=== PATIENT | female | born 1960 | race Caucasian/White ===

== ENCOUNTER 2024-01-03 10:26 | Outpatient (OUT) | payer BC, SELFPAY ==
[2024-01-03 10:54] LABS: Basophils Absolute Auto 0.1 10^3/uL (0.0-0.1); Basophils Percent Auto 0.8 % (0.2-2.0); Eosinophils Absolute Auto 0.2 10^3/uL (0.0-0.7); Eosinophils Percent Auto 2.2 % (0.9-7.0); Hematocrit 44.4 % (36.0-48.0); Hemoglobin 14.4 g/dL (12.0-16.0); Immature Granulocytes Abs Auto 0.01 10^3/uL (0.00-0.03); Immature Granulocytes Pct Auto 0.1 % (0.0-0.5); Lymphocytes Absolute Auto 2.2 10^3/uL (1.2-3.8); Lymphocytes Percent Auto 29.5 % (20.5-60.0); Mean Corpuscular HGB Conc 32.4 g/dL (29.9-35.2); Mean Corpuscular Hemoglobin 30.1 pg (26.7-34.0); Mean Corpuscular Volume 92.7 fL (81.0-99.0); Mean Platelet Volume 8.7 fL (9.5-13.5); Monocytes Absolute Auto 0.7 10^3/uL (0.3-0.8); Monocytes Percent Auto 8.6 % (1.7-12.0); Neutrophils Absolute Auto 4.5 10^3/uL (1.4-6.5); Neutrophils Percent Auto 58.8 % (43.0-75.0); Platelet Count 337 10^3/uL (150-450); Red Blood Count 4.79 10^6/uL (4.20-5.40); Red Cell Distribution Width 13.3 % (11.0-15.0); White Blood Count 7.6 10^3/uL (4.0-11.0)
[2024-01-03 12:24] LABS: Alanine Aminotransferase 22 U/L (14-59); Albumin Globulin Ratio 0.9; Albumin Level 3.8 g/dL (3.4-5.0); Alkaline Phosphatase 85 U/L (46-116); Anion Gap 13.1; Aspartate Amino Transferase 27 U/L (15-37); BUN Creatinine Ratio 10.1; Bilirubin Total 0.4 mg/dL (0.2-1.0); Calcium 9.9 mg/dL (8.5-10.1); Carbon Dioxide 30.8 mmol/L (21.0-32.0); Chloride 99 mmol/L (98-107); Estimated GFR (African America >60 (>=60 mL/min/1.73m^2); Estimated GFR (Non-African Ame 51 (>=60 mL/min/1.73m^2); Free T3 3.02 pg/mL (2.18-3.98); Globulin 4.4 g/dL; Glucose 99 mg/dL (74-106); Potassium 3.9 mmol/L (3.5-5.1); Sodium 139 mmol/L (136-145); Thyroid Stimulating Hormone 3.209 uIU/mL (0.358-3.740); Total Protein 8.2 g/dL (6.4-8.2)
[2024-01-03 12:26] LABS: Free T4 0.76 ng/dL (0.76-1.46)
[2024-01-04 04:08] LABS: Thyroid Peroxidase (TPO) Ab 372 IU/mL (0-34)
[2024-01-06 17:07] LABS: Thyroid Stim Immunoglobulin 0.13 IU/L (0.00-0.55)
== END 2024-01-03 10:27 | disposition home or self-care (01) ==
PROVIDERS: PCP Family Medicine; Visit Provider Physician Assistant Surgical
DX: E03.8 Other specified hypothyroidism (principal); E06.3 Autoimmune thyroiditis; R59.0 Localized enlarged lymph nodes
CPT/HCPCS: 36415; 80053; 84439; 84443; 84445; 84481; 85025; 86376

== ENCOUNTER 2025-01-23 06:43 | Outpatient (OUT) | payer BC, SELFPAY ==
--- NOTE | 2025-01-23 06:46 | MM_ITS ---
Patient Name: TRIPP CASTANO MR#: [id number] : 1960 Exam Date: 01/23/2025 Ordering Doctor: DR NIURKA VICENTE M.D. RADIOLOGY REPORT PROCEDURE: MM TOMOSYNTHESIS SCREENING BI COMPARISON: MG MAMM SCREEN AGUILAR W CAD, 01/29/2018. MG MAMM AGUILAR SCRN W CAD DIG, 08/21/2014. INDICATIONS: Screening Calculator Name NCI Breast Cancer Risk Assessment Tool 5 Year Breast Cancer Risk 3.00% Lifetime Breast Cancer Risk 11.60% Personal Breast Cancer No Personal Ovarian Cancer No Treatments None Family Cancers Father with melanoma cancer at age ~63; Grandmother-maternal with breast cancer at age 65; Grandfather-maternal with lung cancer at age 70. LOCATION: [facility] BREAST COMPOSITION: There are scattered areas of fibroglandular density. FINDINGS: DIAGNOSTIC CATEGORY 1--NEGATIVE. RIGHT BREAST: No significant suspicious finding. LEFT BREAST: No significant suspicious finding. RECOMMENDATIONS: ROUTINE MAMMOGRAM AND CLINICAL EVALUATION IN 12 MONTHS. Dictated by: Landon Saunders MD on 01/23/2025 at 10:19 Approved by: Landon Saunders MD on 01/23/2025 at 10:20
--- OUTSIDE RECORDS SUMMARY | 2025-01-23 06:46 | XMS_ITS | Clinical Summary ---
Author Organization [facility] Address [address] 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 Name Role Phone Jill Gan MD Primary Care Provider [phone] Allergies Active AllergyReactionsCriticalityNoted DateCommentsCeftriaxoneHivesHigh 01/10/20238229FqvpjklvaDtgnowbwuclhQtc95/25/2023LevothyroxineOther,DizzinessHigh 01/10/2023 Hypertension Sulfamethoxazole-TrimethoprimNausea Only01/10/2023Thyroid (Pork)Other,Dizziness High01/10/2023 Hypertension CkopmwnhpmaXoxisHhnc65/25/2023 Hypertension Medications MedicationSigDispense QuantityRefillsLast FilledStart DateEnd DateStatus aspirin 81 mg EC tablet Take 2 tablets (162 mg) by mouth once daily.Active albuterol sulfate (Proair Digihaler) 90 mcg/actuation aero powdr breath act w/sensor inhaler use as directdActive atorvastatin (Lipitor) 80 mg tablet Take 1 tablet (80 mg) by mouth once daily.Active carvedilol (Coreg) 12.5 mg tablet Take 1 tablet (12.5 mg) by mouth 2 times daily (morning and late afternoon). Active nitroglycerin (Nitrostat) 0.[address] 1 tablet (0.4 mg) under the tongue every 5 minutes if needed.Active oxyCODONE-acetaminophen (Percocet) 7.5-325 mg tablet Take 1 tablet by mouth every 6 hours if needed (BREAKTHROUGH PAIN.).Active omeprazole (PriLOSEC) [address] capsule Take 1 capsule (40 mg) by mouth once daily in the morning. Take before meals. 07/30/2023ctive chlorthalidone (Hygroton) 25 mg tablet Indications:Coronary artery disease involving ute mountain coronary artery of ute mountain heart without angina pectoris,Essential hypertension, benignTAKE 1 TABLET BY MOUTH EVERY DAY 90 tablet 5Active Active Problems ProblemNoted DateDiagnosed DateEncounter for pre-operative cardiovascular uzraecsjd30/19/2025Shortness of ixniuy6811/04/2024Hashimoto's rnoclnf1110/18/2023 Current djusmq0310/18/2023 Overview (10/18/2023): Added secondary to documentation in Social History. Qzweiggp96/01/2024MI less than 19,adult10/18/2023 Assessment & Plan (10/18/2023 3:23 PM EDT): Patient has lost approximately 23 pounds over the last 6 months. Reports has been seeing GI and endocrine Declines lung screening History of PTCA1AD (coronary artery disease)01/10/2023 Assessment & Plan (10/18/2023 3:22 PM EDT): 2011 RCA PCI/CHI Mid LAD 30% Circumflex luminal irregularities August 2022 MPI No ischemia, no infarct LVEF 61% Current daily activity greater than 4 METS without concerning symptoms Current every day lyxhnx9801/10/2023 Assessment & Plan (10/18/2023 3:15 PM EDT): Upwards to 1 pack daily Continued every day tobacco use. Have reviewed the negative cardiovascular impact of nicotine. Continues to decline pharmacological assistance. Essential hypertension, ypsjsp9301/10/2023 Assessment & Plan (10/18/2023 3:22 PM EDT): Optimal in office History of Mili ncowcsejwto90/25/2023History of myocardial infarction 01/10/20232755Jmiptfzaqgqbtv67/25/2023 Assessment & Plan (10/18/2023 3:23 PM EDT): High intensity statin Thyroid iasxvg2608/16/20182217Zpmirvglxkt11/31/2019Hypothyroidism due to Mili's mevcpwehwpc97/31/2019 Resolved Problems ProblemNoted DateDiagnosed DateResolved DateBody mass index (BMI) 24.0-24.9, adult/ Encounters DateTypeDepartmentCare VqciQxfzmsyquvm23/19/2025[place] [address] [place] [address] 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, 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[employer] Coronary artery disease involving ute mountain coronary artery of ute mountain heart without angina pectoris; Essential hypertension, nanwnn7012/04/2024Telephone [address] [address] Kalli Green RN Cardiac Lttyqarvi45/16/2025 7:41 AM EDT - 12/02/2024 11:59 PM EDTHospital Encounter [address] [address] Coronary artery disease involving ute mountain coronary artery of ute mountain heart without angina pectoris; History of PTCA; History of myocardial infarction; Essential hypertension, benign; Current smoker; Encounter for pre-operative cardiovascular clearance Discharge Disposition: Home12/02/20246383Whjzod64/10/2025Results Follow-Up [address] [phone] Shweta Vizcaino RN Nuclear Stress Test11/25/2024 7:48 AM EDT - 11/25/2024 11:59 PM EDTHospital Encounter [address] [address] Discharge Disposition: Home11/25/2024 7:48 AM EDT - 11/25/2024 11:59 PM EDT Hospital Encounter [facility] [address] [phone] Discharge Disposition: Home11/25/2024 7:48 AM EDT - 11/25/2024 11:59 PM EDT Hospital Encounter [facility] [address] [place] [address] Discharge Disposition: Home11/25/2024 7:48 AM EDT - 11/25/2024 11:59 PM EDT Hospital Encounter at [facility] [address] [phone] Discharge Disposition: Home11/25/2024 7:48 AM EDT - 11/25/2024 11:59 PM EDT Hospital Encounter [facility] [address] [phone] Coronary artery disease involving ute mountain coronary artery of ute mountain heart without angina pectoris; History of PTCA; History of myocardial infarction; Essential hypertension, benign; Current smoker; Encounter for pre-operative cardiovascular clearance Discharge Disposition: Home11/25/20242107Hitvjb01/19/2025 8:[address] [place] [phone] Nahum Cabrera MD Shortness of breath (Primary Dx); Coronary artery disease involving ute mountain coronary artery of ute mountain heart without angina pectoris; Mixed hyperlipidemia; History of PTCA; History of myocardial infarction; Essential hypertension, benign; BMI less than 19,adult; Current smoker; Encounter for pre-operative cardiovascular clearance Discharge Disposition: Home11/04/2024Travelfrom Last 3 Months Immunizations ImmunizationAdministration DatesNext DueNovel uwoeoutqz-N6S9-43, preservative-free01/09/2009 Family History Medical HistoryRelationNameCommentsAtrial fibrillationBrotherAcue myocardial infarctionFatherAlzheimer's diseaseFatherCardiac pacemakerFatherHyperlipidemia FatherHypertensionMotherBenignRelationNameStatusCommentsBrotherFatherMother Social History Tobacco UseTypesPacks/DayYears UsedDateSmoking Tobacco: Every OmiBstknlfwvd118 Smokeless Tobacco: Never Tobacco Cessation:Ready to Q uit: No; Counseling Given: Yes Alcohol UseStandard Drinks/WeekCommentsNever0 (1 standard drink = 0.6 oz pure alcohol)CommentsUnknownSex and Gender InformationValueDate RecordedSex Assigned at BirthNot on fileLegal OrlOjbtyy24/26/2022 6:01 PM ESTGender Identity Not on fileSexual OrientationNot on file Last Filed Vital Signs Vital SignReadingTime TakenCommentsBlood Cxpisygh856/8209 7:43 AM EDT Iqgfc8764 8:59 AM EDTTemperature--Respiratory Rate--Oxygen Saturation-- Inhaled Oxygen Concentration--Osycmd17.3 kg (113 lb)12/02/2024 7:43 AM EDTHeight 165.1 cm (5' 5 )12/02/2024 7:43 AM EDTBody Mass Index18.809 7:43 AM EDT Plan of Treatment DateTypeDepartmentCare Team (Latest Contact Info)Uywkerorhed17/27/2026 8:50 AM EDTOffice Visit [place] [address] [place] [address] Nahum Cabrera MD [address] [facility] [place] [address] Health MaintenanceDue DateLast DoneCommentsCT Klutnjkzrzxs06/30/1961Diabetes: Hemoglobin A1C1960FIT-DNA (Cologuard)1960FIT1960HIV Screening 1Lipid Panel1960 6575Cbfruaxstmgrw64/30/1961TSH Level1960Yearly Adult Wmazkhwb12/30/1961Hepatitis C Znhiexmlh41/30/1979Pneumococcal Vaccine (1 of 2 - PCV)1979Cervical Cancer Ikqwwsmml81/30/1982HPV/Vqomxo9804/17/1981Pap Smear1981DTaP/Tdap/Td Vaccines (1 - Tdap)04/17/19823144Yhyewbgpg12/30/2001MMR Vaccines (1 of 1 - Standard series)02/06/2009RSV High Risk: (Elderly (60+) or Population) (1 - Risk 50-74 years 1-dose series)2010Zoster Vaccines (1 of 2)2010Influenza Vaccine (#1)COVID-19 Vaccine (2 - season)503/9259Fsseahnujec28 Colorectal Cancer Kuottovas48/08/2034HIB VaccinesAged OutNo longer eligible based on patient's age to complete this topicHPV VaccinesAged OutNo longer eligible based on patient's age to complete this topicHepatitis A VaccinesAged OutNo longer eligible based on patient's age to complete this topicHepatitis B VaccinesAged OutNo longer eligible based on patient's age to complete this topic IPV VaccinesAged OutNo longer eligible based on patient's age to complete this topicMeningococcal VaccineAged OutNo longer eligible based on patient's age to complete this topicRotavirus VaccinesAged OutNo longer eligible based on patient's age to complete this topic Procedures Procedure NamePriorityDate/TimeAssociated DiagnosisCommentsTRANSTHORACIC ECHO (TTE) ISVBJQWFNcglawe26/16/2025 8:31 AM EDT Coronary artery disease involving ute mountain coronary artery of ute mountain heart without angina pectoris History of PTCA History of myocardial infarction Essential hypertension, benign Current smoker Encounter for pre-operative cardiovascular clearance STRESS TEST, REGADENOSON W MYOCARDIAL PERFUSION SPECT (MULTI STUDY)Routine 11/25/2024 10:22 AM EDT Coronary artery disease involving ute mountain coronary artery of ute mountain heart without angina pectoris History of PTCA History of myocardial infarction Essential hypertension, benign Current smoker Encounter for pre-operative cardiovascular clearance ECG 12-DJRQJonhopj41/19/2025 8:40 AM EDT Encounter for pre-operative cardiovascular clearance from Last 3 Months Results * TRANSTHORACIC ECHO (TTE) COMPLETE (12/02/2024 8:31 AM EDT)ComponentValueRef RangeTest MethodAnalysis TimePerformed AtPathologist SignatureAV mn ofra8jqSp SYNGOAV pk vel1.29m/sSYNGOLV Biplane EF64%SYNGOLVOT diam2.20cmSYNGOMV E/A ratio1.06SYNGOMV avg E/e' ratio14.00SYNGOLV EF70%NXWWHAGEM06noLjGNNVDLZOFn0.68 cmSYNGOAortic Valve Area by Continuity of Peak Velocity2.94eg4SGHAQIX pk grad7 mmHgSYNGOAortic Valve Area by Continuity of VTI2.99ah0ZGJVQXS A4C EF68.7SYNGO Specimen (Source)Anatomical Location / LateralityCollection Method / Volume Collection TimeReceived Time12/02/2024 7:45 AM EDT Impressions [facility] - 12/02/2024 12:57 PM EDT CONCLUSIONS: 1. The left ventricular systolic function is normal with a visually estimated ejection fraction of 70%. 2. Spectral Doppler shows a Grade I (impaired relaxation pattern) of left ventricular diastolic filling with normal left atrial filling pressure. 3. There is normal right ventricular global systolic function. 4. Mild mitral valve regurgitation. 5. Mild tricuspid regurgitation is visualized. 6. The Doppler estimated RVSP is moderately elevated at 51 mmHg. 7. When compared to previous study back in 2011 the only change is the development of moderate degree of pulmonary hypertension. Narrative [facility] - 12/02/2024 12:57 PM EDT ?[address], [place] [address] ? TRANSTHORACIC ECHOCARDIOGRAM REPORT Patient Name: ? MARY WEST ?Reading Physician: ?[id number] Nahum ?Rick COCHRAN Study Date: ? 12/02/2024 ? Ordering Provider: ?[id number] NAHUM ?RICK MRN/PID: ?[id number] ?Fellow: Accession#: ? [id number] ?Nurse: Date of /Age: ??1960 / 64 ?Sourcing Analyst: ?Rere Albrecht RDCS ?years Gender Assigned at ??F ? Additional Staff: : Height: ? 165.10 cm ? Admit Date: Weight: ? 51.26 kg ?Admission Status: ? Outpatient BSA / BMI: ?1.55 m2 / 18.80 ? Department Location: ??[facility] ?kg/m2 ? [place] Blood Pressure: 124 /82 mmHg Study Type: ?TRANSTHORACIC ECHO (TTE) COMPLETE Diagnosis/ICD: Atherosclerotic heart disease of ute mountain coronary artery without ? angina pectoris-I25.10; Coronary angioplasty status ? (PTCA)-Z98.61; Old myocardial infarction-I25.2; Essential ? (primary) hypertension-I10; Encounter for preprocedural ? cardiovascular examination-Z01.810 Indication: ?COPD, Smoker, HLD CPT Codes: ? Echo Complete w Full Doppler-[id number] Study Detail: The following Echo studies were performed: 2D, M-Mode, Doppler and ?color flow. PHYSICIAN INTERPRETATION: Left Ventricle: The left ventricular systolic function is normal with a visually estimated ejectionfraction of 70%. There are no regional wall motion abnormalities. The left ventricular cavity size is normal. There is left ventricular concentric remodeling. Spectral Doppler shows a Grade I (impaired relaxation pattern) of left ventricular diastolic filling with normal left atrial filling pressure. Left Atrium: The left atrial size is normal. Right Ventricle: The right ventricle is normal in size. There is normal right ventricular global systolic function. Right Atrium: The right atrial size is normal. Aortic Valve: The aortic valve is trileaflet. The aortic valve area by VTI is 2.83 cm? with a peak velocity of 1.29 m/s. The peak and mean gradients are 7 mmHg and 4 mmHg, respectively, with a dimensionless index of 0.75. There is no evidence of aortic valve regurgitation. Mitral Valve: The mitral valve is normal in structure. There is mild mitral valve regurgitation. The E Vmax is 1.00 m/s. Tricuspid Valve: The tricuspid valve is structurally normal. There is mild tricuspid regurgitation.The Doppler estimated right ventricular systolic pressure (RVSP) is moderately elevated at 51 mmHg. Pulmonic Valve: The pulmonic valve is structurally normal. There is no indication of pulmonic valveregurgitation. Pericardium: No pericardial effusion noted. Aorta: The aortic root is normal. CONCLUSIONS: 1. The left ventricular systolic function is normal with a visually estimated ejection fraction of 70%. 2. Spectral Doppler shows a Grade I (impaired relaxation pattern) of left ventricular diastolic filling with normal left atrial filling pressure. 3. There is normal right ventricular global systolic function. 4. Mild mitral valve regurgitation. 5. Mild tricuspid regurgitation is visualized. 6. The Doppler estimated RVSP is moderately elevated at 51 mmHg. 7. When compared to previous study back in 2011 the only change is the development of moderate degree of pulmonary hypertension. QUANTITATIVE DATA SUMMARY: 2D MEASUREMENTS: ? Normal Ranges: Ao Root d: ? 2.90 cm ? (2.0-3.7cm) LAs: ? 3.10 cm ? (2.7-4.0cm) RVIDd: ? 3.01 cm ? (0.9-3.6cm) IVSd: ?1.02 cm ? (0.6-1.1cm) LVPWd: ? 1.01 cm ? (0.6-1.1cm) LVIDd: ? 3.68 cm ? (3.9-5.9cm) LVIDs: ? 1.83 cm LV Mass Index: ?? 73.5 g/m2 LVEDV Index: ? 47.29 ml/m2 LV % FS ?50.3 % AORTA MEASUREMENTS: ? Normal Ranges: Asc Ao, d: ?2.60 cm (2.1-3.4cm) LV SYSTOLIC FUNCTION: ? Normal Ranges: EF-A4C View: 69 % (>=55%) EF-A2C View: ?57 % EF-Biplane: ? 64 % EF-Visual: ?70 % LV EF Reported: 70 % LV DIASTOLIC FUNCTION: ? Normal Ranges: MV Peak E: ? 1.00 m/s ??(0.7-1.2 m/s) MV Peak A: ? 0.94 m/s ??(0.42-0.7 m/s) E/A Ratio: ? 1.06 ?(1.0-2.2) MV e' 0.063 m/s (>8.0) MV lateral e' ?0.07 m/s MV medial e' ? 0.05 m/s E/e' Ratio: 15.91 (<8.0) AORTIC VALVE: ? Normal Ranges: AoV Vmax: 1.29 m/s (<=1.7m/s) AoV Peak P.7 mmHg (<20mmHg) AoV Mean PG: ? 4.0 mmHg (1.7-11.5mmHg) LVOT Max Pablo: 0.92 m/s (<=1.1m/s) AoV VTI: ? 29.50 cm (18-25cm) LVOT VTI: ?22.00 cm LVOT Diameter: ? 2.20 cm ??(1.8-2.4cm) AoV Area, VTI: ? 2.83 cm2 (2.5-5.5cm2) AoV Area,Vmax: ? 2.73 cm2 (2.5-4.5cm2) AoV Dimensionless Index: 0.75 TRICUSPID VALVE/RVSP: ?Normal Ranges: Peak TR Velocity: ? 3.47 m/s Est. RA Pressure: ? 3 mmHg RV Syst Pressure: 51 mmHg (< 30mmHg) IVC Diam: ? 2.00 cm PULMONIC VALVE: ?Normal Ranges: RVOT Vmax: ?0.75 m/s (0.6-0.9m/s) [id number] Nahum Cabrera MD Electronically signed on 12/02/2024 at 12:57:45 PM Final Procedure Note Nahum Cabrera MD - 12/02/2024 [facility] [address] [facility], [address], [place] [address] TRANSTHORACIC ECHOCARDIOGRAM REPORT Patient Name: MARY WEST Thalia Physician: [id number] Sibley Study Date: 12/02/2024 Ordering Provider: [id number] CABRERA MRN/PID: [id number] Fellow: Nurse: Date of /Age: 1 1960 Sourcing Analyst: Rere macdonald Gender Assigned at F Additional Staff: : Height: 165.10 cm Admit Date: Weight: 51.26 kg Admission Status: Outpatient BSA / BMI: 1.55 m2 / 18.80 Department Location: [facility] kg/m2 [place] Blood Pressure: 124 /82 mmHg Study Type: TRANSTHORACIC ECHO (TTE) COMPLETE Diagnosis/ICD: Atherosclerotic heart disease of ute mountain coronary arterywithout angina pectoris-I25.10; Coronary angioplasty status (PTCA)-Z98.61; Old myocardial infarction-I25.2; Essential (primary) hypertension-I10; Encounter for preprocedural cardiovascular examination-Z01.810 Indication: COPD, Smoker, HLD CPT Codes: Echo Complete w Full Doppler-[id number] Study Detail: The following Echo studies were performed: 2D, M-Mode,Doppler and color flow. PHYSICIAN INTERPRETATION: Left Ventricle: The left ventricular systolic function is normal with avisually estimated ejection fraction of 70%. There are no regional wallmotion abnormalities. The left ventricular cavity size is normal. There isleft ventricular concentric remodeling. Spectral Doppler shows a Grade I(impaired relaxation pattern) of left ventricular diastolic filling withnormal left atrial filling pressure. Left Atrium: The left atrial size is normal. Right Ventricle: The right ventricle is normal in size. There is normalright ventricular global systolic function. Right Atrium: The right atrial size is normal. Aortic Valve: The aortic valve is trileaflet. The aortic valve area by VTIis 2.83 cm? with a peak velocity of 1.29 m/s. The peak and mean gradientsare 7 mmHg and 4 mmHg, respectively, with a dimensionless index of 0.75.There is no evidence of aortic valve regurgitation. Mitral Valve: The mitral valve is normal in structure. There is mildmitral valve regurgitation. The E Vmax is 1.00 m/s. Tricuspid Valve: The tricuspid valve is structurally normal. There is mild tricuspid regurgitation. The Doppler estimated right ventricular systolic pressure (RVSP) is moderately elevated at 51 mmHg. Pulmonic Valve: The pulmonic valve is structurally normal. There is noindication of pulmonic valve regurgitation. Pericardium: No pericardial effusion noted. Aorta: The aortic root is normal. CONCLUSIONS: 1. The left ventricular systolic function is normal with a visuallyestimated ejection fraction of 70%. 2. Spectral Doppler shows a Grade I (impaired relaxation pattern) of left ventricular diastolic filling with normal left atrial filling pressure. 3. There is normal right ventricular global systolic function. 4. Mild mitral valve regurgitation. 5. Mild tricuspid regurgitation is visualized. 6. The Doppler estimated RVSP is moderately elevated at 51 mmHg. 7. When compared to previous study back in 2011 the only change is the development of moderate degree of pulmonary hypertension. QUANTITATIVE DATA SUMMARY: 2D MEASUREMENTS: Normal Ranges: Ao Root d: 2.90 cm (2.0-3.7cm) LAs: 3.10 cm (2.7-4.0cm) RVIDd: 3.01 cm (0.9-3.6cm) IVSd: 1.02 cm (0.6-1.1cm) LVPWd: 1.01 cm (0.6-1.1cm) LVIDd: 3.68 cm (3.9-5.9cm) LVIDs: 1.83 cm LV Mass Index: 73.5 g/m2 LVEDV Index: 47.29 ml/m2 LV % FS 50.3 % AORTA MEASUREMENTS: Normal Ranges: Asc Ao, d: 2.60 cm (2.1-3.4cm) LV SYSTOLIC FUNCTION: Normal Ranges: EF-A4C View: 69 % (>=55%) EF-A2C View: 57 % EF-Biplane: 64 % EF-Visual: 70 % LV EF Reported: 70 % LV DIASTOLIC FUNCTION: Normal Ranges: MV Peak E: 1.00 m/s (0.7-1.2 m/s) MV Peak A: 0.94 m/s (0.42-0.7 m/s) E/A Ratio: 1.06 (1.0-2.2) MV e' 0.063 m/s (>8.0) MV lateral e' 0.07 m/s MV medial e' 0.05 m/s E/e' Ratio: 15.91 (<8.0) AORTIC VALVE: Normal Ranges: AoV Vmax: 1.29 m/s (<=1.7m/s) AoV Peak P.7 mmHg (<20mmHg) AoV Mean P.0 mmHg (1.7-11.5mmHg) LVOT Max Pablo: 0.92 m/s (<=1.1m/s) AoV VTI: 29.50 cm (18-25cm) LVOT VTI: 22.00 cm LVOT Diameter: 2.20 cm (1.8-2.4cm) AoV Area, VTI: 2.83 cm2 (2.5-5.5cm2) AoV Area,Vmax: 2.73 cm2 (2.5-4.5cm2) AoV Dimensionless Index: 0.75 TRICUSPID VALVE/RVSP: Normal Ranges: Peak TR Velocity: 3.47 m/s Est. RA Pressure: 3 mmHg RV Syst Pressure: 51 mmHg (< 30mmHg) IVC Diam: 2.00 cm PULMONIC VALVE: Normal Ranges: RVOT Vmax: 0.75 m/s (0.6-0.9m/s) [id number] Nahum Cabrera MD Electronically signed on 12/02/2024 at 12:57:45 PM Final IMPRESSION: CONCLUSIONS: 1. The left ventricular systolic function is normal with a visuallyestimated ejection fraction of 70%. 2. Spectral Doppler shows a Grade I (impaired relaxation pattern) of left ventricular diastolic filling with normal left atrial filling pressure. 3. There is normal right ventricular global systolic function. 4. Mild mitral valve regurgitation. 5. Mild tricuspid regurgitation is visualized. 6. The Doppler estimated RVSP is moderately elevated at 51 mmHg. 7. When compared to previous study back in 2011 the only change is the development of moderate degree of pulmonary hypertension. Authorizing ProviderResult TypeResult StatusMostefany Cabrera [facility] [place] [place] ECHO PROCEDURESFinal ResultPerforming OrganizationAddressCity/State/ZIP CodePhone Number SYNGO * STRESS TEST, REGADENOSON W MYOCARDIAL PERFUSION SPECT (MULTI STUDY) (11/25/2024 10:22 AM EDT)Anatomical RegionLateralityModalityNuclear Medicine Specimen (Source)Anatomical Location / LateralityCollection Method / Volume Collection TimeReceived Time11/25/2024 6:15 PM EDT11/25/2024 6:15 PM EDT Impressions 11/25/2024 6:14 PM EDT Normal Lexiscan Myoview cardiac perfusion stress test. No evidence of ischemia or myocardial infarction by perfusion imaging. Normal left ventricular systolic function, ejection fraction 86%. When compared to a study from 2016, no significant interval changes were seen. ? Signed by: Ksenia Valdez 11/25/2024 6:14 PM Dictation workstation: ?? [id number] Narrative 11/25/2024 6:14 PM EDT Interpreted By: Ksenia Valdez and Giannuzzi Michael STUDY: MYOCARDIAL PERFUSION STRESS TEST WITH LEXISCAN ?? Performing facility: [facility], [address] [place] [address], [address], [place] [address] [facility] Provider: ??Nahum Cabrera MD PCP: ??Dr. Jamel Gan Supervising provider: ??Ksenia Valdez MD, FACC ?? INDICATION: Signs/Symptoms: ?? ,I25.10 Atherosclerotic heart disease of ute mountain coronary artery without angina pectoris,Z98.61 Coronary angioplasty status,I25.2 Old myocardial infarction,I10 Essential (primary) hypertension,F17.200 Nicotine dependence, unspecified, uncomplicated,Z01.810 Encounter for preprocedural cardiovascular examination ?? HISTORY: Gender: ??F; Age: ??64 y/o ; Height: ??HT 165.1 cm cm; Weight: ?? WT 51.347 kg kg. ?? CAD; ??High Cholesterol; ??Previous [place];2011 ??HTN; ??SOB; Currently smoking. ?? Cardiac catheterization on 2011. ??PTCA on 2011. ?? COMPARISON: Previous nuclear testing completed at [facility]. ? ACCESSION NUMBER(S): [id number] ?? ORDERING CLINICIAN: NAHUM CABRERA ?? TECHNIQUE: ONE DAY protocol. Stress injection: Date:11-25-24, 33.2 mCi of Myoview IV 20 seconds after rapid injection of Lexiscan. Rest injection: Date: 11-25-24, 11.1 mCi of Myoview IV at rest. The patient had a rapid injection of ??0.4 mg of Lexiscan IV over 10 seconds. Imaging was performed by ??gated tomographic technique. Reason for Lexiscan: Back pain ?? STRESS TEST DATA: Resting heart rate was 75 BPM. Resting blood pressure was 122/86 mmHg. Peak blood pressure was 116/82 mmHg. Peak heart rate was 102 BPM. Aminophylline given 50mg IV. TEST TERMINATED DUE TO: ??Protocol completed ?? FINDINGS: STRESS TEST RESULTS: ?? Resting electrocardiogram revealed normal sinus rhythm. There were no significant ischemic ECG changes or dysrhythmias. The patient did not have chest pains/symptoms during procedure. There was a normal recovery phase. ?? IMAGING RESULTS: ?? Image quality was good. Rest and stress tomographic images were reviewed and revealed normal perfusion without evidence of ischemia, myocardial infarction, or left ventricular dilatation with stress. Overall left ventricular systolic function appeared to be normal without regional wall motion abnormalities. Ejection fraction was 86%. TID is 1.08 and is normal. There was no evidence of ??attenuation artifact. ?? Procedure Note Ksenia Valdez MD - 11/25/2024 Interpreted By: Ksenia Valdez and Giannuzzi Michael STUDY: MYOCARDIAL PERFUSION STRESS TEST WITH LEXISCAN Performing facility: [facility], [address] [place] [address], [address], [place] [address] [facility] HOSPITAL Provider: Nahum Cabrera MD PCP: Dr. Jamel Gan Supervising provider: Ksenia Valdez MD, [facility] INDICATION: Signs/Symptoms: ,I25.10 Atherosclerotic heart disease of [place] coronary artery without angina pectoris,Z98.61 Coronary angioplasty status,I25.2 Old myocardial infarction,I10 Essential (primary) hypertension,F17.200 Nicotine dependence, unspecified, uncomplicated,Z01.810 Encounter for preprocedural cardiovascular examination HISTORY: Gender: F; Age: 64 y/o ; Height: HT 165.1 cm cm; Weight: WT 51.347 kg kg. CAD; High Cholesterol; Previous [place];2011 HTN; SOB; Currently smoking. Cardiac catheterization on 2011. PTCA on 2011. COMPARISON: Previous nuclear testing completed [id number] at [facility]. ACCESSION NUMBER(S): [id number] ORDERING CLINICIAN: NAHUM CABRERA TECHNIQUE: ONE DAY protocol. Stress injection: Date:11-25-24, 33.2 mCi of Myoview IV 20 seconds after rapid injection of Lexiscan. Rest injection: Date: 11-25-24, 11.1 mCi of Myoview IV at rest. The patient had a rapid injection of 0.4 mg of Lexiscan IV over 10 seconds. Imaging was performed by gated tomographic technique. Reason for Lexiscan: Back pain STRESS TEST DATA: Resting heart rate was 75 BPM. Resting blood pressure was 122/86 mmHg. Peak blood pressure was 116/82 mmHg. Peak heart rate was 102 BPM. Aminophylline given 50mg IV. TEST TERMINATED DUE TO: Protocol completed FINDINGS: STRESS TEST RESULTS: Resting electrocardiogram revealed normal sinus rhythm. There were no significant ischemic ECG changes or dysrhythmias. The patient did not have chest pains/symptoms during procedure. There was a normal recovery phase. IMAGING RESULTS: Image quality was good. Rest and stress tomographic images were reviewed and revealed normal perfusion without evidence of ischemia, myocardial infarction, or left ventricular dilatation with stress. Overall left ventricular systolic function appeared to be normal without regional wall motion abnormalities. Ejection fraction was 86%. TID is 1.08 and is normal. There was no evidence of attenuation artifact. IMPRESSION: Normal Lexiscan Myoview cardiac perfusion stress test. No evidence of ischemia or myocardial infarction by perfusion imaging. Normal left ventricular systolic function, ejection fraction 86%. When compared to a study from 2016, no significant interval changes were seen. Signed by: Ksenia Valdez 11/25/2024 6:14 PM Dictation workstation: [id number] Authorizing ProviderResult TypeResult StatusMostefany Cabrera [facility] [place] STRESS PROCEDURESFinal Result * ECG 12 Lead (11/04/2024 8:40 AM EDT)Specimen (Source)Anatomical Location / LateralityCollection Method / VolumeCollection TimeReceived Time Narrative [facility] - 11/04/2024 9:29 AM EDT Normal sinus rhythm with borderline right atrial enlargement Authorizing ProviderResult TypeResult StatusMourjuli Cabrera MDECManjeet ORDERABLES Final ResultPerforming OrganizationAddressCity/State/ZIP CodePhone Number CPACS from Last 3 Months Insurance Care Teams Team MemberRelationshipSpecialtyStart DateEnd Jill Gan MD [address] [place] [address] [address] [place] [address] PCP - Tyublhu25/28/19
--- OUTSIDE RECORDS SUMMARY | 2025-01-23 06:46 | XMS_ITS | Clinical Summary ---
Author Organization [facility] Address [address], [address] [place] [address] Care Team Providers Care Wafer Cleaner Name Role Phone Jill Gan MD Primary Care Provider [phone] Allergies Active AllergyReactionsCriticalityNoted DateCommentsCeftriaxoneHives,RashHigh 08/16/2018 Itching, swelling throughout CelecoxibOther (See Comments),CrrvlmmxxkbaJjw56/31/2019 Tachycardia CephalosporinsOther (See Comments)11/23/2023LevothyroxineDizziness or Vertigo, Other (See Comments)High08/16/2018 Hypertension High BP 200s Vhmfgvqihtmiusev08/01/2025 Nausea Sulfamethoxazole-TrimethoprimNausea Only,Nausea And LobkousjKku69/31/2019Thyroid Dizziness or Vertigo,Other (See Comments)High01/10/2023 Hypertension Fiejhgrvnege06/06/2024 Nausea VenlafaxineOther (See Comments)High01/10/2023 Hypertension Medications MedicationSigDispense QuantityRefillsLast FilledStart DateEnd DateStatus pregabalin (LYRICA) 50 MG capsule Take 1 capsule by mouth 2 times daily. Max Daily Amount: 100 mg07/06/2023ctive oxyCODONE-Acetaminophen (PERCOCET PO) Take by mouth07/16/2023ctive oxyCODONE-acetaminophen (PERCOCET) 7.5-325 MG per tablet TAKE 1 TABLET (7.5MG) ORALLY EVERY 6 HOURS NEEDED FOR PAIN FOR 30 DAYSActive omeprazole (PRILOSEC) 40 MG delayed release capsule Take 1 capsule by mouth07/30/2023ctive nitroGLYCERIN (NITROSTAT) 0.[address] 1 tablet under the tongue every 5 minutes as neededActive LEVSIN 0.125 MG tablet Take 2 tablets by mouth07/16/2023ctive furosemide (LASIX) 20 MG tablet Take 1 tablet by mouth daily as xazslw4201/10/2021ctive chlorthalidone (HYGROTON) 25 MG tablet Take 1 tablet by mouth dailyActive carvedilol (COREG) 12.5 MG tablet Take 1 tablet by mouth 2 times daily05/17/2018Active LIPITOR 80 MG tablet Take by mouth05/17/2018Active aspirin 81 MG EC tablet Take 2 tablets by mouth dailyActive Albuterol Sulfate, sensor, (PROAIR DIGIHALER) 108 (90 Base) MCG/ACT AEPB use as directdActive Active Problems ProblemNoted DateDiagnosed DateHypothyroidism due to Mili's thyroiditis 10/04/2023 Social History Tobacco UseTypesPacks/DayYears UsedDateSmoking Tobacco: Every AwhKvhoyfyiti984 Smokeless Tobacco: Never Tobacco Cessation:Ready to Q uit: Not Asked; Counseling Given: Not Answered CommentsUnknownSex and Gender InformationValueDate RecordedSex Assigned at BirthNot on fileLegal EprTxtdfe83/13/2013 1:23 AM ESTGender IdentityNot on fileSexual OrientationNot on file Last Filed Vital Signs Vital SignReadingTime TakenCommentsBlood Ykpwwwqa796/7005 9:05 AM EDT Hfowk393207/17/2024 9:05 AM EDTTemperature--Respiratory Rate--Oxygen Frubcgtoyz43% 01/16/2024 2:33 PM EDTInhaled Oxygen Concentration--Xkygze90.2 kg (115 lb) 07/17/2024 9:05 AM QFJCyxvfu112.1 cm (5' 5 )07/17/2024 9:05 AM EDTBody Mass Index19.14007/17/2024 9:05 AM EDT Plan of Treatment Health MaintenanceDue DateLast HhswKhhwnemaBfssiq43/30/1971Depression Screen 1972HIV urixel5404/17/1975Hepatitis C cbuwgk7804/17/1978DTaP/Tdap/Td vaccine (1 - Tdap)1979Pneumococcal 50+ years Vaccine (1 of 2 - PCV)1979Pap smear1981Cervical cancer bdmbwb6704/17/1990HPV (without or with Pap) 1990Breast cancer ldvuld1704/17/20006711Ugmdpajfvrd90/30/2006Colorectal Cancer Ojbkah1004/17/2005FIT/FOBT: Average risk2005Fecal-DNA (Cologuard): Average risk2005Sigmoidoscopy/CT ajvkwioynycy71/30/2006Lung Cancer Screening &/or Xwlycmfndk76/30/2011Shingles vaccine (1 of 2)2010Flu vaccine (#1) COVID-19 Vaccine (2 - season) Respiratory Syncytial Virus (RSV) or age 60 yrs+ (1 - 1-dose 75+ series)2035Hepatitis A vaccineAged OutNo longer eligible based on patient's age to complete this topicHepatitis B vaccineAged OutNo longer eligible based on patient's age to complete this topicHib vaccineAged OutNo longer eligible based on patient's age to complete this topicMeningococcal (ACWY) vaccineAged OutNo longer eligible based on patient's age to complete this topicMeningococcal B vaccineAged OutNo longer eligible based on patient's age to complete this topicPolio vaccineAged OutNo longer eligible based on patient's age to complete this topic Care Teams Team MemberRelationshipSpecialtyStart DateEnd Date Jill Gan MD [address] [place] [id number] PCP - GeneralFamily Medicine10/15/23
--- OUTSIDE RECORDS SUMMARY | 2025-01-23 06:46 | XMS_ITS | Clinical Summary ---
Author Organization [facility] Address [address] [place] [address] Care Team Providers Care Floor Care Specialist Name Role Phone Jill Gan MD Primary Care Provider [phone] Allergies Active AllergyReactionsCriticalityNoted DateCommentsCeftriaxoneHives,RashHigh 08/16/2018 Other Reaction(s): Swelling of Lip/Tongue/Throat Itching, swelling throughout YegnqlpalFoqpqkrmzvdsXdt39/31/2019 Tachycardia FvkazzbvjuqrjvWhwpzjc30/06/2024LevothyroxineOther,EncgmzyrnOgmt04/31/2019 - Dizziness or Vertigo - Uncontrolled hypertension (High BP 200s) Sulfamethoxazole Nausea Sulfamethoxazole-TrimethoprimNausea And RdedemumOay65/31/2019ThyroidDizziness High01/10/2023 - Dizziness or Vertigo - Hypertension Pltkvzunrfoi43/06/2024 Nausea NcxrpghflmnHxlcgvyNmlw85/25/2023 Hypertension Medications MedicationSigDispense QuantityRefillsLast FilledStart DateEnd DateStatus albuterol HFA 90 mcg/act inhaler Inhale 2 puffs every 4 (four) hours if needed Refills: 3; Qty: 18 Each; Provider: Elvia Melchor ( )09/17/2023ctive aspirin 81 MG EC tablet Take 81 mg by mouth 2 times dailyActive atorvastatin (Lipitor) 80 MG tablet Take 1 tablet by mouth Daily07/04/2023ctive carvedilol (Coreg) 6.25 MG tablet Take 1 tablet (6.25 mg) by mouth 2 times daily (morning and late afternoon). Active chlorthalidone (Hygroton) 25 MG tablet 1 tablet In the morning with food, orally once a day Provider: Elvia Melchor ( )05/10/2023ctive nitroglycerin (Nitrostat) 0.[address] 0.4 mg under the tongue if asbfrq3205/10/2023ctive levothyroxine (Synthroid, Levoxyl) 25 MCG tablet Take 12.5 mcg by mouth Daily10/04/2023ctive oxyCODONE-acetaminophen (Percocet) 7.5-325 MG tablet Take 1 tablet by mouth every 6 (six) hours if needed 30 days11/05/2023ctive pregabalin (Lyrica) 50 MG capsule Take 1 capsule (50 mg) by mouth 2 times a day.07/06/2023ctive Immunizations ImmunizationAdministration DatesNext DueJanssen FIIQ-YiC-937/08/2021Novel tuqxiotog-H8X5-37, preservative-free01/09/2009 Family History Medical HistoryRelationNameCommentsAlzheimer's diseaseFatherCancerFatherHeart diseaseFatherHypertensionFatherLung cancerMaternal GrandfatherAlzheimer's diseaseMaternal GrandmotherBreast cancerMaternal GrandmotherHypertensionMother Heart diseasePaternal GrandfatherDiabetesPaternal GrandmotherHypertension Paternal GrandmotherStrokePaternal GrandmotherHeart diseaseSiblingHypertension SiblingRelationNameStatusCommentsFatherDeceasedMaternal GrandfatherMaternal GrandmotherMotherPaternal GrandfatherPaternal GrandmotherSibling Social History Tobacco UseTypesPacks/DayYears UsedDateSmoking Tobacco: Never Assessed CommentsUnknownSex and Gender InformationValueDate RecordedSex Assigned at Not on fileLegal MecYokidu68/15/2023 6:40 PM EDTGender IdentityNot on fileSexual OrientationNot on file Last Filed Vital Signs Vital SignReadingTime TakenCommentsBlood Kcnikmgl226/8303/13/2018 12:00 PM EST Pulse--Temperature--Respiratory Rate--Oxygen Saturation--Inhaled Oxygen Concentration--Lgycpa96.2 kg (157 lb)03/13/2018 12:00 PM WTWGcvxzh990.6 cm (5' 6 )03/13/2018 12:00 PM ESTBody Mass Index25.34105/14/2017 12:00 PM EST Plan of Treatment Not on file Insurance Care Teams Team MemberRelationshipSpecialtyStart DateEnd Date Jill Gan MD PCP - GeneralFamily Medicine12/11/23
--- OUTSIDE RECORDS SUMMARY | 2025-01-23 06:46 | XMS_ITS | Clinical Summary ---
Author Organization [facility] Address [address] [place] [address] Care Team Providers Care Instant Printer Operator Name Role Phone Unavailable Primary Care Provider Unavailabl e Allergies Active AllergyReactionsCriticalityNoted DateComments Sulfamethoxazole-RxrgrlsnpifzHjwwonzm98/31/2019CelecoxibOther: See Comments 08/16/2018 Tachycardia LevothyroxineOther: See Myeqcjva30/31/2019 High BP 200s YajlpifcfndGsou49/31/2019 Itching, swelling throughout Medications MedicationSigDispense QuantityRefillsLast FilledStart DateEnd DateStatus lisinopril (ZESTRIL, PRINIVIL) 5 mg tablet Take 5 mg by mouth twice daily.Active carvedilol (COREG) 12.5 mg tablet Take 12.5 mg by mouth twice daily.Active atorvastatin (LIPITOR) 80 mg tablet Take 80 mg by mouth daily at bedtime.Active albuterol HFA (PROVENTIL HFA, VENTOLIN HFA) 90 mcg/actuation inhaler INHALE 2 PUFFS BY MOUTH EVERY 4 HOURS NEEDED FOR COUGH OR UOFGKCD022 Active oxyCODONE-acetaminophen (PERCOCET) 7.5-325 mg tablet TAKE 1 - 2 TABLETS BY MOUTH EVERY 6 HOURS NEEDED FOR 30 [id number] ciprofloxacin HCl (CIPRO) 500 mg tablet Take 500 mg by mouth twice daily.Active ARMOUR THYROID 30 mg tablet Take 1 tablet by mouth once daily. 100 tablet Active Active Problems ProblemNoted DateDiagnosed DateHypothyroidism due to Mili's thyroiditis 08/16/20183463Yxqvcfjbzfd56/31/2019Thyroid spbuqf0108/16/2018 Social History Tobacco UseTypesPacks/DayYears UsedDateSmoking Tobacco: Never AssessedArea Deprivation IndexAnswerDate RecordedNational Score (1-100), lower number is lower riskNot on file02/24/2020State Score (1-10), lower number is lower riskNot on file02/24/2020Data from: https://www.neighborhoodatlas.[facility].edu/. Last address used for calculationNot on file02/24/2020CommentsNoSex and Gender InformationValueDate RecordedSex Assigned at BirthNot on fileLegal Sex Gcdbzv9807/15/2018 2:27 PM EDTGender IdentityNot on fileSexual OrientationNot on file Last Filed Vital Signs Vital SignReadingTime TakenCommentsBlood Ccqxracp377/85008/16/2018 10:36 AM EDT Eyfwu94442/31/2019 10:36 AM EDTTemperature--Respiratory Rate--Oxygen Saturation- -Inhaled Oxygen Concentration--Rjbwbu62.9 kg (149 lb 9.6 oz)08/16/2018 10:36 AM MUSTqkqqc128.4 cm (5' 5.91 )08/16/2018 10:36 AM EDTBody Mass Index24.21 08/16/2018 10:36 AM EDT Plan of Treatment Health MaintenanceDue DateLast DoneCommentsAnxiety Ftmvdfmpv16/30/1979Depression Juarnvabx40/30/1979HIV Teebblpsg21/30/1979Hepatitis C Emxsnvigt46/30/1979 DTaP,Tdap,Td Vaccine (1 - Tdap)1979Cervical Cancer Pkhogojtt88/30/1982 Mammogram Rjdnzsgbq81/30/2001CT Atezhzpvzakp89/30/2006Cologuard (FIT-DNA) 04/17/20051735Lgiachvauuj38/30/2006Colorectal Cancer Rmztcwfxz26/30/2006Fecal Occult Blood2005Lipid Fvzehrmgz82/30/5989Gsndtoonkfgmz13/30/2006Pneumococcal Vaccine: 50+ (1 of 1 - PCV)2010Shingrix Vaccine (1 of 2)2010Diabetes Iqmzvsjlk50, 08/16/2018Covid-19 Vaccine (1 - 2024- season) 2024Influenza Vaccine (#1)RSV Vaccine (1 - 1-dose 75+ series)2035 Procedures Procedure NamePriorityDate/TimeAssociated DiagnosisCommentsBASIC METABOLIC PANEL Nsdzuxm6808/16/2018 12:39 PM EDT Prediabetes from Last 3 Months or Most Recently Relevant to Health Maintenance Results * (ABNORMAL) BASIC METABOLIC PNL (08/16/2018 12:39 PM EDT)ComponentValueRef RangeTest MethodAnalysis TimePerformed AtPathologist RoreaskltRgdhabx145(H)74 - 99 mg/dL08/16/2018 4:58 PM EDTCgalion hospitaland Clinic LaboratoriesComment: The [place] Diabetes Association (ADA) provides guidance for cutoff values for fasting glucose and random glucose. The ADA defines fasting as no caloric intake for at least 8 hours. Fasting plasma glucose results between 100 to 125 mg/dL indicate increased risk for diabetes (prediabetes). Fasting plasma glucose results greater than or equal to 126 mg/dL meet the criteria for diagnosis of diabetes. In the absence of unequivocal hyperglycemia, results should be confirmed by repeat testing. In a patient with classic symptoms of hyperglycemia or hyperglycemic crisis, random plasma glucose results greater than or equal to 200 mg/dL meet the criteria for diagnosis of diabetes. Reference: Standards of Medical Care in Diabetes 2016, [place] [employer] Association. Diabetes Care. 2016.39(Suppl 1). KEA507 - 21 mg/dL08/16/2018 4:58 PM EDTCleveland Clinic LaboratoriesCreatinine 0.880.58 - 0.96 mg/dL08/16/2018 4:58 PM EDTCleveland Clinic LaboratoriesSodium 161087 - 144 mmol/L08/16/2018 4:58 PM EDTCleveland Clinic LaboratoriesPotassium 5.13.7 - 5.1 mmol/L08/16/2018 4:58 PM EDTCgalion hospitaland Clinic CaowhjfludqjFppahkai27 97 - 105 mmol/L08/16/2018 4:58 PM EDTCleveland Clinic LbnbgaylaeenJX94304 - 30 mmol/L08/16/2018 4:58 PM EDTCgalion hospitaland Clinic LaboratoriesAnion Zmd499 - 18 mmol/L08/16/2018 4:58 PM [facility]TCAv[facility] LaboratoriesCalcium9.88.5 - 10.2 mg/dL08/16/2018 4:58 PM EDTCAvita Health System [facility] Hospital LaboratorieseGFR->60 08/16/2018 4:58 PM EDTCAvita Health System Ontario Hospital LaboratorieseGFR-All Other Races>60. 08/16/2018 4:58 PM EDTCAvita Health System Ontario Hospital LaboratoriesComment: eGFR (Estimated GFR) Units of measure: mL/min/1.73 meters squared eGFR is derived from the reexpressed MDRD Study equation using the following parameters: serum creatinine, age, gender and race. The creatinine assay has been calibrated to be traceable to IDMS. An eGFR <60 mL/min/1.73m2 for >3 months is consistent with chronic kidney disease. Refer to KDOQI guidelines for clinical interpretation. In patients with unstable renal function, e.g. those with acute kidney injury, the eGFR may not accurately reflect actual GFR. Specimen (Source)Anatomical Location / LateralityCollection Method / Volume Collection TimeReceived TimeBlood specimen (specimen)BLOOD SPECIMEN / Unknown 08/16/2018 12:39 PM EDT08/16/2018 12:41 PM EDT Narrative Authorizing ProviderResult TypeResult StatusBette Copeland MDLABORATORY Final ResultPerforming OrganizationAddressCity/State/ZIP CodePhone Number [facility] [address] [place] [address] [facility] [address] [place] [address] from Last 3 Months or Most Recently Relevant to Health Maintenance Insurance
--- OUTSIDE RECORDS SUMMARY | 2025-01-23 06:46 | XMS_ITS | CCD ---
Author Organization [facility] CliniSysd Care Team Providers Care Securities Supervisor Name Role Phone Niurka Vicente Unavailable Unavailable Unavailable Elton Vicente Unavailable Loretta Way Unavailable Niurka Vicente Unavailable DR EVAN DEMPSEY Attending Unavailable KE, DR RUIZ Consulting Unavailable KE, DR RUIZ Admitting Unavailable DR NIURKA VICENTE Primary Care Unavailable NIURKA VICENTE Primary Care Physician [phone] Dr. Niurka Vicente Primary Care Unav ailable Evan Dempsey Attending Unavailable Cinthia, Dr. Niurka Snell Primary Care Unav ailable Cinthia, Dr. Niurka Snell Primary Care Unav ailEvan Ponce Attending Unavailable Cinthia, Dr. Niurka Snell Primary Care Unav ailEvan Pocne Attending Unavailable Evan Dempsey Referring Unavailable Niurka Vicente MD Primary Care Provider Lyndsey Martinez Admitting Unavailable Lyndsey Martinez Attending Unavailable Lyndsey Martinez Referring Unavailable NIURKA VICENTE Admitting Unavailable NIURKA VICENTE Attending Unavailable Lyndsey aMrtinez Admitting Unavailable Lyndsey Martinez Attending Unavailable Maximiliann, Evan P Consulting Unavailable Mikael Cote Admitting Unavailable Mikael Cote Attending Unavailable McGuinn, Evan P Consulting Unavailable McGuinn, Evan P Consulting Unavailable McGuinn, Evan P Consulting Unavailable McGuinn, Evan P Consulting Unavailable McGuinn, Evan P Consulting Unavailable McGuinn, Evan P Consulting Unavailable McGuinn, Evan P Consulting Unavailable McGuinn, Evan P Consulting Unavailable Lyndsey Martinez Attending Unavailable MD Niurka Vicente Primary Care Provider [phone] Attending Provider MD Niurka Vicente Primary Care Provider MD Loretta Way Attending Provider CASSANDRA WILLARD Referring Unavailable NIURKA VICENTE Primary Care Unavailable MD Niurka Vicente Primary Care Provider MD Loretta Way Attending Provider ALIVIA SALDAÑA Attending Unavailable ALIVIA SALDAÑA Attending Unavailable MD Niurka Vicente Primary Care Provider MD Loretta Way Attending Provider Niurka Vicente MD Primary Care Provider Loretta Way MD Attending Provider Niurka Vicente MD Primary Care Provider Maxi Dos Santos DO Attending Provider Niurka Vicente MD Primary Care Provider Sunil Sifuentes Attending Unavailable Sunil Sifuentes Admitting Unavailable Sunil Sifuentes Attending Unavailable Niurka Vicente MD Primary Care Provider Niurka Vicente MD Attending Provider Raya SMITH Maxi N Attending Provider Niurka Vicente MD Primary Care Provider [phone] Niurka Vicente MD Attending Provider [phone] Admitting Unavailable Loretta Way Attending Unavailable Niurka Vicente Primary Care Unavailable Bialpola, Maxi N Admitting Unavailable Raya Maxi N Attending Unavailable Niurka Vicente Primary Care Unavailable Raya Maxi N Attending Unavailable Niurka Vicente Primary Care Unavailable Bialpola, Maxi N Admitting Unavailable Niurka Vicente MD Primary Care Provider [phone] NAHUM BAUMANN Attending Unavailable EMIL REYNA Referring Unavailable NIURKA VICENTE Primary Care Unavailable NAHUM BAUMANN Referring Unavailable NIURKA VICENTE Primary Care Unavailable NAHUM BAUMANN Referring Unavailable NIURKA VICENTE Primary Care Unavailable Niurka Vicente MD Primary Care Provider Maxi Dos Santos DO Attending Provider [phone] Niurka Vicente MD Attending Provider Allergies Allergy ClassificationReported Allergen(s)Allergy TypeDate of OnsetReaction(s) Facility (20 sources)cefTRIAXone; Translations: [Rocephin]Drug AllergyH[facility]ange [facility] Rep[facility] (20 sources)celecoxib; Translations: [CeleBREX CAPS]Drug Jgpatjy51-06-6833 [facility] ([facility] sources)levothyroxine; Translations: [Levothyroxine Sodium CAPS]Drug Allergy 78-61-9558Ossalklthopl disorder, systemic arterial (disorder), Other, Dizziness [facility] (20 sources)Sulfamethoxazole / Trimethoprim; Translations: [Bactrim]Drug Allergy 90-77-7154Rpawlcbz (disorder), Nausea Only, Nausea And VomitingK[facility] (11 sources)thyroid (HALFWAY); Translations: [[place] Thyroid]Drug Hboohgb32-40-9282 [facility] 250 DO Work Phone: (19 sources)venlafaxine; Translations: [Effexor]Drug Gvxzygv94-23-3516Vezsl, [facility] 250 DO Work Phone: (1 source)cefTRIAXoneDrug AllergyTrinity Health System Repository (3 sources)celecoxib; Translations: [CeleBREX]Drug [facility]ergyTr[facility] System Repository (3 sources)[place]; Translations: [Synthroid][facility]rug [facility]ergyTr[facility] Repository (1 source)Sulfamethoxazole / TrimethoprimDrug AllergyTrinity Health System Repository (1 source)thyroid (HALFWAY)Drug [facility]ergyTr[facility] Repository (20 sources)cefTRIAXone; Translations: [ceftriaxone]Drug Tytjcyk01-81-0930[facility] (4 sources)Rocephin *CEPHALOSPORINS*Propensity to adverse mxsmdauih87-94-6113 [facility] [employer] Other (10 sources)thyroid, porcine; Translations: [THYROID (PORK)]Drug Allergy 81-44-4333Nxpnp, [facility] Work Phone: (20 sources)celecoxib; Translations: [CELECOXIB]Drug Zvqnpwt98-08-[address] [facility] (20 sources)Cephalosporins (Antibiotic)Allergy to xyuydnxjd54-08-1291JkrrvotOhiohealth Berger HospitalComment on above:Onset Date: 08/03/2014 (20 sources)levothyroxine; Translations: [LEVOTHYROXINE]Drug Vuqdfvf81-77-[address] [facility] (5 sources)levothyroxineDrug Fwxuedd65-14-8929Ujjhxwt ReactionMount St. Mary Hospital (20 sources)SulfamethoxazoleDrug Aqehtuc92-90-3728OtzfmhNznrnrlqcSalem Regional Medical Center (20 sources)TrimethoprimDrug Qvcwmiw30-89-4952AmywcnFogzcdwtbDoctors Hospital (2 sources)No Known Medication Allergies; Translations: [No Known Medication Allergies]Propensity to adverse reactions (disorder)[facility] Repository (19 sources)thyroid medicationsAllergy to hqeddntmx15-16-0694IwxvqrdUniversity Hospitals [facility] (2 sources)Sulfamethoxazole / Trimethoprim; Translations: [SULFAMETHOXAZOLE-TRIMETHOPRIM]Drug Vmrznsl74-76-1800[facility] Repository (2 sources)venlafaxine; Translations: [VENLAFAXINE]Drug Yiyvnvc15-33-9295[facility] Rep[facility] Medications Current Medications MedicationDrug Class(es)DatesSig (Normalized)Sig (Original)acetaminophen 325 mg oral tablet (1 source)Start: 69-55-7968yoji 2 tablets by mouth every six hours as needed for painacetaminophen 325 mg Tab 650 mg = 2 tab(s), Oral, q6hr, PRN Pain, Refills(s) 0 Start Date: 09/11/22 Status: Orderedacetaminophen 325 mg / oxyCODONE hydrochloride 7.5 mg oral tablet (20 sources)Opioid AgonistStart: 12-23-2024 End: 11-85-5810ynqm 1 tablet by mouth every six hours as needed for pain Oxycodone-Acetaminophen (Percocet) 7.5-325 mg tablet Active 7.5 MG PO Every 6 hours as needed for pain 120 30 0 December 23, 2024 Lumbar radiculopathy Radiculopathy, lumbar region Complies with drug therapyStart: 11-23-2024 End: 89-53-0260eeiu 1 tablet by mouth every six hours as needed for pain Oxycodone-Acetaminophen (Percocet) 7.5-325 mg tablet Discontinued 7.5 MG PO Every 6 hours as neededfor pain 120 30 0 November 23, 2024 December 23, 2024 11:57am Lumbar radiculopathy Radiculopathy,lumbar regionStart: 06-28-2024 End: 64-82-3040qiwc 1 tablet by mouth every six hours as needed for pain Oxycodone-Acetaminophen (Percocet) 7.5-325 mg tablet Discontinued 7.5 MG PO Every 6 hours as neededfor pain 120 30 0 August 26, 2024 September 24, 2024 9:42am Lumbar radiculopathy Radiculopathy, lumbar regionStart: 12-72-0792hgxx 1 tablet by mouth every six hours as needed for painOxycodone-Acetaminophen (Percocet) 7.5-325 mg tablet Active 7.5 MG PO Every 6 hours as needed for pain 120 30 June 28, 2024Start: 05-28-2024 End: 51-30-5680kjgp 1 tablet by mouth every six hours as needed for pain Oxycodone-Acetaminophen (Percocet) 7.5-325 mg tablet Discontinued 7.5 MG PO Every 6 hours as neededfor pain 120 30 0 May 30, 2024 June 27, 2024 9:14am Lumbar radiculopathy Radiculopathy, lumbar regionStart: 04-30-2024 End: 19-43-0305ktnu 1 tablet by mouth every six hours as needed for pain Oxycodone-Acetaminophen (Percocet) 7.5-325 mg tablet Discontinued 7.5 MG PO Every 6 hours as neededfor pain 120 30 0 April 30, 2024 April 30, 2024 1:42pm Lumbar radiculopathy Radiculopathy, lumbar regionStart: 10-04-2023 End: 62-36-9123jyek 1 tablet by mouth every six hours as needed for pain Oxycodone-Acetaminophen (Percocet) 7.5-325 mg tablet Discontinued 7.5 MG PO Every 6 hours as neededfor pain 120 30 0 April 30, 2024 May 28, 2024 2:23pm Lumbar radiculopathy Radiculopathy, lumbar regionStart: 62-93-3934zxzd 1 tablet by mouth every six hoursOxycodone-Acetaminophen (Percocet) 7.5-325 mg tablet Active 7.5 MG PO Every 6 hours 120 30 October 04, 2023Start: 07-16-2023 Percocet 7.5/325 Oral, q6hr as needed for pain, Refill(s) 0, as needed Start Date: 07/16/23 Status: OrderedStart: 73-58-1296Ogvuvncr 7.5/325 Oral, q6hr, Refill(s) 0, as needed Start Date: 07/16/23 Status: OrderedStart: 07-12-2023 End: 41-99-3327jiwb 1 tablet by mouth every six hours as needed for pain Oxycodone-Acetaminophen (Percocet) 7.5-325 mg tablet Discontinued 7.5 MG PO Every 6 hours as neededfor pain 120 30 0 September 06, 2023 October 03, 2023 11:23am Lumbar radiculopathy Radiculopathy, lumbar regionStart: 05-10-2023 End: 39-63-0541cfeq 1 tablet by mouth every four hours as needed for pain Oxycodone-Acetaminophen (Percocet) 7.5-325 mg tablet Discontinued 7.5 MG PO Every 4 hours as neededfor pain 130 30 0 June 07, 2023 July 06, 2023 8:32am Neck pain CervicalgiaStart: 48-10-6600kcnq 1 tablet by mouth every five hours as neededPercocet 7.5-325 MG 1 tab Orally every 5 hrs prn for 30 days Mar, ActiveStart: 10-12-6062atgy 1 tablet by mouth every five hours as neededPercocet 7.5-325 MG 1 tab Orally every 5 hrs prn for 30 days Feb, ActiveStart: 19-34-4878cvdr 1 tablet by mouth every five hours as neededPercocet 7.5-325 MG 1 tab Orally every 5 hrs prn for 30 days Jan, ActiveStart: 91-56-0853abjl 1 tablet by mouth every five hours as neededPercocet 7.5-325 MG 1 tab Orally every 5 hrs prn for 30 days Dec, ActiveStart: 11-18-8074xkfn 1 tablet by mouth every five hours as neededPercocet 7.5-325 MG 1 tab Orally every 5 hrs prn for 30 days p/u 08/29/22, start 08/31/22 Sep, ActiveStart: 09-10-2022 End: 65-21-6565vydc 1 tablet by mouth every six hours as needed for pain Oxycodone-Acetaminophen (Percocet) 7.5-325 mg tablet Discontinued 7.5 MG PO Every 6 hours as neededfor pain 28 7 0 July 06, 2023 July 11, 2023 8:46am Neck pain CervicalgiaStart: 01-18-2018 End: 07-02-0957crbe 1 tablet by mouth four times dailyOxycodone-Acetaminophen (Percocet) 7.5-325 mg Tablet Discontinued 7.5 MG PO Four times daily January 18, 2018 12:00am May 10, 2023 10:53amtake 1 tablet by mouth every four hours as neededoxyCODONE-acetaminophen (Percocet) 7.5-325 mg tablet Take 1 tablet by mouth every 4 hours if needed(BREAKTHROUGH PAIN.). 0 Activealendronic acid 70 mg oral tablet (2 sources)BisphosphonateStart: 01-07-2025 End: 99-90-5204toyt 1 tablet by mouth every weekAlendronate (Fosamax) 70 mg tablet Active 70 MG PO every week 12 January 07, 2025 8:50am Complies with drug therapyaspirin 81 mg oral capsule (20 sources)Platelet Aggregation Inhibitor, Nonsteroidal Anti-inflammatory Drug Start: 29-40-3480evft 2 capsules by mouth every twenty-four hoursaspirin 81 mg oral capsule 162 mg = 2 cap(s), Oral, q24hr, Refills(s) 0 Start Date: 07/16/23 Status:OrderedStart: 86-96-8136zxmb 1 tablet by mouth once dailyaspirin 81 mg Oral EC Tab 81 mg = 1 tab(s), Oral, Daily, Refills(s) 0 Start Date: 09/10/22 Status: OrderedStart: 70-85-7640avka 1 tablet by mouth twice dailyAspirin (Aspir-81) 81 mg Tablet,Delayed Release (Dr/Ec) Active 81 MG PO Twice daily January 18, 2018 12:00am Complies with drug therapytake 2 tablets by mouth once dailyaspirin 81 mg EC tablet Take 2 tablets (162 mg) by mouth once daily. ActiveAspirin 81 81 MG 2 tablets once a day Activeatorvastatin 80 mg oral tablet (20 sources)HMG-CoA Reductase InhibitorStart: 07-04-2023 End: 52-44-0254wdup 1 tablet by mouth once dailyAtorvastatin 80 mg tablet Active 0 .ROUTE .COMPLEX 90 3 July 10, 2024 11:10am TAKE 1 TABLET BY MOUTH EVERY DAY Complies with drug therapyStart: 01-18-2018 End: 64-28-7143yofb 1 tablet by mouth once dailyAtorvastatin (Lipitor) 80 mg Tablet Discontinued 80 MG PO Daily January 18, 2018 12:00am July 04, 2023 9:42pmchlorthalidone 25 mg oral tablet (20 sources)Thiazide-like DiureticStart: 06-07-2022 End: 19-60-8125myob 1 tablet by mouth once daily at mealtimeChlorthalidone 25 mg tablet Active 1 TAB PO Daily May 10, 2023 1:00am FreeTextSi tablet i n the morning with food Orally Once a day; Note: Source Status: Taking; Provider: Cinthia Melchor ( ) Complies with drug therapy cyclobenzaprine hydrochloride 10 mg oral tablet (8 sources)Muscle RelaxantStart: 05-89-8079vgal 1 tablet by mouth every twelve hoursCyclobenzaprine HCl 10 MG 1 tablet as needed Orally twice a day for 15 day(s) Sep, Activefurosemide 20 mg oral tablet (20 sources)Loop DiureticStart: 01-10-2021 End: 47-92-7234jnrd 1 tablet by mouth every twenty-four hours as needed furosemide (Lasix) 20 mg tablet Take 1 tablet (20 mg) by mouth once daily as needed (for lower extremty edema). 01/10/2021 11/04/2024 Discontinued (Therapy completed)hyoscyamine sulfate 0.125 mg oral tablet (6 sources)Start: 87-06-3800eesl 2 tablets by mouth four times daily as needed for muscle spasmsLevsin 0.125 mg SL Tab 0.25 mg = 2 tab(s), Oral, QID, PRN for spasm, # 80 tab(s), Refills(s) 0, Pharmacy: [facility]/pharmacy #[id number], 165, cm, 07/16/23 12:47:00 EDT, Height/Length Dosing, 60.6, kg, 07/16/23 12:47:00 EDT, Weight Dosing Start Date: 07/16/23 Status: Orderedibuprofen 800 mg oral tablet (20 sources)Nonsteroidal Anti-inflammatory DrugStart: 78-87-7050vbdu 1 tablet by mouth every eight hours as needed for painIbuprofen 800 mg tablet Active 800 MG PO Every 8 hours as needed for pain 90 0 April 30, 2024 1:00am Complies with drug therapytake 1 tablet by mouth three times daily as neededIbuprofen 800 MG TAKE 1 TABLET BY MOUTH THREE TIMES A DAY NEEDED Oral for 30 Days Active naloxone hydrochloride 40 mg/ml nasal spray (1 source)Opioid AntagonistStart: 94-30-8683Yochqlbr (Narcan) 4 mg/actuation spray,non-aerosol Active 4 MG INTRANASAL every 2 to 3 minutes as needed for opioid overdose 2 0 December 23, 2024 12:00am spray 1 dose into ONE nostril; alternate nostrils w each dose until help arrives Complies with drug therapy Nitro Sublingual 0.4 (3 sources)Nitro Sublingual 0.4 Activenitroglycerin 0.4 mg sublingual powder (20 sources)Nitrate VasodilatorStart: 90-72-7755cvxfdohucuxst 0.4 mg, SubLingual, q5min, PRN Chest pain, Refills(s) 0 Start Date: 07/16/23 Status: Or deredStart: 71-79-3713lhakosixqxeog Refills(s) 0 Start Date: 07/16/23 Status: OrderedStart: 21-94-2945Wlgreebxmglnf 0.4 mg tablet, sublingual Active 0.4 MG SUBLINGUAL Q5M as needed for chest pain May 10, 2023 1:00am Medication Name: Nitro Sublingual 0.4; Note: Source Status: Taking; Provider: Cinthia Melchor ( ) Complies with drug therapyomeprazole 40 mg delayed release oral capsule (10 sources)Proton Pump InhibitorStart: 36-67-1699rexs 1 capsule by mouth once daily before mealtimeomeprazole (PriLOSEC) [address] capsule Take 1 capsule (40 mg) by mouth once daily in the morning. Take before meals. 07/30/2023 Active pantoprazole 40 mg delayed release oral tablet (10 sources)Proton Pump InhibitorStart: 18-52-1528nyny 1 tablet by mouth once dailyPantoprazole [address] Tab 40 mg = 1 tab(s), Oral, Daily, # 30 tab(s), Refills(s) 0, Pharmacy: [facility]/pharmacy #[id number], 167.6, cm, 09/10/22 12:09:00 EDT, Height/Length Dosing, 64.8, kg, 09/10/22 12:06:00 EDT, Weight Dosing Start Date: 09/11/22 Status: Ordered Completed/Discontinued Medications MedicationDrug Class(es)DatesSig (Normalized)Sig (Original)[id number] 200 actuat albuterol 0.09 mg/actuat metered dose inhaler (20 sources)beta2-Adrenergic AgonistStart: 76-67-9620povi 2 puff(s) by inhalation every four hoursalbuterol HFA 90 mcg/act inhaler Inhale 2 puffs every 4 (four) hours if needed Refills: 3; Qty: 18 Each; Provider: Cinthia Melchor ( ) 09/17/2023 ActiveStart: 67-72-0429gylvxhuia See Instructions, not to exceed 32 mg/day, Refills(s) 0, Shortness of breath or wheezing Start Date: 07/16/23 Status: OrderedStart: 32-88-7662sclbbdzhp See Instructions, Refills(s) 0 Start Date: 07/16/23 Status: OrderedStart: 05-10-2023 End: 83-33-2501hxdz 2 puff(s) by mouth every four hours as needed for wheezing Albuterol Sulfate 90 mcg/actuation HFA aerosol inhaler Discontinued 2 PUFF INHALATION Every 4 hoursas needed for shortness of breath or wheezing 8.5 2 March 17, 2024 4:10pm July 07, 2024 4:35pm FreeTextSig: INHALE 2 PUFFS BY MOUTH EVERY 4 HOURS NEEDED; Note: Source Status: Taking; Refills: 3; Qty: 18 Each; Provider: Cinthia Melchor ( )albuterol sulfate (Proair Digihaler) 90 mcg/actuation aero powdr breath act w/sensor inhaler use asdirectd Activetake 2 puff(s) by mouth every four hours as neededAlbuterol Sulfate HFA 108 (90 Base) MCG/ACT INHALE 2 PUFFS BY MOUTH EVERY 4 HOURS NEEDED for 17 A ctivetake 2 puff(s) by mouth every four hours as neededAlbuterol Sulfate HFA 108 (90 Base) MCG/ACT INHALE 2 PUFFS BY MOUTH EVERY 4 HOURS NEEDED for 17 Active albuterol sulfate (Proair Digihaler) 90 mcg/actuation aero powdr breath act w/sensor inhaler use asdirectd 0 Activetake 2 puff(s) by mouth every four hours as neededAlbuterol Sulfate HFA 108 (90 Base) MCG/ACT INHALE 2 PUFFS BY MOUTH EVERY 4 HOURS NEEDED for 17 ActiveProAir Digihaler 108 (90 Base) MCG/ACT Inhalation Aerosol Powder Breath Activated use as directd Quantity: 0 Refills: 0 Ordered: 10-Jan-2021 DO Jcphwh21 ml aminophylline 25 mg/ml injection (1 source)Start: 11-25-2024 End: 80-12-810073 mg, intravenous, Administer over 1 Minutes, Once, On Sun11/25/24 at 1000, For 1 doseStart: 11-25-2024 End: 16-69-830216 mg, intravenous, Administer over 1 Minutes, Once, On Sun11/25/24 at 1000, For 1 doseazithromycin 250 mg oral tablet (20 sources)Macrolide AntimicrobialStart: 05-23-2024 End: 92-00-4979Upsrttpmjkan 250 mg tablet Discontinued 0 PO .COMPLEX 6 0 May 23, 2024 11:28am June 27, 2024 8:41am For 250 mg dose pack: take 500 mg today (day 1), then 250 mg for 4 days (days 2-5) POStart: 03-17-2024 End: 74-93-5445Dxuteqezldin 250 mg tablet Discontinued 0 PO .COMPLEX 6 0 March 17, 2024 1:00am March 24, 2024 12:31pm For 250 mg dose pack: take 500 mg today (day 1), then 250 mg for 4 days (days 2-5) POStart: 03-28-2022 Azithromycin 250 MG as directed Orally 2 tabs po today, then 1 tab daily x 4 more days for 5 Mar, Activebenzonatate 200 mg oral capsule (10 sources)Non-narcotic AntitussiveStart: 03-17-2024 End: 63-46-8431Jmuertsurfu 200 mg capsule Discontinued 200 MG PO 2-3 TIMES PER DAY as needed for cough 20 0 March 17, 2024 1:00am March 31, 2024 1:39pmcarvedilol 12.5 mg oral tablet (20 sources)alpha-Adrenergic Teto, beta-Adrenergic BlockerStart: 03-17-2024 End: 98-05-8635qvxa 1 tablet by mouth twice dailyCarvedilol 12.5 mg tablet Discontinued 0 .ROUTE .COMPLEX 180 0 September 09, 2024 12:43pm December 05, 2024 11:03am TAKE 1 TABLET BY MOUTH TWICE A DAYStart: 63-56-3060bzzb 1 mg by mouth twice dailyCoreg 6.25 mg Tab mg tab(s), Oral, BID, Refills(s) 0, High blood pressure Start Date: 07/16/23 Status: OrderedStart: 01-18-2018 End: 58-76-4598bvyh 1 tablet by mouth twice dailyCarvedilol (Coreg) 12.5 mg tablet Discontinued 12.5 MG PO Twice daily 180 0 December 24, 2023 3:51pm March 17, 2024 10:23amlevothyroxine sodium 0.025 mg oral tablet (20 sources)l-ThyroxineStart: 10-10-2023 End: 52-22-1372djzt 12.5 ug by mouth once dailyLevothyroxine Discontinued 12.5 MCG PO Daily October 09, 2023 11:00pm December 05, 2023 7:53amStart: 10-04-2023 End: 68-95-4953Cqvdncmgnmvmc 25 mcg tablet Discontinued 12.5 MCG PO Daily October 10, 2023 12:00am December 05, 2023 8:53amStart: 10-04-2023 End: 06-56-8622pudm 0.5 tablet by mouth in the morninglevothyroxine (Synthroid, Levoxyl) 25 mcg tablet Take 0.5 tablets (12.5 mcg) by mouth early in the m orning.. 10/04/2023 11/04/2024 Discontinued (Therapy completed)lisinopril 5 mg oral tablet (20 sources)Angiotensin Converting Enzyme InhibitorStart: 01-18-2018 End: 13-24-7914pjdr 1 tablet by mouth once dailyLisinopril 5 mg Tablet Discontinued 5 MG PO Daily January 18, 2018 12:00am October 10, 2023 8:41am LORazepam 2 mg oral tablet (10 sources)BenzodiazepineStart: 02-26-2024 End: 06-98-1068eevh 2-4 mg by mouth once daily as needed for anxietyLorazepam (Ativan) 2 mg tablet Discontinued 2 - 4 MG PO Daily as needed for anxiety 2 1 February 26, 2024 1:00am March 31, 2024 1:38pm Anxiety Anxiety disorder, unspecifiedmethylPREDNISolone 4 mg oral tablet (20 sources)CorticosteroidStart: 06-27-2024 End: 07-97-1924wnlk 1 tablet by mouth onceMethylprednisolone (Medrol (Baljinder)) 4 mg tablets,dose pack Discontinued 0 PO per package directions June 27, 2024 12:00am August 26, 2024 10:15am PO PER PKG DIR for 6 daysStart: 07-18-2023 End: 15-97-0564ftie 1 tablet by mouth onceMethylprednisolone (Medrol (Baljinder)) 4 mg tablets,dose pack Discontinued 0 PO per package directions July 18, 2023 12:00am October 03, 2023 11:22am PO PER PKG DIR for 6 daysStart: 62-63-8901Mhzxjb 4 MG as directed Orally Sep, Activepregabalin 75 mg oral capsule (20 sources)Start: 02-06-2024 End: 39-35-4887uylv 1 capsule by mouth once daily at bedtimePregabalin (Lyrica) 75 mg capsule Discontinued 75 MG PO Daily at bedtime 30 30 2 February 06, 2024 1:00am August 26, 2024 10:08am Other spondylosis with radiculopathy, lumbar region Other spondylosis with radiculopathy, lumbar region painStart: 01-02-2024 End: 41-26-4985yrde 1 capsule by mouth once daily at bedtimePregabalin (Lyrica) 50 mg capsule Discontinued 50 MG PO Daily at bedtime 30 30 2 January 02, 2024 10:03am February 06, 2024 10:16am Lumbar radiculopathy Radiculopathy, lumbar regionStart: 07-06-2023 End: 50-98-3565vrpd 1 capsule by mouth twice dailyPregabalin (Lyrica) 50 mg capsule Discontinued 50 MG PO Twice daily 60 30 0 October 10, 2023 9:10am January 02, 2024 10:03am Lumbar radiculopathy Radiculopathy, lumbar regionProAir Digihaler 108 (90 Base) MCG/ACT Inhalation Aerosol Powder Breath Activated (1 source)ProAir Digihaler 108 (90 Base) MCG/ACT Inhalation Aerosol Powder Breath Activated use as directd Quantity: 0 Refills: 0 Ordered: 10-Jan-2021 DO Activeregadenoson (Lexiscan) injection 0.4 mg (1 source)Start: 11-25-2024 End: .4 mg, intravenous, Once, On Sun11/25/24 at 0830, For 1 doseTc- 99m tetrofosmin (Myoview) injection 10 millicurie (1 source)Start: 11-25-2024 End: millicurie, intravenous, Once in imaging, Starting on Sun11/25/24 at 0759, For 1 dose, Bbqyepgiem34 to 90 minutes prior to imaging unless otherwise indicated.Tc-99m tetrofosmin (Myoview) injection 30 millicurie (1 source)Start: 11-25-2024 End: millicurie, intravenous, Once in imaging, Starting on Sun11/25/24 at 0919, For 1 dose, Qcigimgdee82 to 90 minutes prior to imaging unless otherwise indicated. Problems Active Problems Problem ClassificationProblemDateDocumented DateEpisodic/ChronicAbdominal pain (13 sources)Pelvic and perineal pain; Translations: [Pelvic and perineal pain] Onset: [id number]de/social admission (2 sources)Other specified counseling; Translations: [Other specified counseling]48-30-3308ZqzrmzgjXyvlwya disorders (4 sources)Anxiety disorder; Translations: [Anxiety disorder, unspecified]Onset: 18-57-4386MezgbujQqqnxik obstructive pulmonary disease and bronchiectasis (20 sources)Chronic obstructive lung disease; Translations: [Chronic obstructive pulmonary disease, unspecified]Onset: 710848-47-1716SbndmdvYpxvqkm obstructive pulmonary disease and bronchiectasis (13 sources)Bronchitis, not specified as acute or chronic; Translations: [Bronchitis]EpisodicCoronary atherosclerosis and other heart disease (20 sources)History of myocardial infarction; Translations: [Old myocardial infarction]Onset: 38-36-7063HfghvpoSvugoquz atherosclerosis and other heart disease (4 sources)Coronary angioplasty status; Translations: [Coronary angioplasty status]Onset: 43-56-1026HtoqhnqsBmyxagisz of lipid metabolism (20 sources)Hyperlipidemia; Translations: [Other and unspecified hyperlipidemia] Onset: 11-11-3110WlxtnoiVubkqlmni hypertension (20 sources)Benign essential hypertension; Translations: [Benign essential hypertension]Onset: 00-82-5788IctxhqtPhvla and electrolyte disorders (1 source)Hypo-osmolality and or hyponatremia; Translations: [Hypo-osmolality and hyponatremia]Onset: 72-44-9058PejacakcMnwusctzwbjvq (5 sources)Localized enlarged lymph nodes; Translations: [Localized enlarged lymph nodes]Onset: 48-07-2566LsozhfjbZlagxlakid disorders (4 sources)Atrophic vaginitis; Translations: [Postmenopausal atrophic vaginitis] ChronicMood disorders (20 sources)Depression; Translations: [Chronic depression]Onset: 08-15-2013 14-19-5720WyxabadEhxtaqdyhmxso gastroenteritis (2 sources)Noninfectious enteritis; Translations: [Noninfective gastroenteritis and colitis, unspecified]Onset: 17-35-7679GrabwkjxOhklhnwkpov chest pain (1 source)Chest pain; Translations: [Chest pain, unspecified]Onset: 09-10-2022 EpisodicOsteoporosis (1 source)Age-related osteoporosis without current pathological fracture; Translations: [Age-related osteoporosis without current pathological fracture] Onset: 05-43-6649BzmuzgnAvrfe aftercare (1 source)Long-term current use of drug therapy; Translations: [Other ceo and president (current) drug therapy]Onset: 53-08-5849WkvpbfmkUsdau circulatory disease (7 sources)Patient post angioplasty; Translations: [Other postprocedural status] EpisodicOther circulatory disease (4 sources)Elevated blood-pressure reading without diagnosis of hypertension; Translations: [Elevated blood-pressure reading, without diagnosis of hypertension]EpisodicOther gastrointestinal disorders (20 sources)Irritable bowel syndrome; Translations: [Irritable bowel syndrome without diarrhea]41-24-4745XitxzyjDtvcg gastrointestinal disorders (2 sources)Irritable bowel syndrome without diarrhea; Translations: [Irritable bowel syndrome]48-82-6813SydzwsgThbki gastrointestinal disorders (1 source)Diarrhea; Translations: [Diarrhea, unspecified]Onset: 09-10-2022 EpisodicOther lower respiratory disease (8 sources)Dyspnea; Translations: [Shortness of breath]Onset: 11-04-2024 63-19-2288OcswpxqsLfkkp nervous system disorders (20 sources)Chronic pain; Translations: [Other chronic pain]Onset: 09-10-2022 ChronicOther nervous system disorders (20 sources)Other chronic pain; Translations: [Other chronic pain]Onset: 10-04-2021 Resolved: 57-59-0766XqsmqrbNnois nervous system disorders (20 sources)Chronic pain syndrome; Translations: [Chronic pain syndrome]Onset: 763873-33-1437IsphmfuWwcdd nervous system disorders (20 sources)Chronic pain syndrome; Translations: [Chronic pain syndrome]Onset: 166349-42-9293PbjjpmuAprzf nervous system disorders (1 source)Bilateral carpal tunnel syndrome; Translations: [Carpal tunnel syndrome, bilateral upper limbs]44-20-9484ZkomspvGfgin nervous system disorders (2 sources)Paresthesia; Translations: [Paresthesia of skin]97-21-9216Thqaqgin Other non-traumatic joint disorders (1 source)Ankle joint pain; Translations: [Pain in left ankle and joints of left foot]Onset: 22-69-2002OdjpnypuPkryz nutritional; endocrine; and metabolic disorders (4 sources)Body mass index 25-29 - overweight; Translations: [Body mass index (BMI) 25.0-25.9, adult]EpisodicOther nutritional; endocrine; and metabolic disorders (2 sources)Loss of appetite; Translations: [Anorexia]Onset: 15-26-7174Khwvyrmp Other nutritional; endocrine; and metabolic disorders (2 sources)Body mass index (BMI) 19.9 or less, adult; Translations: [Body mass index (BMI) 19.9 or less, adult]Onset: 40-49-9223JsjdjtygJjdur screening for suspected conditions (not mental disorders or infectious disease) (20 sources)Blood chemistry abnormal; Translations: [Other specified abnormal findings of blood chemistry]Onset: 76-05-4332ImqvblpjBovxnwdz codes; unclassified (6 sources)Edema of lower extremity; Translations: [Edema]EpisodicResidual codes; unclassified (4 sources)Normal body mass index; Translations: [Body mass index (BMI) 24.0- 24.9, adult]EpisodicResidual codes; unclassified (4 sources)Reduced libido; Translations: [Decreased libido]EpisodicResidual codes; unclassified (2 sources)Acquired absence of organ; Translations: [Acquired absence of other specified parts of digestive tract]Onset: 13-18-1466XyppatphZieuhwpe codes; unclassified (5 sources)Preoperative owpdm93-86-5700HzxosxvbOguwzbswpbm; intervertebral disc disorders; other back problems (20 sources)Degeneration of cervical intervertebral disc; Translations: [Other cervical disc degeneration, unspecified cervical region]Onset: 09-27-2021 Resolved: 56-75-9446NgbmvcjWsxfjrzluly; intervertebral disc disorders; other back problems (20 sources)Cervicalgia; Translations: [Radiculopathy, lumbar region]Onset: 09-27-2021 Resolved: 76-52-0100UokfmwueLqgepcehu-related disorders (20 sources)Smokes tobacco daily; Translations: [Tobacco use disorder]Onset: 28-93-3349BefxsvaCsxpdvb on above:1/3 PPD;1/2 PPD;Added secondary to documentation in Social History.Thyroid disorders (20 sources)Hyperthyroidism; Translations: [Thyrotoxicosis, unspecified without thyrotoxic crisis or storm]Onset: 48-69-4435KqngsyjOgklayjtzgcw (2 sources)K58.0 - Irritable bowel syndrome with diarrhea,R10.9 - Unspecified abdominal painViral infection (4 sources)Herpes zoster with complication; Translations: [Zoster with other complications]EpisodicViral infection (4 sources)Disease caused by 2019-nCoV; Translations: [COVID-19] Past or Other Problems Problem ClassificationProblemDateDocumented DateEpisodic/ChronicAcute bronchitis (4 sources)Acute bronchitis; Translations: [Acute bronchitis, unspecified]Onset: 18-90-3356AkqxoolmVfacvjbd mellitus without complication (7 sources)Prediabetes; Translations: [Prediabetes]Onset: EpisodicGenitourinary symptoms and ill-defined conditions (4 sources)Dysuria; Translations: [Dysuria]Onset: 51-51-7856QbwyprjhItfslffhf (4 sources)Upper respiratory tract infection due to Influenza; Translations: [Influenza due to unidentified influenza virus with other respiratory manifestations]Onset: 94-74-0621ChidcuaeXyknt connective tissue disease (1 source)Arthrodesis statusOnset: 09-27-2021 Resolved: 09-47-9741MxezbtnsCfaut gastrointestinal disorders (12 sources)Burping; Translations: [Eructation]Onset: 89-08-0182CegdqkesCxsmi nutritional; endocrine; and metabolic disorders (15 sources)H/O: thyroid disorder; Translations: [Personal history of other endocrine, metabolic, and immunity disorders]Onset: 503891-60-5247Fadorvvv Other nutritional; endocrine; and metabolic disorders (8 sources)Body mass index less than 20; Translations: [Body mass index (BMI) 19.9 or less, adult]Onset: 752690-78-7575NwehspclFplsa upper respiratory infections (4 sources)Acute maxillary sinusitis; Translations: [Acute recurrent maxillary sinusitis]Onset: 97-74-3221DwimyyfgNjhdifxk codes; unclassified (15 sources)Body mass index 20-24 - normal; Translations: [Body Mass Index between 19-24, adult]Onset: 01-10-2023 Resolved: 934840-92-8599ZqczjkziQaikedjfyyyh (8 sources)Onset: 01-11-2023 Resolved: Results Test NameValueInterpretationReference RangeFacilityTRANSTHORACIC ECHO (TTE) COMPLETEon 71-80-7133PHMXWPSRIEQMH ECHO (TTE) COMPLETE[address], [address], [place] [address] TRANSTHORACIC ECHOCARDIOGRAM REPORT Patient Name: MARYGEMMA SIMMSNAOMIE Vásquez Physician: [id number] Baumann MD Study Date: 12/02/2024 Ordering Provider: Bradley BAUMANN MRN/PID: [id number] Fellow: Nurse: Date of /Age: 1 1960 Accounts Payable Associate: Rere Albrecht RDCS years Gender Assigned at F Additional Staff: : Height: 165.10 cm Admit Date: Weight: 51.26 kg Admission Status: Outpatient BSA / BMI: 1.55 m2 / 18.80 Department Location: [facility] Heart kg/m2 [place] Blood Pressure: 124 /82 mmHg Study Type: TRANSTHORACIC ECHO (TTE) COMPLETE Diagnosis/ICD: Atherosclerotic heart disease of [place] coronary artery without angina pectoris-I25.10; Coronary angioplasty status (PTCA)-Z98.61; Old myocardial infarction-I25.2; Essential (primary) hypertension-I10; Encounter for preprocedural cardiovascular examination-Z01.810 Indication: COPD, Smoker, HLD CPT Codes: Echo Complete w Full Doppler-78878 Study Detail: The following Echo studies were performed: 2D, M-Mode, Doppler and color flow. PHYSICIAN INTERPRETATION: Left Ventricle: [...] aortic valve area by VTI is 2.83 cm?? with a peakvelocity of 1.29 m/s. The peak and mean [...] Normal Ranges: RVOT Vmax: 0.75 m/s (0.6-0.9m/s) [id number] Nahum Baumann MD Electronically signed on 12/02/2024 at 12:57:45 PM Final CONCLUSIONS: 1. The left ventricular systolic function is normal with a visually estimated ejection fraction of 70%. 2. Spectral Doppler shows a Grade I (impaired relaxation pattern) of left ventricular diastolic filling with normal (more content not included)...Normal [facility] Transthoracicon 12-02-2024 Aortic Valve Area by Continuity of Peak Velocity2.73 jk8XarahiqdfkMansfield Hospital Work Phone: Aortic Valve Area by Continuity of VTI2.[address] [facility] Work Phone: [phone] mn qgdd4ffWcXflzaneiqsKettering [facility] Work Phone: [phone] pk upxv2cdLoMdgbsohpwoKettering [facility] Work Phone: [phone] pk vel1.29 m/[facility] Work Phone: [phone] A4C EF68.7UnMansfield Hospital Work Phone: LV Biplane EF64 %[facility] Work Phone: [phone] EF70 %[facility] Work Phone: [phone] cmSt. Mary's Medical Center Work Phone: LVOT diam2.20 cmUnMansfield Hospital Work Phone: [phone] avg E/e' ratio14.00[facility] Work Phone: [phone] E/A ratio1.06[facility] Work Phone: [phone] Work Phone: CONCLUSIONS: 1. The left ventricular systolic function [...] the development of moderate degree of pulmonary hypertension.[employer], [address], [place] [address] TRANSTHORACIC ECHOCARDIOGRAM REPORT Patient Name: MARY WEST Reading Physician: [id number] Nahum Baumann MD Study Date: 12/02/2024 Ordering Provider: [id number] NAHUM BAUMANN MRN/PID: [id number] Fellow: Nurse: Date of /Age: 1 1960 Accounts Payable Associate: Rere Albrecht RDCS years Gender Assigned at F Additional Staff: : Height: 165.10 cm Admit Date: Weight: 51.26 kg Admission Status: Outpatient BSA / BMI: 1.55 m2 / 18.80 Department Location: [facility] Heart kg/m2 [place] Blood Pressure: 124 /82 mmHg Study Type: TRANSTHORACIC ECHO (TTE) COMPLETE Diagnosis/ICD: Atherosclerotic heart disease of [place] coronary artery without angina pectoris-I25.10; Coronary angioplasty status (PTCA)-Z98.61; Old myocardial infarction-I25.2; Essential (primary) hypertension-I10; Encounter for preprocedural cardiovascular examination-Z01.810 Indication: COPD, Smoker, HLD CPT Codes: Echo Complete w Full Doppler-50174 Study Detail: The following Echo studies were performed: 2D, M-Mode, Doppler and color flow. PHYSICIAN INTERPRETATION: Left Ventricle: [...] aortic valve area by VTI is 2.83 cm with a peak velocity of 1.29 m/s. [...] Peak P.7 mmHg (<20mmHg) AoV Mean PG: (more content not included)...Nahum Albert MD - 12/02/[address], [address], [place] [address] TRANSTHORACIC ECHOCARDIOGRAM REPORT Patient Name: MARY WEST [place] Physician: [id number] Baumann MD Study Date: 12/02/2024 Ordering Provider: [id number] NAHUM BAUMANN MRN/PID: [id number] Fellow: Nurse: Date of /Age: 1 1960 Accounts Payable Associate: Rere Albrecht RDCS years Gender Assigned at F Additional Staff: : Height: 165.10 cm Admit Date: Weight: 51.26 kg Admission Status: Outpatient BSA / BMI: 1.55 m2 / 18.80 Department Location: [facility] kg/m2 [place] Blood Pressure: 124 /82 mmHg Study Type: TRANSTHORACIC ECHO (TTE) COMPLETE Diagnosis/ICD: Atherosclerotic heart disease of [place] coronary artery without angina pectoris-I25.10; Coronary angioplasty status (PTCA)-Z98.61; Old myocardial infarction-I25.2; Essential (primary) hypertension-I10; Encounter for preprocedural cardiovascular examination-Z01.810 Indication: COPD, Smoker, HLD CPT Codes: Echo Complete w Full Doppler-19309 Study Detail: The following Echo studies were performed: 2D, M-Mode, Doppler and color flow. PHYSICIAN INTERPRETATION: Left Ventricle: [...] aortic valve area by VTI is 2.83 cm with a peak velocity of 1.29 m/s. [...] Normal Ranges: RVOT Vmax: 0.75 m/s (0.6-0.9m/s) 23999 Nahum Baumann MD Electronically signed on 12/02/2024 at 12:57:45 PM Final IMPRESSION: CONCLUSIONS: 1. The left ventricular systolic function is normal with a visually estimated ejectio (more contentnot included)...[facility] Work Phone: [facility] Work Phone: nm Heart Perfusion W stress and W radionuclide Yovana 42-50-5507Ivyvvb Lexiscan Myoview cardiac perfusion stress test. No evidence of ischemia or myocardial infarction by perfusion imaging. Normal left ventricular systolic function, ejection fraction 86%. When compared to a study from 2016, no significant interval changes were seen. Signed by: Ksenia Valdez 11/25/2024 6:14 PM Dictation workstation: [id number] MMODALInterpreted By: Ksenia Valdez, and Oren Gagnon STUDY: MYOCARDIAL PERFUSION STRESS TEST WITH LEXISCAN Performing facility: [facility], [address] [place] [address], [address], [place] [address] [facility] Provider: Nahum Baumann MD PCP: Dr. Jamel Vicente Supervising provider: Ksenia Valdez MD, [facility] INDICATION: Signs/Symptoms: ,I25.10 Atherosclerotic heart disease of [place] coronary artery without angina pectoris,Z98.61 Coronary angioplasty status,I25.2 Old myocardial infarction,I10 Essential (primary) hypertension,F17.200 Nicotine dependence, unspecified, uncomplicated,Z01.810 Encounter for preprocedural cardiovascular examination HISTORY: Gender: F; Age: 64 y/o ; Height: HT 165.1 cm cm; Weight: WT 51.347 kg kg. CAD; High Cholesterol; Previous NM;2011 HTN; SOB; Currently smoking. Cardiac catheterization on 2011. PTCA on 2011. COMPARISON: Previous nuclear testing completed [id number] at [facility]. ACCESSION NUMBER(S): [id number] ORDERING CLINICIAN: NAHUM BAUMANN TECHNIQUE: ONE DAY protocol. Stress injection: Date:11-25-24, [...] There was no evidence of attenuation artifact. MMODALKsenia Valdez MD - 11/25/2024 Interpreted By: Ksenia Valdez and Giannuzzi Michael STUDY: MYOCARDIAL PERFUSION STRESS TEST WITH LEXISCAN Performing facility: [facility], [address] [place] [address], [address], [address] Provider: Nahum Baumann MD PCP: Dr. Jamel Vicente Supervising provider: Ksenia Valdez MD, [facility] INDICATION: Signs/Symptoms: ,I25.10 Atherosclerotic heart disease of [place] coronary artery without angina pectoris,Z98.61 Coronary angioplasty status,I25.2 Old myocardial infarction,I10 Essential (primary) hypertension,F17.200 Nicotine dependence, unspecified, uncomplicated,Z01.810 Encounter for preprocedural cardiovascular examination HISTORY: Gender: F; Age: 64 y/o ; Height: HT 165.1 cm cm; Weight: WT 51.347 kg kg. CAD; High Cholesterol; Previous NM;2011 HTN; SOB; Currently smoking. Cardiac catheterization on 2011. PTCA on 2011. COMPARISON: Previous nuclear testing completed [id number] at [facility]. ACCESSION NUMBER(S): [id number] ORDERING CLINICIAN: NAHUM BAUMANN TECHNIQUE: ONE DAY protocol. Stress injection: Date:11-25-24, [...] Ksenia Valdez 11/25/2024 6:14 PM Dictation workstation: [id number] [facility] Work Phone: Radiology Study observation (narrative)[facility] Work Phone: nm Heart Perfusion W stress and W radionuclide IV Ordered By: Ksenia Valdez on 62-94-2367IljtahmmslMansfield Hospital Work Phone: NUCLEAR STRESS TESTon 33-49-3341JSJWHVG STRESS TEST Interpreted By: Ksenia Valdez and Oren Gagnon STUDY: MYOCARDIAL PERFUSION STRESS TEST WITH LEXISCAN Performing facility: [facility], [address] [place] [address], [address], [place] [address] [facility] Provider: Nahum Baumann MD PCP: Dr. Jamel Vicente Supervising provider: Ksenia Valdez MD, [facility] INDICATION: Signs/Symptoms: ,I25.10 Atherosclerotic heart disease of [place] coronary artery without angina pectoris,Z98.61 Coronary angioplasty status,I25.2 Old myocardial infarction,I10 Essential (primary) hypertension,F17.200 Nicotine dependence, unspecified, uncomplicated,Z01.810 Encounter for preprocedural cardiovascular examination HISTORY: Gender: F; Age: 64 y/o ; Height: HT 165.1 cm cm; Weight: WT 51.347 kg kg. CAD; High Cholesterol; Previous NM;2011 HTN; SOB; Currently smoking. Cardiac catheterization on 2011. PTCA on 2011. COMPARISON: Previous nuclear testing completed [id number] at [facility]. ACCESSION NUMBER(S): [id number] ORDERING CLINICIAN: NAHUM BAUMANN TECHNIQUE: ONE DAY protocol. Stress injection: Date:11-25-24, [...] Ksenia Valdez 11/25/2024 6:14 PM Dictation workstation: [id number]d Clinic ECG 12 [place] 25-96-1757Dyumbl sinus rhythm with borderline right atrial enlargementCPParkwood Hospital Work Phone: CT lumbar spine wo conon 87-89-5243UJ lumbar spine wo [facility] Main [place] [address] [place] [address] CT Scan Report Signed Patient: Mary West MR#: [id number] : 1960 Acct:[id number] Age/Sex: 64 / F ADM Date: 10/20/24 Loc: CT Room: Type: [facility] Attending Dr: Maxi Dos Santos DO Copies to: Maxi Dos Santos DO Ordering Provider: Maxi Dos Santos DO Date of Service: 10/20/24 CT/CT lumbar spine wo con: M47.26 - Other spondylosis with radiculopathy, lumbar region CT lumbar spine wo con 10/20/2024 8:50 AM History:Low back pain radiating down left leg with numbness and tingling TECHNIQUE: Multi detector CT axial slices of the lumbar spine were obtained without IV contrast. Volumetric acquisition sagittal, coronal, and 3-D reconstructions were performed and reviewed on a separate workstation. CT was performed with one or more of the following dose reduction techniques: Automated exposure control, adjustment of the mA and/or kV according to patient size, or use of iterative reconstruction technique. COMPARISON: 03/01/2024 FINDINGS: There is preservation of the vertebral body heights. There is mild disc height loss throughout the lumbar spine similar to the prior MRI. There is evidence of previous partial laminectomy at L4-5. No fractures or dislocations are seen. The alignment of the lumbar spine is normal. Degenerative changes are noted in the sacroiliac joints. The paraspinous soft tissues are within normal limits. The visualized lung parenchyma is unremarkable. Atherosclerotic changes are noted in the abdominal aorta. There is evidence of prior cholecystectomy in the right upper quadrant. CT/CT lumbar spine wo con IMPRESSION: No acute bony abnormality or malalignment. There is mild disc height loss throughout the lumbar spine similar to the prior MRI. There is evidence of previous partial laminectomy at L4-5. Degenerative changes are noted in the sacroiliac joints. Impression dictated by: Luca Gimenez M.D. 10/20/2024 12:20 PM Dictation Location: [place] [address] Transcribed By: [facility] 10/20/24 1220 Dictated By: Luca Gimenez II, MD 10/20/24 1217 Signed By: 10/20/24 1220[facility] Physician GroupX-ray reportOrdered By: Luca Gimenez on 78-46-8041Stgud reportDOCTORS HOSPITAL Main [place] [address] [place], [place] [id number] XRay Report Signed Patient: Mary West MR#: [id number] : 1960 Acct:[id number] Age/Sex: 64 / F ADM Date: 5 Loc: CT Room: Type: [facility] Attending Dr: Maxi Dos Santos DO Copies to: Maxi Dos Santos DO~ Ordering Provider: Maxi Dos Santos DO Date of Service: 10/20/24 XR/XR lumbar spine 6V w bending: M47.26 - Other spondylosis with radiculopathy, lumbar region XR lumbar spine 6V w bending 10/20/2024 8:55 AM SIGNS AND SYMPTOMS: Pain down left leg into left foot PROTOCOLS: Frontal, lateral, and flexion-extension views of the lumbar spine COMPARISON: 07/18/2023 FINDINGS: There is a mild levoconvex curvature of the lumbar spine. There is evidence of prior posterior decompression at L4-5.. There is no fracture or destructive lesion. No pathologic movement on flexion orextension. There is mild disc height loss at L4-5. Degenerative changes are noted in the sacroiliac joints and hips. Atherosclerotic changes are noted in the abdominal aorta. XR/XR lumbar spine 6V w bending IMPRESSION: No fracture, subluxation, or pathologic movement. There is mild disc height loss at L4-5 with evidence of prior posterior decompression. There is a similar mild levoconvex curvature. Impression dictated by: Luca Gimenez M.D. 10/20/2024 2:00 PM Dictation Location: [facility]- Transcribed By: [facility] 10/20/24 1400 Dictated By: Luca Gimenez II, MD 10/20/24 6362 Signed By: 10/20/[address] [facility] Work Phone: xr lumbar spine 6V w bendingon 32-65-2587FT lumbar spine 6V w bendingDOCTORS HOSPITAL [facility] [place] [address] [place] [address] XRay Report Signed Patient: Mary West MR#: [id number] : 1960 Acct:[id number] Age/Sex: 64 / F ADM Date: 10/20/24 Loc: CT Room: Type: [facility] Attending Dr: Maxi Dos Santos DO Copies to: Maxi Dos Santos DO Ordering Provider: Maxi Dos Santos DO Date of Service: 10/20/24 XR/XR lumbar spine 6V w bending: M47.26 - Other spondylosis with radiculopathy, lumbar region XR lumbar spine 6V w bending 10/20/2024 8:55 AM SIGNS AND SYMPTOMS: Pain down left leg into left foot PROTOCOLS: Frontal, lateral, and flexion-extension views of the lumbar spine COMPARISON: 07/18/2023 FINDINGS: There is a mild levoconvex curvature of the lumbar spine. There is evidence of prior posterior decompression at L4-5.. There is no fracture or destructive lesion. No pathologic movement on flexion or extension. There is mild disc height loss at L4-5. Degenerative changes are noted in the sacroiliac joints and hips. Atherosclerotic changes are noted in the abdominal aorta. XR/XR lumbar spine 6V w bending IMPRESSION: No fracture, subluxation, or pathologic movement. There is mild disc height loss at L4-5 with evidence of prior posterior decompression. There is a similar mild levoconvex curvature. Impression dictated by: Luca Gimenez M.D. 10/20/2024 2:00 PM Dictation Location: [place] [address] Transcribed By: [facility] 10/20/24 1400 Dictated By: Luca Gimenez II, MD 10/20/24 1359 Signed By: 10/20/24 1400[facility] Physician GroupAmbulatory Visit Summaryon 89-52-8146Yxqjyzazyd Visit SummaryAmbulatory Visit Summary MARY WEST :1960 Visit Date:07/30/2024 Ambulatory Visit Instructions Your Diagnosis Left ankle pain Your Care Team Attending Physician - Sunil Sifuentes PA-C Primary Care Physician - NIURKA VICENTE MD This Is Your Medications List predniSONE (predniSONE 20 mg Tab) Contact prescribing physician if questions or concerns acetaminophen-oxycodone (Percocet 7.5/325) albuterol aspirin (aspirin 81 mg oral capsule) atorvastatin (Lipitor 80 mg Tab) carvedilol (Coreg 6.25 mg Tab) chlorthalidone (chlorthalidone 25 mg Tab) hyoscyamine (Levsin 0.125 mg SL Tab) nitroglycerin omeprazole (omeprazole 40 mg Cap-DR) Procedures Performed Colonoscopy (07/25/2023), Esophagogastroduodenoscopy (07/25/2023), Appendix, Carpal tunnel, delivery, Gallbladder, Hysterectomy, Lower back. Discharge Vitals Temperature (Oral) 36.8 ???C Heart Rate (Peripheral) 62 Respiratory Rate 18 Blood Pressure 122/70 Height 168 cm Height 66 in Weight 50.2 kg Weight 110.672 lb BMI 17.79 What to do next You Need to Schedule the Following Appointments Follow Up with NIURKA VICENTE MD, NIMO When: Where: [address] [place] [address]- Medications What How Much When Why Instructions New predniSONE (predniSONE 20 mg Tab) 2 Tablets By Mouth 2 times a day Left ankle pain Duration: 5 Days with food or milk Pickup at [facility]/pharmacy #[id number] Unchanged acetaminophen-oxycodone (Percocet 7.5/ 325) By Mouth Every 6 hours as needed for as needed for pain as needed Contact prescribing physician if questions or concerns Unchanged albuterol See instructions not to exceed 32 mg/ day Contact prescribing physician if questions or concerns Unchanged aspirin (aspirin 81 mg oral capsule) 2 Capsules By Mouth Every 24 hours Contact prescribing physician if questions or concerns Unchanged atorvastatin (Lipitor 80 mg Tab) By Mouth Every day Contact prescribing physician if questions or concerns Unchanged carvedilol (Coreg 6.25 mg Tab) By Mouth 2 times a day Contact prescribing physician if questions or concerns Unchanged chlorthalidone (chlorthalidone 25 mg Tab) 1 Tablets By Mouth Every day Contact prescribing physician if questions or concerns Unchanged hyoscyamine (Levsin 0.125 mg SL Tab) 2 Tablets By Mouth 4 times a day as needed for for spasm Chronic diarrhea Belching Loss of appetite Contact prescribing physician if questions or concerns Unchanged nitroglycerin 0.4 Milligram Sublingual Every 5 minutes as needed for Chest pain Contact prescribing physician if questions or concerns Unchanged omeprazole (omeprazole 40 mg Cap-DR) 1 Capsules By Mouth Every day Contact prescribing physician if questions or concerns Pharmacy Information [facility]/pharmacy #[id number]: [address] [place], [place] [phone] Allergies Bactrim (Vomiting) CeleBREX (Tachycardia) Rocephin (Hives) Synthroid (Hypertension) Problems Ongoing - Any problem that you are currently receiving treatment for. Belching Margarita's disease Smoker Patient Survey You may receive a survey via text or e-mail asking about your office visit. Please share your experience with us by completing your survey. We appreciate your feedback and thank you for choosing us for your care. [facility] Medicine Office/Clinic Noteon [id number] Medicine Office/Clinic NoteFaleonard [facility] Office/Clinic Note Chief Complaint Left ankle swelling and redness HPI Staff 64 year old female presents with left ankle swelling and redness that started about a week ago. Pt states she does not recall any injuries. Pt reports soaking her foot in Epsom salt. Pt reports swelling is progressively worse. Pt denies hx of blood clots. Pt states she was dx with gout in at least 40 years ago and has not had a flare up since then. History of Present Illness I have reviewed and verified the staff HPI to be accurate for this encounter. Portions of this record have been created with voice recognition software. Occasional wrong-word or???leseg-s-nxcd??? substitutions may have occurred due to the inherent limitations of voice recognition software. 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 Patient denies any falls trauma or injuries to the left ankle. States that she noticed this approximately 1 week ago. States at that time it was more so just swelling at the left ankle and states it was more so at the lateral aspect. States she started to notice redness and yesterday the lateral aspect of the left ankle. Patient denies any falls trauma or injuries. 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 She states she noticed swellingabout a week ago states the redness she started noticing last night. States the swelling has now spread into the top of the left foot and into the toes of the left foot. States she wears compression stockings when she is at work because she sits for long periods of time. Is able to get up and move around. She is a current daily smoker denies any history of asthma or COPD. She states that she has had pain or discomfort at the lateral side of the left lateral malleolus region but again no noted injuries. No lacerations abrasions or lesions noticed redness at the lateral aspect of the left lateral malleolus kind of around that left ankle does not extend to the foot or the toes. She denies any other lower extremity edema no calf tenderness no history of DVT or PE. No chest pain shortness of breath or difficulty breathing. She has no other concerns at this time. Review of Systems PHQ Score Initial Depression Screen Score: 0 SCORE ROS negative unless otherwise stated in HPI. Physical Exam Vitals & Measurements T: 36.8 ???C(Oral) HR: 62(Peripheral) RR: 18 BP: 122/70 SpO2: 90% HT: 66 in HT: 168 cm WT: 110.672 lb WT: 50.2 kg BMI: 17.79 General: Very pleasant and elderly female present with her daughter today, sitting upright on the exam table, no acute distress Eyes:not assessed Ears:not assessed Nose:not addressed Mouth:not assessed Neck:not assessed Lungs: Lung sounds with faint expiratory wheeze without crackles or rhonchi. Symmetrical expansion.No signs of respiratory distress. Cardio:S1, S2, regular rhythm. No murmurs, gallops, or rubs. Abdomen:not assessed Extremity: Patient walked back and convening care on her own with slight limp. Patient has strong pedal and posterior tibialis pulses of bilateral lower extremities able to move all toes on bilateralfeet. Brisk capillary refill bilaterally. Patient has obvious noted swelling around the left ankle which extends into the dorsum of the left foot and into all 5 toes of the left foot. This is 1+ pitting edema. There is no other lower extremity edema or calf tenderness no calf swelling. No palpable cords or concerns for DVT at this time. Patient has swelling more so at the left lateral malleolus region in which there is slight discomfort with palpation and some overlying redness this is not hot t o the touch redness does not spread into the dorsum of the left foot. Concerning more so for an inflammatory reaction versus cellulitis. No obvious deformities or crepitus. No focal deficits. Patientis neurovascularly intact. Neurologic:not assessed Skin:No rashes, ulcerations, or suspicious lesions Mental Status:Alert and oriented x3. Normal mood and affect Assessment/Plan The patient is in agreement to x-ray left ankle. This will rule out any acute fractures or dislocations. Discussed otherwise with patient most likely a 5-day course of prednisone 40 mg daily x 5 days. Did offer Ozzie wrap but patient states she wears compression stockings every day when she goes to work can wear that throughout the day for the next several days in regards to left ankle and foot swelling. 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 Patient states she will be able to elevate and rest and ice the left ankle as needed for pain and swelling. There is some slight redness over the left portion left ankle at this point I do not believe this is acute cellulitis patient will continue to monitor ifredness spreads or worsen she will contact me tomorrow morning or even later this afternoon which Iwould send antib (more content not included)... [facility]itus Medical CenterComment on above:Result Comment: Electronically Signed By: Bear CISNEROS, Sunil Mccullough\.br\Date and Time Signed: 07/30/2510:12 EDTXR Ankle 3+ Views Lefton [id number] Ankle 3+ Views LeftExam Date/Time: 07/30/2024 09:57 EDT Reason for Exam: left ankle pain, and swelling x 1 week, pain at lateral aspect;Pain Report IMPRESSION: NO ACUTE OSSEOUS ABNORMALITY. EXAM: XR Ankle 3+ Views Left COMPARISON: None available HISTORY: Ankle pain FINDINGS: AP, lateral and oblique views of the ankle were obtained. FINDINGS: No acute fracture or dislocation. Ankle mortise is within normal limits. Talar dome is intact. Small posterior and plantar calcaneal enthesophytes. Soft tissues are within normal limits. Ordering Provider: Sunil Sifuentes FINAL REPORT Dictated: 07/30/2024 10:07 am Boyd Luciano DO Signed (Electronic Signature): 07/30/2024 10:07 am Signed by: Boyd Luciano DO Transcribed by: LORENA Technologist: Brock Kennedy Krieger InstituteThyroid Peroxidase(TPO) Abon [id number] Peroxidase(TPO) Ab932.0 IU/mLCritically high0.0-25.0[facility]glennComment on above:Result Comment: Reference Range: <25.0 Negative 25.0-35.0 Equivocal >35.0 Positive When results are Equivocal, it is recommended to retest after 8-12 weeks. Performed at [facility], [address] [place] [address] .Thyroid Stimulating Immunoglobulinson 75-71-5379Orikvpf Stim Immunoglob<0.10Normal<=0.54[facility] NorthglennComment on above:Result Comment: INTERPRETIVE INFORMATION: Thyroid Stimulating Immunoglobulin (TSI) 0.54 IU/L or less.........Consistent with healthy thyroid function or non-Graves thyroid or autoimmune disease. Those with healthy thyroid function typically have results less than 0.1 IU/L. 0.55 IU/L or greater......Consistent with Graves disease (autoimmune hyperthyroidism) This assay specifically detects thyroid stimulating autoantibodies. For diagnostic purposes, the results obtained from this assay should be used in combination with clinical examination, patient medical history, and other findings. Performed By: [facility] [address] [place] [address] Paint Roller Winder: Geoffrey Yip MD, PhD CLIA Number: [id number], Freeon [id number] T3 [Mass/Vol]4.51 pg/mL Critically high2.00-4.40[facility] NorthglennComment on above:Result Comment: Performed at [facility], [address] [place] [address] .CBC With Platelet No Differentialon [id number] distribution width (RBC) [Ratio]13.0 %Hofidf59.5-14.5[facility] NorthglennComment on above:Performed By: #### CBCND #### [facility] [address] [place] [address] Cesfcsqygx (Bld) [Volume fraction]40.1 %Fvgutr82.0-47.0[facility] NorthglennComment on above:Performed By: #### CBCND #### [facility] [address] [place] [address] Yjotyctszw (Bld) [Mass/Vol]12.9 g/nVYzhwxp91.0-16.0[facility]glennComment on above:Performed By: #### CBCND #### [facility] [address] [place] [address] YCZ (RBC) [Entitic mass]29.3 paCqdvbh09.0-31.3MEating Recovery Center Behavioral HealthComment on above:Performed By: #### CBCND #### [facility] [address] [place] [address] QDSW24.2 %Low33.0-37.0[facility] NorthglennComment on above: Performed By: #### CBCND #### [facility] [address] [place] [address] KJK (RBC) [Entitic vol]90.9 xVQbcqse97.4-94.8[facility] NorthglennComment on above:Performed By: #### CBCND #### [facility] [address] [place] [address] Ywyfxwfxq (Bld) [#/Vol]482 10*3/uLCritically qyqn049-200EvwrlScl Health Community Hospital - NorthglennComment on above:Performed By: #### CBCND #### [facility] [address] [place] [address] RLN (Bld) [#/Vol]4.41 10*6/uLNormal4.20-5.40[facility] NorthglennComment on above:Performed By: #### CBCND #### [facility] [address] [place] [address] IYZ (Bld) [#/Vol]9.2 10*3/uLNormal4.8-10.8[facility] NorthglennComment on above:Performed By: #### CBCND #### [facility] [address] [place] [address] Foztcidtzjbsi Metabolic Panelon 30-07-1629Ooaeatv [Mass/Vol]3.7 g/dL Normal3.5-4.6MEating Recovery Center Behavioral HealthComment on above:Performed By: #### CMP #### [facility] [address] [place] [address] PEV [Catalytic activity/Vol]93 U/XJzprfe58-031OlxhuScl Health Community Hospital - NorthglennComment on above:Performed By: #### CMP #### [facility] [address] [place] [address] EYX [Catalytic activity/Vol]12 U/LNormal0-33[facility] NorthglennComment on above:Performed By: #### CMP #### [facility] [address] [place] [address] Tatls gap [Moles/Vol]11 mmol/LNormal9-15[facility] NorthglennComment on above:Performed By: #### CMP #### [facility] [address] [place] [address] ESR [Catalytic activity/Vol]17 U/LNormal0-35[facility] NorthglennComment on above:Performed By: #### CMP #### [facility] [address] [place] [address] Hcgrndley [Mass/Vol]mg/dLNormal0.2-0.7[facility] Comment on above:Performed By: #### CMP #### [facility] [address] [place] [address] Alejxsy [Mass/Vol]9.4 mg/dLNormal8.5-9.9[facility] NorthglennComment on above:Performed By: #### CMP #### [facility] [address] [place] [address] Tnagkvfs [Moles/Vol]98 mmol/TXoedby96-224KsddrScl Health Community Hospital - NorthglennComment on above:Performed By: #### CMP #### [facility] [address] [place] [address] HD6 [Moles/Vol]29 mmol/HQkimeu61-43YjsqiScl Health Community Hospital - Northglenn Comment on above:Performed By: #### CMP #### [facility] [address] [place] [address] Fgvngxwexr [Mass/Vol]0.93 mg/dLCritically high0.50-0.90[facility] NorthglennComment on above:Performed By: #### CMP #### [facility] [address] [place] [address] EHW74.5Normal>60[facility] NorthglennComment on above:Result Comment: Pediatric calculator link https://www.kidney.org/professionals/kdoqi/gfr_calculatorped Effective Dec 19, 2021 These results are not intended for use in patients <18 years of age. eGFR results are calculated without a race factor using the 2020 CKD-EPI equation. Careful clinical correlation is recommended, particularly when comparing to results calculated using previous equations. The CKD-EPI equation is less accurate in patients with extremes of muscle mass, extra-renal metabolism of creatinine, excessive creatinine ingestion, or following therapy that affects renal tubular secretion.Performed By: #### CMP #### [facility] [address] [place] [address] Hsmodvpd (S) [Mass/Vol]3.8 g/dLCritically high2.3-3.5[facility]glennComment on above:Performed By: #### CMP #### [facility] [address] [place] [address] Yavecob [Mass/Vol]104 mg/dLCritically hneg36-17IguafEating Recovery Center Behavioral HealthComment on above:Performed By: #### CMP #### [facility] [address] [place] [address] Lslxxznto [Moles/Vol]4.0 mmol/LNormal3.4-4.9[facility] NorthglennComment on above:Performed By: #### CMP #### [facility] [address] [place] [address] Grrogou [Mass/Vol]7.5 g/dLNormal6.3-8.0[facility] Comment on above:Performed By: #### CMP #### [facility] [address] [place] [address] Dyywbt [Moles/Vol]138 mmol/WEgljxt999-038DcaopScl Health Community Hospital - NorthglennComment on above:Performed By: #### CMP #### [facility] [address] [place] [address] Oytc nitrogen [Mass/Vol]13 mg/dLNormal8-23[facility] NorthglennComment on above:Performed By: #### CMP #### [facility] [address] [place] [address] JNI w/Reflexon [id number] w/Reflex0.417 uIU/mLLow0.440-3.86[facility] NorthglennComment on above:Result Comment: Free T4 will automatically reflex with a TSH result of <0.270 or >4.200Performed By: #### TSHR #### [facility] [address] [place] [address] Kxruhltyg Freeon 89-55-8920Vteecfhpg Free0.84 ng/dLNormal0.84-1.68 [facility] NorthglennComment on above:Performed By: #### FRT4 #### [facility] [address] [place] [address] Nifvcaxjra (Bld) [Mass/Vol]Ordered By: Maxi Dos Santos on 03-01-2024 Creatinine [Mass/Vol]Whole blood creatinine measurement0.6-1.3FEast Liverpool City HospitalComment on above:ER/ESD physician is notified/shown all ISTAT results.Critical values may be confirmed by laboratorytesting ifdeemed necessary by ER attending doctor.ISTAT XRay CREon [id number] [Mass/Vol]1.0 mg/dLNormal0.6-1.3The [facility] Physician GroupComment on above:Result Comment: ER/ESD physician is notified/shown all ISTAT results. Critical values may be confirmed by laboratory testing if deemed necessary by ER attending doctor.Performed By: #### ISCRE #### [place] [address] USAISTAT GFR>60.0NormalThe [facility]oir Physician GroupComment on above:Result Comment: PERFORMED BY: [place] [address] PATHOLOGIST ENGINEERING LIBRARIAN ALEKS VELIZ M.D.Performed By: #### ISCRE #### [place] [address] USAMR lumbar spine wo/w conon [id number] lumbar spine wo/w [facility] [place] [address] [place] [address] MRI Report Signed Patient: Mary West MR#: [id number] : 1960 Acct:[id number] Age/Sex: 63 / F ADM Date: 03/01/24 Loc: Room: Type: [facility] Attending Dr: Maxi Dos Santos DO Copies to: Maxi Dos Santos DO Ordering Provider: Maxi Dos Santos DO Date of Service: 03/01/24 MR/MR lumbar spine wo/w con: New and worsening symptoms MRI Lumbar Spine with and withoutcontrast TECHNIQUE: Multiplanar T1 and T2-weighted imaging of lumbar spine obtained without contrast.10 cc of ProHance HISTORY: Chronic lumbar spine pain with radiation down the legs. Numbness which is greater on the left. Worsening symptomatology. COMPARISON: 09/22/2023 The last fully segmented vertebral pair is operationally defined as L5/S1. POST SURGERY CHANGES: None BONE MARROW INFILTRATION: None BONE MARROW EDEMA: None BONY ALIGNMENT: Similar scoliosis SPINAL CANAL: No significant central canal narrowing. LUMBAR FRACTURE: None BONY LESIONS: T12 hemangioma or Schmorl's node redemonstrated. KIDNEYS: No hydronephrosis is identified. AORTA: No aortic aneurysm is seen. CONUS MEDULLARIS : The distal spinal cord is in adequate position without abnormality. Additional findings CONJOINED NERVE ROOT: None Lower thoracic level: Unremarkable L1-2 : L2-3: Mild spondylosis and diffuse disc bulge greater and neural foraminal regions. Greater extension on the left. Posterior element hypertrophy. Mild central canal stenosis. Mild neural foraminal narrowing greater on the left. Similar findings. L3-4: Similar spondylosis with a disc bulge greater in the neural foraminal regions. Mild posterior element hypertrophy. Mild effacement of thecal sac. Patent central canal. Mild bilateral neural foraminal narrowing similar findings L4-5: Prior laminectomy redemonstrated. Mild spondylosis and annular disc bulging, redemonstrated. Nodular 5 mm focus of altered signal in the left neural foramen redemonstrated. This is not significantly changed. Minimal enhancement present. Bilateral facet hypertrophy redemonstrated. No significant thecal sac effacement. Mild right and moderate left foraminal impingement redemonstrated. L5-S1: Mild annular disc bulging. This extends into the right neural foramen. This is unchanged. There is mild facet hypertrophy. On the right, unchanged. No significant central canal narrowing. Mild right foraminal impingement redemonstrated. MR/MR lumbar spine wo/w con IMPRESSION: Stable prior L4-5 laminectomy. No central canal stenosis. Redemonstration of asymmetric structure in the left neural foraminal region. Significant enhancement not identified. This is stable. Likely represents postsurgical change. May be related to residual disc. Similar stable multilevel discovertebral degenerative changes. Pre-MRI plain film assessment: None Impression dictated by: Tc Ferrera M.D.03/01/2024 10:46 AM Dictation Location: [place] [address] Transcribed By: [facility] 03/01/24 1046 Dictated By: Tc Ferrera DO 03/01/24 1017 Signed By: 03/01/24 1046[facility] Physician GroupNo Panel InformationOrdered By: Maxi Dos Santos on [id number] Estimated GFR (eGFR)> 60.0[facility] HospitalBasophils Auto (Bld) [#/Vol]on [id number] (Bld) [#/Vol] 0.1 10 3/uL0.0-0.1FEast Liverpool City HospitalBasophils (Bld) [#/Vol] Automated basophil count0.0-0.1FEast Liverpool City HospitalBasophils/100 WBC Auto (Bld)on 99-30-2255Cspmbrqob/100 WBC (Bld)0.8 %0.2-2.0[facility] HospitalBasophils/100 WBC (Bld)Automated basophil %0.2-2.0[facility] HospitalEosinophils/100 WBC Auto (Bld)on 01-03-2024 Eosinophils/100 WBC (Bld)2.2 %0.9-7.0[facility] Eosinophils/100 WBC (Bld)Automated eosinophil %0.9-7.0[facility] HospitalErythrocyte distribution width Auto (RBC) [Ratio]on 92-29-1937Vbbhhrxorza distribution width (RBC) [Ratio]13.3 %11.0-15.0[facility] Mary HospitalErythrocyte distribution width (RBC) [Ratio]Erythrocyte distribution width [Ratio] by Automated count11.0-15.0[facility] Mary HospitalEstimated glomerular filtration rate (GFR) non- Americanon 14-97-6119AHO/1.73 sq M.predicted among non-blacks MDRD (S/P/Bld) [Vol rate/Area]51 mL/min/{1.73_m2} Low>=60 mL/min/1.73m 2FEast Liverpool City HospitalGFR/1.73 sq M.predicted among non-blacks MDRD (S/P/Bld) [Vol rate/Area]Estimated glomerular filtration rate (GFR) non- AmericanLow>=60 mL/min/1.73m [address] [place], [place] [address]Globulin Calc (S) [Mass/Vol]on 63-40-0763Twcwxdvs (S) [Mass/Vol]4.4 g/dL [facility] HospitalGlobulin (S) [Mass/Vol]Serum globulin measurement by calculation (mass/volume)[facility] Hematocrit Auto (Bld) [Volume fraction]on 79-54-7483Fclbzkobju (Bld) [Volume fraction]44.4 %36.0-48.0[facility] HospitalHematocrit (Bld) [Volume fraction]Hematocrit [Volume Fraction] of Blood by Automated count 36.0-48.0[facility] HospitalHemoglobin [Mass/volume] in Bloodon 89-05-3309Auyqzssnug (Bld) [Mass/Vol]14.4 g/dL12.0-16.0[facility] HospitalHemoglobin (Bld) [Mass/Vol]Hemoglobin [Mass/volume] in Blood 12.0-16.0[facility] HospitalLaboratory - Chemistry and Chemistry - challengeon 70-98-9188Rvktbas [Mass/Vol]3.8 g/dL3.4-5.0[facility] HospitalALP [Catalytic activity/Vol]85 U/U64-912RrxvvheqgMount St. Mary HospitalALT [Catalytic activity/Vol]22 U/Q82-65LuiiaehsbMount St. Mary Hospital AST [Catalytic activity/Vol]27 U/W21-85NiykrbtbhMount St. Mary Hospital Bilirubin [Mass/Vol]0.4 mg/dL0.2-1.0[facility] HospitalCalcium [Mass/Vol]9.9 mg/dL8.5-10.1FEast Liverpool City HospitalChloride [Moles/Vol] 99 mmol/Z62-960LghoylpovMount [address] Mary HospitalCO2 [Moles/Vol]30.8 mmol/L 21.0-32.0[facility] HospitalCreatinine [Mass/Vol]1.09 mg/dLHigh 0.55-1.02[facility]. Mary HospitalFree T4 [Mass/Vol]0.76 ng/dL0.76-1.[address] [facility] HospitalGFR/1.73 sq M.predicted MDRD (S/P/Bld) [Vol rate/Area]mL/min/{1.73_m2}>=60 mL/min/1.73m 2FEast [facility] Glucose [Mass/Vol]99 mg/pL37-895EumrcsqdsMount St. Mary HospitalPotassium [Moles/Vol]3.9 mmol/L3.5-5.1FEast Liverpool City HospitalProtein [Mass/Vol] 8.2 g/dL6.4-8.2FMetroHealth Parma Medical Centerodium [Moles/Vol]139 mmol/L 136-145Mount [facility]. Mary HospitalTSH Qn3.209 m[IU]/L0.358-3.740[facility]. Mary HospitalUrea nitrogen [Mass/Vol]11.0 mg/dL7.0-18.0[facility] Mary HospitalUrea nitrogen/Creatinine [Mass ratio]10.1 mg/mgMount St. Mary HospitalLaboratory - Hematology and Cell countson 01-03-2024 Immature granulocytes/100 WBC (Bld)0.1 %0.0-0.5FEast [facility] Hospital Leukocytes [#/volume] corrected for nucleated erythrocytes in Blood by Automated counon 43-07-3605NBI corrected for nucl RBC Auto (Bld) [#/Vol]7.6 10 3/uL 4.0-11.0[facility] Mary HospitalWBC corrected for nucl RBC Auto (Bld) [#/Vol]Leukocytes [#/volume] corrected for nucleated erythrocytes in Blood by Automated coun4.0-11.0[facility] HospitalLymphocytes Auto (Bld) [#/Vol]on 52-57-6962Fxkmvztfxla (Bld) [#/Vol]2.2 10 3/uL1.2-3.8[facility] HospitalLymphocytes (Bld) [#/Vol]Lymphocytes [#/volume] in Blood by Automated count1.2-3.8[facility] HospitalLymphocytes/100 WBC Auto (Bld)on 97-79-1271Vwruuhcodsg/100 WBC (Bld)29.5 %20.5-60.0[facility] HospitalLymphocytes/100 WBC (Bld)Lymphocytes/100 leukocytes in Blood by Automated count20.5-60.0[facility] HospitalH Auto (RBC) [Entitic mass]on 79-47-5777MAJ (RBC) [Entitic mass]30.1 pg26.7-34.0[facility] (RBC) [Entitic mass]MCH [Entitic mass] by Automated count26.7-34.0[facility] HospitalHC Auto (RBC) [Mass/Vol]on 16-33-9906CJGG (RBC) [Mass/Vol]32.4 g/dL29.9-35.2FMercy Health Urbana HospitalHC (RBC) [Mass/Vol]MCHC [Mass/volume] by Automated count29.9-35.2 [facility] HospitalV Auto (RBC) [Entitic vol]on 10-05-9998IMZ (RBC) [Entitic vol]92.7 fL81.0-99.0[facility] HospitalV (RBC) [Entitic vol]MCV [Entitic volume] by Automated count81.0-99.0[facility] HospitalMonocytes Auto (Bld) [#/Vol]on 92-41-7724Stcaswkma (Bld) [#/Vol] 0.7 10 3/uL0.3-0.8[facility] HospitalMonocytes (Bld) [#/Vol] Automated blood monocyte count0.3-0.8[facility] Monocytes/100 WBC Auto (Bld)on 34-91-5203Awvozszim/100 WBC (Bld)8.6 %1.7-12.[address] [facility] HospitalMonocytes/100 WBC (Bld)Automated monocyte % 1.7-12.0[facility] HospitalNeutrophils Auto (Bld) [#/Vol]on 44-99-0834Ydfgbuboprv (Bld) [#/Vol]4.5 10 3/uL1.4-6.5FEast Liverpool City HospitalNeutrophils (Bld) [#/Vol]Neutrophils [#/volume] in Blood by Automated count1.4-6.5FEast Liverpool City HospitalNeutrophils/100 WBC Auto (Bld)on 00-23-5675Tvsuidwzgmw/100 WBC (Bld)58.8 %43.0-75.0[facility] HospitalNeutrophils/100 WBC (Bld)Automated neutrophil %43.0-75.0[facility] HospitalNo Panel Informationon 93-48-7435Vmfuxmtvudl # (Auto)0.2 10 3/uL 0.0-0.7FEast Liverpool City HospitalFree Triiodothyronine3.02 pg/mL2.18-3.[address] [facility] HospitalImmature Granulocyte # (Auto)0.01 10 3/uL 0.00-0.03[facility] HospitalPlatelet mean volume Auto (Bld) [Entitic vol]on 20-64-3136Rxklnsbm mean volume (Bld) [Entitic vol]8.7 fLLow 9.5-13.5FEast Liverpool City HospitalPlatelet mean volume (Bld) [Entitic vol]Platelet mean volume [Entitic volume] in Blood by Automated countLow9.5-13.[address] [facility] HospitalPlatelets Auto (Bld) [#/Vol]on 01-03-2024 Platelets (Bld) [#/Vol]337 10 3/xR808-037OxdnoadonMount St. Mary Hospital Platelets (Bld) [#/Vol]Platelets [#/volume] in Blood by Automated -[address] [facility] HospitalRBC Auto (Bld) [#/Vol]on 76-26-4117BSN (Bld) [#/Vol]4.79 10 6/uL4.20-5.40[facility] HospitalRBC (Bld) [#/Vol] Erythrocytes [#/volume] in Blood by Automated count4.20-5.40[facility] Hospitalerum or plasma albumin/globulin mass ratioon 01-03-2024 Albumin/Globulin [Mass ratio]0.9 {ratio}[facility] Albumin/Globulin [Mass ratio]Serum or plasma albumin/globulin mass ratio [facility] Hospitalerum or plasma anion gap determinationon 24-75-4247Bdogc gap [Moles/Vol]13.1 mmol/LFEast Liverpool City HospitalAnion gap [Moles/Vol]Serum or plasma anion gap determinationElyria Memorial Hospitalerum or plasma thyroperoxidase antibody assay (units/volume)on 87-68-7260MRY Ab Qn372 [IU]/mLAbnormal0-34[facility] Comment on above:Performed at: [facility] [employer] [id number] Director: Adryan Maldonado PhD, Phone: [phone] Ab QnSerum or plasma thyroperoxidase antibody assay (units/volume)Abnormal0-34[facility] HospitalComment on above:Performed at: [facility] [employer] [id number] Director: Adryan Maldonado PhD, Phone: [phone] stimulating immunoglobulin (TSI) measurementon 01-03-2024 Thyroid stimulating immunoglobulins actual/normal (S) [Relative mass conc]0.13 IU/L0.00-0.55[facility] HospitalComment on above:Performed at: [facility] [employer] [id number] Director: Jaja Obregon MD, Phone: [phone] stimulating immunoglobulins actual/normal (S) [Relative mass conc]Thyroid stimulating immunoglobulin (TSI) measurement0.00-0.55[facility] HospitalComment on above:Performed at: [facility] [id number] Director: Jaja Obregon MD, Phone: [phone] 2 Extremitieson 38-48-1908P1 radiculopathy on the left, mild Carpal tunnel syndrome, minimal left and very minimal rightNOMS HealthcareNOMS HealthcareNVC 9-10 Nerveson 17-30-8464I4 radiculopathy on the left, mild Carpal tunnel syndrome, minimal left and very minimal rightNOMS HealthcareNOMS HealthcareNo Panel Informationon 20-09-1886JjrdnyLKRK HealthcareNOMS Healthcare NormalNOMS HealthcareNOMS HealthcareUS HEAD NECK SOFT TISSUE THYROIDon 38-63-0048VL HEAD NECK SOFT TISSUE THYROIDEXAMINATION: THYROID ULTRASOUND 10/15/2023 COMPARISON: None. 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, Cervical lymphadenopathy TECHNOLOGIST PROVIDED HISTORY: Reason for exam:->rule out thyroid nodules, evaluate cervical lymphadenopathy What reading provider will be dictating this exam?->CRC FINDINGS: Right thyroid lobe: 5.6 x 2.5 x 2.2 cm Left thyroid lobe: 5.9 x 2.4 x 2.1cm Isthmus: 0.7cm Echotexture: Heterogeneous Vascularity: Increased Thyroid Nodules: NonePRN insert TIRADS Nodule Macro, must include score recommendation; report up to 4 nodules max, most suspicious report score recommendation Soft tissues: Small right sided subcentimeter lymph node IMPRESSION: Mildly enlarged diffusely heterogeneous thyroid gland, compatible with thyroiditis Interpreted by: Dave Timmons MD Signed by: Dave Timmons MD 10/15/23 Final resultNormSt. Anthony HospitalCHEMISTRYOrdered By: SYSTEM SYSTEM on 60-55-5346iZEV28 mL/min/1.73 l3Mbmfme>=59mL/min/1.73 i0Jgmbadf Chem Consent for Treatmenton 04-32-1904Gejyljb for Treatment [id number]#1.00TIFProMedica Memorial HospitalCreatinineon 53-95-8491Orrqkdsdmx [Mass/Vol]1.0 mg/dLNormal0.5-1.3[facility]rieger InstituteComment on above:Performed By: #### [id number] #### [facility] [address], [place] [address]Sdvzbgqns glomerular filtration rate (GFR) non- on 48-64-5787MTA/1.73 sq M.predicted among non-blacks MDRD (S/P/Bld) [Vol rate/Area]63 mL/min/1.73 m2>=[address] [facility] HospitalLaboratory - Chemistry and Chemistry - challengeOrdered By: SYSTEM SYSTEM on 08-14-2023 Creatinine [Mass/Vol]1.0 mg/dL0.5-1.3Remisol ChemPhysician Orderon 08-14-2023 Physician [id number]#1.00TIFProMedica Memorial HospitalPhysician Order [id number]#1.00TIFProMedica Memorial HospitalInsurance Correspondenceon 88-61-2555Rsdiuiizm Correspondence [id number]#1.00TIFProMedica Memorial HospitalIntraOperative Documentson 07-50-9047TdckgNhyyshhcn Documents [id number]#1.00[facility] Medical Centerinderson 61-24-8475Wgqguqvnj From: Corrie Tenorio I To: [facility] - Reminders/Recalls; Sent: 07/30/2023 13:27:12 EDT Show up: 06/17/2028 13:27:00 EDT Subject: EGD recall Reminder/Recall 5 year EGD recall - short segment Azul's esophagus. No intestinal metaplasia or dysplasia. Dr. Martinez 07/24/2028 Addendum by Lyndsey Martinez MD on July 28, 2023 23:59:55 EDT From: Lyndsey Martinez MD To: Little Gomez MA; Cc: Trevor Mcnair; Sent: 07/28/2023 23:59:55 EDT Subject: RE: General Message Caller Name: EYADMARY; Caller Number: H if 3 or less- 5 years if more than 3 cm, 5 years Addendum by Little Gomez MA on July 27, 2023 12:29:15 EDT From: Little Gomez MA To: Lyndsey Martinez MD; Cc: Trevor Mcnair; Sent: 07/27/2023 12:29:15 EDT Subject: FW: General Message Caller Name: EYADMARY; Caller Number: H 3 years or 5 years? From: Lyndsey Martinez MD To: Little Gomez MA; Sent: 07/27/2023 09:37:17 EDT Subject: General Message Caller Name: MARY WEST; Caller Number: H BE guidelinesNormalMagruder Memorial HospitalCalprotectin, Fecalon 07-28-2023 Calprotectin (Stl) [Mass/Mass]34 mcg/gmInvalid Interpretation Code0-120Magruder Memorial HospitalComment on above:Result Comment: Concentration Interpretation Follow-Up < 5 - 50 ug/g Normal None >50 -120 ug/g Borderline Re-evaluate in 4-6 weeks >120 ug/g Abnormal Repeat as clinically indicated Performed at: [address] [id number] MD Sabas Mchughformed By: #### [id number], [id number] #### [facility] [address], [place] [address]V & P EXAM, ROUTINE, REFLEXon 24-39-0162Sqr and parasites identified Concentration Nom (Stl)CommentInvalid Interpretation [facility] HospitalComment on above:Result Comment: No ova, cysts, or parasites seen. One negative specimen does not rule out the possibility of a parasitic infection. Performed at: [address] [id number] PhD Joel Saavedraformed By: #### [id number], [id number] #### [facility] [address], [place] [address]C & P Exam, Routineon 46-97-0168Ezm and parasites identified LM Nom (Unsp spec)Final reportInvalid Interpretation [facility] HospitalComment on above:Result Comment: These results were obtained using wet preparation(s) and trichrome stained smear. This test does not include testing for Cryptosporidium parvum, Cyclospora, or Microsporidia. Performed at: [address] [id number] PhD Joel Saavedraformed By: #### [id number], [id number] #### [facility] [address], [place] [address]Nfayvaqgna Elastase, Fecalon 03-73-2200Pqmbphfq.pancreatic (Stl) [Mass/Mass]105Low>200Mag[facility] Memorial HospitalComment on above:Result Comment: Severe Pancreatic Insufficiency: <100 Moderate Pancreatic Insufficiency: 100 - 200 Normal: >200 Performed at: [facility] [address] [id number] MD Sabas CanoiPerformed By: #### [id number], [id number] #### [facility] [address] [place], [place] [address]Oyeelhwv Note-Physicianon 88-94-5603Okbxzcfy Note-Physician Patient: MARY WEST Age: 63 years Sex: Female : 1960 Associated Diagnoses: None Author: John Garza Jr, DO Preoperative Information Anesthesia Preop Info: Time patient last ate or drank 07/25/2023 00:00:00. Anesthesia history: Patient history: None. Family history+: None. Informed consent: Signed by patient. Re-evaluation prior to induction: Initial evaluation reviewed: No significant change. Review of Systems Eye: Negative except as documented in history of present illness. Ear/Nose/Mouth/Throat: Negative except as documented in history of present illness. Respiratory: Negative except as documented in history of present illness. Cardiovascular: Negative except as documented in history of present illness. Musculoskeletal: Negative except as documented in history of present illness. Neurologic: Negative except as documented in history of present illness. Health Status Allergies: Allergic Reactions (Selected) Severity Not Documented Bactrim- Vomiting. CeleBREX- Tachycardia. Rocephin- Hives. Synthroid- Hypertension. Problem list: All Problems Smoker / SNOMED CT 762749010 / Confirmed Added secondary to documentation in Social History. Histories Procedure history: Lower back ([id number]). Comments: 07/16/2023 12:39 Marisa Dill arthritis Carpal tunnel ([id number]). Gallbladder (36683876). Comments: 07/16/2023 12:40 Marisa Dill 2003 Appendix ([id number]). Comments: 07/16/2023 12:40 Marisa Dill 1989 Hysterectomy (393811155). delivery ([id number]). Social History Social & Psychosocial Habits Alcohol 07/16/2023 Risk Assessment: Denies Alcohol Use Substance Abuse 07/16/2023 Risk Assessment: Denies Substance Abuse Tobacco 07/16/2023 Tobacco Use: 5-9 cigarettes (between 1 07/16/2023 Risk Assessment: High Risk 07/16/2023 Tobacco Use: 10 or more cigarettes (/ . Physical Examination Airway: Mallampati classification: II (soft palate, fauces, uvula visible). Respiratory: adequate air exchange. Cardiovascular: Regular rhythm. Plan [place] [employer]hesi[employer] (ASA) physical status classification: Class II. Anesthetic Preoperative Plan: Anesthesia General.[facility] Medical CenterComment on above:Result Comment: Electronically Signed By: John Garza Jr, DO\.br\Date and Time Signed: 07/27/23 11:46 EDTProgress Note-Physician Patient: MARY WEST Age: 63 years Sex: Female : 1960 Associated Diagnoses: None Author: John Garza Jr, DO Postoperative Information Postoperative disposition: Postoperative disposition: To PACU. Optimetrix number: Optimetrix number [id number]. Anesthetic utilized: General. Health Status Allergies: Allergic Reactions (Selected) Severity Not Documented Bactrim- Vomiting. CeleBREX- Tachycardia. Rocephin- Hives. Synthroid- Hypertension. Physical Examination Vital Signs 07/25/2023 10:05 EDT Heart Rate Monitored 69 bpm Respiratory Rate Monitored 17 br/min Systolic Blood Pressure 127 mmHg Diastolic Blood Pressure 75 mmHg SpO2 97 % 07/25/2023 10:00 EDT Heart Rate Monitored 75 bpm Respiratory Rate Monitored 19 br/min Systolic Blood Pressure 113 mmHg Diastolic Blood Pressure 66 mmHg SpO2 97 % 07/25/2023 9:55 EDT Heart Rate Monitored 74 bpm Respiratory Rate Monitored 21 br/min Systolic Blood Pressure 115 mmHg Diastolic Blood Pressure 59 mmHg SpO2 96 % 07/25/2023 9:53 EDT Temperature Temporal Artery 36.3 DegC Heart Rate Monitored 75 bpm Respiratory Rate Monitored 18 br/min Systolic Blood Pressure 116 mmHg Diastolic Blood Pressure 51 mmHg LOW SpO2 97 % Pain Assessment: Controlled. General: Awake, Alert, Appropriate. Respiratory: Adequate air exchange. Cardiovascular: Stable, Normal peripheral perfusion. Neurological: Normal sensory function, Normal motor function. Assessment Anesthetic outcome No anesthetic complications noted. Adequate pain relief. able to void without difficulty, able to ambulate with assist, tolerating PO intake, no N/V. Review / Management Condition: Stable. Plan Transfer/Discharge: Transfer/Discharge Discharge when meets criteria ( To home ).[facility] CenterComment on above:Result Comment: Electronically Signed By: John Garza Jr, DO\Date and Time Signed: 07/27/23 11:46 EDTConsenton 78-36-8615Jaqmlwo [id number]#1.00TIFProMedica Memorial HospitalDischarge Instructionson 87-90-0393Fovcuqwvd Instructions [id number]#1.00[facility] HospitalPostoperative Documentson 85-72-3582Xirrtbesmkkov Documents [id number]#1.00[facility] HospitalColonoscopy Procedure Reporton 97-07-4722Iyyslyrmoxz Procedure Report Patient: MARY WEST Age: 63 years Sex: Female : 1960 Associated Diagnoses: None Author: Lyndsey Martinez MD Pre-Procedure Procedure Date 07/25/2023 09:55:00 . Procedure Type: Colonoscopy with biopsy. Procedure provider Performed by Lyndsey Martinez MD. Current history and physical Documented on chart. Lower back (23947653). Comments: 07/16/2023 12:39 Marisa iDll arthritis Carpal tunnel (508862356). Gallbladder (61838517). Comments: 07/16/2023 12:40 Marisa Dill 2003 Appendix ([id number]). Comments: 07/16/2023 12:40 Marisa Dill 1989 Hysterectomy (548896904). delivery ([id number]).. Past Medical History No active or resolved past medical history items have been selected or recorded.. Family History Primary malignant neoplasm of skin Father Primary malignant neoplasm of female breast Grandparent . Procedure History Lower back (80628179). Comments: 07/16/2023 12:39 Marisa Dill arthritis Carpal tunnel (983688046). Gallbladder (23483167). Comments: 07/16/2023 12:40 Marisa Dill 2002 Appendix ([id number]). Comments: 07/16/2023 12:40 Marisa Dill 1989 Hysterectomy (849837656). delivery ([id number]).. Colorectal neoplasm risk assessment Average risk. Informed Consent After discussing the rationale, risks and benefits, and alternatives to this procedure, the patient provided signed consent for the procedure. Pre-procedure diagnosis: Diarrhea, clinically significant. Medications (Selected) Inpatient Medications Ordered Lactated Ringers IV Jess 1000 mL 1,000 mL: 1,000 mL, IV, 100 mL/hr, Routine, Start date 07/25/23 6:46:00 EDT, 10 hour(s), Total volume (mL): 1,000, 60.6 kg, 1.67, m2 Sodium Chloride 0.9% IV Jess 1000 mL 1,000 mL: 1,000 mL, IV, 20 mL/hr, Routine, Start date 07/25/23 7:01:00 EDT, 50 hour(s), Total volume (mL): 1,000, 60.6 kg, 1.67, m2 Prescriptions Prescribed Levsin 0.125 mg SL Tab: 0.25 mg = 2 tab(s), Oral, QID, PRN for spasm, # 80 tab(s), Refills(s) 0, Pharmacy: [facility]/pharmacy #[id number], 165, cm, 07/16/23 12:47:00 EDT, Height/Length Dosing, 60.6, kg, 07/16/2411:47:00 EDT, Weight Dosing Documented Medications Documented Coreg 6.25 mg Tab: mg tab(s), Oral, BID, Refills(s) 0, High blood pressure Lipitor 80 mg Tab: mg tab(s), Oral, Daily, Refills(s) 0, High cholesterol Percocet 7.5/325: Oral, q6hr as needed for pain, Refill(s) 0, as needed albuterol: See Instructions, not to exceed 32 mg/day, Refills(s) 0, Shortness of breath or wheezing aspirin 81 mg oral capsule: 162 mg = 2 cap(s), Oral, q24hr, Refills(s) 0 chlorthalidone 25 mg Tab: 25 mg = 1 tab(s), Oral, Daily, Refills(s) 0, High blood pressure nitroglycerin: 0.4 mg, SubLingual, q5min, PRN Chest pain, Refills(s) 0 ASA Classification: Class II. . Monitoring: See anesthesia record. . Procedure The procedure was performed in the hospital. See anesthesia record for sedation given during procedure. The patient was positioned starting in the left lateral decubitus position. Endoscope type usedwas a pediatric-size. The endoscope was lubricated then introduced through the anus. The scope was advanced to the terminal ileum. No difficulties encountered during the procedure. The bowel preparation quality was good and was adequate (see polyps greater than or equal to 6 millimeters). The patient tolerated the procedure well. Last colonoscopy Time to cecum: min Time of withdrawal: min Findings 1. Small internal hemorrhoids seen on retroflexion 2. increased vasculature in the right colon but otherwise normal colonic, random biopsies were obtained to rule out microscopic colitis 3. Normal Terminal ileum Images Procedure images: Rec1_hd_video_2023__[id number]_[id number].jpg Rec_hd_video_T08_47_56_112.jpg Rec1_hd_video_T08_49_04_[id number].jpg Rec1_hd_video_T08_49_45_284.jpg Rec_hd_video_T08_53_59_237.jpg Rec1_hd_video__T08_57_[id number].jpg . Post-Procedure Complications: none. Estimated blood loss: Minimal. Specimens: sent to pathology. Devices/ implants: none left in place. Impression and Plan Internal hemorrhoids Diagnosis: Internal hemorrhoids. Course: Progressing as expected. Recommendations: Repeat colonoscopy:: In 10 years. Follow-up:: in clinic for 1-2 weeks when pathology is available. Diet:: Previous. Medication resumption:: Continue current medications, Avoid NSAIDs. Return to activities:: After 24 hours. Education and Follow-up: Counseled: Patient, Family.[facility] CenterComment on above:Other Comment: Missing Attachment - attachment storage system not supported [id number] Can be viewed in source systemMissing Attachment - attachment storage system not supported [id number] Can be viewed insourDays of Wonder systemMissing Attachment - attachment storage system not supported [id number] Can be viewed in source systemMissing Attachment - attachment storage system not supported [id number] Can be viewed in source systemMissing Attachment - attachment storage system not supported [id number] Can be viewed in source systemMissing Attachment - attachment storage system not supported [id number] Can be viewed in source systemConsent for Treatmenton 61-36-3226Xpqquqy for Treatment [id number]#1.00TIFFNoFulton County Health CenterDischarge Instructionson 02-41-9165Yonjqdlsu Instructions MARY WEST Fred :1960 Visit Date:07/25/2023 Inpatient Discharge Instructions Your Care Team Admitting Physician - Lyndsey Martinez MD Referring Physician - Lyndsey Martinez MD Reason for Your Visit CHRONIC DIARRHEA, BELCHING, LOSS OF APPETITE Your Diagnosis Chronic diarrhea Erosive gastropathy Hemorrhoids, internal Tests Performed Pathology Tissue Exam -- Results Pending -- Please visit your patient portal for your results or contact your primary care physician. This Is Your Medications List acetaminophen-oxycodone (Percocet 7.5/325) albuterol aspirin (aspirin 81 mg oral capsule) atorvastatin (Lipitor 80 mg Tab) carvedilol (Coreg 6.25 mg Tab) chlorthalidone (chlorthalidone 25 mg Tab) hyoscyamine (Levsin 0.125 mg SL Tab) nitroglycerin Procedure History Appendix, Carpal tunnel, delivery, Gallbladder, Hysterectomy, Lower back. Discharge Vitals Temperature (Temporal Artery) 36.3 ?C Heart Rate (Monitored) 69 Respiratory Rate 17 Blood Pressure 127/75 Height 165 cm Weight 60.6 kg BMI 22.26 What to do next Instructions From Your Doctor Event Name Event Result Discharge Restrictions No driving for 24 hrs, Do not operate machinery or tools, Do not make important decisions for 24 hours, Do not drink alcoholic beverages for 24 hours Discharge Diet(s) Regular Call Your Doctor For Redness, swelling, or pus at operative site, Severe pain at the operative site, Persistent vomiting Discharge Instructions Discharge Instructions New Follow Up Appointments after Discharge Follow Up with Lyndsey Martinez When: Comments: office will call for follow up Where: [address], [address] [place] [address] [phone] Business (1) Medications What How Much When Why Instructions Next Dose Unchanged acetaminophen-oxycodone (Percocet 7.5/ 325) By Mouth Every 6 hours as needed for as needed for pain as needed Unchanged albuterol See instructions not to exceed 32 mg/ day Unchanged aspirin (aspirin 81 mg oral capsule) 2 Capsules By Mouth Every 24 hours Unchanged atorvastatin (Lipitor 80 mg Tab) By Mouth Every day Unchanged carvedilol (Coreg 6.25 mg Tab) By Mouth 2 times a day Unchanged chlorthalidone (chlorthalidone 25 mg Tab) 1 Tablets By Mouth Every day Unchanged hyoscyamine (Levsin 0.125 mg SL Tab) 2 Tablets By Mouth 4 times a day as needed for for spasm Chronic diarrhea Belching Loss of appetite Unchanged nitroglycerin 0.4 Milligram Sublingual Every 5 minutes as needed for Chest pain Test Results No qualifying data available. Allergies Bactrim (Vomiting) CeleBREX (Tachycardia) Rocephin (Hives) Synthroid (Hypertension) Problems Ongoing - Any problem that you are currently receiving treatment for. Smoker Education Materials Colonoscopy Care After Surgery Please read the instructions outlined below and refer to this sheet in the next few weeks. These discharge instructions provide you with general information on caring for yourself after you [facility]. Your doctor may also give you specific instructions. While your treatment has been planned according to the most current medical practices available, unavoidable complications occasionally occur. If you have any problems or questions after discharge, please call your doctor. ACTIVITY You may resume your regular activity, but move at a slower pace for the next 24 hours. Take frequent rest periods for the next 24 hours. Walking will help get rid of the air and reduce the bloated feeling in your abdomen (belly). No driving for 24 hours (because of the anesthesia (medicine) used during the test). You may shower. Do not sign any important legal documents or operate any machinery for 24 hours (because of the anesthesia used during the test). NUTRITION Drink plenty of fluids. You may resume your normal diet as instructed by your doctor. Begin with a light meal and progress to your normal diet. Heavy or fried foods are harder to digestand may make you feel nauseated (sick to your stomach). Avoid alcoholic beverages for 24 hours or as instructed. MEDICATIONS You may resume your normal medications unless your doctor tells you otherwise. WHAT YOU CAN EXPECT TODAY Some feelings of bloating in the abdomen. Passage of more gas than usual. Spotting of blood in your stool or on the toilet paper. FOLLOW-UP Your doctor will discuss the results of your test with you. SEEK IMMEDIATE MEDICAL ATTENTION IF: There is more than a spotting of blood in your stool. There is abdominal distention (your abdomen is swollen). There is vomiting. You have a temperature over 101.5 F. There is abdominal pain or discomfort that is severe or gets worse throughout the day. Azul's Esophagus Azul's esophagus occurs when the tissue that lines the esophagus changes or becomes damaged. Theesoph (more content not included)...[facility]itus Medical CenterComment on above:Result Comment: Electronically Signed By: Joan Brady RN\.felice\Date and Time Signed: 07/25/23 10:14 EDTEGDon 07-25-2023 EsophagogastroduodenoscopyPatient: MARY WEST Age: 63 years Sex: Female : 1960 Associated Diagnoses: None Author: Lyndsey Martinez MD Pre-Procedure Procedure Date 07/25/2023 09:52:00 . Procedure Type: Esophagogastroduodenoscopy with biopsy. Procedure provider Performed by Lyndsey Martinez MD. Current history and physical Documented on chart. Informed Consent After discussing the rationale, risks and benefits, and alternatives to this procedure, the patient provided signed consent for the procedure. Pre-procedure diagnosis: diarrhea. Medications (Selected) Inpatient Medications Ordered Lactated Ringers IV Jess 1000 mL 1,000 mL: 1,000 mL, IV, 100 mL/hr, Routine, Start date 07/25/23 6:46:00 EDT, 10 hour(s), Total volume (mL): 1,000, 60.6 kg, 1.67, m2 Sodium Chloride 0.9% IV Jess 1000 mL 1,000 mL: 1,000 mL, IV, 20 mL/hr, Routine, Start date 07/25/23 7:01:00 EDT, 50 hour(s), Total volume (mL): 1,000, 60.6 kg, 1.67, m2 Prescriptions Prescribed Levsin 0.125 mg SL Tab: 0.25 mg = 2 tab(s), Oral, QID, PRN for spasm, # 80 tab(s), Refills(s) 0, Pharmacy: [facility]/pharmacy #[id number], 165, cm, 07/16/23 12:47:00 EDT, Height/Length Dosing, 60.6, kg, 07/16/2411:47:00 EDT, Weight Dosing Documented Medications Documented Coreg 6.25 mg Tab: mg tab(s), Oral, BID, Refills(s) 0, High blood pressure Lipitor 80 mg Tab: mg tab(s), Oral, Daily, Refills(s) 0, High cholesterol Percocet 7.5/325: Oral, q6hr as needed for pain, Refill(s) 0, as needed albuterol: See Instructions, not to exceed 32 mg/day, Refills(s) 0, Shortness of breath or wheezing aspirin 81 mg oral capsule: 162 mg = 2 cap(s), Oral, q24hr, Refills(s) 0 chlorthalidone 25 mg Tab: 25 mg = 1 tab(s), Oral, Daily, Refills(s) 0, High blood pressure nitroglycerin: 0.4 mg, SubLingual, q5min, PRN Chest pain, Refills(s) 0 Anticoagulant/antiplatelet None. ASA Classification: Class II. . Monitoring: See anesthesia record. . Procedure The procedure was performed in the hospital. See anesthesia record for sedation given during procedure. The patient was positioned starting in the left lateral decubitus position and with safety measures. Endoscope type used was an adult- size, introduced orally, advanced to the 2nd portion of the duodenum. No difficulty was encountered during the procedure. Views were excellent. The patient tolerated the procedure well. Findings Z-line was irregular at 39 cm Hiatal hernia measuring 3 cm Reflux esophagitis 2 small tongues of salmon-colored mucosa (C0 M1) status post biopsies Nonobstructing Schatzki's ring Erythema in the antrum, moderate patchy with erosions. Biopsies of the stomach were taken to rule out H. pylori. Normal examined duodenum status post biopsies Images Procedure images: [id number]_[id number].jpg [id number]_hd_video_[id number].jpg Rec1_hd_video_4_[id number]_36_[id number].jpg Rec1_hd_video_4_[id number]_[id number].jpg Rec1_hd_video_4_[id number]_37_[id number].jpg Rec1_hd_video_[id number].jpg Rec1_hd_video_[id number].jpg [id number]_hd_video_[id number].jpg . Post-Procedure Complications: none. Estimated blood loss: minimal. Specimens: sent to pathology. Devices/ implants: none left in place. Impression and Plan Schatzki's ring possible Azul's esophagus Hiatal hernia Esophagitis and erosive gastropathy Recommendations: -Resume previous diet -Resume home medications -Await pathology results, follow in GI clinic in 1-2 after dischargeNormalFisher Gentry Medical CenterComment on above:Other Comment: Missing Attachment - attachment storage system not supported [id number] Can be viewed in source systemMissing Attachment - attachment storage system not supported [id number] Can be viewed insource systemMissing Attachment - attachment storage system not supported [id number] Can be viewed in source systemMissing Attachment - attachment storage system not supported [id number] Can be viewed in source systemMissing Attachment - attachment storage system not supported [id number] Can be viewed in source systemMissing Attachment - attachment storage system not supported [id number] Can be viewed in source systemMissing Attachment - attachment storage system not supported [id number] Can be viewed in source systemMissing Attachment - attachment storage system not supported [id number] Can be viewed in source system Inpatient Patient Summaryon [id number] Patient Summary [address] [address] [facility] Clinical Discharge Instructions PERSON INFORMATION Name: MARY WEST PHYSICIANS Admitting Physician: Lyndsey Martinez MD Attending Physician: Lyndsey Martinez MD PCP: NIURKA VICENTE MD Discharge Diagnosis: Comment: PATIENT EDUCATION INFORMATION Instructions: Medication Leaflets: Follow up: With: Address: When: Lyndsey Martinez [address] [facility], [place] [id number] [phone] Business (1) Comments: office will call for follow up MEDICATION LIST Medications to Continue with No Changes Other Medications acetaminophen-oxycodone (Percocet 7.5/325) By Mouth every 6 hours as needed as needed for pain. as needed. albuterol not to exceed 32 mg/day. aspirin (aspirin 81 mg oral capsule) 2 Capsules By Mouth every 24 hours. atorvastatin (Lipitor 80 mg Tab) By Mouth every day. carvedilol (Coreg 6.25 mg Tab) By Mouth 2 times a day. chlorthalidone (chlorthalidone 25 mg Tab) 1 Tablets By Mouth every day. hyoscyamine (Levsin 0.125 mg SL Tab) 2 Tablets By Mouth 4 times a day as needed for spasm. Refills:0. nitroglycerin 0.4 Milligram Sublingual every 5 minutes as needed Chest pain. Comment:[facility] CenterMain OR Intraoperative Recordon [id number] OR Intraoperative RecordIntraOp Document Type FT Summary Primary Physician: Lyndsey Martinez MD Finalized Date/Time: 07/25/23 14:25:07 Pt. Name: MARY WEST Fred ChampionB./Sex: 1960 Female Med Rec #: [id number] Physician: Lyndsey Martinez MD Financial #: [id number] Pt. Type: O Room/Bed: / Admit/Disch: 07/25/23 07:51:55 - Institution: Case Times FT Entry 1 Patient Times In Room 07/25/23 09:21:00 Out Room 07/25/23 09:52:00 Procedure Times Start 07/25/23 09:27:00 Stop 07/25/23 09:49:00 Anesthesia Times Start 07/25/23 09:21:00 Stop 07/25/23 09:52:00 Time at [place] 07/25/23 09:38:00 Last Modified By: Bairon PASTOR, bS Mast 07/25/23 09:52:15 General Comments: 0932 EGD completed MSRN 0933 Colonoscopy started MSRN 07/25/2023 Chart opened for charge review perM. Matt PASTOR. [place] Case Attendance FT Entry 1 Entry 2 Entry 3 Case Attendee [facility], Kemar Richardson, Miky Martinez MD, Lyndsey Reece Role Performed Anesthesiologist Scrub - Primary Surgeon - Primary Magnet Placer Time In 07/25/23 09:21:00 07/25/23 09:21:00 07/25/23 09:21:00 Time Out 07/25/23 09:52:00 07/25/23 09:52:00 07/25/23 09:52:00 Procedure EGD AND COLONOSCOPY(.) EGD AND COLONOSCOPY(.) EGD AND COLONOSCOPY(.) Comments Dr. Garza supervising case Last Modified By: Bairon PASTOR, Sb Waddell RN, Sb Waddell RN, Sb Mast 07/25/23 09:52:16 07/25/23 09:52:16 07/25/23 09:52:16 Entry 4 Entry 5 Case Attendee Sb Waddell RN, RN, Sudha Mcgovern Role Performed Pin Ball Machine Mechanic - Primary Staff - Other Time In 07/25/23 09:21:00 07/25/23 09:21:00 Time Out 07/25/23 09:52:00 07/25/23 09:52:00 Procedure EGD AND COLONOSCOPY(.) EGD AND COLONOSCOPY(.) Comments Last Modified By: Sb Waddell RN, RN, Morgan E 07/25/23 09:52:16 07/25/23 09:52:16 Perioperative Protocols FT Pre-Care Text: Implements protective measures prior to operative or invasive procedure, confirms identity before the operative or invasive procedure, verifies operative procedure, surgical site, and laterality Entry 1 Procedure(s) EGD AND COLONOSCOPY(.) Patient Identity Birthday, ID Band Verified (select at Check, Patient least 2): Participation Consents / H and P Anesthesia Consent, Operative Site N/A Verified HandP, Surgery/Procedure Marking Verified Consent Surgical Site No Laterality Verified n/a Verified Procedure Verified Yes Correct Patient Yes Position Verified Availability Equipment, Medication Prep Dry n/a Verified (If Applicable) PreOp Antibiotic No Time Out Kemar Long, Given Participants Miky Richardson, Michelle COCHRAN, Lyndsey Reece, Sb Waddell RN Time Out Complete 07/25/23 09:25:00 Outcomes Met? Yes Last Modified By: Sb Waddell RN 07/25/23 09:25:37 Post-Care Text: The patient is free from signs and symptoms of injury caused by extraneous objects Allergy Information FT Pre-Care Text: Verifies allergies Entry 1 Allergies Reviewed? Yes Allergies Reviewed Self/Patient With Outcomes Met? Yes Last Modified By: Sb Waddell RN 07/25/23 09:25:42 Post-Care Text: The patient received appropriate medication(s) safely administered during the perioperative period Surgical Procedures FT Entry 1 Procedure Description Procedure EGD AND COLONOSCOPY Modifiers . Surgeon Description EGD with duodenal biopsy, gastric biopsy, and esophagus biopsy. Colonoscopy with right colon biopsy and left colon biopsy Primary Procedure Yes Primary Surgeon Lyndsey Martinez MD Start 07/25/23 09:27:00 Stop 07/25/23 09:49:00 Anesthesia Type General Surgical Service Gastroenterology Wound Class 2 - Clean-Contaminated Last Modified By: Sb Waddell RN 07/25/23 09:52:36 General Case Data FT Pre-Care Text: Classifies surgical wound, implements aseptic technique, initiates traffic control Entry 1 Case Information OR ENDO 1 FT Case Level Level 2 Wound Class 2 - Clean-Contaminated Specialty Gastroenterology ASA Class 2 Preop Diagnosis Belching, Loss of Postop Same As Preop No appetite, Chronic diarrhea Postop Diagnosis EGD- Hiatal hernia, Outcomes Met? Yes Esophagitis, Erosive gastropathy, Schatzki ring, Possible Barretts esophagus. Colonoscopy- Internal hemorrhoids Last Modified By: Sb Waddell RN 07/25/23 09:52:06 Post-Care Text: The patient is free from signs and symptoms of infection Skin Assessment (Pre Procedure) FT Pre-Care Text: Implements protective measures to prevent skin/ tissue injury due to thermal or mechanical sources Evaluates for signs and symptoms of physical injury to skin and tissue Entry 1 Skin Integrity Dry, Warm Skin Abnormality No Outcomes Met? Yes Last Modified By: Sb Waddell RN 07/25/23 09:27:05 Post-Care Text: The patient is free from signs and symptoms of injury caused by extraneous objects Patient Positioning FT Pre-Care Text: Identifies physical alterations that require additional precautions fo (more content not included)...[facility] OR PACU I Recordon [id number] OR PACU I RecordPACU Phase I Document Type FT Summary Primary Physician: Lyndsey Martinez MD Finalized Date/Time: 07/25/23 12:49:07 Pt. Name: MARY WEST/Sex: 1960 Female Med Rec #: [id number] Physician: Lyndsey Martinez MD Financial #: [id number] Pt. Type: O Room/Bed: / Admit/Disch: 07/25/23 07:51:55 - Institution: Case Times PACU I FT Pre-Care Text: Identifies barriers to communication and implements measures to provide psychological support Develops individualized plan of care, and ensures continuity of care Maintains patient's dignity and privacy, and maintains patient confidentiality Identifies and reports philosophical, cultural, and spiritual beliefs and values Identifies individual values and wishes concerning care Implements aseptic technique, and administers prescribed antibiotic therapy and immunizing agents as ordered Evaluates postoperative tissue perfusion Implements thermoregulation measures, and monitors body temperature Evaluates postoperative respiratory status Evaluates postoperative cardiac status Evaluates postoperative neurological status Assesses pain control, collaborated in initiating patient-controlled analgesia and implements alternative methods of pain control Verifies allergies, administers prescribed medications and solutions, evaluates response to medications Entry 1 In PACU I 07/25/23 09:53:00 Discharge from PACU 07/25/23 10:30:00 I Outcomes Met? Yes Last Modified By: Joan Brady RN 07/25/23 12:48:52 Post-Care Text: The patient demonstrates knowledge of the expected response to the operative or invasive procedure The patient's care is consistent with the individualized perioperative plan of care The patient's rightto privacy is maintained The patient's value system, lifestyle, ethnicity, and culture are considered, respected, and incorporated into the perioperative plan of care The patient participates in decisions affecting his or her perioperative plan of care The patient is free from signs and symptoms of infection The patient has wound/tissue perfusion consistent with or improved from baseline levels established preoperatively The patient is at or returning to normothermia at the conclusion of the immediate postoperative period The patient's respiratory function is consistent with or improved from baseline levels established preoperativelyThe patient's cardiovascular status is consistent with or improved from baseline levels established preoperatively The patient's cardiovascular status is consistent with or improved from baseline levels established preoperatively The patient demonstrates and/or reports adequate pain control throughout the perioperative period The patient received appropriate medication(s), safely administered during the perioperativeperiod Acuity Level PACU I FT Entry 1 Start Time 07/25/23 09:53:00 Stop Time 07/25/23 10:30:00 Acuity Level Acuity Level I Last Modified By: Joan Brady RN 07/25/23 12:49:04 Finalized By: Joan Brady RN Document Signatures Signed By: Joan Brady RN 07/25/23 12:49[facility] OR Preoperative Recordon [id number] OR Preoperative RecordHolding Area Document Type FT Summary Primary Physician: Lyndsey Martinez MD Finalized Date/Time: 07/25/23 08:10:59 Pt. Name: MARY WEST /Sex: 1960 Female Med Rec #: [id number] Physician: Lyndsey Martinez MD Financial #: [id number] Pt. Type: O Room/Bed: / Admit/Disch: 07/25/23 07:51:55 - Institution: Case Times Holding FT Pre-Care Text: Verifies consent for planned procedure, identifies individual values and wishes concerning care, includes family members in perioperative teaching Secures patient's records' belongings, and valuables, maintains patient's dignity and privacy, and maintains patient confidentiality Entry 1 In Holding 07/25/23 07:57:00 Outcomes Met? Yes Last Modified By: Sb Waddell RN 07/25/23 08:06:36 Post-Care Text: The patient participates in decisions affecting his or her perioperative plan of care The patient'sright to privacy is maintained Surgery Checklist FT Entry 1 Patient Birthday, ID Band Procedure History and Physical, Identification: Check, Patient Verification: Surgical Consent, With Participation Patient NPO after Midnight: No Date/Time: 07/25/23 03:00:00 Results Reviewed yellow liquid bowel Personal Items: Jewelry Comments: results Personal Items rings x2, clothing, Limitations: none Comment: shoes, heart stent x2 Complaints of Pain: No Pain Comment: denies at this time Operative Site n/a Marked By: n/a Marking: Location: n/a Availability Equipment Verified: Does Patient Smoke Yes If Yes to Smoking. 1 pack per day Cigars or Cigarettes. How much per day? Patient states Yes Comment - Adult - evan postop adult Supervision supervision available Case Cancelled in No Holding Area see comments below for reason Last Modified By: Sb Waddell RN 07/25/23 08:10:58 General Comments: pt finished bowel prep at 0300, per patient nothing to eat or drink since MSRN Finalized By: Sb Waddell RN Document Signatures Signed By: Sb Waddell RN 07/25/23 08:08 Sb Waddell RN 07/25/23 08:10[facility] CenterMonitor Recordon [id number] Record [id number] Kennedy Krieger InstituteMonitor [id number] Ballard Kennedy Krieger InstituteOutpatient Surgery Discharge Instructionon 07-25-2023 Outpatient Surgery Discharge Instruction [address] [address] Patient Discharge Instructions PERSON INFORMATION Name: MARY WEST Date of : 1960 Current Date: 07/25/2023 10:11:14 PHYSICIANS Admitting Physician: Lyndsey Martinez MD Discharge Diagnosis: MARY WEST Fred has been given the following list of follow-up instructions, prescriptions, and patient education materials: PATIENT FOLLOW-UP INFORMATION Diet: Regular Discharge Restrictions: No driving for 24 hrs, Do not operate machinery or tools, Do not make important decisions for 24 hours, Do not drink alcoholic beverages for 24 hours Call Your Doctor For: Redness, swelling, or pus at operative site, Severe pain at the operative site, Persistent vomiting IF UNABLE TO CONTACT YOUR PHYSICIAN AND YOU FEEL IT IS AN EMERGENCY, GO TO THE NEAREST EMERGENCY ROOM OR CALL 911 IEYAD PAMELA M, have received the attached patient education materials/instructions and have verbalized understanding: May we do a follow up call? Yes No I was present when discharge instructions were given Patient Signature Date Clinican/Nurse Signature Date Follow up: With: Address: When: Lyndsey Martinez [address] [place], [place] [address], [place] [address] [phone] Business (1) Comments: office will call for follow up Pharmacy Information: You may receive a survey from [facility] asking you to rate your care experience. Your feedback is important and will help us understand what we do well and how we can improve the quality of care we provide to you, your loved ones and our community. It?s an honor to serve you. Thank you for choosing [facility] HERE ARE THE MEDICATION CHANGES THAT OCCURRED DURING YOUR HOSPITAL STAY Medications to Continue with No Changes Other Medications acetaminophen-oxycodone (Percocet 7.5/325) By Mouth every 6 hours as needed as needed for pain. as needed. albuterol not to exceed 32 mg/day. aspirin (aspirin 81 mg oral capsule) 2 Capsules By Mouth every 24 hours. atorvastatin (Lipitor 80 mg Tab) By Mouth every day. carvedilol (Coreg 6.25 mg Tab) By Mouth 2 times a day. chlorthalidone (chlorthalidone 25 mg Tab) 1 Tablets By Mouth every day. hyoscyamine (Levsin 0.125 mg SL Tab) 2 Tablets By Mouth 4 times a day as needed for spasm. Refills:0. nitroglycerin 0.4 Milligram Sublingual every 5 minutes as needed Chest pain. PATIENT EDUCATION INFORMATION Instructions: Medication Leaflets:[facility] CenterPatient Education - Texton [id number] Education - TextColonoscopy Care After Surgery Please read the instructions outlined below and refer to this sheet in the next few weeks. These discharge instructions provide you with general information on caring for yourself after you leave thespital. Your doctor may also give you specific instructions. While your treatment has been planned according to the most current medical practices available, unavoidable complications occasionally occur. If you have any problems or questions after discharge, please call your doctor. ACTIVITY You may resume your regular activity, but move at a slower pace for the next 24 hours. Take frequent rest periods for the next 24 hours. Walking will help get rid of the air and reduce the bloated feeling in your abdomen (belly). No driving for 24 hours (because of the anesthesia (medicine) used during the test). You may shower. Do not sign any important legal documents or operate any machinery for 24 hours (because of the anesthesia used during the test). NUTRITION Drink plenty of fluids. You may resume your normal diet as instructed by your doctor. Begin with a light meal and progress to your normal diet. Heavy or fried foods are harder to digestand may make you feel nauseated (sick to your stomach). Avoid alcoholic beverages for 24 hours or as instructed. MEDICATIONS You may resume your normal medications unless your doctor tells you otherwise. WHAT YOU CAN EXPECT TODAY Some feelings of bloating in the abdomen. Passage of more gas than usual. Spotting of blood in your stool or on the toilet paper. FOLLOW-UP Your doctor will discuss the results of your test with you. SEEK IMMEDIATE MEDICAL ATTENTION IF: There is more than a spotting of blood in your stool. There is abdominal distention (your abdomen is swollen). There is vomiting. You have a temperature over 101.5 F. There is abdominal pain or discomfort that is severe or gets worse throughout the day. Gastroenterology Azul's Esophagus Azul's esophagus occurs when the tissue that lines the esophagus changes or becomes damaged. Theesophagus is the tube that carries food from the throat to the stomach. With Azul's esophagus, the cells that line the esophagus are replaced by cells that are similar to the lining of the intestines (intestinal metaplasia). Azul's esophagus itself may not cause any symptoms. However, many people who have Azul's esophagus also have gastroesophageal reflux disease (GERD), which may cause symptoms such as heartburn. Over time, a few people with this condition may develop cancer of the esophagus. Treatment may include medicines, procedures to destroy the abnormal cells, or surgery. What are the causes? The exact cause of this condition is not known. In some cases, the condition develops from damage to the lining of the esophagus caused by gastroesophageal reflux disease (GERD). GERD occurs when stomach acids flow up from the stomach into the esophagus. Frequent symptoms of GERD may cause intestinal metaplasia or cause cell changes (dysplasia). What increases the risk? You are more likely to develop this condition if you: ? Have GERD. ? Are male. ? Are of descent. ? Are obese. ? Are older than 50. ? Have a hiatal hernia. This is a condition in which part of your stomach bulges into your chest. ? Smoke. What are the signs or symptoms? People with Azul's esophagus often have no symptoms. However, many people with this condition also have GERD. Symptoms of GERD may include: ? Heartburn. ? Difficulty swallowing. ? Dry cough. How is this diagnosed? This condition may be diagnosed based on: ? Results of an upper gastrointestinal endoscopy. For this exam, a thin, flexible tube with a lightand a camera on the end (endoscope) is passed down your esophagus. Your health care provider can view the inside of your esophagus during this procedure. ? Results of a biopsy. For this procedure, several tissue samples are removed (biopsy) from your esophagus to look at under a microscope. They are then checked for intestinal metaplasia or dysplasia. How is this treated? Treatment for this condition may include: ? Medicines (proton pump inhibitors, or PPIs) to decrease or stop GERD. ? Periodic endoscopic exams to make sure that cancer is not developing. ? A procedure or surgery for dysplasia. This may include: ? Removal or destruction of abnormal cells. ? Removal of part of the esophagus. Follow these instructions at home: Eating and drinking ? Eat more fruits and vegetables. ? Avoid fatty foods. ? Eat small, frequent meals instead of large meals. ? Avoid foods that cause heartburn. These foods include: ? Coffee and alcoholic drinks. ? Tomatoes and foods made with tomatoes. ? [place] or spicy foods. ? Chocolate and peppermint. ? Do not drink alcohol. General instructions ? Take fvcw-spn-gnbywxl and prescription medicines only as caleb (more content not included)...NormalMagruder Memorial HospitalCeliac Disease Comprehensiveon [id number] IgA Ql (S)NegativeInvalid Interpretation CodeNegativeMagruder Memorial HospitalComment on above:Performed By: #### [id number], [id number], [id number] #### [facility] [address], [place] [address]Pfhurep peptide IgA Qn (S)3 unit(s)Invalid Interpretation Code 0-19[facility] HospitalComment on above:Result Comment: Negative 0 - 19 Weak Positive 20 - 30 Moderate to Strong Positive >30Performed By: #### [id number], [id number] #### [facility] [address], [place] [address]Ipxxwyn peptide IgG Qn (S)3 unit(s)Invalid Interpretation Code 0-19[facility] HospitalComment on above:Result Comment: Negative 0 - 19 Weak Positive 20 - 30 Moderate to Strong Positive >30Performed By: #### [id number], [id number], [id number] #### [facility] [address] [place] [address]LrU [Mass/Vol]256 mg/dLInvalid Interpretation [id number] Memorial HospitalComment on above:Result Comment: Performed at: [facility] [address] [id number] PhD Joel CorneliusPerformed By: #### [id number], [id number], [id number] #### [facility] [address] [place] [address]rZY IgA Qn (S)<2Invalid Interpretation Code0-3FMarietta Osteopathic ClinicComment on above:Result Comment: Negative 0 - 3 Weak Positive 4 - 10 Positive >10 Tissue Transglutaminase (tTG) has been identified as the endomysial antigen. Studies have demonstr- ated that endomysial IgA antibodies have over 99% specificity for gluten sensitive enteropathy.Performed By: #### [id number], [id number], [id number] #### [facility] [address], [place] [address]wZO IgG Qn (S)<2Invalid Interpretation Code0-5FMarietta Osteopathic ClinicComment on above:Result Comment: Negative 0 - 5 Weak Positive 6 - 9 Positive >9Performed By: #### [id number], [id number], [id number] #### [facility] [address], [place] [address]OGeus PCRon 07-19-2023. difficile toxin A+B Ql (Stl)YESNormal [facility] HospitalComment on above:Performed By: #### [id number], [id number] #### [facility] [address], [place] [address]ROqck PCRUnable to perform test due to consistency of stool. C. Difficile testing will only be performed on diarrheal (unformed) stool unless ileus due to C. difficile is expected. Reference: Clinical Practice Guidelines for Clostridium difficile Infection in Adults, Infection and Hospital Epidemiology July 2009, Vol 31, No 5.[facility] Medical CenterCHEMISTRY Ordered By: SYSTEM SYSTEM on 91-05-7876Gwwi T4 [Mass/Vol]0.54 ng/dLLow0.58 - 1.64 ng/dLRemisol ChemTSH Qn10.17 m[IU]/LHigh0.34 - 5.60 mcIU/mLRemisol Chem Consent for Procedure/Surgeryon 14-77-7793Qfgfsry for Procedure/Surgery [id number]#1.00TIFProMedica Memorial HospitalConsent for Treatmenton 15-79-1711Zxufubr for Treatment [id number]#1.00TIFProMedica Memorial HospitalEnteric Panel by PCRon 07-19-2023. coli+jejuni+upsaliensis DNA LAUREN+non- probe Ql (Stl)Not detectedNoFulton County Health CenterComment on above: Result Comment: Testing was performed utilizing reverse building maintenance technician (RT), polymerase chain reaction (PCR), and array hybridization to detect specific gastrointestinal microbial nucleic acid gene sequences associated with the following pathogenic bacteria and viruses:Campylobacter Group (composed of C. coli, C. jejuni, and C. cecille), Salmonella species, Shigella species (including S. dysenteriae,S. boydii, S. sonnei and S. flexneri), Vibrio Group (composed of V. cholera and V. parahaemolyticus), Yersinia enterocolitica, Norovirus GI/GII, and Rotavirus A. In addition, EPdetects Shiga toxin 1 gene and Shiga toxin 2 gene virulence markers. Shiga toxin producing E. coli (STEC) typically harborone or both genes that encode for Shiga toxins 1 and 2. Campylobacter group, Salmonella species, Shigella species, Vibrio group, Rotavirus A, Shiga Toxin 1, Shiga Toxin 2, Norovirus GI/GII, and Yersinia enterocolitica were tested by Verigene nulcleic acidtest.Performed By: #### [id number], [id number] #### [facility] [address], [place] [address]K. coli stx1+stx2 genes LAUREN+non-probe Ql (Stl)NegativeNormal [facility] HospitalComment on above:Performed By: #### [id number], [id number] #### [facility] [address], [place] [address]Ousmarh Panel by PCRNegativeNoFulton County Health Center Enteric Panel Intrl QCPassNoFulton County Health CenterComment on above: Result Comment: Testing was performed utilizing reverse building maintenance technician (RT), polymerase chain reaction (PCR), and array hybridization to detect specific gastrointestinal microbial nucleic acid gene sequences associated with the following pathogenic bacteria and viruses:Campylobacter Group (composed of C. coli, C. jejuni, and C. cecille), Salmonella species, Shigella species (including S. dysenteriae,S. boydii, S. sonnei and S. flexneri), Vibrio Group (composed of V. cholera and V. parahaemolyticus), Yersinia enterocolitica, Norovirus GI/GII, and Rotavirus A. In addition, EPdetects Shiga toxin 1 gene and Shiga toxin 2 gene virulence markers. Shiga toxin producing E. coli (STEC) typically harborone or both genes that encode for Shiga toxins 1 and 2.Performed By: #### [id number], [id number] #### [facility] [address], [place] [address]Dihprtnez genogroup I+II RNA LAUREN+non-probe Ql (Stl)Not detected NormalFisher Gentry Medical CenterComment on above:Performed By: #### [id number], [id number] #### [facility] [address] [place] [address]Phmxtblxw A RNA LAUREN+non-probe Ql (Stl)Not detectedNormAultman Orrville HospitalComment on above:Performed By: #### [id number], [id number] #### [facility] [address] [place], [place] [address]S. enterica+bongori DNA LAUREN+non-probe Ql (Stl)Not detected [facility] Medical CenterComment on above:Result Comment: This test result should be correlated with clinical presentations and medical history by a healthcare provider to determine its clinical significance.Performed By: #### [id number], [id number] #### [facility] [address] [place] [address]Rjndvbdo species+EIEC invasion plasmid antigen H ipaH gene LAUREN+non-probe Ql (Stl)Not detectedNoFulton County Health CenterComment on above:Performed By: #### [id number], [id number] #### [facility] [address] [place] [address]. cholerae+parahaemolyticus+vulnificus DNA LAUREN+non-probe Ql (Stl)Not detectedNoFulton County Health CenterComment on above:Performed By: #### [id number], [id number] #### [facility] [address] [place] [address]I. enterocolitica DNA LAUREN+non-probe Ql (Stl)Not detectedNormal [facility] HospitalComment on above:Performed By: #### [id number], [id number] #### [facility] [address] [place] [address]Ybvl T4on 12-48-6605Eplb T4 [Mass/Vol]0.54 ng/dLLow0.58-1.64 [facility] HospitalComment on above:Performed By: #### [id number], [id number], [id number] #### [facility] [address], [place] [address]HGPli 81-25-8277WTI Qn10.17 m[IU]/LHigh0.34-5.60Mag[facility] Memorial HospitalComment on above:Performed By: #### [id number], [id number], [id number] #### [facility] [address], [place] [address]Mzgrvmqht Correspondenceon 29-57-3637Apfvjfguc Correspondence [id number]#1.00TIFFNormalMagruder Memorial HospitalAmbulatory Visit Summaryon 53-93-7912Miuwbppygf Visit Summary MARY WEST :1960 Visit Date:07/16/2023 Ambulatory Visit Instructions Your Diagnosis Chronic diarrhea Belching Loss of appetite Margarita's disease History of cholecystectomy Your Care Team Attending Physician - Michelle COCHRAN, Lyndsey Reece Primary Care Physician - NIURKA VICENTE MD This Is Your Medications List hyoscyamine (Levsin 0.125 mg SL Tab) Contact prescribing physician if questions or concerns acetaminophen-oxycodone (Percocet 7.5/325) albuterol aspirin (aspirin 81 mg oral capsule) atorvastatin (Lipitor 80 mg Tab) carvedilol (Coreg 6.25 mg Tab) carvedilol (carvedilol 6.25 mg Tab) chlorthalidone (chlorthalidone 25 mg Tab) nitroglycerin Procedures Performed Appendix, Carpal tunnel, delivery, Gallbladder, Hysterectomy, Lower back. Discharge Vitals Heart Rate (Peripheral) 64 Respiratory Rate 16 Blood Pressure 135/79 Height 65 in Height 165 cm Weight 133.32 lb Weight 60.6 kg BMI 22.26 What to do next You Need to Complete the Following 5 HIAA 24 Hour Urine, Urine, Routine collect, 07/16/23, Order for future visit, Nurse collect, Chronic diarrheaInvalid Interpretation CodeLoss of appetite, Print Label By Order Location\.br\ Calprotectin, Fecal, Stool, Routine collect, 07/16/23, Order for future visit, Nurse collect, Chronic diarrheaFisher Kennedy Krieger InstituteGastroenterology Office/Clinic Noteon [id number] Office/Clinic NoteChief Complaint IBS diarrhea nausea HPI Staff Patient is a 63 year old female who was referred by Dr Niurka Vicente for IBS with diarrhea and nausea. episodes last 2-3 days, depending on what she eats. She stays away from things that trigger her. her bp michael rockets when she gets the diarrhea, dry heaving, no appetite. 4-6 lbs weight loss overtime she gets them, this last episode lasted 7-8 days. 2006 last [place] [facility] - will need to get records. History of Present Illness I have reviewed HPI staff note, most recent labs and imaging, more than 30 minutes spent reviewing the chart, during encounter, placing orders and counseling the patient. pt with spells of diarrhea blood pressure goes high and she gets exhausted it comes with diarrhea and loss or appetitive pt feels awful when the spells hit pt was hospitalized and there was concerns for heart attack stress could trigger it Slovak food triggers it too chicken samuel ranch pizza triggered it cut out on eating garlic little wheezy started in August the spells could last for 2-3 days lost 6 pounds and could miss work - it does not go away also with some pain in the right side belly grumble and belching jon in 2002 She has Margarita's and she cannot take thyroid medications Review of Systems PHQ Score Initial Depression Screen Score: 0 SCORE I have reviewed HPI staff note, most recent labs and imaging, more than 30 minutes spent reviewing the chart, during encounter, placing orders and counseling the patient. Physical Exam Vitals & Measurements HR: 64(Peripheral) RR: 16 BP: 135/79 HT: 65 in HT: 165 cm WT: 60.6 kg WT: 133.32 lb BMI: 22.26 General: alert, no acute distress HEENT: atraumatic normocephalic Cardiovascular: regular rate and rhythm, normal peripheral perfusion Respiratory: Lungs CTA, respirations non labored Extremities: no deformity, no trauma Abdomen: Benign, soft, nontender nondistended Assessment/Plan 1. Chronic diarrhea (K52.9: Noninfective gastroenteritis and colitis, unspecified) Ordered: hyoscyamine, 0.25 mg = 2 tab(s), Oral, QID, PRN for spasm, # 80 tab(s), Refills(s) 0, Pharmacy: [facility]/pharmacy #[id number], 165, cm, 07/16/23 12:47:00 EDT, Height/Length Dosing, 60.6, kg, 07/16/23 12:47:00 EDT, Weight Dosing 5 HIAA 24 Hour Urine Calprotectin, Fecal Celiac Disease Comprehensive Clostridium Difficile PCR Colonoscopy (Hospital Procedure) EGD Endoscopy (Hospital Procedure) Enteric Panel by PCR Free T4 O & P Exam, Routine Pancreatic Elastase, Fecal Thyroid Stimulating Hormone 2. Belching (R14.2: Eructation) Ordered: hyoscyamine, 0.25 mg = 2 tab(s), Oral, QID, PRN for spasm, # 80 tab(s), Refills(s) 0, [id number] 165, cm, 07/16/23 12:47:00 EDT, Height/Length Dosing, 60.6, kg, 07/16/23 12:47:00 EDT, Weight Dosing 5 HIAA 24 Hour Urine Calprotectin, Fecal Celiac Disease Comprehensive Clostridium Difficile PCR Colonoscopy (Hospital Procedure) EGD Endoscopy (Hospital Procedure) Enteric Panel by PCR Free T4 O & P Exam, Routine Pancreatic Elastase, Fecal Thyroid Stimulating Hormone 3. Loss of appetite (R63.0: Anorexia) Ordered: hyoscyamine, 0.25 mg = 2 tab(s), Oral, QID, PRN for spasm, # 80 tab(s), Refills(s) 0, Pharmacy: [facility]/pharmacy #[id number], 165, cm, 07/16/23 12:47:00 EDT, Height/Length Dosing, 60.6, kg, 07/16/23 12:47:00 EDT, Weight Dosing 5 HIAA 24 Hour Urine Calprotectin, Fecal Celiac Disease Comprehensive Clostridium Difficile PCR Colonoscopy (Hospital Procedure) EGD Endoscopy (Hospital Procedure) Enteric Panel by PCR Free T4 O & P Exam, Routine Pancreatic Elastase, Fecal Thyroid Stimulating Hormone 4. 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 History of cholecystectomy (Z90.49: Acquired absence of other specified parts of digestive tract) Start Levsin as needed Check TSH and T4 Obtain stool tests to check for pancreatic elastase, C. difficile, ova and parasites, stool culture, stool calprotectin, and 5 HIAA 24-hour urine EGD with small bowel biopsies Colonoscopy with random colon biopsies and TI evaluation Might benefit from CAT scan to assess the pancreas for possible carcinoid tumor Follow-up No qualifying data available Problem List/Past Medical History Ongoing Smoker Historical No qualifying data Procedure/Surgical History Appendix, Carpal tunnel, delivery, Gallbladder, Hysterectomy, Lower back. Medications albuterol, See Instructions aspirin 81 mg oral capsule, 162 mg= 2 cap(s), Oral, q24hr carvedilol 6.25 mg Tab, 6.25 mg= 1 tab(s), Oral, BID chlorthalidone 25 mg Tab, 25 mg= 1 tab(s), Oral, Daily Coreg 6.25 mg Tab, Oral, BID Levsin 0.125 mg SL Tab, 0.25 mg= 2 tab(s), Oral, QID, PRN Lipitor 80 mg Tab, Oral, Daily nitroglycerin Percocet 7.5/325, Oral, q6hr Allergies Bactrim (Vomiting) CeleBREX (Tachycardia) Rocephin (Hives) Synthroid (Hypertension) Social History Alcoho (more content not included)...[facility]itus Medical CenterComment on above:Result Comment: Electronically Signed By: Michelle COCHRAN, Lyndsey Reece\.br\Date and Time Signed: 07/15/2412:09 EDTPhysician Referralon 97-30-5127Iefrfspyl [id number]#1.00TIFFNoFulton County Health CenterNM Stress ECG Dictationon [id number] Stress ECG DictationExam Date/Time: 09/11/2022 15:30 EDT Reason for Exam: Chest pain/anginal equiv, high CAD risk, not treadmill candidate;Other (please specify) Report CLINICAL INFORMATION: Chest pain. The patient underwent routine Lexiscan myocardial perfusion scan with Lexiscan 0.4 mg infused followed by Cardiolite injection and subsequent imaging. The following observations are made: 1. Rhythm is sinus with nonspecific ST-T wave changes. 2. There were no anginal complaints with Lexiscan infusion. 3. There were ST segment changes noted in leads II, III, aVF, V4 and V5 with greater than [address] segment depression compared to baseline. 4. There were no arrhythmias noted. 5. The patient had a hemodynamically appropriate response to Lexiscan infusion with a resting heart rate of 72 beats per minute and a peak heart rate of 104 beats per minute which is 65% of predicted heart rate for age. 6. Technically the electrocardiographic component of this study is nondiagnostic because of failure to achieve 85% of predicted heart rate for age. The patient did, though, have greater than [address] segment depression noted in leads II, III, aVF, V4 and V5. There were no anginal complaints and there were no arrhythmias. Please correlate with perfusion study reported under separate cover. This is part of a two-part report comprised of: NM Myocardial Spect Multi Rest/Stress and NM ECG Dictation. Please read both reports for complete results. FINAL REPORT Signed (Electronic Signature): 10/29/2022 7:38 pm Signed by: Evan Dempsey MD Transcribed by: jonelle Technologist: [facility] Myocardial Spect Rest/Stress 1 Dayon 65-29-2438HP Myocardial Spect Rest/Stress 1 DayExam Date/Time: 09/11/2022 14:51 EDT Reason for Exam: Chest pain/anginal equiv, high CAD risk, not treadmill candidate Report INDICATION FOR STUDY: A 62-year-old patient with chest pain. Resting images were obtained after intravenous administration of 9.7 mCi of Cardiolite given on 09/11/22 and stress images were obtained after intravenous administration of 28.1 mCi of Cardiolite given after Lexiscan administration on 09/11/22. Subsequently gated SPECT MPI was obtained. TOMOGRAPHIC DATA: The study is normal and demonstrated no indication of ischemia or prior myocardial infarction. Multiple attenuation artifact is noted. The gated study is normal and demonstrated normal ejection fraction at 61% with normal TID at 1.12. CONCLUSION: 1. Normal Lexiscan Cardiolite SPECT MPI. 2. No tomographic evidence of ischemia or prior myocardial infarction. 3. Normal left ventricular volume and wall motion, ejection fraction 61% with normal TID at 1.12. No previous studies are available for comparison. This is part of a two-part report comprised of: NM Myocardial Spect Multi Rest/Stress and NM ECG Dictation. Please read both reports for complete results. FINAL REPORT Signed (Electronic Signature): 09/15/2022 9:35 am Signed by: Ksenia Valdez MD Transcribed by: jonelle Technologist: [employer]EL[employer] Technical Comments Rest Dose (mCi Tc99m Cardiolite): 9.7 Stress Dose (mCi Tc99M Cardiolite): 29.1NormalMercy Health St. Elizabeth Youngstown Hospitaltress EKG Tracingson 33-31-1591Nzefpb EKG Tracings [id number]#1.00CD:[address] [place], [place] [address]Discharge Instructionson 95-66-8945Ukweitcyr Instructions [id number]#1.00CD:[address] [place], [place] [address]BMPon 10-82-5318Ytsfi gap [Moles/Vol]13 mmol/LNormal6-16[facility] HospitalComment on above:Performed By: #### [id number], [id number], 7226938, 0451090, [id number] ####[address] [place], [place] [address]Aetxaee [Mass/Vol]8.8 mg/dLLow8.9-11.1[facility] Krieger InstituteComment on above:Performed By: #### [id number], 2973042, 6579223, 1621185, 83952523 ####[address] [place], [place] [address]Zurhmjmp [Moles/Vol]98 mmol/XSbo689-370KdowctMagruder Memorial HospitalComment on above:Performed By: #### [id number], 6985509, 7770944, 0374072, [id number] ####[address] [place], [place] [address]TA1 [Moles/Vol]25 mmol/DRunwcq76-31QfnxvwMagruder Memorial HospitalComment on above: Performed By: #### [id number], 7429441, 5834956, 5891584, 14170860 ####[facility] [address] [place], [place] [address]Qtcjmxqyhb [Mass/Vol]1.0 mg/dLNormal0.5-1.3FMarietta Osteopathic ClinicComment on above: Performed By: #### [id number], 7076177, 7946919, 3816748, 43469810 ####[facility] [address] [place], [place] [address]Gdtcgre [Mass/Vol]91 mg/zWFcoydq04-715JzbzotMagruder Memorial HospitalComment on above:Result Comment: If this glucose result represents a fasting glucose, interpretation should refer tothe following reference range: 55-99 mg/dLPerformed By: #### [id number], 2101749, 9961154, 9180026, 25314059 ####[facility] [address] [place], [place] [address]Erqerznsr [Moles/Vol]3.5 mmol/LNormal 3.5-5.3FMarietta Osteopathic ClinicComment on above:Performed By: #### [id number], 6803555, 2477547, 5048434, 78130453 ####[facility] [place], [place] [address]Uwfteo [Moles/Vol]132 mmol/KVok266-037 [facility] HospitalComment on above:Performed By: #### 92933379, 7588363, 4305619, 6750912, 70658388 ####[facility] [address] [place], [place] [address]Hnkh nitrogen [Mass/Vol]19 mg/dLNormal 5-21[facility] HospitalComment on above:Performed By: #### 84891785, 1372114, 7008729, 9180164, 68144871 ####[facility] [place], [place] [address]Idsk nitrogen/Creatinine [Mass ratio]19 No BlyyjKhoxxk75-67SiugiwMagruder Memorial HospitalComment on above:Performed By: #### [id number], 4225625, 5816694, 5190533, 08755066 ####[facility] [address] [place], [place] [address]HVGMSOSIHMbnxtrr By: SYSTEM SYSTEM on 97-53-6310Jnywp gap [Moles/Vol]13 mmol/LNormal6 - 16 mEq/LFTMC Remisol Calcium [Mass/Vol]8.8 mg/dLLow8.9 - 11.1 mg/dLFTMC RemisolChloride [Moles/Vol]98 mmol/UPsd727 - 111 mmol/LFTMC RemisolCholesterol [Mass/Vol]139 mg/iCSfgsxg803 - 200 mg/dLFTMC RemisolCholesterol in HDL [Mass/Vol]56 mg/dLInvalid Interpretation CodeFTMC RemisolCholesterol in LDL [Mass/Vol]58 mg/dLNormal <=129mg/dLFTMC RemisolCholesterol in VLDL [Mass/Vol]27 mg/dLNormal7 - 40 mg/dL [facility] RemisolCO2 [Moles/Vol]25 mmol/HRinpxl32 - 31 mmol/LFTMC RemisolCreatinine [Mass/Vol]1.0 mg/dLNormal0.5 - 1.3 mg/dLFTMC RemisolFree T4 [Mass/Vol]0.50 ng/dL Low0.58 - 1.64 ng/dLFTMC RemisolGFR/1.73 sq M.predicted among non-blacks MDRD (S/P/Bld) [Vol rate/Area]64 mL/min/1.73 w4Peftls>=59mL/min/1.73 m2[facility] Chem S Glucose [Mass/Vol]91 mg/tSDhgcnd27 - 199 mg/dLFTMC RemisolPotassium [Moles/Vol] 3.5 mmol/LNormal3.5 - 5.3 mmol/LFTMC RemisolSodium [Moles/Vol]132 mmol/WLxb912 - 145 mmol/LFTMC RemisolTriglyceride [Mass/Vol]134 mg/dLNormal<=149mg/dLFTMC RemisolTSH Qn20.02 m[IU]/LHigh0.34 - 5.60 mcIU/mLEASTERN [facility] RemisolUrea nitrogen [Mass/Vol]19 mg/dLNormal5 - 21 mg/dLEASTERN [facility]LA[facility] RemisolUrea nitrogen/Creatinine [Mass ratio]19 mg/xnBhycos34 - 20[facility] RemisolFree T4on 10-60-2956Kflj T4 [Mass/Vol] 0.50 ng/dLLow0.58-1.64[facility] HospitalComment on above:Order Comment: Free T4 added by Discern Rule due to a TSH result of <0.34 or >5.60.Performed By: #### [id number], [id number] #### [facility] [address] [place] [address]Uxnqybrkn Clinical Summaryon 07-44-1316Lmggndhai Clinical Summary [address] [address] Clinical Summary Person Information: Name: MARY WEST Age: 62 Years : 1960 Sex: Female PCP: NIURKA VICENTE MD Marital Status: Phone: [phone] Race: White Ethnicity: Non- or Language: Chadian Visit Id: Visit Reason: Diarrhea; Nausea; Chest pain; DIARRHEA, NAUSEA,CHEST PAIN Speciality: Acuity: Enc Type: Observation Med Service: Medical Arrival: 09/10/2022 11:51:10 Discharge: Dispo Type: Admitted as IP to this [facility] Address: [address] [place] [id number] Provider Notes: Diagnosis: 1:Chest pain; 2:Elevated TSH; 3:Diarrhea; 4:Hyponatremia; 5:Smoker; 6:CAD in [place] artery; 7:HTN (hypertension); 8:HLD (hyperlipidemia); 9:Chronic pain; 10:On deep vein thrombosis (DVT) prophylaxis Problems Active Smoker Smoking Status: Current Every Day Smoker Functional Status: Sensory Deficits: History of Falls: Mobility Assistance Prior to Admission: Independent ADLs: Independent Current Level of Assistance for Self-Care/Mobility: Cognitive Status: Oriented x 3 Allergies Rocephin (Hives) CeleBREX (Tachycardia) Bactrim (Vomiting) Synthroid (Hypertension) Measurements: Height: 167.64 cm Weight: 61.7 kg Blood Pressure: 120 mmHg / 84 mmHg BMI: 23.06 kg/m2 Procedures No Procedures Documented Immunizations No Immunizations Documented This Visit Final Med List: acetaminophen (acetaminophen 325 mg Tab) 2 Tablets By Mouth every 6 hours as needed Pain. acetaminophen-oxycodone (acetaminophen-oxycodone 325 mg-7.5 mg oral tablet) 1 Tablets By Mouth every 6 hours as needed Pain 1-3. aspirin (aspirin 81 mg Oral EC Tab) 1 Tablets By Mouth every day. atorvastatin (atorvastatin 80 mg Tab) 1 Tablets By Mouth at bedtime. carvedilol (carvedilol 6.25 mg Tab) 1 Tablets By Mouth 2 times a day. chlorthalidone (chlorthalidone 25 mg Tab) 1 Tablets By Mouth every day. pantoprazole (Pantoprazole [address] Tab) 1 Tablets By Mouth every day. Refills: 0. Care Team Members: Attending Physician: Mikael Cote DO Consulting Physician: Evan Dempsey MD Referring Physician: Follow up: With: Address: When: [facility] endocrinology clinic: [phone] With: Address: When: NIURKA VICENTE [address] [place] [address] [employer] ([employer]) Within 2 to 4 days Comments: Call for followup appointment post hospital follow With: Address: When: Evan Dempsey [address] [place] [address], [address], [place] [address] [employer] () Within 5 to 7 days Comments: Call for followup appointment to review your stress test results and discuss further plan of care Patient Education Information: Nonspecific Chest Pain, Adult, Tqfp-vu-Sstr pantoprazoleFisher-Titus Medical CenterInpatient Patient Summaryon [id number] Patient Summary MARY WEST :1960 Visit Date:09/10/2022 Inpatient Discharge Instructions Your Care Team Admitting Physician - Mikael Cote DO Consulting Physician - Evan Dempsey MD Reason for Your Visit chest pain Your Diagnosis Chest pain Elevated TSH Diarrhea Hyponatremia Smoker CAD in [place] artery HTN (hypertension) HLD (hyperlipidemia) Chronic pain On deep vein thrombosis (DVT) prophylaxis Chest pain Diarrhea Nausea Tests Performed Automated Diff BMP BNP CBC w/ Auto Diff Clostridium Difficile PCR -- Results Pending -- eGFR Enteric Panel by PCR -- Results Pending -- Free T4 Lipase Level Lipid Panel Magnesium Level PT & PTT Troponin 0 Hr. Troponin 3 Hr. Troponin 6 Hr. Troponin 9 Hr. TSH With T4fr Reflex Lexiscan Stress Test 1 Day -- Results Pending -- NM Stress ECG Dictation -- Results Pending -- XR Chest Single View Please visit your patient portal for your results or contact your primary care physician. This Is Your Medications List acetaminophen (acetaminophen 325 mg Tab) acetaminophen-oxycodone (acetaminophen-oxycodone 325 mg-7.5 mg oral tablet) aspirin (aspirin 81 mg Oral EC Tab) atorvastatin (atorvastatin 80 mg Tab) carvedilol (carvedilol 6.25 mg Tab) chlorthalidone (chlorthalidone 25 mg Tab) pantoprazole (Pantoprazole [address] Tab) Discharge Vitals Temperature (Oral) 36.8 ?C Heart Rate (Monitored) 63 Respiratory Rate 16 Blood Pressure 120/84 Weight 61.7 kg What to do next Instructions From Your Doctor Event Name Event Result Discharge Activity Ambulate as tolerated, Activity as tolerated Discharge Diet(s) Regular, Fat Modified- 50 gram, Low Sodium- 2000 mg Pending Diagnostic Test Results None Discharge Instructions Follow up appts as written New Follow Up Appointments after Discharge Follow Up with [facility] endocrinology clinic: [phone] When: Follow Up with NIURKA VICENTE When: Within 2 to 4 days Comments: Call for followup appointment post hospital follow Where: [address] [place] [address]- Business (1) Follow Up with Evan Dempsey When: Within 5 to 7 days Comments: Call for followup appointment to review your stress test results and discuss further plan of care Where: [address] [address] [place] [address]- Business (1) Medications What How Much When Instructions Next Dose New acetaminophen (acetaminophen 325 mg Tab) 2 Tablets By Mouth Every 6 hours as needed for Pain every 6 hours as needed New pantoprazole (Pantoprazole [address] Tab) 1 Tablets By Mouth Every day Pickup at [facility]/pharmacy #[id number] 09/12 09am Changed acetaminophen-oxycodone (acetaminophen-oxycodone 325 mg-7.5 mg oral tablet) 1 Tablets By Mouth Every 6 hours as needed for Pain 1-3 every 6 hours as needed for pain 1-3 after 0910pm Changed atorvastatin (atorvastatin 80 mg Tab) 1 Tablets By Mouth At bedtime 09/11 0900pm Changed carvedilol (carvedilol 6.25 mg Tab) 1 Tablets By Mouth 2 times a day 09/11 0900pm Changed chlorthalidone (chlorthalidone 25 mg Tab) 1 Tablets By Mouth Every day 09/12 09am Unchanged aspirin (aspirin 81 mg Oral EC Tab) 1 Tablets By Mouth Every day 09/12 09am [id number] [address] [place], [place] [id number] [phone] Test Results CBC BMP WBC: 7.8 E9/L (09/10/22 12:37:00) Glucose Lvl: 91 mg/dL (09/11/22 06:02:00) RBC: 4.6 E12/L (09/10/22 12:37:00) BUN: 19 mg/dL (09/11/22 06:02:00) HGB: 14 gm/dL (09/10/22 12:37:00) Creatinine: 1 mg/dL (09/11/22 06:02:00) Hct: 42 % (09/10/22 12:37:00) BUN/Creat Ratio: 19 (09/11/22 06:02:00) MCV: 90.3 fL (09/10/22 12:37:00) Sodium Lvl: 132 mmol/L Low (09/11/22 06:02:00) MCH: 30.2 pg (09/10/22 12:37:00) Potassium Lvl: 3.5 mmol/L (09/11/22 06:02:00) MCHC: 33.4 gm/dL (09/10/22 12:37:00) Chloride: 98 mmol/L Low (09/11/22 06:02:00) RDW: 13.6 % (09/10/22 12:37:00) CO2: 25 mmol/L (09/11/22 06:02:00) Platelet: 287 E9/L (09/10/22 12:37:00) AGAP: 13 mEq/L (09/11/22 06:02:00) MPV: 6.8 fL (09/10/22 12:37:00) Calcium Lvl: 8.8 mg/dL Low (09/11/22 06:02:00) Allergies Bactrim (Vomiting) CeleBREX (Tachycardia) Rocephin (Hives) Synthroid (Hypertension) Problems Ongoing - Any problem that you are currently receiving treatment for. Smoker Education Materials Nonspecific Chest Pain Chest pain can be caused by many different conditions. Some causes of chest pain can be life-threatening. These will require treatment right away. Serious causes of chest pain include: ? Heart attack. ? A tear in the body's main blood vessel. ? Redness and swelling (inflammation) around your heart. ? Blood clot in your lungs. Other causes of chest pain may not be so serious. These include: ? Heartburn. ? Anxiety or stress. ? Damage to bones or muscles in yo (more content not included)...[facility] CenterInpatient Patient Summary [address] [address] Patient Discharge Instructions PERSON INFORMATION Name: MARY WEST Date of : 1960 Current Date: 09/11/2022 16:51:47 PHYSICIANS Admitting Physician: Mikael Cote DO Primary Care Physician: NIURKA VICENTE MD PCP Comment: Discharge Diagnosis: 1:Chest pain; 2:Elevated TSH; 3:Diarrhea; 4:Hyponatremia; 5:Smoker; 6:CAD in [place] artery; 7:HTN (hypertension); 8:HLD (hyperlipidemia); 9:Chronic pain; 10:On deep vein thrombosis (DVT) prophylaxis Condition at Discharge: Stable MARY WEST has been given the following list of follow-up instructions, prescriptions, and patient education materials: PATIENT FOLLOW-UP INFORMATION Diet: Regular, Fat Modified- 50 gram, Low Sodium- 2000 mg Discharge Activity: Ambulate as tolerated, Activity as tolerated Discharge Restrictions: Wound Care Instructions: Remove Your Dressing In Days Call Your Doctor For: IF UNABLE TO CONTACT YOUR PHYSICIAN AND YOU FEEL IT IS AN EMERGENCY, GO TO THE NEAREST EMERGENCY ROOM OR CALL 911 Home Treatment: Devices/Equipment: None Special Services: Additional Instructions: Follow up appts as written Primary Care Physician to provide the following pending test results: None Follow up: With: Address: When: [facility] endocrinology clinic: [phone] With: Address: When: NIURKA CINTHIA [facility] [place] [address] Ariisto (1) Within 2 to 4 days Comments: Call for followup appointment post hospital follow With: Address: When: Evan Dempsey [address] [place] [address], [address], [place] [address] Ariisto (1) Within 5 to 7 days Comments: Call for followup appointment to review your stress test results and discuss further plan of care In the event that this physician does not participate in your insurance network, please consult with your insurance company to find a nearby participating provider. Comment: EYAD Remy PAMELA M, have received the attached patient education materials/instructions and have verbalized understanding: Patient Signature Date Clinican/Nurse Signature Date HERE ARE THE MEDICATION CHANGES THAT OCCURRED DURING YOUR HOSPITAL STAY New Medications [facility]/pharmacy #[id number], [address] [place], [place] [id number], [phone] pantoprazole (Pantoprazole [address] Tab) 1 Tablets By Mouth every day. Refills: 0. Last Dose: Next Dose: Other Medications acetaminophen (acetaminophen 325 mg Tab) 2 Tablets By Mouth every 6 hours as needed Pain. Last Dose: Next Dose: Medications to Continue Taking That Have Changed Other Medications START: acetaminophen-oxycodone (acetaminophen-oxycodone 325 mg-7.5 mg oral tablet) 1 Tablets By Mouth every 6 hours as needed Pain 1-3. Last Dose: Next Dose: STOP: acetaminophen-oxycodone (acetaminophen-oxycodone 325 mg-7.5 mg oral tablet) START: atorvastatin (atorvastatin 80 mg Tab) 1 Tablets By Mouth at bedtime. Last Dose: Next Dose: STOP: atorvastatin (atorvastatin 80 mg Tab) START: carvedilol (carvedilol 6.25 mg Tab) 1 Tablets By Mouth 2 times a day. Last Dose: Next Dose: STOP: carvedilol (carvedilol 6.25 mg Tab) START: chlorthalidone (chlorthalidone 25 mg Tab) 1 Tablets By Mouth every day. Last Dose: Next Dose: STOP: chlorthalidone (chlorthalidone 25 mg Tab) Medications to Continue with No Changes Other Medications aspirin (aspirin 81 mg Oral EC Tab) 1 Tablets By Mouth every day. Last Dose: Next Dose: Comment: MEDICATION LIST PROVIDED FOR YOU IS A LIST OF YOUR CURRENT MEDICATIONS. PLEASE CARRY THIS WITH YOU AT ALL TIMES. acetaminophen (acetaminophen 325 mg Tab) 2 Tablets By Mouth every 6 hours as needed Pain. acetaminophen-oxycodone (acetaminophen-oxycodone 325 mg-7.5 mg oral tablet) 1 Tablets By Mouth every 6 hours as needed Pain 1-3. aspirin (aspirin 81 mg Oral EC Tab) 1 Tablets By Mouth every day. atorvastatin (atorvastatin 80 mg Tab) 1 Tablets By Mouth at bedtime. carvedilol (carvedilol 6.25 mg Tab) 1 Tablets By Mouth 2 times a day. chlorthalidone (chlorthalidone 25 mg Tab) 1 Tablets By Mouth every day. pantoprazole (Pantoprazole [address] Tab) 1 Tablets By Mouth every day. Refills: 0. Pharmacy Information: Comment: PATIENT EDUCATION INFORMATION Instructions: Nonspecific Chest Pain Chest pain can be caused by many different conditions. Some causes of chest pain can be life-threatening. These will require treatment right aw (more content not included)...[facility] Medical CenterInterdisciplinary Note - Case Manageron 57-30-4173Swctdvugqqrkpijqv Note - Case ManagerCRM to room to discuss DC planning. Patient is awake, alert and oriented. Patient is from home withher spouse. Sp[place] able to transport at [place]. Patient is here with Diarrhea, Nausea and CP.Patient was rounded with Rain LUEVANO, see notes. Patient will be seen by Cardiology. Patient today has lexiscan. DC depends on results. Patient denied any need for HH, DME or PM at [place]. Patient was provided CRM contact, white board updated. Anticipated DC later today or 09/12. CRM followingNoFulton County Health CenterComment on above:Result Comment: Electronically Signed By: Torri Cai\.felice\Date and Time Signed: 09/11/22 10:20 EDTLipid Panelon 97-24-8146Qflmrdyqeao [Mass/Vol]139 mg/sTBkraxx961-351NpcaukMagruder Memorial HospitalComment on above:Performed By: #### [id number], [id number] #### [facility] [address] [place] [address]Ntkndlbqebd in HDL [Mass/Vol]56 mg/dLInvalid Interpretation [facility] HospitalComment on above:Result Comment: HDL > or equal to 60 mg/dL: Low cardiovascular risk HDL < 40 mg/dL : High cardiovascular riskPerformed By: #### [id number], [id number] #### [facility] [address], [place] [address]Thcolzhygap in LDL [Mass/Vol]58 mg/dLNormal<=129[facility] Memorial HospitalComment on above:Performed By: #### [id number], [id number] #### [facility] [address], [place] [address]Rkihqvzgqcx in VLDL [Mass/Vol]27 mg/dLNormal7-40[facility] HospitalComment on above:Performed By: #### [id number], [id number] #### [facility] [address], [place] [address]Aebfhfabxioa [Mass/Vol]134 mg/dLNormal<=149Mag[facility] Memorial HospitalComment on above:Performed By: #### [id number], [id number] #### [facility] [address], [place] [address]Rrpsaax Recordon 53-78-2926Bpjzvqj Record [id number]#1.00CD:[address] [place], [place] [address]Monitor [id number]#1.00CD:[address] [place], [place] [address]No Panel Informationon 11-64-4591CuitaeEZ[facility] [address] DO Work Phone: [phone]-Vqkifepylhnvq Formon 61-66-1015Bub-Certification [id number]#1.00CD:[address] [place], [place] [address]Progress Note-Physicianon 08-05-9753Xrrmrnjo Note-Physician Patient: MARY WEST Age: 62 years Sex: Female : 1960 Associated Diagnoses: None Author: Ke COCHRAN, Evan Rojo Subjective SEEN BEFORE STRESS TEST CHEST PAIN RESOLVED ALL TROPONINS NORMAL, HENCE THIS IS NOT ACS Objective VSS NSR LUNGS WHEEZING ABD OK EXTR OK Results Review TROPONINS NORMAL EKG UNIMPRESSIVE Impression and Plan NO SIGN OF ACS IF THIS IS ANGINA, WHICH I DOUBT, IT IS STABLE OK TO DISCHARGE TODAY AFTER STRESS TEST AQUISITION WILL FOLLOW UP WITH HER OUTPATIENTNormalMagruder Memorial HospitalComment on above:Result Comment: Electronically Signed By: Ke COCHRAN, Evan Urrutia\Date and Time Signed: 09/11/22 13:30 EDTTSH With T4fr Reflexon 08-21-5312XXS Qn20.02 m[IU]/LHigh0.34-5.60[facility] HospitalComment on above:Performed By: #### [id number], [id number] #### [facility] [address] [place], [place] [address]iHXUcu 63-31-5808VUT/1.73 sq M.predicted among non-blacks MDRD (S/P/Bld) [Vol rate/Area]64 mL/min/1.73 g0Jqtait>=59[facility] Comment on above:Order Comment: Order added by Discern Expert.Result Comment: Chronic kidney disease could be indicated at eGFR's of less than 60 mL/min/1.73m2. Kidney failure is indicated at less than 15 mL/min/1.73m2. Performed By: #### [id number], 7065514, 9678735, 2003767, 60401574 ####[facility] [address] [place], [place] [address]Sjip Diffon 51-82-1815Hbiazeijl/100 WBC (Bld)0.6 %Normal0.0-2.0[facility] Comment on above:Order Comment: Order Added by Discern Expert.Performed By: #### 2178904, 7231655, 51015602, 15535417, 64749353, 5531703, 97104232, 1807595, 9950073 ####[facility] [address] [place], [place] [address]Mqjcgwjaf/Leukocytes Auto (Bld) [Pure # fraction]0.0 E9/LNormal0.0-0.2 [facility] HospitalComment on above:Order Comment: Order Added by Discern Expert.Performed By: #### 0223524, 2981325, 02816160, 64388586, 35363568, 4554767, 94982989, 1086412, 3531412 ####[address] [place], [place] [address]Gxgtafkovjg/100 WBC (Bld)0.4 %Normal 0.0-8.0[facility] HospitalComment on above:Order Comment: Order Added by Discern Expert.Performed By: #### 1443303, 8897020, 20179775, 21950858, 50724673, 4539824, 29540803, 5692028, 3638855 ####[address] [address]Wgwuazxadje/Leukocytes Auto (Bld) [Pure # fraction]0.0 E9/LNormal0.0-0.5FMarietta Osteopathic ClinicComment on above:Order Comment: Order Added by Discern Expert.Performed By: #### 2290492, 8523978, 20704828, 93669612, 83080556, 2531928, 51819333, 8877485, 8295521 ####[address] [address] Lymphocytes/100 WBC (Bld)18.5 %Lnkipy72.0-50.0[facility] HospitalComment on above:Order Comment: Order Added by Discern Expert.Performed By: #### 4686054, 5173412, 33326280, 17068900, 59197035, 0392964, 80441331, 5109951, 5938322 ####[address] [address]Zyeseroqtrl/Leukocytes Auto (Bld) [Pure # fraction]1.4 E9/LNormal1.0-4.0 [facility] HospitalComment on above:Order Comment: Order Added by Discern Expert.Performed By: #### 6497062, 4643834, 89766418, 87247795, 28034329, 4958122, 58569102, 6558982, 8307064 ####[address] [place], [place] [address]Quaymdfus/100 WBC (Bld)6.7 %Normal 4.0-14.0[facility] HospitalComment on above:Order Comment: Order Added by Discern Expert.Performed By: #### 9626072, 0427100, 19818194, 43354697, 22127620, 9192467, 28501489, 3135202, 1118525 ####[address] [place], [place] [address]Fdqzkgfrb/Leukocytes Auto (Bld) [Pure # fraction]0.5 E9/LNormal0.2-1.0[facility] HospitalComment on above: Order Comment: Order Added by Discern Expert.Performed By: #### 0080570, 1482217, 62223343, 11556949, 40609951, 2713119, 03739420, 8880034, 5737740 ####[address] [address] Neutrophils/100 WBC (Bld)73.8 %Aeuodz82.0-75.0[facility] HospitalComment on above:Order Comment: Order Added by Discern Expert.Performed By: #### 6678149, 6825635, 17723790, 93404729, 45566055, 0633433, 68934603, 7519473, 0786409 ####[address] [place], [place] [address]Zfuxwrdgiia/Leukocytes Auto (Bld) [Pure # fraction]5.8 E9/LNormal2.0-7.5 [facility] HospitalComment on above:Order Comment: Order Added by Discern Expert.Performed By: #### 3431695, 2437819, 14895200, 07366165, 21926916, 0590825, 50807093, 4031841, 5785338 ####[address] [address]HZWuv 17-60-6473Lvmpsjmbup [Mass/Vol] 1.0 mg/dLNormal0.5-1.3FMarietta Osteopathic ClinicComment on above:Performed By: #### 9251675, 7845149, 84164540, 33597553, 54292242, 4570696, 48600235, 9223096, 8222181 ####[facility] [address] [place], [place] [address]Faho nitrogen [Mass/Vol]21 mg/dLNormal5-21[facility] Comment on above:Performed By: #### 5172912, 5922766, 25863803, 19067282, 89423921, 2507554, 98486799, 0290592, 7649097 ####[facility] [address] [place], [place] [address]Anxq nitrogen/Creatinine [Mass ratio] 21 No NtxeyXkki10-81AuqrmjMagruder Memorial HospitalComment on above:Performed By: #### 3251947, 8255798, 53027719, 89410848, 60357162, 1608940, 76806726, 9656825, 3549010 ####[facility] [address] [place], [place] [address]Ljwym gap [Moles/Vol]17 mmol/LHigh6-16[facility] Memorial HospitalComment on above:Performed By: #### 2407508, 9528992, 65787999, 68168738, 65549502, 8486083, 74761275, 7563203, 0124500 ####[facility] [address] [place], [place] [address]Niorcpr [Mass/Vol]9.5 mg/dLNormal 8.9-11.1FMarietta Osteopathic ClinicComment on above:Performed By: #### 6865743, 2601251, 55522770, 78660759, 26237997, 1405182, 47647205, 9298426, 0142504 ####[facility] [address] [place] [address] Chloride [Moles/Vol]96 mmol/SFui639-454KnkathMagruder Memorial HospitalComment on above:Performed By: #### 3362029, 8123734, 72844482, 25054629, 14986304, 4612248, 61788413, 4794392, 4217991 ####[facility] [address] [place], [place] [address]JD7 [Moles/Vol]24 mmol/JLxsfil85-31 [facility] HospitalComment on above:Performed By: #### 7872845, 4916261, 28463555, 32909941, 86403552, 6999591, 26076455, 9690841, 5260355 ####[facility] [address] [place], [place] [address]Qnffgfv [Mass/Vol]103 mg/nUUqtike72-481MetzrbMagruder Memorial HospitalComment on above: Result Comment: If this glucose result represents a fasting glucose, interpretation should refer tothe following reference range: 55-99 mg/dL Performed By: #### 3826628, 4495091, 80613972, 67973953, 37996250, 5589659, 42734205, 4987683, 5910563 ####[facility] [address] [place], [place] [address]Gfeuhxaet [Moles/Vol]3.7 mmol/LNormal3.5-5.3FMarietta Osteopathic ClinicComment on above:Performed By: #### 4605941, 8634347, 39295817, 67925160, 84968636, 3579873, 54963838, 4613096, 6723523 ####[facility] [address] [place], [place] [address]Bkktgf [Moles/Vol]133 mmol/MGnl629-637VajycgMagruder Memorial HospitalComment on above: Performed By: #### 4597869, 4251044, 66759878, 31422481, 97272134, 0165253, 64321399, 2937547, 1685010 ####[facility] [address] [place], [place] [address]WRBjg 03-73-24[address]Rhyjqysxfrl peptide B (Bld) [Mass/Vol]41 pg/mLNormal5-80[facility] HospitalComment on above: Performed By: #### 7252236, 2222425, 58274549, 45060300, 29171329, 7499828, 57601567, 4308479, 2269714 ####[facility] [address] [place], [place] [address]WEA w/ Auto Diffon 95-06-5118Xthlxbfmrhm distribution width (RBC) [Ratio]13.6 %Gyovfs38.9-14.2FMarietta Osteopathic Clinic Comment on above:Performed By: #### 7562703, 6971014, 81170889, 60226743, 00922402, 8207966, 90219541, 6992509, 6131421 #### [facility] [address], [place] [address]Muprpabwbe (Bld) [Volume fraction]42.0 %Qiqtrt68.0-46.0[facility] HospitalComment on above:Performed By: #### 3513117, 2230168, 16061694, 33137896, 31995637, 1056357, 69173634, 9299344, 1776318 #### [facility] [address], [place] [address]Ssimfrpurs (Bld) [Mass/Vol]14.0 g/bATruzaa47.0-16.0[facility] HospitalComment on above:Performed By: #### 1515093, 0379161, 19924351, 74992603, 55691198, 5699148, 74217525, 4370193, 5229837 #### [facility] [address], [place] [address]XVG (RBC) [Entitic mass]30.2 pyMgkvnq12.0-34.0[facility] Memorial HospitalComment on above:Performed By: #### 2667206, 0403588, 43453100, 12466435, 03366032, 3876124, 46729678, 9635895, 5129522 #### [facility] [address], [place] [address]EUCB (RBC) [Mass/Vol]33.4 g/hGHkwuod57.4-36.0[facility] HospitalComment on above:Performed By: #### 8934014, 9364565, 92518017, 46710022, 16126185, 3208557, 50711408, 8412040, 1665743 #### [facility] [address], [place] [address]AHM (RBC) [Entitic vol]90.3 iMObzwiz99.0-100.0[facility] HospitalComment on above:Performed By: #### 8520995, 5102976, 97672340, 22206436, 50768415, 1616371, 79756303, 9330249, 1827910 #### [facility] [address] [place] [address]Ptjnxcxy mean volume (Bld) [Entitic vol]6.8 fLNormal6.4-10.8 [facility] HospitalComment on above:Performed By: #### 3303406, 0380154, 31994021, 27579791, 76801633, 1466952, 02944661, 2878684, 1921614 #### [facility] [address] [place] [address]Bbrjogash (Bld) [#/Vol]287.0 E9/VMpqntt790.0-500.0[facility] HospitalComment on above:Performed By: #### 9673024, 6102741, 68753834, 39198482, 93651633, 2874422, 61995416, 5192038, 6125424 #### [facility] [address] [place] [address]ZSR (Bld) [#/Vol]4.6 E12/LNormal4.3-5.9[facility] HospitalComment on above:Performed By: #### 9357814, 8481429, 31342580, 34558187, 81640323, 5757769, 43051787, 5367794, 1350538 #### [facility] [address], [place] [address]QTI corrected for nucl RBC Auto (Bld) [#/Vol]7.8 E9/LNormal 4.0-11.0[facility] HospitalComment on above:Performed By: #### 8440357, 4946446, 84984661, 74020009, 13759211, 7232947, 04112086, 0080418, 6360725 #### [facility] [address], [place] [address]PXDGOMKVYDwzfzux By: SYSTEM SYSTEM on 84-93-5602Xhndgwqx I.cardiac [Mass/Vol]14.10 pg/yLOweesx87.10 - 27.10 pg/mLFTMC RemisolTroponin I.cardiac [Mass/Vol]11.10 pg/iOVetsjj74.10 - 27.10 pg/mLFTMC RemisolTroponin I.cardiac [Mass/Vol]9.70 pg/mLLow10.10 - 27.10 pg/mLFTMC RemisolAnion gap [Moles/Vol]17 mmol/LHigh6 - 16 mEq/LFTMC RemisolCalcium [Mass/Vol]9.5 mg/dL Normal8.9 - 11.1 mg/dLFTMC RemisolChloride [Moles/Vol]96 mmol/XDhy948 - 111 mmol/LFTMC RemisolCO2 [Moles/Vol]24 mmol/TWzbrrt92 - 31 mmol/LFTMC Remisol Creatinine [Mass/Vol]1.0 mg/dLNormal0.5 - 1.3 mg/dLFTMC RemisolGFR/1.73 sq M.predicted among non-blacks MDRD (S/P/Bld) [Vol rate/Area]64 mL/min/1.73 m2 Normal>=59mL/min/1.73 m2FTMC Chem SGlucose [Mass/Vol]103 mg/mRUnjxrz61 - 199 mg/dLFTMC RemisolLipase [Catalytic activity/Vol]30 U/LPcglcs04 - 58 unit/LFTMC RemisolMagnesium [Mass/Vol]2.0 mg/dLNormal1.3 - 2.4 mg/dLE[facility] RemisolPotassium [Moles/Vol]3.7 mmol/LNormal3.5 - 5.3 mmol/LFTMC RemisolSodium [Moles/Vol]133 mmol/BQls843 - 145 mmol/LFTMC RemisolUrea nitrogen [Mass/Vol]21 mg/dLNormal5 - 21 mg/dLEASTERN [facility] RemisolUrea nitrogen/Creatinine [Mass ratio]21 mg/ukQpjr62 - 20[facility] RemisolCHEMISTRYOrdered By: Belkis Petersen on 20-95-1557Bovlbqrzfpi peptide B (Bld) [Mass/Vol]41 pg/mLNormal5 - 80 pg/mLEASTERN [facility] HemeManSSCOAGULATIONOrdered By: Alis Howard on 47-73-8569iDPA Coag (PPP) [Time]34.4 oJmmkre91.1 - 36.5 second(s)[facility] Auto CoagINR Coag (PPP) [Relative time]1.0 {INR}Invalid Interpretation CodeEASTERN [facility]LA[facility] Auto CoagPT Coag (PPP) [Time]10.9 sNormal9.4 - 12.5 second(s)[facility] Auto CoagConsent for Treatmenton 83-81-0032Gyylfgn for Treatment [id number]#[id number]:127[facility] Medical CenterConsultation Noteon 39-32-2650Hbdchngqucug NotePatient: MARY WEST Age: 62 years Sex: Female : 1960 Associated Diagnoses: None Author: Evan Dempsey MD Impression and Plan CONSULT DICTATED NON CARDIAC CHEST PAIN HISTORY OF PCI 2012 SUGGEST GI RX ORDERED LEXISCAN [facility]OLYTE IN [facility] CenterComment on above: Result Comment: Electronically Signed By: Evan Dempsey MD\.br\Date and Time Signed: 09/10/22 18:12 EDTED Clinical Summaryon 10-18-0951MQ Clinical Summary [address] [id number] ED Clinical Summary Person Information Name: MARY WEST/Beatriz Age: 62 Years : 1960 Sex: Female Language: Chadian PCP: NIURKA VICENTE MD Marital Status: Phone: [phone] Visit Id: Visit Reason: Diarrhea; Nausea; Chest pain; CHEST PAIN Speciality: Acuity: 2 Enc Type: Observation Med Service: Emergency Arrival: 09/10/2022 11:51:10 Discharge: LOS: 000 02:48 Checkin: 09/10/2022 11:51:10 Checkout: 09/10/2022 14:39:06 Dispo Type: Admitted as IP to this [facility] EVENTS: Event Name Event Status Request Date/Time Start Date/Time Complete Date/Time Arrive Complete 09/10/2022 11:51:10 09/10/2022 11:51:10 09/10/2022 11:51:10 Document Home Meds Request 09/10/2022 11:51:10 Triage Complete 09/10/2022 11:51:10 09/10/2022 12:06:28 09/10/2022 12:06:28 EKG Complete 09/10/2022 11:53:03 09/10/2022 11:58:43 Bed Assign Complete 09/10/2022 11:53:37 09/10/2022 11:53:37 09/10/2022 11:53:37 Dr Exam Complete 09/10/2022 11:53:37 09/10/2022 11:54:23 09/10/2022 11:54:23 RN Exam Complete 09/10/2022 11:53:37 09/10/2022 12:08:10 09/10/2022 12:08:10 Registration Complete 09/10/2022 11:54:23 09/10/2022 12:35:58 09/10/2022 12:35:58 Pending Labs Request 09/10/2022 12:14:00 Lab Complete 09/10/2022 12:14:00 09/10/2022 13:04:23 Patient Care Request 09/10/2022 12:14:00 RT Request 09/10/2022 12:14:00 X-Ray Complete 09/10/2022 12:14:00 09/10/2022 12:20:14 09/10/2022 12:50:04 Pending Labs Request 09/10/2022 12:14:54 Patient Care Complete 09/10/2022 12:16:13 09/10/2022 12:18:05 Reg Complete Request 09/10/2022 12:35:58 Reg Bed Request Complete 09/10/2022 12:35:58 09/10/2022 12:35:58 09/10/2022 12:35:58 Pending Labs Complete 09/10/2022 12:41:24 09/10/2022 12:41:24 09/10/2022 12:57:52 Lab Complete 09/10/2022 12:41:24 09/10/2022 12:41:24 09/10/2022 12:57:52 Pending Labs Complete 09/10/2022 12:44:49 09/10/2022 12:44:49 09/10/2022 12:44:55 Lab Complete 09/10/2022 12:44:49 09/10/2022 12:44:49 09/10/2022 12:44:55 Wet Read Request 09/10/2022 12:50:04 Consult Request 09/10/2022 14:11:32 Hospitalist Consult Request 09/10/2022 14:11:32 Patient Care Request 09/10/2022 14:18:54 Patient Care Request 09/10/2022 14:18:54 Patient Care Request 09/10/2022 14:18:54 Patient Care Request 09/10/2022 14:18:55 Inpatient Bed Ready Complete 09/10/2022 14:39:06 09/10/2022 14:39:06 09/10/2022 14:39:06 ADDR[place]: [id number] [place] [id number] PHYS DOC NOTES: MEDICAL INFORMATION: Prescriptions Given: PATIENT EDUCATION INFORMATION: Instructions: Follow up: DIAGNOSIS: 1:Chest pain; 2:DiarrheaNormalFisher Churchill Medical CenterED Note-Physicianon [id number] Note-PhysicianBasic Information Time Seen: Bassem BrownJesus 09/10/2022 11:54 Chief Complaint patient c/o chest pain, lightheadedness, diaphoresis, nausea and diarrhea x3 days. hx 2 stent placed 2011 by [facility]. EMS gave 2 ASA and 1 nitro- took 2 ASA at home History of Present Illness The patient is a 62-year-old female past medical history of coronary artery disease status postcardiac stent x2 in 2011 who presented to the emergency room with chest pain. The patient points to the lower end of the sternum. She describes the pain as gassy pain. The patient stated has been going since yesterday on and off. She states she went to bed and waking up every couple hours lastnight. She had the chest pain couple times today. She denies any alleviating or aggravating actors for the pain. She denies any chest pain currently. The patient states that EMS gave her 2 baby aspirin as well as 1 nitro because her blood pressure was elevated. The patient states she had no chest pain at the time when they gave her nitroglycerin. The patient states since Sunday she has been having dizziness/lightheadedness and sweating. The patient reports nausea but no vomiting. She reports diarrhea 3 times today. Diarrhea is watery. Denies any black or bloody stool. The patient denies any sh ortness of breath. The patient denies any other associated symptoms. Review of Systems Additional ROS info: Except as noted in the above Review of Systems and in the History of Present Illness all other systems have been reviewed and are negative or noncontributory. Physical Exam Vitals & Measurements T: 36.9 ?C(Oral) HR: 75(Monitored) RR: 16 BP: 124/74 SpO2: 94% HT: 167.64 cm WT: 64.8 kg BMI: 23.06 General: alert, no acute distress Skin: warm, dry Head: no trauma, normocephalic Neck: Trachea midline Eye: normal conjunctiva, sclera clear Cardiovascular: regular rate and rhythm Respiratory: Lungs CTA, respirations non labored, breath sounds equal Gastrointestinal: soft, non distended, no tenderness, no guarding Extremities: no deformity, no trauma Neurological: Alert and oriented, speech normal, no focal neuro deficits Psychiatric: cooperative, affect appropriate for age, Procedure Heart Score for Major Cardiac Event History: Example factors for history - pattern of chest pain, onset, duration, relation with exercise, stress or cold, localization, concominant symptoms. reaction to sublingual nitrates, [] Highly suspicious +2 [x] Moderately suspicious +1 [] Slightly suspicious 0 EKG: [] Significant ST-Depression +2 [] Non specific repolarization disturbance +1 [x] Normal 0 Age: [] >= 65 +2 [x] 45-65 + 1 [] <45 0 Risk Factors: (HLD, HTN, DM, Cigarette Smoking, Pos Family Hx, Obesity) [x] >3 risk factors or hx of atheroslerotic disease + 2 [] 1-2 risk factors + 1 [] No risk factors known 0 Troponin: [] >= 3X normal + 2 [] 1-3X normal + 1 [x] <= Normal 0 [] 0-3 Points 0.9 - 1.7% risk of major adverse cardiac event in 6 weeks [x] 4-6 Points 12-16.6% risk of major adverse cardiac event in 6 weeks [] 7-10 Points 50-65% risk of major adverse cardiac event in 6 weeks [] 0-3 Points with 2 sets of negative cardiac markers <1% risk of major adverse cardiac event in30 days. Medical Decision Making MEDICAL DECISION MAKING Number and Complexity of Problems Differential Diagnosis: [] MDM Data External documents reviewed: [] My EKG interpretation: [] My CT interpretation: [] My X-ray interpretation: [] My Ultrasound interpretation: [] Decision rules/scores evaluated: [] Discussed with: Hospitalist Treatment and Disposition ED Course: The patient presented with chest pain. She does have history of coronary artery disease status post cardiac stents in 2011. The EKG shows no acute ischemic changes. No ST segment elevation. Her heart score is 4. Blood work reviewed. The first troponin is negative. The chest x-ray shows no acute cardiopulmonary disease. She is currently pain-free in the emergency room. EMS had given heraspirin and 1 nitro. The case is discussed with the hospitalist and the patient will be admitted tothe hospitalist services out ACS Shared decision making: [] Code status: [] Assessment/Plan 1. Chest pain (R07.9: Chest pain, unspecified) 2. Diarrhea (R19.7: Diarrhea, unspecified) Orders: Automated Diff B-Type Natriuretic Peptide Basic Metabolic Panel CBC w/ Auto Diff Clostridium Difficile PCR Crutches ECG 12 Lead Adult ED Cardiac Monitoring ED Physician consult Hospitalist for continued care eGFR Lipase Level Magnesium Level Oxygen Saturation Oxygen Therapy PT & PTT Saline Lock Insert Troponin 0 Hr. Troponin 3 Hr. Troponin 6 Hr. Troponin 9 Hr. XR Chest Single Vi (more content not included)...[facility]itus Medical CenterComment on above:Result Comment: Electronically Signed By: Jesus Luevano M.D.\.br\Date and Time Signed: 09/10/2313:30 EDTED Patient Education Noteon [id number] Patient Education NoteNormGuernsey Memorial Hospital CenterED Patient Summaryon [id number] Patient Summary [place] [id number] Patient Discharge Instructions Person Information Name: MARY WEST Age: 62 Years Arrival Date: 09/10/2022 11:51:10 Discharge Diagnosis: 1:Chest pain; 2:Diarrhea Primary Care Physician: NIURKA VICENTE MD Provider Information Primary Provider: Jeuss Luevano M.D. Advanced Corporate Development Analyst:None The exam and treatment you received in the Emergency Department were for an urgent problem and are not intended as complete care. It is important that you follow up with a doctor, nurse practitioner,or physician?s community relations assistant for ongoing care. If your symptoms become worse or you do not improve as expected and you are unable to reach your usual health care provider, you should return to the Emergency Department. We are available 24 hours a day. MARY WEST has been given the following list of patient education materials, prescriptions and follow-up instructions: Follow-up Instructions: In the event that this physician does not participate in your insurance network, please consult with your insurance company to find a nearby participating provider. Patient Education Materials: A MESSAGE TO ALL PATIENTS REGARDING OPIOIDS PRESCRIPTION OPIOIDS: WHAT YOU NEED TO KNOW Prescription opioids can be used to help relieve snfwddfc-xu-bgyzzh pain and are often prescribed following a surgery or injury, or for certain health conditions. These medications can be an important part of the treatment but also come with serious risks. It is important to work with your healthcare provider to make sure you are getting the safest, most effective care. WHAT ARE THE RISKS AND SIDE EFFECTS OF OPIOID USE? Prescription opioids carry serious risks of addiction and overdose, especially with prolonged use. An opioid overdose, often marked by slowed breathing, can cause sudden . The use of prescription opioids can have a number of side effects as well, even when taken as directed: ? Tolerance?meaning you might need to take more of the medication for the same pain relief ? Physical dependence?meaning you have symptoms of withdrawal when a medication is stopped ? Increased sensitivity to pain ? Constipation ? Nausea, vomiting, and dry mouth ? Sleepiness and dizziness ? Confusion ? Depression ? Low levels of testosterone that can result in lower sex drive, energy, and strength ? Itching and sweating RISKS ARE GREATER WITH: ? History of drug misuse, substance use disorder, or overdose ? Mental health conditions (such as depression or anxiety) ? Sleep apnea ? Older age (65 years and older) ? Avoid alcohol while taking prescription opioids. Also, unless specifically advised by your health care provider, medications to avoid include: ? Benzodiazepines (such as Xanax or Valium) ? Muscle relaxants (such as Soma or Flexeril) ? Hypnotics (such as Ambien or Lunesta) ? Other prescription opioids KNOW YOUR OPTIONS Talk to your health care provider about ways to manage your pain that don?t involve prescription opioids. Some of these options may actually work better and have fewer risks and side effects. Optionsmay include: ? Pain relievers such as acetaminophen, ibuprofen, and naproxen ? Some medication that are also used for depression or seizures ? Physical therapy and exercise ? Cognitive behavioral therapy, a psychological, goal-directed approach, in which patients learn how to modify physical, behavioral, and emotional triggers of pain and stress. IF YOU ARE PRESCRIBED OPIOIDS FOR PAIN: ? Never take opioids in greater amounts or more often than prescribed. ? Follow up with your primary health care provider. o Work together to create a plan on how to manage your pain. o Talk about ways to help manage your pain that don?t involve prescription opioids. o Talk about any and all concerns and side effects. ? Help prevent misuse and abuse o Never sell or share prescription opioids. o Never use another person?s prescription opioids. ? Store prescription opioids in a secure place and out of reach of others (this may include visitors, children, friends, and family). ? Safely dispose of unused prescription opioids: Find your community drug take- back program or [employer] mail-back program, or flush them down the toilet, following guidance from the Food and Drug Administration (www.fda.gov/Drugs/ResourcesForYou). ? Visit www.cdc.gov/drugoverdose to learn about the risks of opioids abuse and overdose. ? If you believe you may be struggling with addiction, tell your health multi care technician and ask for guidance or call [facility]S National Helpline at 0-548-157-CDWY. c Source: US Department of Health and Human Services/Center for Disease Control & Prevention [facility] Medications Given: Medication Dose Route No m (more content not included)...[facility] CenterHEMATOLOGY Ordered By: SYSTEM SYSTEM on 77-77-9137Yclxjxhzp/100 WBC (Bld)0.6 %Normal0.0 - 2.0 %[facility] HemeAutoSSBasophils/Leukocytes Auto (Bld) [Pure # fraction]0.0 E9/L Normal0.0 - 0.2 E9/LFTMC HemeAutoSSEosinophils/100 WBC (Bld)0.4 %Normal0.0 - 8.0 %[facility] HemeAutoSSEosinophils/Leukocytes Auto (Bld) [Pure # fraction]0.0 E9/L Normal0.0 - 0.5 E9/LFTMC HemeAutoSSLymphocytes/100 WBC (Bld)18.5 %Buwnki60.0 - 50.0 %[facility] HemeAutoSSLymphocytes/Leukocytes Auto (Bld) [Pure # fraction]1.4 E9/L Normal1.0 - 4.0 E9/LFTMC HemeAutoSSMonocytes/100 WBC (Bld)6.7 %Normal4.0 - 14.0 %[facility] HemeAutoSSMonocytes/Leukocytes Auto (Bld) [Pure # fraction]0.5 E9/LNormal 0.2 - 1.0 E9/LFTMC HemeAutoSSNeutrophils/100 WBC (Bld)73.8 %Ykzujf24.0 - 75.0 % [facility] HemeAutoSSNeutrophils/Leukocytes Auto (Bld) [Pure # fraction]5.8 E9/LNormal 2.0 - 7.5 E9/LFTMC HemeAutoSSHEMATOLOGYOrdered By: Belkis Petersen on 09-10-2022 Erythrocyte distribution width (RBC) [Ratio]13.6 %Ykgroi09.9 - 14.2 %[facility] HemeAutoSSHematocrit (Bld) [Volume fraction]42.0 %Fpibpl52.0 - 46.0 %[facility] HemeAutoSSHemoglobin (Bld) [Mass/Vol]14.0 g/fOZvqnpp11.0 - 16.0 gm/dLFTMC HemeAutoSSMCH (RBC) [Entitic mass]30.2 kcCoicex03.0 - 34.0 pgFTMC HemeAutoSSMCHC (RBC) [Mass/Vol]33.4 g/jBWqhwxn13.4 - 36.0 gm/dLFTMC HemeAutoSSMCV (RBC) [Entitic vol]90.3 mQSzculn11.0 - 100.0 fLFTMC HemeAutoSSPlatelet mean volume (Bld) [Entitic vol]6.8 fLNormal6.4 - 10.8 fLFTMC HemeAutoSSPlatelets (Bld) [#/Vol]287.0 E9/EExffol731.0 - 500.0 E9/LFTMC HemeAutoSSRBC (Bld) [#/Vol]4.6 E12/LNormal4.3 - 5.9 E12/[facility] HemeAutoSSWBC corrected for nucl RBC Auto (Bld) [#/Vol]7.8 E9/LNormal4.0 - 11.0 E9/LFTMC HemeAutoSSLipase Levelon 09-10-2022 Lipase [Catalytic activity/Vol]30 U/IHjtevq03-73UzjecyMagruder Memorial Hospital Comment on above:Performed By: #### [id number], [id number], 59394164, 61101366, 10827376, 1142413, 76242372, 0769357, 9446721 ####[facility] [address] [place], [place] [address]Lhfamppogxm 37-90-3210Tdxegegzr [Mass/Vol]2.0 mg/dLNormal1.3-2.4FMarietta Osteopathic ClinicComment on above: Performed By: #### [id number], 0858662, 51841390, 99113673, 51400191, 3907878, 02791359, 1545300, 0891634 ####[facility] [address] [place], [place] [address]Dfyelpt Recordon [id number] Record [id number]#1.00CD:127NormalMagruder Memorial HospitalMonitor [id number]#1.00CD:127Normal [facility] HospitalPT & PTTon 23-42-9788bSSN Coag (PPP) [Time]34.4 second(s)Sfszhq75.1-36.5FMarietta Osteopathic ClinicComment on above:Result Comment: Parameter 15 days - 4 weeks 1 - 5 months 6 - 11 months 1 - 5 years 6 - 10 years 11 - 17 years PTT Mean: 35.4 (27.6-45.6) Mean: 33.5 (24.8-40.7) Mean: 32.4 (25.1-40.7) Mean: 31.6 (24.0-39.2) Mean: 31.6 (26.9-38.7) Mean: 31.0 (24.6-38.4) Pediatric Reference ranges were obtained from a study by aysha Holguin prepared from 1437 samples obtained at 7 different centers using the same coagulation reagent and instrumentation as [facility]. Currently there are no coagulation studies available worldwide for children to 14 days, andno normal ranges. Heparin therapeutic range (represented by Anti-Factor Xa activity of 0.2 - 0.4 U/mL) corresponds to PTT of 56.6 - 109.0 sec.Performed By: #### [id number], 5271184, 62325756, 02086930, 03976633, 2516246, 99419842, 3152380, 1720813 ####[facility] [address] [place], [place] [address]ZHN Coag (PPP) [Relative time]1.0 {INR}Invalid Interpretation CodeFishHoly Cross HospitalComment on above:Result Comment: INR results are specifically intended to assess patients stabilized on long-term Anticoagulation therapy suggested INR?s ?Less Intensive Anticoagulation? 2.0 ? 3.0 Conventional Range 3.0 ? 4.5Performed By: #### [id number], 9009954, 36872693, 50785265, 63740945, 1275512, 56346227, 3730372, 3492322 ####[facility] [address] [place], [place] [address]SG Coag (PPP) [Time]10.9 second(s)Normal9.4-12.5FMarietta Osteopathic ClinicComment on above:Result Comment: 15 days - 4 weeks 1 - 5 months 6 -11 months 1 ? 5 years 6 ? 10 years 11 -17 years Mean: 11.2 (9.5 ? 12.6) Mean: 11.0 (9.7 ? 12.8) Mean: 11.0 (9.8 ? 13.0) Mean: 11.3 (9.9 ? 13.4) Mean: 11.7 (10.0 ? 14.6) Mean: 11.8 (10.0 - 14.1) Pediatric Reference ranges were obtained from a study by aysha Holguin prepared from 1437 samples obtained at 7 different centers using the same coagulation reagent and instrumentation as [facility]. Currently there are no coagulation studies available worldwide for children to 14 days, andno normal ranges.Performed By: #### 0003988, 1929556, 12590729, 03517016, 52044916, 8260901, 45626616, 0215719, 5360922 ####[facility] [address] [place] [address]Irb-Ugffyzv Noteon 36-33-5298Rab- Arrival NotePre-Arrival Summary Name: , keshav Current Date: 09/10/2022 11:54:38 EDT Gender: Female Date of : Age: 62 Pre-Arrival Type: EMS ETA: 09/10/2022 12:07:00 EDT Primary Care Physician: Presenting Problem: chest pain Pre-Arrival User: Sudha Murillo RN Referring Source: Location: [place] Completion Date/Time: 09/10/2022 11:37:00 [facility] Emergency Department Pre-Hospital Report Form Vital Signs: Pre-Hospital Report: 128/76, 93, 21, 96%, 20 left AC, 2 asa and 1 nitro, pt takes 2 asa daily Treatment in Route: Response to Treatment: Misc. Issues:NormalMagruder Memorial HospitalTroponin 0 Hr.on 09-10-2022 Troponin I.cardiac [Mass/Vol]7.70 pg/mLLow10.10-27.10[facility] Comment on above:Result Comment: The 95% CI (Confidence Interval) PPV (Positive Predictive Value) for myocardial infarction in females is 38 pg/mL, in males 51 pg/mL. The results should be used in conjunction with clinical conditions of myocardial infarction. (Access High Sensitivity Troponin I Instructions For Use, Rosalinda Julio C, October 2017)Performed By: #### [id number], 0308213, 15643985, 41136222, 43576159, 9602761, 03164413, 6953646, 4910134 ####[facility] [address] [place], [place] [address]Wqxcmvaf 3 Hr.on 09-19-0003Mlitjlxp I.cardiac [Mass/Vol]9.70 pg/mLLow10.10-27.10[facility] HospitalComment on above:Result Comment: The 95% CI (Confidence Interval) PPV (Positive Predictive Value) for myocardial infarction in females is 38 pg/mL, in males 51 pg/mL. The results should be used in conjunction with clinical conditions of myocardial infarction. (Access High Sensitivity Troponin I Instructions For Use, CamGSM, October 2017)Performed By: #### [id number] #### [facility] [address], [place] [address]Lvqeitak 6 Hr.on 47-70-1835Eceehrcm I.cardiac [Mass/Vol]11.10 pg/aIAzgihc31.10-27.10[facility] Memorial HospitalComment on above:Result Comment: The 95% CI (Confidence Interval) PPV (Positive Predictive Value) for myocardial infarction in females is 38 pg/mL, in males 51 pg/mL. The results should be used in conjunction with clinical conditions of myocardial infarction. (Access High Sensitivity Troponin I Instructions For Use, CamGSM, October 2017)Performed By: #### [id number], [id number] #### [facility] [address], [place] [address]Rnbjrdmm 9 Hr.on 30-45-8259Wfjpgdfz I.cardiac [Mass/Vol]14.10 pg/uJIhczgx85.10-27.10[facility] HospitalComment on above:Result Comment: The 95% CI (Confidence Interval) PPV (Positive Predictive Value) for myocardial infarction in females is 38 pg/mL, in males 51 pg/mL. The results should be used in conjunction with clinical conditions of myocardial infarction. (Access High Sensitivity Troponin I Instructions For Use, CamGSM, October 2017)Performed By: #### [id number] #### [facility] [address], [place] [address]ZH Chest Single Viewon [id number] Chest Single ViewExam Date/Time: 09/10/2022 12:50 EDT Reason for Exam: Chest pain Report IMPRESSION: NO ACUTE CARDIOPULMONARY DISEASE. CLINICAL HISTORY: Chest pain COMPARISON: NONE. FINDINGS: Remote internal fixation, lower cervical spine.. Cardiopericardial silhouette normal. Pulmonary vasculature normal. Lungs clear. Ordering Provider: Jesus Luevano FINAL REPORT Dictated: 09/10/2022 2:54 pm Lucien Burton MD Signed (Electronic Signature): 09/10/2022 2:54 pm Signed by: Lucien Burton MD Transcribed by: LORENA Technologist: PHI Technical Comments Radiation Dose: Ka,r in mGy = . DAP = .NormalMagruder Memorial HospitaleGFRon 28-20-8172RAL/1.73 sq M.predicted among non-blacks MDRD (S/P/Bld) [Vol rate/Area]64 mL/min/1.73 e0Utlbjl>=59 [facility] HospitalComment on above:Order Comment: Order added by Discern Expert.Result Comment: Chronic kidney disease could be indicated at eGFR's of less than 60 mL/min/1.73m2. Kidney failure is indicated at less than 15 mL/min/1.73m2.Performed By: #### [id number], 3492564, 24589212, 32510661, 90910321, 6351758, 97353425, 4406130, 3675178 ####[facility] [address] [place], [place] [address]OYFMT PROFILEon 35-42-7794RTMN-HDL RATIO NORMSKettering Memorial HospitalComment on above:Result Comment: 3.3 - 4.4 LOW RISK 4.4 - 7.1 AVERAGE RISK 7.1 - 11.0 MODERATE RISK >11.0 HIGH RISKPerformed By: #### LIPID, BMP #### [facility] [address] [place] [address] [address] Jose WilsonCholesterol [Mass/Vol]145 mg/dLNormal<=200[facility] Comment on above:Performed By: #### LIPID, BMP #### [facility] [address] [place] [address] [address] Jose Pascalesterol in HDL [Mass/Vol]76 mg/dLCritically majq82-08SqqTrinity Health SystemComment on above:Performed By: #### LIPID, BMP #### [facility] [address] [place] [address] [address] Jose WilsonCholesterol in LDL [Mass/Vol]40.8 mg/dLNoHolzer Medical Center – JacksonComment on above:Performed By: #### LIPID, BMP #### [facility] [address] [place] [address] Dr. Jose Pascalestertiny.total/Cholesterol in HDL [Mass ratio]1.9 {ratio} NormalThe [facility] East CampusComment on above:Performed By: #### LIPID, BMP #### [facility] [address] [place] [address] Dr. Jose Woody NORMAL> or = 60 mg/dl - LOW CARDIOVASCULAR RISK <40 mg/dl - HIGH CARDIOVASCULAR RISKNoHolzer Medical Center – JacksonComment on above:Performed By: #### LIPID, BMP #### [facility] [address] [place] [address] Dr. Jose WilsonLDL CALC NORMALSEE BELOWAultman Orrville HospitalComment on above:Result Comment: <100 mg/dl OPTIMAL 100 - 129 mg/dl NEAR OR ABOVE OPTIMAL 130 - 159 mg/dl BORDERLINE HIGH 160 - 189 mg/dl HIGH >190 mg/dl VERY HIGH Performed By: #### LIPID, BMP #### [facility] [address] [place] [address] Dr. Jose WilsonTriglyceride [Mass/Vol]141 mg/dLNormal<=150[facility] Comment on above:Performed By: #### LIPID, BMP #### [facility] [address] [place] [address] Dr. Jose WilsonVLDL CALC28.2 mg/dLNoHolzer Medical Center – JacksonComment on above: Performed By: #### LIPID, BMP #### [facility] [address] [place] [address] Dr. Jose WilsonPROF CHEM 8 (BAS METB)on 01-62-3893Migvq gap [Moles/Vol]12.9 mmol/LNormalThe [facility] CampusComment on above:Performed By: #### LIPID, BMP #### [facility] [address] [address] [address] Jose WilsonCalcium [Mass/Vol]9.4 mg/dLNormal8.5-10.1The [facility] Comment on above:Performed By: #### LIPID, BMP #### [facility] [address] [place] [address] [address] Jose WilsonChloride [Moles/Vol]96 mmol/LCritically orb23-648Knu [facility] [facility] CampusComment on above:Performed By: #### LIPID, BMP #### [facility] [address] [place] [address] Dr. Jose WilsonCO2 [Moles/Vol]30.9 mmol/BQupvwx28.0-32.0[facility] Comment on above:Performed By: #### LIPID, BMP #### [facility] [address] [place] [address] Dr. Jose WilsonCreatinine [Mass/Vol]1.19 mg/dLCritically high0.55-1.02The [facility] CampusComment on above:Performed By: #### LIPID, BMP #### [facility] [address] [place] [address] Dr. Jose WeirGFR-AF IDOPDTJO19 mL/min/1.26b1Okztywbmmk low>=60The [facility] CampusComment on above:Performed By: #### LIPID, BMP #### [facility] [address] [place] [address] Dr. Jose WeirGFR-NON AF UJVDGGOQ89 mL/min/1.31j6Qvlotggugn low>=60The [facility] CampusComment on above:Performed By: #### LIPID, BMP #### [facility] [address] [place] [address] Dr. Jose WilsonGlucose [Mass/Vol]138 mg/dLCritically ipij57-399Jrm [facility] CampusComment on above:Performed By: #### LIPID, BMP #### [facility] [address] [address] [address] Jose WilsonPotassium [Moles/Vol]3.8 mmol/LNormal3.5-5.1The [facility] Comment on above:Performed By: #### LIPID, BMP #### [facility] [address] [place], [place] [address] Dr. Jose WilsonSodium [Moles/Vol]136 mmol/WNudvrp517-470Eaw [facility] Comment on above:Performed By: #### LIPID, BMP #### [facility] [address] [address] [address] Jose WilsonUrea nitrogen [Mass/Vol]18.0 mg/dLNormal7.0-18.0[facility] System[facility] on above:Performed By: #### LIPID, BMP #### [facility] [address] [address] [address] Jose Holt nitrogen/Creatinine [Mass ratio]15.1 mg/mgNormalThe [facility] CampusComment on above:Performed By: #### LIPID, BMP #### [facility] [address] [address] [address] Jose Camacho Visit (Cardiology)on 62-08-5575Eobtej-up visit Diagnoses/Problems Assessed CAD (coronary artery disease) (414.00) (I25.10) Essential hypertension, benign (401.1) (I10) Hyperlipidemia (272.4) (E78.5) Status post angioplasty (V45.89) (Z98.62) Current every day smoker (305.1) (F17.200) 1/2 PPD Body mass index (BMI) of 24.0 to 24.9 in adult (V85.1) (Z68.24) History of myocardial infarction (412) (I25.2) Orders CAD (coronary artery disease), Essential hypertension, benign, History of myocardial infarction Basic Metabolic Panel; Status:Active - Retrospective Authorization; Requested for:[id number]; Essential hypertension, benign Start: Chlorthalidone 25 MG Oral Tablet; TAKE 1 TABLET Daily Hyperlipidemia Lipid Panel; Status:Active - Retrospective Authorization; Requested for:[id number]; SocHx: Current every day smoker Tobacco Use Screening; Status:Complete; Done: 07Jun2022 You need to quit smoking.; Status:Complete - Retrospective Authorization; Done: 07Jun2022 Tobacco Use Screening; Status:Complete; Done: 07Jun2022 You need to stop smoking. Though it is not easy, more than half of all adult smokers have quit. We encourage you to write down all the reasons you should quit smoking and set a quit date for yourself. Ask us how we can help. You may also call 6-184-WPVC-NOW for free resources and assistance.; Status:Complete - Retrospective Authorization; Done: 07Jun2022 Patient Instructions Please bring all medicines, vitamins, and herbal supplements with you when you come to the office. Prescriptions will not be filled unless you are compliant with your follow up appointments or have a follow up appointment scheduled as per instruction of your physician. Refills should be requested at the time of your visit. Follow up in 6 months- October 2022 Chief Complaint MARY WEST is being seen for an annual follow-up of. History of Present Illness Patient is seen after long absence in follow-up of problems as noted. She has had none of the symptoms of coronary disease that preceded her original diagnosis and subsequent angioplasty. Lipids are treated but have not been checked for a while. Blood pressure control could be improved upon. We discussed diet exercise weight loss and most importantly smoking cessation is means and/or mechanisms to improve blood pressure control. We will, though, add a thiazide diuretic perform a lipid profile and basic metabolic profile in about a month and provide guidance in regards to the use of the new medicine as well as statin therapy. Otherwise we will follow-up in the distant future unless symptoms arise or more frequent visits are necessitated because of the lack of therapeutic effect. Surgical History Problems History of Appendectomy History of Back surgery History of section History of Cholecystectomy History of Complete colonoscopy DR DAVIS History of Hysterectomy History of Throat surgery History of Wrist surgery Current Meds Medication NameInstruction Aspirin EC 81 MG Oral Tablet Delayed ReleaseTAKE 2 TABLET Daily Atorvastatin Calcium 80 MG Oral TabletTAKE 1 TABLET DAILY. Carvedilol 6.25 MG Oral TabletTAKE 1 TABLET TWICE DAILY WITH MEALS. Furosemide 20 MG Oral TabletTake one tablet daily as needed for lower extremty edema Nitroglycerin 0.4 MG [address] Tablet SublingualPL[address] 1 TABLET UNDER THE TONGUE EVERY 5 MINUTES FOR UP TO 3 DOSES NEEDED FOR CHEST PAIN.CALL 911 IF PAIN PERSISTS. Percocet 7.5-325 MG Oral TabletTAKE 1 TABLET EVERY 4 HOURS NEEDED FOR BREAKTHROUGH PAIN. ProAir Digihaler 108 (90 Base) MCG/ACT Inhalation Aerosol Powder Breath Activateduse as directd Allergies Medication [place] Thyroid Allergy; Hypertension; Dizziness; Recorded By: Ofe Quintana; 12/01/2020 11:37:06 AM Effexor Adverse Reaction; Hypertension;; Recorded By: Carla Heller; 01/10/2021 9:42:46 AM Levothyroxine Sodium CAPS Allergy; Hypertension; Dizziness; Recorded By: Ofe Quintana; 12/01/2020 11:37:06 AM Rocephin Allergy; Hives;; Recorded By: Ofe Quintana; 12/01/2020 11:37:06 AM Bactrim Adverse Reaction; Nausea; Recorded By: Ofe Quintana; 12/01/2020 11:37:06 AM CeleBREX CAPS Adverse Reaction; Tachycardia; Recorded By: Ofe Quintana; 12/01/2020 11:37:06 AM Social History Problems Consumes 2 to 3 servings of caffeine per day (V49.89) (Z78.9) Current every day smoker (305.1) (F17.200) 1/2 PPD No alcohol use No illicit drug use Review of Systems Constitutional: not feeling tired. Eyes: no eyesight problems. ENT: no hearing loss and no nosebleeds. Cardiovascular: no intermittent leg claudication and as noted in HPI. Respiratory: no chronic cough and no shortness of breath. Gastrointestinal: no change in bowel habits and no blood in stools. Genitourinary: no urinary frequency. Skin: no skin rashes. Neurological: no seizures and no frequent falls. Psychiatric: no depression and not suicidal. All other systems have been reviewed and are negative for co (more content not included)...NormalUH TouchworksTobacco Screening.on [id number] depression screening assessmentProvidence [facility] Medical Center [employer] 250 DO Work Phone: Tobacco use status CPHSa) YesSwed[facility]mond[facility] Shopn[employer] 250 DO Work Phone: Tobacco Screening.Yes-[facility] 250 DO Work Phone: Tobacco Screening.on 70-92-0980Mwxuieg use status CPHS a) Yes-[facility] 250 DO Work Phone: Tobacco Screening.YesSwed[facility] 250 DO Work Phone: Vital Signs Date TimeVital SignValuePerforming QppgrextkZujxfxne30-95-6829 08:26-0400Body jptpyr083.64 cmNiurka Vicente MD Work Phone: 1(669)[address]10-22-2025 08:26-0400 Body mass index (BMI) [Ratio]18.2 kg/r7YzdqhsNiurka Vicente MD Work Phone: 1(759)[address]10-22-2025 08:26-0400 Body eufbys66.25 kgNiurka Vicente MD Work Phone: 1(948)[address]10-22-2025 08:26-0400 Diastolic blood jvtaakww90 mm[Hg]Niurka Vicente MD Work Phone: 1(979)[address]10-22-2025 08:26-0400 Heart rate71 /minNiurka Vicente MD Work Phone: 1(560)[address]10-22-2025 08:26-0400 Systolic blood hrxmapls873 mm[Hg]Niurka Vicente MD Work Phone: 1(982)63029 [address]10-06-2025 09:12-0400 Body yxqlhl345.64 cmNiurka Vicente MD Work Phone: 1(037)[address]09-16-2025 07:43-0400 Body faicmn388.[address] [place], [place] 7246209-16-2025 07:43-0400 Body mass index (BMI) [Ratio]18.8 kg/m2Ely [address] [place] [address] 12-02-2024 07:43-0400Body ukjcbq10.[address] [place] [address] 12-02-2024 07:43-0400Diastolic blood omdpbylb38 mm[Hg][place] 3[facility]09-16-2025 07:43-0400Systolic blood idqizetb103 mm[Hg]Nereida 3 [facility]09-09-2025 08:59-0400Diastolic blood lgqiadqc11 mm[Hg]Nereida 1[facility]09-09-2025 08:59-0400Heart rate75 /minEly 1[facility]09-09-2025 08:59-0400Systolic blood xygknhqj291 mm[Hg]Nereida [address] [place], [place] 3765909-04-2025 10:46-0400 Body uuzkxq259.64 cmNiurka Vicente MD Work Phone: [facility]09-04-2025 10:46-0400 Body mass index (BMI) [Ratio]17.9 kg/x1XadcgfNiurka Vicente MD Work Phone: [facility]09-04-2025 10:46-0400 Body rgehws35.34 kgNiurka Vicente MD Work Phone: [facility]09-04-2025 10:46-0400 Diastolic blood uuumegco90 mm[Hg]Niurka Vicente MD Work Phone: [facility]09-04-2025 10:46-0400 Heart rate71 /minNiurka Vicente MD Work Phone: [facility]09-04-2025 10:46-0400 Systolic blood vxftdcse472 mm[Hg]Niurka Vicente MD Work Phone: [facility]08-19-2025 08:42-0400 Body rgcuif167.1 cmNahum Baumann MD Work Phone: [facility]08-19-2025 08:42-0400 Body mass index (BMI) [Ratio]18.84 kg/p9WsfqdhwNahum Baumann MD Work Phone: [facility]08-19-2025 08:42-0400 Body pnjspe49.35 kgNahum Baumann MD Work Phone: [facility]08-19-2025 08:42-0400 Diastolic blood fcotheol19 mm[Hg]Nahum Baumann MD Work Phone: [facility]08-19-2025 08:42-0400 Heart rate68 /Jose Baumann MD Work Phone: [facility]08-19-2025 08:42-0400 Systolic blood xzqtuyvh829 mm[Hg]Nahum Baumann MD Work Phone: [facility]07-07-2025 08:57-0400 Body raysuk548.64 cmNiurka Vicente MD Work Phone: [facility]07-07-2025 08:57-0400 Body mass index (BMI) [Ratio]18 kg/y5AlngopNiurka Vicente MD Work Phone: [facility]07-07-2025 08:57-0400 Body azthih09.6 kgNiurka Vicente MD Work Phone: [facility]06-10-2025 09:47-04[address]ab958[address] [facility]06-10-2025 09:47-0400Body mass index (BMI) [Ratio]18.1 kg/b9DwknruneuMount St. [facility] Hospital06-10-2025 09:47-0400Body .[address] [facility]06-10-2025 09:47-0400Diastolic blood royensap14 mm[Hg][facility] 08-26-2024 09:47-0400Heart rate67 /[facility] 08-26-2024 09:47-0400Systolic blood jcjewgdq121 mm[Hg][facility]05-14-2025 09:27-0400Blood Pressure Jacektnpro MabryBear [phone]-JujmeAshtabula County Medical Center05-14-2025 09:27-0400Body tdapzlsqcap37.24 [degF]Sunil Sifuentes [phone]-BfsaySub[facility] Olyv99-78-8589 09:27-0400Diastolic blood ydvavkvm65 mm[Hg]Sunil Sifuentes [phone]-LrbngSuburban [facility] Eaci01-67-7020 09:27-0400Heart rate62 /minJamie Bear [phone]-QherdSuburban [facility] Ylfl36-91-9324 09:27-0400Respiratory rate18 /[facility] hospitalJamie Bear [phone]-RzfyvSuburban [facility] Xidk90-10-2381 09:27-5391AfO4% (BldA) [Mass fraction]90 %Sunil Sifuentes [phone]-KieqkSuburban Community [facility] Mylg63-63-0603 09:27-0400Systolic blood mm[Hg]Sunil Sifuentes [phone]-GtjduAshtabula County Medical Center04-11-2025 08:40-0400Body quwnby958.[address] [facility]04-11-2025 08:40-0400Body mass index (BMI) [Ratio]17.6 kg/p2VyyxsogljMount St. [facility]04-11-2025 08:40-0400Body .[address] [facility] 06-27-2024 08:40-0400Diastolic blood durocihy21 mm[Hg][facility]04-11-2025 08:40-0400Heart rate65 /[facility] 06-27-2024 08:40-0400Respiratory rate12 /[facility] 06-27-2024 08:40-3633GlG8% (BldA) [Mass fraction]95 %[facility]04-11-2025 08:40-0400Systolic blood fmopjcbn848 mm[Hg][facility]04-07-2025 09:06-0400Body cmafsp237.[address] [facility]04-07-2025 09:06-0400Body mass index (BMI) [Ratio]17.7 kg/m2 [facility]04-07-2025 09:06-0400Body yqsgco69.[address] [facility]02-12-2025 09:39-0500Body nkcibx981.64 cmNiurka Vicente MD Work Phone: 1(663)[address] [place], [place] 2408702-12-2025 09:39-0500 Body mass index (BMI) [Ratio]18.1 kg/u7ZunzbkNiurka Vicente MD Work Phone: 1(481)[address] [place], [place] 2408702-12-2025 09:39-0500 Body .8 kgNiurka Vicente MD Work Phone: 1(268)[address] [place], [place] 2408702-12-2025 09:39-0500 Diastolic blood osxrenya06 mm[Hg]Niurka Vicente MD Work Phone: 1(977)[address] [place], [place] 2408702-12-2025 09:39-0500 Heart rate62 /Nasim Vicente MD Work Phone: 1(647)[address] [place], [place] 2408702-12-2025 09:39-0500 Systolic blood ubstpisg779 mm[Hg]Niurka Vicente MD Work Phone: 1(363)[address] [place], [place] 2408701-06-2025 11:27-0500 Body opiljm978.64 cmNiurka Vicente MD Work Phone: 1(611)[address] [place], [place] 2408701-06-2025 11:27-0500 Body mass index (BMI) [Ratio]18.6 kg/a1PibookNiurka Vicente MD Work Phone: 1(979)[address] [place], [place] 2408701-06-2025 11:27-0500 Body .27 Matthias Vicente MD Work Phone: 1(672)[address] [place], [place] 2408711-20-2024 08:52-0500 Body meppdg82.02 Matthias Vicente MD Work Phone: 1(369)[address] [place], [place] 2408711-18-2024 08:43-0500 Body lrnahy981.64 cmNiurka Vicente MD Work Phone: 1(221)956[address]11-18-2024 08:43-0500 Body mass index (BMI) [Ratio]18.4 kg/d8IwfbwbNiurka Vicente MD Work Phone: 1(044)[address]11-18-2024 08:43-0500 Body frfqob28.93 kgNiurka Vicente MD Work Phone: 1(912)[address]11-15-2024 10:04-0500 Body tljjol516.64 cmNiurka Vicente MD Work Phone: 1(104)[address] [place], [place] 2408711-15-2024 10:04-0500 Body mass index (BMI) [Ratio]18.6 kg/o4ZdvmuoNiurka Vicente MD Work Phone: 1(583)[address]29 [address]11-15-2024 10:04-0500 Body .16 kgNiurka Vicente MD Work Phone: 1(321)[address]11-15-2024 10:04-0500 Diastolic blood hsxeegbn26 mm[Hg]Niurka Vicente MD Work Phone: 1(316)[address]11-15-2024 10:04-0500 Heart rate61 /minNiurka Vicente MD Work Phone: 1(343)[address]11-15-2024 10:04-0500 Systolic blood cpmygmhu184 mm[Hg]Niurka Vicente MD Work Phone: 1(548)[address]11-05-2024 08:50-0500 Diastolic blood asibmecf58 mm[Hg]MD Niurka Vicente Work Phone: 1(628)[address]11-05-2024 08:50-0500 Heart rate68 /minMD Niurka Vicente Work Phone: 1(083)[address]11-05-2024 08:50-0500 Respiratory rate16 /minMD Niurka Vicente Work Phone: 1(411)[address]11-05-2024 08:50-0500 SaO2% (BldA) [Mass fraction]96 %MD Niurka Vicente Work Phone: [facility]11-05-2024 08:50-0500 Systolic blood bsaxxsoy810 mm[Hg]MD Niurka Vicente Work Phone: [facility]11-05-2024 08:13-0500 Inhaled oxygen flow rate3 L/minMD Niurka Vicente Work Phone: [facility]11-05-2024 07:17-0500 Body .64 cmMD Niurka Vicente Work Phone: [facility]11-05-2024 07:17-0500 Body nfevmr10.16 kgMD Niurka Vicente Work Phone: [facility]10-17-2024 10:55-0400 Body .1 [facility]10-17-2024 10:55-0400Body mass index (BMI) [Ratio]19.3 kg/i6EioanrdzeMount St. [facility] Hospital10-17-2024 10:55-0400Body prtvyl93.61 [facility]10-17-2024 10:55-0400Diastolic blood jvpdgufu45 mm[Hg][facility] 01-03-2024 10:55-0400Heart rate65 /[facility] 01-03-2024 10:55-0400Systolic blood kpohbmgo709 mm[Hg][facility]10-07-2024 10:15-0400Body kgkfyx161.1 [facility] 12-24-2023 10:15-0400Body mass index (BMI) [Ratio]19.4 kg/q9LedrqqmadMount St. [facility]10-07-2024 10:15-0400Body fkdket34 [facility]09-18-2024 08:34-0400Body kfyppi096.1 cmMD Niurka Vicente Work Phone: [facility]09-18-2024 08:34-0400 Body mass index (BMI) [Ratio]19.4 kg/m2MD Niurka Vicente Work Phone: 1(419)[address] [place], [place] 2408709-18-2024 08:34-0400 Body .07 kgMD Niurka Vicente Work Phone: 1(464)[address] [place], [place] 2408709-18-2024 08:34-0400 Diastolic blood efanxxoc24 mm[Hg]MD Niurka Vicente Work Phone: 1(416)[address] [place], [place] 2408709-18-2024 08:34-0400 Heart rate61 /minMD Niurka Vicente Work Phone: 1(146)[address] [place], [place] 2408709-18-2024 08:34-0400 Systolic blood dzvepqiq564 mm[Hg]MD Niurka Vicente Work Phone: 1(804)[address] [place], [place] 2408709-06-2024 09:50-0400 Body itqdhv667.1 cmMD Niurka Vicente Work Phone: 1(891)[address] [place], [place] 2408709-06-2024 09:50-0400 Body mass index (BMI) [Ratio]19.5 kg/m2MD iNurka Vicente Work Phone: 1(872)[address] [place], [place] 2408709-06-2024 09:50-0400 Body .18 kgMD Niurka Vicente Work Phone: 1(248)[address] [place], [place] 2408707-24-2024 08:27-0400 Body knrhfi018.1 cmMD Niurka Vicente Work Phone: 1(372)[address] [place], [place] 2408707-24-2024 08:27-0400 Body mass index (BMI) [Ratio]20.1 kg/m2MD Niurka Vicente Work Phone: 1(141)[address] [place], [place] 2408707-24-2024 08:27-0400 Body ukwkzd10 kgMD Niurka Vicente Work Phone: 1(530)[address] [place], [place] 2408707-17-2024 10:57-0400 Body pwtosm740.1 cmMD Niurka Vicente Work Phone: 1(597)[address] [place], [place] 2408707-17-2024 10:57-0400 Body mass index (BMI) [Ratio]20.3 kg/m2MD Niurka Vicente Work Phone: 1(419)[address] [place] [address] Ksgqop61-62-4547 10:57-0400 Body kypfdv59.56 kgMD Niurka Vicente Work Phone: [facility]07-17-2024 10:57-0400 Diastolic blood jojujqpn29 mm[Hg]MD Niurka Vicente Work Phone: [facility]07-17-2024 10:57-0400 Heart rate80 /minMD Niurka Vicente Work Phone: 1([phone]07-17-2024 10:57-0400 Systolic blood jdyqewea290 mm[Hg]MD Niurka Vicente Work Phone: 1(600)[phone]07-06-2024 06:59-0400 Body .1 cmMD Niurka Vicente Work Phone: 1(296)[phone]07-06-2024 06:59-0400 Body syaqxt07.69 kgMD Niurka Vicente Work Phone: 1([phone]06-12-2024 14:21-0400 Blood Pressure LocationMohammekhi Martinez [phone]-QdehoMer[facility]06-12-2024 14:21-0400Diastolic blood ycdisggp13 mm[Hg]Lyndsey Martinez [phone]-EtidsMercy Health [facility]06-12-2024 14:21-0400Heart rate83 /minMohamad Mouchli [phone]-UyembMercy Health [facility]06-12-2024 14:21-0400Respiratory rate16 /minMohamad Mouchli [phone]-CdoojMer[facility] Health [facility]06-12-2024 14:21-0400Systolic blood unuytyfg802 mm[Hg]Lyndsey Martinez [phone]-XvsteMercy Health [facility]05-08-2024 10:30-0400Diastolic blood nuupzfco46 mm[Hg]Caroled Mouchli [facility]05-08-2024 10:30-0400Heart rate68 /minMohamad Mouchli [facility]05-08-2024 10:30-0400 Respiratory rate22 /minMohamad Mouchli [facility]05-08-2024 10:30-9230AmT8% (BldA) [Mass fraction]98 %Mohamad Mouchli [facility]05-08-2024 10:30-0400 Systolic blood lawfexke281 mm[Hg]Mohamad Mouchli [address] [place], [place] 2422105-08-2024 10:20-0400 Diastolic blood huqwovpx83 mm[Hg]Mohamad Mouchli [facility]05-08-2024 10:20-0400Heart rate68 /minMohamad Mouchli [facility]05-08-2024 10:20-0400 Respiratory rate17 /minMohamad Mouchli [facility]05-08-2024 10:20-2873QsV9% (BldA) [Mass fraction]96 %Mohamad Mouchli [facility]05-08-2024 10:20-0400 Systolic blood pjutdcdo857 mm[Hg]Mohamad Mouchli [facility]05-08-2024 10:05-0400 Diastolic blood fmiuykzi24 mm[Hg]Mohamad Mouchli [address] [place], [place] 2422105-08-2024 10:05-0400Heart rate69 /minMohamad Mouchli [address] [place], [place] 2422105-08-2024 10:05-0400 Respiratory rate17 /minMohamad Mouchli [address] [place], [place] 2422105-08-2024 10:05-2297UfD0% (BldA) [Mass fraction]97 %Mohamad Mouchli [address] [place], [place] 7627105-08-2024 10:05-0400 Systolic blood jxxahwvt979 mm[Hg]Lyndsey Mouchli [address] [place], [place] 7627105-08-2024 09:53-0400Body lvtgcouyinr85.34 [degF]Caroled Mauriciouchli [address] [place], [place] 7627105-08-2024 09:45-0400 Respiratory rate14 /minMohamad Mouchli [address] [place], [place] 7627105-08-2024 09:40-0400 Respiratory rate14 /minMohamad Mouchli [address] [place], [place] 7627105-08-2024 09:35-0400 Respiratory rate14 /minMohamad Mouchli [address] [place], [place] 7627105-08-2024 08:11-0400Blood Pressure LocationMohamad Mouchli [address] [place], [place] 7627105-08-2024 08:11-0400Body vzzpwfsoqke85.06 [degF]Lyndsey Obandoli [address]04-29-2024 12:47-0400 Diastolic blood jwdhaitd17 mm[Hg]Caroled Mouchli [address] [place], [place] 3936004-29-2024 12:47-0400Mean blood qcctwhul81 mm[Hg]Rodyamad Mouchli [address] [place], [place] 3936004-29-2024 12:47-0400Systolic blood husyihvk100 mm[Hg]Lyndsey Martinez [phone]-SrmdjMer[facility] Health [facility]04-29-2024 12:39-0400Blood Pressure LocationMohamad Topherli [phone]-BybroMercy Health [facility] Hospital04-29-2024 12:39-0400Diastolic blood ikpmmzhy38 mm[Hg]Lyndsey Obandoli [phone]-LlimuMercy Health [facility]04-29-2024 12:39-0400Heart rate64 /minMohamad Mouchli [phone]-EwtdmMercy Health [facility]04-29-2024 12:39-0400Respiratory rate16 /minMohamad Mouchli [phone]-BcahpMercy Health [facility]04-29-2024 12:39-0400Systolic blood nakluwld480 mm[Hg]Lyndsey Martinez [phone]-XmwwzMercy Health [facility]04-19-2024 11:50-0400Body brsiln687.[address] [facility]04-19-2024 11:50-0400Body mass index (BMI) [Ratio]21.2 kg/r7DifzrdipzMount St. [facility]04-19-2024 11:50-0400Body llfmae55.[address] [facility] 07-06-2023 11:50-0400Diastolic blood oqnotsrg87 mm[Hg][facility]04-19-2024 11:50-0400Heart rate92 /[facility] 07-06-2023 11:50-0400Systolic blood mm[Hg][facility]02-22-2024 09:22-0500Body xiwoqf838.[address] [facility] 05-10-2023 09:22-0500Body mass index (BMI) [Ratio]22.3 kg/d1MdiiowqpwMount St. [facility]02-22-2024 09:22-0500Body vbzjxa57.[address] [facility]02-22-2024 09:22-0500Diastolic blood onngbdgv90 mm[Hg][facility]02-22-2024 09:-0500Heart rate67 /minMount [facility]02-22-2024 09:0500Systolic blood nruqcqom358 mm[Hg][facility]10-26-2023 10:00-0400Body .6 cmEvan Dempsey MD Work Phone: 1(250)204-[address] [place], [place] 2901410-26-2023 10:00-0400 Body mass index (BMI) [Ratio]23.08 kg/y8TwskbqvEvan Dempsey MD Work Phone: 1(361)[address]10-26-2023 10:00-0400 Body tajxmc72.86 kgEvan Dempsey MD Work Phone: 1(988)627-[address] [place], [place] 2901410-26-2023 10:00-0400 Diastolic blood jcbbtser58 mm[Hg]Evan Dempsey MD Work Phone: [phone] [place], [place] 2901410-26-2023 10:00-0400 Heart rate66 /Milly Dempsey MD Work Phone: [phone] [place], [place] 2901410-26-2023 10:00-0400 Systolic blood wmjymtzw740 mm[Hg]Evan Dempsey MD Work Phone: [phone] [place], [place] 2901406-30-2023 14:15-0400 Body .1 cmNiurka Vicente Other [facility] Other 06-30-2023 14:15-0400Body mass index (BMI) [Ratio] 24.13 kg/v3PrutdiNiurka Vicente Other [facility] Other 06-30-2023 14:15-0400Body clkcip06.77 kgNiurka Vicente Other [employer] Other 06-30-2023 14:15-0400Diastolic blood mm[Hg] Niurka Vicente Other [facility] [employer] Other 06-30-2023 14:15-0400Systolic blood faszhvrj696 mm[Hg] Niurka Vicente Other [facility] [employer] Other 06-26-2023 18:23-0400Hourly RoundingAlexander Rocael [address] [place], [place] 7076706-26-2023 18:23-0400 Promise to ReturnAlexander Rocael [address] [place], [place] 6830106-26-2023 17:36-2467HvM0% (BldA) [Mass fraction]96 %Mikael Canoer [address] [place], [place] 6830106-26-2023 17:34-0400 Hourly RoundingAlexander Rocael [address] [place], [place] 7076706-26-2023 17:34-0400 Promise to ReturnAlexander Rocael [address] [place], [place] 7076706-26-2023 16:37-0400 Hourly RoundingAlexander Rocael [address]06-26-2023 16:37-0400 Promise to ReturnAlexander Rocael [address] [place], [place] 7076706-26-2023 15:02-0400Blood Pressure LocationAlexander Rocael [address] [place], [place] 7076706-26-2023 15:02-0400 Diastolic blood rxgxhatb40 mm[Hg]Mikael Canoer [address] [place], [place] 7076706-26-2023 15:02-0400Heart rate63 /minAlexander Rocael [address] [place], [place] 7076706-26-2023 15:02-0400 Systolic blood ucwxvwvk880 mm[Hg]Mikael Cote [address] [place], [place] 6830106-26-2023 11:19-0400Blood Pressure LocationAlexamak Cote [address] [place], [place] 6830106-26-2023 11:19-0400Body .24 [degF]Mikael Cote [address] [place], [place] 6830106-26-2023 11:19-0400 Diastolic blood cejjansm74 mm[Hg]Mikael Cote [address] [place], [place] 6830106-26-2023 11:19-0400Heart rate68 /minMikael Cote [address] [place], [place] 6830106-26-2023 11:19-0400Mean blood ottckwzw18 mm[Hg]Mikael Cote [address] [place], [place] 6830106-26-2023 11:19-0400 Respiratory rate16 /minAlematilda Cote [address] [place], [place] 6830106-26-2023 11:19-8876CzG9% (BldA) [Mass fraction]94 %Mikael Cote [address] [place], [place] 6830106-26-2023 11:19-0400 Systolic blood yzsztfeo192 mm[Hg]Mikael Cote [address] [place], [place] 6830106-26-2023 08:48-9116XfN4% (BldA) [Mass fraction]94 %Mikael Cote [address] [place], [place] 6830106-26-2023 07:50-0400Blood Pressure LocationAlematilda Cote [address] [place], [place] 6830106-26-2023 07:50-0400Body bvwqhvkipia96.88 [degF]Mikael Cote [address] [place], [place] 6830106-26-2023 07:50-0400 Diastolic blood oveaejxy24 mm[Hg]Mikael Cote [address] [place], [place] 6830106-26-2023 07:50-0400Heart rate67 /minAlexander Rocael [address] [place], [place] 6830106-26-2023 07:50-0400Mean blood zeyndnzk76 mm[Hg]Mikael Cote [address] [place], [place] 6830106-26-2023 07:50-0400 Respiratory rate17 /minAlexander Rocael [address] [place], [place] 6830106-26-2023 07:50-0400 Systolic blood jglqwxad16 mm[Hg]Mikael Cote [address] [place], [place] 6830106-26-2023 05:00-0400Body hujmbkxjbty31.52 [degF]Mikael Cote [address] [place], [place] 6830106-26-2023 05:00-0400Mean blood ulqvvouy50 mm[Hg]Mikael Cote [address] [place], [place] 6830106-25-2023 18:59-0400Mean blood mm[Hg]Mikael Cote [address] [place], [place] 6830106-25-2023 15:30-0400Heart rate70 /minAlexander Rocael [address] [place], [place] 7076706-25-2023 15:30-0400 Respiratory rate16 /minAlexander Rocael [address] [place], [place] 6830106-25-2023 14:36-0400 Respiratory rate18 /minAlexander Rocael [address] [place], [place] 6830106-25-2023 13:58-0400 Respiratory rate16 /minAlexander Rocael [facility]-25-2023 12:01-0400Heart rate71 /minAlexander Rocael [facility]05-16-2023 11:00-0400Body ujneeh830.1 cmNiurka Vicente Other [facility] [employer] Other 05-16-2023 11:00-0400Body mass index (BMI) [Ratio] 27.45 kg/m2IztyjtNiurka Vicente Other [employer] Other 05-16-2023 11:00-0400Body yxagit95.84 kgNiurka Vicente Other [facility] [employer] Other 05-16-2023 11:00-0400Diastolic blood dyfhsrco24 mm[Hg] Niurka Vicente Other [employer] Other 05-16-2023 11:00-0400Systolic blood bytcxkqa014 mm[Hg] Niurka Vicente Other [employer] Other 03-22-2023 12:18-0400Body sxbsoj774.64 cmNiurka Vicente Work Phone: mp710-8730YW-Fhjdt [place] [facility] [address] DO Work Phone: 1(758) [phone] 12:18-0400Body mass index (BMI) [Ratio] 24.21 kg/q9PowekhNiurka Vicente Work Phone: mp063-7445RQ-Fbans [place] [facility] [address] DO Work Phone: 1(871) 148-261203-22-2023 12:18-0400Body surface area Derived from formula1.77 i6LrfcpsNiurka Vicente Work Phone: mp111-0052YX-Oanew [place] [facility] [address] DO Work Phone: 1(160) 359-939203-22-2023 12:18-0400Body .04 kgNiurka Vicente Work Phone: mp079-6498EH-Hmmpx [place] [facility] DO Work Phone: 1(864) [phone] 12:18-0400Diastolic blood dwjdkihm95 mm[Hg] Niurka Vicente Work Phone: mp393-0284QR-Ulasc [place] [facility] [address] DO Work Phone: 1(800) 242-143503-22-2023 12:18-0400Heart rate72 /minNiurka Vicente Work Phone: mp864-5524OA-Gqvlt [place] [facility] DO Work Phone: 1(708) [phone] 12:18-0400Systolic blood dutmluxx782 mm[Hg] Niurka Vicente Work Phone: 1(859) [phone]-Foybf [place] [facility] DO Work Phone: 1(431)[phone] 10:28-0400Body qsfiyi784.64 cmNiurka Vicente Work Phone: 1(500) [phone]-Lrsmd [place] [facility] [address] DO Work Phone: 1(631) [phone] 10:28-0400Body mass index (BMI) [Ratio] 24.21 kg/i5ZjfxjzNiurka Vicente Work Phone: 1(909) [phone]-Eafys [place] [facility] [address] DO Work Phone: 1([phone])[phone] 10:28-0400Body surface area Derived from formula1.77 q9DngdjqNiurka Vicente Work Phone: 1(986) [phone]-Uaczf [place] [facility] [address] DO Work Phone: 1(375) 295-618903-22-2023 10:28-0400Body .04 kgNiurka Vicente Work Phone: mp242-5472FQ-Cqurh [facility] DO Work Phone: 1(355) 710-332603-22-2023 10:28-0400Diastolic blood cehsgpbs56 mm[Hg] Niurka Vicente Work Phone: mp887-0685JZ-Tqdnd [place] [employer] [address] DO Work Phone: 1(440) 466-948103-22-2023 10:28-0400Heart rate72 /minNiurka Vicente Work Phone: mp985-7208OD-Disuq [place] [employer] [address] DO Work Phone: 1(143) 479-559103-22-2023 10:28-0400Systolic blood zoiuuxvi958 mm[Hg] Niurka Vicente Work Phone: mp105-6767AZ-Kbysp [place] [facility] [address] DO Work Phone: 1(466) 356-711007-19-2022 16:30-0400Body .24 cmThomas Felter Other [employer] Other 07-19-2022 16:30-0400Body mass index (BMI) [Ratio] 34.75 kg/b5Roqqcj Felter Other [employer] Other 07-19-2022 16:30-0400Body hpibbo43.31 kgThomas Felter Other [employer] Other 07-12-2022 09:20-0400Body myimsz647.24 cmDale Vicente Other [employer] Other 07-12-2022 09:20-0400Body mass index (BMI) [Ratio] 34.75 kg/m2Dale Vicente Other [employer] Other 07-12-2022 09:20-0400Body jrnuej69.31 kgDale Vicente Other [employer] Other 10-25-2021 10:01-0400Diastolic blood vlbgqhuo68 mm[Hg] Niurka Vicente Work Phone: mp621-9966ZY-Spruk [place] [facility] [address] DO Work Phone: 1(814) [phone] 10:01-0400Systolic blood nwljsgyc366 mm[Hg] Niurka Vicente Work Phone: mp620-9260YZ-Ktcvk [place] [facility] DO Work Phone: 1(743) 707-812810-25-2021 09:43-0400Body bpsdpu035.64 cmNiurka Vicente Work Phone: mp680-7929HP-Jrlif [place] [facility] DO Work Phone: 1(523) 497-993410-25-2021 09:43-0400Body mass index (BMI) [Ratio] 25.34 kg/s7LyaropNiurka Vicente Work Phone: mp317-0269NO-Ptfkw [place] [facility] DO Work Phone: 1(966) [phone] 09:43-0400Body surface area Derived from formula1.8 q8PzqohxNiurka Vicente Work Phone: mp465-8607BZ-Xlwxn [place] [facility] DO Work Phone: 1(430)[phone]-7477 09:43-0400Body uuwbbb23.22 kgNiurka Vicente Work Phone: mp888-3586IV-Hjcyc [place] [facility] DO Work Phone: 1(154) 106-938410-25-2021 09:43-0400Diastolic blood uwfxtogw39 mm[Hg] Niurka Vicente Work Phone: mp908-8610OR-Tnvdv [place] [facility] DO Work Phone: [phone])[phone] 09:43-0400Heart rate72 /minNiurka Vicente Work Phone: mp602-0057FX-Npgcm [facility] DO Work Phone: 1(503) [phone] 09:43-0400Systolic blood mm[Hg] Niurka Vicente Work Phone: mp261-1620JX-Gieck [place] [facility] DO Work Phone: Encounters Encounter DateEncounter TypeCare ProviderFacilityStart: 01-07-2025 End: 40-43-9217asqopesgdnHljfdv E Braun MD Work Phone: [facility]2025 End: 85-70-3669Pzfyhap encounter procedureNiurka Vicente MD-[facility] [place] Work Phone: Start: 12-22-2024 End: 84-02-9501crkkndlubrJtqjar E Braun MD Work Phone: 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; History of PTCA; History of myocardial infarction; Essential hypertension, benign; Current smoker; Encounter for pre-operative cardiovascular clearanceStart: 12-02-2024 End: 73-09-1631bsmtkaierfMPNAFMCChillicothe Hospitaltart: 12-02-2024 End: 75-42-9114Lcxdijzxt for preprocedural cardiovascular examinationChildren's Hospital of Columbustart: 11-25-2024 End: 72-38-4098Dnmdclrblboc [address] Work Phone: Start: 11-25-2024 End: 02-56-7741Xbblmkmhfr hospital visit by [place] [address] on above:Coronary artery disease involving takotna coronary artery of takotna heart without angina pectoris; History of PTCA; History of myocardial infarction; Essential hypertension, benign; Current smoker; Encounter for pre-operative cardiovascular clearanceStart: 11-25-2024 End: 95-14-2856jhcguhvivlHIRFFHDChillicothe Hospitaltart: 11-20-2024 End: 73-13-0724qpreivvumsCrxpsh E Braun MD Work Phone: [facility] Work Phone: Start: 11-20-2024 End: 90-23-0844Ilemqwr encounter procedureNiurka Vicente MD-[facility] [place] Work Phone: Start: 11-04-2024 End: 47-21-1978Caxlat outpatient visit 25 minutesMostefany Baumann MD Work Phone: [facility] CenterComment on above:Shortness of breath (Primary Dx); Coronary artery disease involving takotna coronary artery of takotna heart without angina pectoris; Mixed hyperlipidemia; History of PTCA; History of myocardial infarction; Essential hypertension, benign; BMI less than 19,adult; Current smoker; Encounter for pre-operative cardiovascular clearanceStart: 11-04-2024 End: 89-32-4462Ahoveweywocd stateMostefany Baumann MD Work Phone: [facility] CenterStart: 11-04-2024 End: 41-31-4076mzkzxuygnhAQDTURYTanner Medical Center [facility] AmbulatoryStart: 11-04-2024 End: 83-42-9422Pnkoypukm for preprocedural cardiovascular examinationTanner Medical Center [facility] AmbulatoryStart: 10-20-2024 End: 86-45-0841Poatboo encounter procedureEric N Bialaski DO-CT Scan [place] Work Phone: Start: 10-20-2024 End: 95-91-7049trtosivkmePqqwfn E Braun MD Work Phone: [facility] Work Phone: Start: 09-22-2024 End: 72-00-6265jxjekktkqlZxtobi E Braun MD Work Phone: [facility] Work Phone: Start: 09-22-2024 End: 83-41-5073Svfclmh encounter procedureMaxi Dos Santos [facility] Work Phone: start: 08-26-2024 End: 22-45-4413jylvzwuicyWmwgrbbitWadsworth-Rittman Hospital Work Phone: Start: 08-26-2024 End: 00-90-0235Tgytrui encounter procedureFirlewisgale hospital alleghany Physician GroupTriHealth Work Phone: Start: 07-30-2024 End: 79-42-8733huhengmhywLvmbz M. DempseyFacility:FTMCStart: 07-30-2024 End: 20-52-7190Eihmoyw encounter Radha Sifuentes [phone]-GwzdeChildren'S Hospital [facility] Start: 06-27-2024 End: 73-82-7869gqqprqfkfbDkpchcmtwWadsworth-Rittman Hospital Work Phone: Start: 06-27-2024 End: 81-47-2315Tezsxbo encounter procedureAdrilewisgale hospital alleghany Physician [facility] Work Phone: Start: 06-23-2024 End: 68-01-1917uynpxcobkbVyyjmvsnnWadsworth-Rittman Hospital Work Phone: Start: 06-23-2024 End: 53-37-9294Uujzeib encounter [facility] Work Phone: start: 04-30-2024 End: 97-14-5921cfsyevedhvXhxhll E Braun MD Work Phone: [facility] Work Phone: Start: 04-30-2024 End: 68-04-1751Ubbmfie encounter Meg Vicente MD Work Phone: [facility] GroupTriHealth Work Phone: Start: 03-24-2024 End: 28-58-1629qlgbbpqguoNyjcjj E Braun MD Work Phone: [facility] Work Phone: Start: 03-24-2024 End: 44-71-9887Jvgfvkk encounter procedureNiurka Vicente MD Work Phone: [facility] Work Phone: start: 03-17-2024 End: 94-18-7812Zhfnymb encounter procedureNiurka Vicente MD Work Phone: [facility] [place] Work Phone: Start: 03-01-2024 End: 78-22-6793Augemph encounter procedureNiurka Vicente MD Work Phone: [facility] [place] Work Phone: Start: 03-01-2024 End: 30-17-3439mullqgiwleDksn N BialaskiFacility:[facility] Hospitaltart: 02-06-2024 End: 53-52-9276swjocigsbiEvanho E Braun MD Work Phone: [facility] Work Phone: Start: 02-06-2024 End: 64-32-6098Basneiu encounter procedureNiurka Vicente MD Work Phone: [facility] Work Phone: Start: 02-04-2024 End: 71-26-9022xkxeaxiktzYklhkw E Braun MD Work Phone: [facility] Work Phone: Start: 02-04-2024 End: 69-90-4961Ethousb encounter procedureNiurka Vicente MD Work Phone: [facility] Neurosurgery Work Phone: start: 02-01-2024 End: 38-60-5487msjziqxtjmHeeohb E Braun MD Work Phone: [place] [address] Work Phone: Start: 02-01-2024 End: 01-13-9279Cxnanlh encounter procedureNiurka Vicente MD Work Phone: [facility] Work Phone: Start: 39-63-7055Wde-patient / Non-visitMD Niurka Vicente Work Phone: [facility] Work Phone: Start: 01-22-2024 End: 49-51-2035Ethpugddp to same day surgery centerMD Niurka Vicente Work Phone: [facility] Work Phone: Start: 01-22-2024 End: 43-86-1228bnsfrjmbujQS Niurka Vicente Work Phone: [facility] Work Phone: Start: 01-03-2024 End: 29-10-1600ziismqpufyYglrdmpxeCoshocton Regional Medical Center Work Phone: Start: 01-03-2024 End: 24-39-0841Woeisha encounter procedureUnc Health [facility] Work Phone: Start: 01-02-2024 End: 09-62-1098iiejgovpjnHnwnytaziCoshocton Regional Medical Center Work Phone: Start: 01-02-2024 End: 14-79-0498Oufaacg encounter procedureFirlewisgale hospital alleghany [facility] Work Phone: Start: 12-24-2023 End: 46-55-4227ldhqogzfteUxadelfebCoshocton Regional Medical Center Work Phone: Start: 12-24-2023 End: 32-00-3937Bwvdwck encounter procedureFiredgecombs Physician Group-[facility] Neurosurgery Work Phone: start: 12-13-2023 End: 82-42-8525Pxgrtn flowsheetChristopher Jeri DO Work Phone: [facility] NEUROStart: 12-13-2023 End: 67-29-2726Icxilg flowsheetChristopher Jeri DO Work Phone: [facility] NEUROStart: 12-13-2023 End: 63-07-2138Zzybyqe encounter procedureChristopher Jeri DO Work Phone: [facility] NEUROComment on above:Cervical radiculopathy (Primary Dx); Carpal tunnel syndrome on both sidesStart: 12-13-2023 End: 03-54-2823kpsolppfsmRMNWMVKIPWD HASSETTNot AvailableStart: 12-11-2023 End: 93-52-6654Onrsyol encounter procedureChristopher Jeri DO Work Phone: [facility] [place] NEUROComment on above:Paresthesia (Primary Dx) Start: 12-11-2023 End: 95-85-7851quhjacyxwqHMMZKVDTVPY HASSETTNot AvailableStart: 12-05-2023 End: 65-97-5833irbygbkpinWP Marcia E Braun Work Phone: [facility] Work Phone: Start: 12-05-2023 End: 24-24-7698Beigjwc encounter procedureMD Niurka Vicente Work Phone: [facility] [place] Work Phone: Start: 11-23-2023 End: 54-45-7696vurucccaklLH Marcia E Braun Work Phone: [facility] Work Phone: Start: 11-23-2023 End: 60-75-2815Qpfhfwu encounter procedureMD Niurka Vicente Work Phone: [facility] Neurosurgery Work Phone: start: 10-15-2023 End: 89-28-3506lbqrgmigojGIANUYampa Valley Medical Centertart: 10-10-2023 End: 67-85-4854niinrcfvofQH Marcia E Braun Work Phone: [facility] Work Phone: Start: 10-10-2023 End: 38-71-6826Agwykpo encounter procedureMD Niurka Vicente Work Phone: [facility] Work Phone: Start: 10-03-2023 End: 67-96-0153zjpsrmiweaQW Marcia E Braun Work Phone: [facility] Work Phone: Start: 10-03-2023 End: 67-44-3883Yazdynf encounter procedureMD Niurka Vicente Work Phone: [facility] Work Phone: Start: 09-22-2023 End: 18-96-4612xzfcepfpmrTD Marcia E Braun Work Phone: [facility] Work Phone: Start: 09-22-2023 End: 50-88-7674Tmqzfvy encounter procedureMD Niurka Vicente Work Phone: [facility]-MRI [facility] [place] Work Phone: Start: 08-29-2023 End: 90-80-6082Afkkjmd encounter procedureLyndsey Martinez [phone]-KbhmgSub[facility] Start: 08-29-2023 End: 39-99-0536iwkvjfpvgvSY Marcia E Braun Work Phone: [facility] Work Phone: Start: 08-29-2023 End: 21-44-5126Rvwqpts encounter procedureMD Niurka Vicente Work Phone: [facility] Work Phone: Start: 08-28-2023 End: 43-23-5733frqaxrtsdfYF Marcia E Braun Work Phone: [facility] Work Phone: Start: 08-28-2023 End: 31-11-3041Glwgkkoufb RecurringMD Niurka Vicente Work Phone: [facility]-Physical Therapy [place]Start: 75-69-9478Yiccdrwijw RecurringMD Niurka Vicente Work Phone: [facility]-Physical Therapy [place] CreekStart: 08-17-2023 End: 07-03-9064Veqdcbk encounter procedureMofiona Martinez [facility] Start: 89-66-9641mcekajpoweSBYKAG BRAUNFacility:FT Start: 95-47-2242Nav-patient / Non-visitMD Niurka Vicente Work Phone: [facility] GroupMult[facility] Work Phone: Start: 08-14-2023 End: 31-58-3585Kmlydtw encounter procedureNIURKA VICENTE [facility] Start: 07-25-2023 End: 10-99-3216smnmxxsdlfDnlrozc A. MouchliFacility:FTMCStart: 07-25-2023 End: 62-90-1421Bfrzekk encounter procedureMohamad A. Mouchli [facility] Start: 07-19-2023 End: 87-77-8164zwpfqtjxnvYaegnjl AMartha MouchliFacility:FTMCStart: 07-19-2023 End: 21-80-9715Ghmusiw encounter procedureMohamad A. Mouchli [facility] Start: 07-18-2023 End: 02-64-5201Izafhfa encounter procedureMD Guzmánia Cinthia Work Phone: [facility] Work Phone: Start: 07-16-2023 End: 14-81-5282tlgkgzkpgmTgjlbow A. MouchliFacility:Luz DHStart: 07-16-2023 End: 79-13-0520Gpwhtok encounter Agustín Martinez [phone]-HberiSuburban [facility] Start: 07-06-2023 End: 28-53-1975klpagbptlfLwyfygkgaWadsworth-Rittman Hospital Work Phone: Start: 07-06-2023 End: 72-69-4850Vzoittr encounter procedureMeir [facility]ician [facility] [place] Work Phone: Start: 58-68-5683dgyuksrkvyUacaoxx Mouchli Facility:Luz DHStart: 05-10-2023 End: 45-48-7921yknupkmbreFdmnwsvasWadsworth-Rittman Hospital Work Phone: Start: 05-10-2023 End: 41-38-2343Gnggbqs encounter procedureAdrilewisgale hospital alleghany [facility] [place] Work Phone: Start: 04-10-2023 End: 95-66-5003juheniiblxDytyas Braun Other noAmerican [employer] Other Start: 67-01-3032Mevrmkbqb encounterMarcia Tari [facility] Centertart: 03-13-2023 End: 73-74-7184ozpmfyqixiYybhqt Braun Other noAmerican [employer] Other Start: 30-64-1043Paxdiiwdv encounterMarcia Tari [facility] SpineStart: 02-13-2023 End: 02-82-3984xbybtwpkkmYxnevk Braun Other noAmerican TonerServ CorpHID Global Other Start: 28-23-5745Geugakcdm encounterMarcigracie [facility]que Medical ClinicStart: 01-11-2023 End: 42-60-7485Sgbbbn outpatient visit 25 minutesEvan Dempsey MD Work Phone: [facility] CenterComment on above:Coronary artery disease involving takotna coronary artery of takotna heart without angina pectoris (Primary Dx); Essential hypertension, benign; Mixed hyperlipidemia; History of PTCAStart: 12-20-2022 End: 55-06-4751wxyauoxgxyPsuahw Braun Other [employer] Other Start: 65-70-3126Hgcxtyuju encounterMarcigracie Duque Medical ClinicStart: 10-05-2022 End: 82-29-3636kylqjyspsgZaiibn Cinthia Other [employer] Other Start: 89-10-3607Qbmerntsq encounterMarcigracie Duque Medical ClinicStart: 09-27-2022 End: 19-84-4328phjrobjyocYgoceq Cinthia Other [employer] Other Start: 98-76-3785Vuflxntxr encounterMarcigracie Duque Medical ClinicStart: 73-04-7735Jqihq UpdateNiurka Vicente Work Phone: [phone]-QegqcEssentia HealthLiberty 250 DO Work Phone: Start: 09-15-2022 End: 74-53-1340tawddvfjznFbrymw Braun Other [employer] Other Start: 04-37-1450Fesqql outpatient visit 25 minutes Niurka MaravillaManjeet Duque Medical ClinicStart: 31-48-7809wxbywkayqmAsMartha VicenteFacility:[id number]: 29-99-5148cdazhcsbraIeMartha VicenteFacility:[id number]: 09-10-2022 End: 16-83-6120ukhkxivhouPtqllle P MerrickuinnFacility:FTMCStart: 09-10-2022 End: 00-72-7557SlucbkxjiquGpfprcjev Jamel CoelhoRocael [facility] Start: 96-54-9589tnledszzzoNm. Niurka Vicente Facility:[id number]: 08-11-2022 End: 20-32-5831wgcucrxighNU EVAN VILLATOROUINNFacility:M4Wdrjk: 08-01-2022 End: 07-41-0862pugdwngkdtQrlqza Braun Other noMYTRND Other Start: 49-90-6747Fweytg outpatient visit 15 minutes Niurka Duque [facility] ClinicStart: 06-29-2022 End: 34-59-0412weziebtiftAdqrju Braun Other [employer] Other Start: 53-20-0490Jndgiwwlt encounterMargilbert Marc [facility] ClinicStart: 29-05-8742Timkrq outpatient visit 25 minutesNiurka Vicente Work Phone: [phone]-Cioei [place] [facility] DO Work Phone: Start: 48-13-5014ucqysqvbmrTv. Niurka Vicente Facility:[id number]: 06-01-2022 End: 54-74-7920itclsfpqzcOpubvc Braun Other [employer] Other Start: 61-44-4762Wggwpzghb encounterMargilbert [facility] Medical ClinicStart: 05-03-2022 End: 89-71-6294ljfavcrpyyErkpis Braun Other [employer] Other Start: 00-70-2932Demdzrvxc encounterMarcia BraunBethesda North Hospitaltart: 04-05-2022 End: 60-21-3641lljbuqdhxkSfddwc Vicente Other [employer] Other Start: 61-58-9438Hxhesozfi encounterNiurka MaravillaAtrium Health Wake [facility]kes Medical Centertart: 03-28-2022 End: 63-75-5275etvrlzdfbwVydbyk Cinthia Other [employer] Other Start: 58-77-5700Sjjpzn outpatient visit 15 minutes Niurka VicenteBethesda North Hospitaltart: 95-56-5982Uu RenewalNiurka Mast Vicente Work Phone: [phone]-Nwbwn [facility] [address] DO Work Phone: Start: 06-91-7610Ppndr health examinationNiurka Vicente Other [employer] Other Start: 52-76-8603Cs RenewalNiurka Vicente Work Phone: [phone]-Linzs [facility] [address] DO Work Phone: Start: 10-17-2021 End: 34-05-0691ljqxetxcmrVbtufz Felter Other [employer] Other Start: 12-46-4152Bopbqi outpatient visit 25 minutes Loretta FelterFP[facility] CreekStart: 10-05-2021 End: 61-12-0990lxacjohzboIwlrxx Felter Other [employer] Other Start: 08-80-9647Qttynlbhy encounterThomas FelterFPG Referral CoordinatorStart: 10-04-2021 End: 94-16-2086gpefaebbjsEufewk Felter Other [employer] Other Start: 39-20-9084Cpiygm outpatient new 45 minutes Loretta FelterFP[facility] CreekStart: 09-27-2021 End: 42-06-0230jcolqqewdxLzxc Cinthia Other [facility] [employer] [facility] Other start: 37-22-9857Sparxw outpatient new 30 minutesDale [facility] NeurosurgeryStart: 83-77-5735Ywyhqk outpatient visit 15 minutesNiurka Vicente Work Phone: [phone]-JthgwSt. Luke'S Hospital 250 DO Work Phone: Echocardiogram normalMarcigracie E Cinthia Work Phone: [phone]-SeyzlSt. Luke'S Hospital 250 DO Work Phone: Procedures DateProcedureProcedure DetailPerforming ClinicianStart: 05-36-3752Vspj tthrc r-t 2d w/wom-mode compl spec&colr dMdominique Baumann MD Work Phone: Start: 04-90-1295Ei strs tst xers&/or rx cont ecg trcg onlyMostefany Baumann MD Work Phone: Start: 14-17-7454Fow routine ecg w/least 12 lds w/i&r Nahum Baumann MD Work Phone: Start: 30-99-4383Vkwq energy X-ray absorptiometry Niurka Vicente MD Work Phone: Start: 84-68-6086JH of lumbar spine without contrast Niurka Vicente MD Work Phone: Start: 78-35-5065D-ray of lumbar spine, six views including bending viewsNiurka Vicente MD Work Phone: Start: 19-44-0523EON of lumbar spine with contrast Niurka Vicente MD Work Phone: Start: 80-29-8895Mmalxdfbi of spinal epidural spaceMD Niurka Vicente Work Phone: Start: 12-13-2023 End: 11-80-7116Aiijas emg ea extremty w/paraspinl area completeChristopher Jeri DO Work Phone: Start: 12-11-2023 End: 08-23-4960Oisauu emg ea extremty w/paraspinl area completeChristopher Jeri DO Work Phone: Start: 59-87-0058DL lumbar spine wo conMD Niurka Cinthia Work Phone: Start: 86-33-4866ZwannzswapuAgzczmrjiov Jeri DO Work Phone: Start: 14-94-6557MeqihkyqjzmNohssgo Mouchli Start: 75-34-6771VbojyhzoahiqhrykrkvxaamgreNkbbamd Mouchli Start: 67-13-4418V-ray of lumbar spine, four viewsMD Niurka Cinthia Work Phone: Start: 59-12-7050Xiehypm of percutaneous transluminal coronary angioplastyHistory of PTCRaza Dempsey MD Work Phone: Start: 51-23-3433Piveq colonoscopyMarcia E Vicente Work Phone: Comment on above:DR DAVIS;AppendectomyMarcia E Vicente Work Phone: Appendix structure (body structure)Lyndsey Martinez Comment on above:1990Carpal tunnel syndrome (disorder) Mohwendy Martinez Cesarean sectionMarcia E Vicente Work Phone: Cesarean sectionMohamad Mojennyfre CholecystectomyMarcia E Vicente Work Phone: Gallbladder structure (body structure)Lyndsey Martinez Comment on above:2002History of percutaneous transluminal coronary angioplastyHistory of PTCPauline Baumann MD Work Phone: History of percutaneous transluminal coronary angioplastyHistory of PTCAEly 1History of percutaneous transluminal coronary angioplastyHistory of PTCAEly 3HysterectomyNiurka Vicente Work Phone: HysterectomyMohamad Michelle Lower back structure (body structure)Lyndsey Martínezvalerychitra Comment on above:arthritisOperative procedure on wrist Niurka Vicente Work Phone: Procedure on backNiurka Vicente Work Phone: Screening for malignant neoplasm of breastLeylacia Cinthia Other Surgical procedureNiurka Vicente Work Phone: Plan of Treatment DateCare ActivityDetailAuthorStart: 10-55-4374Qvdfvnenv for malignant neoplasm of colonNOMS HealthcareStart: 08-12-2025 End: 27-28-8104Cqpnkcm encounter amekalxdo03/27/2026 8:50 AM EDT Office Visit [address] [place] [address] Nahum Baumann MD [address] [facility] [address] [place] [address] [facility]: 12-02-2024 End: 35-26-0627Mfudsnr encounter dnfjxwnyl60/16/2025 7:45 AM EDT Appointment [place] [id number] [facility] [address] [place] [id number] [facility]: 11-25-2024 End: 38-06-8855Xcfjefe encounter procedureOrlando [facility] Medical [facility]: 11-24-[address] [facility] Work Phone: Start: 58-28-0472JCYRI-19 Vaccine ( season) COVID-19 Vaccine ( season)[facility] CenterStart: 91-10-6075Jcrdepdrj vaccinationInfluenza Vaccine (#1)[facility] CenterStburbank: 11-04-2024 End: 48-38-3149Xgtda 1996 panel - Serum or PlasmaLipid Panel Lab Routine Mixed hyperlipidemia Expected: 11/04/2024 (Approximate), Expires: 11/04/2025UnMansfield Hospital Work Phone: Comment on above:Expected: 11/04/2024 (Approximate), Expires: 11/04/2025Start: 11-04-2024 End: 78-19-0998JZ Heart Perfusion W stress and W radionuclide IVNuclear Stress Test Cardiac Nuclear Medicine Routine Coronary artery disease involving takotna coronary artery of takotna heart without angina pectoris History of PTCA History of myocardial infarction Essential hypertension, benign Current smoker Encounter for pre-operative cardiovascular clearance Expected: 11/04/2024 (Approximate), Expires: 11/04/2026[facility] Service Area Work Phone: Comment on above:Expected: 11/04/2024 (Approximate), Expires: 11/04/2026Start: 11-04-2024 End: 72-48-9215JG Heart TransthoracicTransthoracic Echo Complete Echocardiography Routine Coronary artery disease involving takotna coronary artery of takotna heart without angina pectoris History of PTCA History of myocardial infarction Essential hypertension, benign Current smoker Encounter for pre-operative cardiovascular clearance Expected: 11/04/2024 (Approximate), Expires: 11/04/2026UnMansfield Hospital Work Phone: Comment on above:Expected: 11/04/2024 (Approximate), Expires: 11/04/2026Start: 47-91-2009WzbnhnfqtElyria Memorial Hospitaltart: 12-13-2023 End: 35-42-4340Itwxecy encounter procedureNOMS NE NEUROComment on above:Arrived Start: 77-82-4913Raogjyo referralMercy Health St. [facility] Work Phone: Start: 53-37-2998WMUME-19 Vaccine ( season) COVID-19 Vaccine ( season)[facility] CenterStart: 54-52-0043Soallolhc vaccinationInfluenza Vaccine (#1)[facility] HealthcareStart: 10-18-2023 End: 30-16-0825Ydpxurp encounter blzjdivaq10/01/2024 9:10 AM EDT Office Visit [address] [place] [address] Evan Dempsey MD [address] [facility] [address] [place] [address] [facility]: 87-06-7477Wteyrpt referralMercy Health St. [facility] Work Phone: Start: 30-44-7291UV lumbar spine wo conMR lumbar spine wo [facility] Hospitaltart: 72-21-4244RQ Lumbar spine WO [facility] Cinc[facility]atitart: 51-26-0196Rbyfwgk [facility] Work Phone: Start: 20-08-8239Vqbzpso [facility] Work Phone: Start: 08-86-7695Kflwfecnl vaccinationInfluenza Vaccine (#1)[facility]: 45-09-2930OXJ, Provider: Evan Dempsey, Status: Pen, Time: 11:10 AMFUV, Provider: Evan Dempsey, Status: Pen, Time: 11:10 AMTerri [place] [address] DO Work Phone: Start: 24-06-7358EHW, Provider: Evan Dempsey, Status: Pen, Time: 3:10 PMFUV, Provider: Evan Dempsey, Status: Pen, Time: 3:10 PM[facility] 250 [facility] Work Phone: Start: 94-30-1110MJZ, Provider: Evan Dempsey, Status: Pen, Time: 8:40 AMFUV, Provider: Evan Dempsey, Status: Pen, Time: 8:40 AMNew [facility] 250 DO Work Phone: Start: 58-31-2021DNCQX-19 Vaccine (2 - Booster for Melanie series)COVID-19 Vaccine (2 - Booster for Melanie series)[facility]: 60-89-6884OKJ High Risk: (Elderly (60+) or Population) (1 - Risk 60-74 years 1-dose series)RSV High Risk: (Elderly (60+) or Population) (1 - Risk 60-74 years 1-dose series)[facility]: 48-12-2993Xgovnt Vaccines (1 of 2)Zoster Vaccines (1 of 2) [facility]: 79-65-7891YCG Vaccines (1 of 1 - Standard series)MMR Vaccines (1 of 1 - Standard series)[facility]: 17-80-1305Qbokbsqhc for malignant neoplasm of breastMammogram [facility]: 81-04-2831Ibhjtnxax for malignant neoplasm of cervixNOMS [facility] HospitalStart: 26-53-1094RUdK/Tdap/Td Vaccines (1 - Tdap)DTaP/Tdap/Td Vaccines (1 - Tdap)[facility]: 65-08-5214Ggdzdovnk for malignant neoplasm of cervixUnMercy Health [facility] Hospital: 46-62-9186Plbaasanowla vaccinationPneumococcal Vaccine (1 of 2 - PCV)[facility]: 73-89-4389Ninmtjuwn C screening Hepatitis C ScreeningKettering Health Main Campus: 1966 Pneumococcal Vaccine: Pediatrics (0 to 5 Years) and At-Risk Patients (6 to 64 Years) (1 - PCV)Pneumococcal Vaccine: Pediatrics (0 to 5 Years) and At-Risk Patients (6 to 64 Years) (1 - PCV)[facility]: 45-50-7154Qcrykbyiht A1c measurementDiabetes: Hemoglobin P0SYwmmqfhwjnKettering Health [facility] Campus: 75-01-5554NVV screeningHIV ScreeningKettering Health [facility]: 36-70-8810Ztfja panelLipid PanelUnMercy Health West Hospital: 48-41-5332Nawphtulk for malignant neoplasm of colonUnMercy Health West Hospital: 73-73-5048Fmaetun stimulating hormone measurement TSH LevelSt. Mary's Medical CenterStart: 58-02-3305Cinvqp Adult Physical Yearly Adult PhysicalUnMansfield HospitalCT Lumbar spine WO contrastMount St. Mary HospitalDXA Skeletal system.axial Views for bone densityMount St. Mary HospitalMR Lumbar spine WO and W contrast [facility] HospitalMR Lumbar spine WO and W contrast [facility] HospitalPatient EducationBarberton Citizens Hospital Work Phone: Patient referralMercy Health St. [facility] Work Phone: XR Lumbar spine ViewsMount St. Mary Hospital Immunizations Immunization DateImmunizationNotesCare JoxicftrGmlgmgxh58-50-2029Efaehnv COVID- 19 Vaccine 0.5 ML Intramuscular SuspensionLeylacia Pro Vicente Work Phone: [phone]-DyoeySt. Luke'S Hospital 758 DO Work Phone: [phone]) [phone] tuzejsmpr-F5L0-32, preservative-free, injectableMarcia E Vicente Work Phone: mp-[facility] 250 DO Work Phone: 1(677) [phone]ineibvwfa virus vaccine, unspecified formulationEvan Dempsey MD Work Phone: [facility] Work Phone: Payers DatePayer CategoryPayerPolicy [id number] Cross Blue Shield Managed CareFORMERLY [facility], [facility]P Member Subscriber Plan / Payer (Effective 2024-Present) Name: Mary West Relation to Subscriber: Self Name: Mary West Payer ID: [id number] (NAIC) Type: Not on file Address: [facility] [address] [place] [id number] [id number] 2.16.840.1.343154.3.57[id number] 2.16.840.1.369721.3.57[id number] 2.16.840.1.556685.3.57[id number] 2.16.840.1.794556.3.57[id number] 2.16.840.1.890939.3.57[id number] 2.16.840.1.665931.3.57[id number] 2.16.840.1.590142.3.57[id number] 2.16.840.1.863883.3.57[id number] 2.16.840.1.204706.3.57[id number] 2.16.840.1.481795.3.57[id number] 2.16.840.1.206944.3.57[id number] 2.16.840.1.369619.3.57[id number] 2.16.840.1.492625.3.57[id number] 2.16.840.1.767474.3.57[id number] 2.16.840.1.028291.3.57[id number] 2.16.840.1.258579.3.57[id number] 2.16.840.1.662413.3.57[id number] 2.16.840.1.867421.3.57[id number] 2.16.840.1.513423.3.57[id number] 2.16.840.1.744008.3.579.[id number] 2.16.840.1.961641.3.57[id number] 2.16.840.1.549977.3.579.2.054748-22-3186Tesu Cross Blue [id number] 2.[id number] 2.16840.[id number] 5wbqg2k6-3lt2-98d4-26g5-094l0ly459j6 Social History DateTypeDetailFacilityStart: 01-11-2023 End: 45-65-0884Wp illicit drug useNo illicit drug use-[facility] 250 DO Work Phone: Comment on above:1/3 PPD;1/2 PPD;Start: 01-11-2023 End: 14-04-3804Xdm Assigned At [facility] Northtart: 19-01-7849Ucbyveb smoking statusLight tobacco smoker (finding)[facility] Hospitaltart: 01-11-2023 End: 78-90-2891Bxsqxzh smoking status NHISSmokes tobacco dailySt. Mary's Medical CenterHistory of tobacco useCigarette SmokerUnMansfield Hospital Work Phone: Start: 01-11-2023 End: 95-99-4189Ogjgict use and exposureSmokeless tobacco non-userUnMansfield Hospital Work Phone: Start: 01-11-2023 End: 54-42-1377Nlgtymm intakeLifetime non-drinker (finding)[facility] Work Phone: Start: 08-77-1982Qek Assigned At BirthNot on file [facility] Work Phone: Start: 01-01-2023 End: 84-37-0700Jwmyuvem to SARS-CoV-2 (event)Not sureUnMansfield HospitalStart: 01-18-2018 End: 01-61-3230Xyvhudg smoking status NHISSmoker (finding)[facility] Hospitaltart: 12-13-0607Yst Assigned At Critical Access HospitalFeSelect Medical Specialty Hospital - Cantontart: 07-16-2023 End: 47-56-4787Oxbrkcm smoking statusHeavy tobacco smoker (finding)[facility] Digestive HealthStart: 02-01-2024 End: 47-60-7295UrhHhvqkc (finding)[facility] Mary HospitalTobacco smoking status NHISTobacco smoking consumption unknownNOMS HealthcareStart: 59-76-3403Cwwvczd smoking statusNeverSuburban [facility] Sexual OrientationSuburban Community Hospital [facility] Goals DatePatient GoalDesired Activity/State Functional Status EgzmHjaqhizscdIhahqmQcwaibnx87-43-2189Aocfkhqwhq StatusN/AFisherSelect Medical [facility] Convenient Jiwq35-29-7536Rarpnhihgh StatusN/[facility] Digestive Wcsfbp92-28-9733Supqrmesld StatusN/[facility] 58-92-0304Mwxdfbgyfy StatusN/[facility] 93-02-4174Lwydadchsp StatusN/[facility] Clinical Notes 08-15-2013 to 11-20-2024 Note Date & VsmaWbtzEwrkmxqg48-72-6903 Evaluation note* Diagnosis Onset Date Resolution Status Admit Date Abdominal pain acuteSept2024 10:34amChronic pain syndromeMay cute November 20, 2024 10:34amIBS (irritable bowel syndrome)acuteSeptember 2024 10:34amRadiculopathy, lumbar regionacuteSept2024 10:34am Screening mammogram for breast canceracuteSept2024 10:34am Radiculopathy, lumbar regionacuteOctober 2024 8:52am [facility] Work Phone: 1(765) 609-435208-19-2025 History of Present illness Narrative* Nahum Baumann MD - 11/04/2024 8:40 AM EDT Chief Complaint Patient presents with Annual Exam Previous Dr. Dempsey patient here today for annual visit for coronary artery disease, denies cardiac c/o at this time. Subjective Mary West is a 64 y.o. female HPI Patient here for follow-up continue management for history of coronary artery disease, hypertensionand hyperlipidemia. In addition she request preoperative risk assessment for back surgery. The patient is 64-year-old with known history of coronary artery disease prior PCI to the right coronary artery back in 2011. History of hypertension and hyperlipidemia that appears to be adequately treated. Over the last few years the patient had significant weight loss. She underwent extensive evaluation by PCP and GI with finding of IBS. The patient did have a chest x-ray and screening for lung cancer also. Cardiac franco the patient describe limited exercise tolerance and worsening shortness of breath. She admit to very sedentary lifestyle due to back problem. She has not had any recent ischemic evaluation. Assessment 1. Coronary artery disease with prior PCI to the right coronary artery back in 2011. Difficult to determine functional status due to back pain. In addition the patient describe worsening shortness ofbreath 2. Worsening shortness of breath unclear whether it is related simply to her COPD and tobacco use versus progression of coronary artery disease 3. Essential hypertension appears to be controlled on carvedilol 4. Hyperlipidemia she is on maximum dose statin but no recent lab work 5. Active tobacco use and COPD 6. Unexplained weight loss she underwent workup by GI and PCP and attributed to IBS 7. Patient request preoperative risk assessment for back surgery Plan 1. In view of the patient's symptoms of shortness of breath, difficult to determine functional status and known history of coronary artery disease and review of upcoming surgery I suggested to proceed with Lexiscan myocardial perfusion study and echocardiogram 2. We discussed risk factor modification 3. Patient on appropriate medical therapy 4. I advised the patient to have a fasting lipid profile concerning this has not been done recently 5. I reviewed her recent lab including CBC comprehensive metabolic panel and TSH 6. We discussed adding low-dose lisinopril patient preferred to wait until testing is done 7. Follow-up in 9 months 8. Will address her preoperative risk assessment after testing is done 9. I counseled the patient regarding smoking cessation at great length Review of Systems All other systems reviewed and are negative. EKG done in office today Vitals: 11/04/24 0842 BP: 124/70 BP Location: Left arm Patient Position: Sitting Pulse: 68 Weight: 51.3 kg (113 lb 3.2 oz) Height: 1.651 m (5' 5 ) Objective Physical Exam Constitutional: Appearance: Normal appearance. HENT: Nose: Nose normal. Neck: Vascular: No carotid bruit. Cardiovascular: Rate and Rhythm: Normal rate. Pulses: Normal pulses. Heart sounds: Normal heart sounds. Pulmonary: Effort: Pulmonary effort is normal. Abdominal: General: Bowel sounds are normal. Palpations: Abdomen is soft. Musculoskeletal: General: Normal range of motion. Cervical back: Normal range of motion. Right lower leg: No edema. Left lower leg: No edema. Skin: General: Skin is warm and dry. Neurological: General: No focal deficit present. Mental Status: She is alert. Psychiatric: Mood and Affect: Mood normal. Behavior: Behavior normal. Thought Content: Thought content normal. Judgment: Judgment normal. Allergies Ceftriaxone, Levothyroxine, Thyroid (pork), Venlafaxine, Sulfamethoxazole- trimethoprim, and Celecoxib Current Medications Current Outpatient Medications Medication Instructions albuterol sulfate (Proair Digihaler) 90 mcg/actuation aero powdr breath act w/sensor inhaler use asdirectd aspirin 81 mg EC tablet 2 tablets, Daily atorvastatin (Lipitor) 80 mg tablet 1 tablet, Daily carvedilol (Coreg) 12.5 mg tablet 1 tablet, 2 times daily (morning and late afternoon) chlorthalidone (HYGROTON) 25 mg, oral, Daily nitroglycerin (NITROSTAT) 0.4 mg, Every 5 min PRN omeprazole (PRILOSEC) 40 mg, Daily before breakfast oxyCODONE-acetaminophen (Percocet) 7.5-325 mg tablet 1 tablet, Every 6 hours PRN Assessment/Plan 1. Shortness of breath 2. Coronary artery disease involving takotna coronary artery of takotna heart without angina pectorisFollow Up In Cardiology Follow Up In Cardiology Nuclear Stress Test Transthoracic Echo Complete 3. Mixed hyperlipidemia Lipid Panel Lipid Panel 4. History of PTCA Nuclear Stress Test Transthoracic Echo Complete 5. History of myocardial infarction Nuclear Stress Test Transthoracic Echo Complete 6. Essential hypertension, benign Nuclear Stress Test Transthoracic Echo Complete 7. BMI less than 19,adult 8. Current smoker Nuclear Stress Test Transthoracic Echo Complete 9. Encounter for pre-operative cardiovascular clearance ECG 12 Lead Nuclear Stress Test Transthoracic Echo Complete Scribe Attestation By signing my name below, I, Marcelle Real LPN attest that this documentation has been prepared under the direction and in the presence of MD Whitley. Provider Attestation - Scribe documentation All medical record entries made by the Scribe were at my direction and personally dictated by me. Ihave reviewed the chart and agree that the record accurately reflects my personal performance of the history, physical exam, discussion and plan. documented in this encounterSt. Mary's Medical Center Work Phone: 1(924) 395-167308-19-2025 Instructions* Patient Instructions* Lauryn Connor LPN - 11/04/2024 8:40 AM EDT Please bring all medicines, vitamins, and herbal supplements with you when you come to the office. Prescriptions will not be filled unless you are compliant with your follow up appointments or have a follow up appointment scheduled as per instruction of your physician. Refills should be requested at the time of your visit. BMI noramal documented in this [facility] Work Phone: 1(410) 106-993208-04-2025 Radiology Diagnostic study noteDOCTORS [facility] Main [place] [address] [place] [address] CT Scan Report Signed Patient: Mary West MR#: [id number] : 1960 Acct:[id number] Age/Sex: 64 / F ADM Date: 5 Loc: CT Room: Type: [facility] Attending Dr: Maxi Dos Santos DO Copies to: Maxi Dos Santos DO~ Ordering Provider: Maxi Dos Santos DO Date of Service: 10/20/24 CT/CT lumbar spine wo con: M47.26 - Other spondylosiswith radiculopathy,lumbar region CT lumbar spine wo con 10/20/2024 8:50 AM History:Low back pain radiating down left leg with numbness and tingling TECHNIQUE: Multi detector CT axial slices of the lumbar spine were obtained without IV contrast. Volumetric acquisition sagittal, coronal, and 3-D reconstructions were performed and reviewed on a separate workstation. CT was performed with one or more of the following dose reduction techniques: Auto matedexposure control, adjustment of the mA and/or kV according to patient size, or use of iterative reconstruction technique. COMPARISON: 03/01/2024 FINDINGS: There is preservation of the vertebral body heights. There is mild disc height loss throughout the lumbar spine similar to the prior MRI. There is evidence ofprevious partial laminectomy at L4-5. No fractures or dislocations are seen. The alignment of the lumbar spine is normal. Degenerative changes are noted in the sacroiliac joints. The paraspinous soft tissues are within normal limits. The visualized lung parenchyma is unremarkable. Atherosclerotic changes are noted in the abdominal aorta. There is evidence of prior cholecystectomy in theright upper quadrant. CT/CT lumbar spine wo con IMPRESSION: No acute bony abnormality or malalignment. There is mild disc height loss throughout the lumbar spine similar to the prior MRI. There is evidence of previous partial laminectomy at L4-5. Degenerative changes are noted in the sacroiliac joints. Impression dictated by: Luca Gimenez M.D. 10/20/2024 12:20 PM Dictation Location: RADIO-PC-24 Transcribed By: KATLYN 10/20/24 1220 Dictated By: Luca Gimenez II, MD 10/20/24 1217 Signed By: 10/20/[address] [facility] Work Phone: 1(395) 717-666705-14-2025 Hospital Discharge instructions Patient Education 07/30/2024 11:11:11 Ankle Pain Ankle Pain The ankle joint helps you stand on your leg and allows you to move around. Ankle pain can happen oneither side or the back of the ankle. You may have pain in one ankle or both ankles. Ankle pain maybe sharp and burning or dull and aching. There may be tenderness, stiffness, redness, or warmth around the ankle. Many things can cause ankle pain. These include an injury to the area and overuse of your ankle. Follow these instructions at home: Activity Rest your ankle as told by your health care provider. Avoid doing things that cause ankle pain. Do not use the injured limb to support your body weight until your provider says that you can. Use crutches as told by your provider. Ask your provider when it is safe to drive if you have a brace on your ankle. Do exercises as told by your provider. If you have a removable brace: Wear the brace as told by your provider. Remove it only as told by your provider. Check the skin around the brace every day. Tell your provider about any concerns. Loosen the brace if your toes tingle, become numb, or turn cold and blue. Keep the brace clean. If the brace is not waterproof: ?Do not let it get wet. ?Cover it with a watertight covering when you take a bath or shower. If you have an elastic bandage: Remove it when you take a bath or a shower. Try not to move your ankle much. Wiggle your toes from time to time. This helps to prevent swelling. Adjust the bandage if it feels too tight. Loosen the bandage if your foot tingles, becomes numb, or turns cold and blue. Managing pain, stiffness, and swelling If told, put ice on the painful area. ?If you have a removable brace or elastic bandage, remove it as told by your provider. ?Put ice in a plastic bag. ?Place a towel between your skin and the bag. ?Leave the ice on for 20 minutes, 2 3 times a day. If your skin turns bright red, remove the ice right away to prevent skin damage. The risk of damageis higher if you cannot feel pain, heat, or cold. Move your toes often to reduce stiffness and swelling. Raise (elevate) your ankle above the level of your heart while you are sitting or lying down. General instructions Take xwtl-zuy-lvkxjmj and prescription medicines only as told by your provider. To help you and your provider, write down: ?How often you have ankle pain. ?Where the pain is. ?What the pain feels like. If you are told to wear a certain shoe or insole, make sure you wear it the right way and for as long as you are told. Contact a health care provider if: Your pain gets worse. Your pain does not get better with medicine. You have a fever or chills. You have more trouble walking. You have new symptoms. Your foot, leg, toes, or ankle tingles, becomes numb or swollen, or turns cold and blue. This information is not intended to replace advice given to you by your health care provider. Make sure you discuss any questions you have with your health care provider. Document Revised: 12/27/2022 Document Reviewed: 12/27/2022 [employer] Patient Education 2023 [employer]. Follow Up Care 07/30/2024 08:59:07 With:NIURKA VICENTE MD, FAM Address: [address] [place] [address]- When: Unknown [facility] 05-14-2025 NotePatient Education Orthopedics Ankle Pain The ankle joint helps you stand on your leg and allows you to move around. Ankle pain can happen oneither side or the back of the ankle. You may have pain in one ankle or both ankles. Ankle pain maybe sharp and burning or dull and aching. There may be tenderness, stiffness, redness, or warmth around the ankle. Many things can cause ankle pain. These include an injury to the area and overuse of your ankle. Follow these instructions at home: Activity ??? Rest your ankle as told by your health care provider. Avoid doing things that cause ankle pain. ??? Do not use the injured limb to support your body weight until your provider says that you can. Use crutches as told by your provider. ??? Ask your provider when it is safe to drive if you have a brace on your ankle. ??? Do exercises as told by your provider. If you have a removable brace: ??? Wear the brace as told by your provider. Remove it only as told by your provider. ??? Check the skin around the brace every day. Tell your provider about any concerns. ??? Loosen the brace if your toes tingle, become numb, or turn cold and blue. ??? Keep the brace clean. ??? If the brace is not waterproof: ? Do not let it get wet. ? Cover it with a watertight covering when you take a bath or shower. If you have an elastic bandage: ??? Remove it when you take a bath or a shower. ??? Try not to move your ankle much. Wiggle your toes from time to time. This helps to prevent swelling. ??? Adjust the bandage if it feels too tight. ??? Loosen the bandage if your foot tingles, becomes numb, or turns cold and blue. Managing pain, stiffness, and swelling ??? If told, put ice on the painful area. ? If you have a removable brace or elastic bandage, remove it as told by your provider. ? Put ice in a plastic bag. ? Place a towel between your skin and the bag. ? Leave the ice on for 20 minutes, 2?3 times a day. ??? If your skin turns bright red, remove the ice right away to prevent skin damage. The risk of damage is higher if you cannot feel pain, heat, or cold. ??? Move your toes often to reduce stiffness and swelling. ??? Raise (elevate) your ankle above the level of your heart while you are sitting or lying down. General instructions ??? Take pdnf-ezq-ftxuulu and prescription medicines only as told by your provider. ??? To help you and your provider, write down: ? How often you have ankle pain. ? Where the pain is. ? What the pain feels like. ??? If you are told to wear a certain shoe or insole, make sure you wear it the right way and for as long as you are told. Contact a health care provider if: ??? Your pain gets worse. ??? Your pain does not get better with medicine. ??? You have a fever or chills. ??? You have more trouble walking. ??? You have new symptoms. ??? Your foot, leg, toes, or ankle tingles, becomes numb or swollen, or turns cold and blue. This information is not intended to replace advice given to you by your health care provider. Make sure you discuss any questions you have with your health care provider. Document Revised: 12/27/2022 Document Reviewed: 12/27/2022 [employer] Patient Education ? 2023 [employer] 06-23-2024 Evaluation note* Diagnosis Onset Date Resolution Status Admit Date Radiculopathy, lumbar region acuteApril 2024 9:02amChronic pain syndromeMay , 2014acuteApril 2024 8:37amRadiculopathy, lumbar regionacuteApril 2024 8:37am [facility] Work Phone: 1(914) 887-253102-12-2025 Evaluation note* Diagnosis Onset Date Resolution Status Admit Date Cervicalgia acuteFebruary 2024 9:14amChronic pain syndromeMay 30, 2014acuteFebruary 2024 9:14amRadiculopathy, lumbar regionacuteFebruary 2024 9:14am [facility] Work Phone: 1(606) 341-380802-12-2025 Evaluation note* Diagnosis Onset Date Resolution Status Admit Date Cervicalgia acuteFebruary 2024 9:14amChronic pain syndromeMay , 2014acuteFebruary 2024 9:14amRadiculopathy, lumbar regionacuteFebruary 2024 9:14am Radiculopathy, lumbar regionacuteApril 2024 9:02am [facility] Work Phone: 1(816) 885-304811-15-2024 Evaluation note* Diagnosis Onset Date Resolution Status Admit Date Cervicalgia acuteNovember 2023 9:59amChronic pain syndromeMay , 2014acuteNovember 2023 9:59amRadiculopathy, lumbar regionacuteNovember 2023 9:59am ThyroiditisacuteNovember 2023 9:59amMedication care plan discussed with patientnoneactiveNovember 2023 9:59amOther spondylosis with radiculopathy, lumbar regionacuteNovember 2023 8:42amCervicalgiaacuteNovember 2023 8:38amChronic painacuteNovember 2023 8:38amOther spondylosis with radiculopathy, lumbar regionacuteNovember 2023 8:38amRadiculopathy, lumbar regionacuteNovember 2023 8:38amBronchitisacuteDecember 2023 2:48pm Other spondylosis with radiculopathy, lumbar regionacuteJanuary 2024 11:07am [facility] Work Phone: 1(383) 911-601711-05-[address] [facility]* Diagnosis Onset Date Resolution Status Admit Date Cervicalgia acuteOctober 2023 9:35amChronic painacuteOctober 2023 9:35amOther spondylosis with radiculopathy, lumbar regionacuteOctober 2023 9:35am Radiculopathy, lumbar regionacuteOctober 2023 9:35amCervicalgiaacute January 03, 2024 10:45amChronic pain syndromeMay , 2014acuteOctober 2023 10:45amRadiculopathy, lumbar regionacuteOctober 2023 10:45am ThyroiditisacuteOctober 2023 10:45amCervicalgiaacuteNovember 2023 9:59amChronic pain syndromeMay , 2014acuteNovember 2023 9:59am Radiculopathy, lumbar regionacuteNovember 2023 9:59amThyroiditisacute February 01, 2024 9:59amMedication care plan discussed with patientnoneactive February 01, 2024 9:59amOther spondylosis with radiculopathy, lumbar region acuteNovember 2023 8:42amCervicalgiaacuteNovember 2023 8:38amChronic painacuteNovember 2023 8:38amOther spondylosis with radiculopathy, lumbar regionacuteNovember 2023 8:38amRadiculopathy, lumbar regionacuteNovember 2023 8:38amBronchitisacuteDecember 2023 2:48pmOther spondylosis with radiculopathy, lumbar regionacuteJanuary 2024 11:07am [facility] Work Phone: 1(644) 321-132209-26-2024 History of Present illness Narrative* LIVE [place] - 12/13/2023 9:30 AM EDT Images from the original note were not included. Reason for Appointment: EMG Patient: Mary West : 1960 EMG Computer: [employer] Referring Physician: Dr. Maxi Dos Santos EMG: KIN clinical data assistant: Jim Booker RT(R) Office Location: [place] Reason for EMG: c/o neck pain into left shoulder, weakness in left arm. Hx of bilateral CTR & surgery to neck. No hx of DM. Taking ASA. Comments: Procedure was explained to the patient who expressed understanding. Patient appeared to have tolerated the test well despite some discomfort due to the nature of the test. documented in this [id number] History of Present illness Narrative* LIVE [place] - 12/11/2023 10:00 AM EDT Images from the original note were not included. Reason for Appointment: EMG Patient: Mary West : 1960 EMG Computer: [employer] Referring Physician: Dr. Maxi Dos Santos EMG: BLE clinical data assistant: Jim Booker RT(R) Office Location: [place] Reason for EMG: c/o numbness/tingling in bilateral lower legs/feet L>R, low back pain, cramping in left lower leg. Hx of surgery to low back. No hx of DM. Taking ASA. Comments: Procedure was explained to the patient who expressed understanding. Patient appeared to have tolerated the test well despite some discomfort due to the nature of the test. documented in this [id number] Evaluation note* Diagnosis Onset Date Resolution Status Admit Date Other spondylosis with radiculopathy, ruthann mbar region acuteSeptember 2023 9:43amCervicalgiaacuteSeptember 2023 8:22am Chronic pain syndromeMay , 2014acuteSeptember 2023 8:22am Radiculopathy, lumbar regionacuteSeptember 2023 8:22amThyroiditisacute Yue 2023 8:22amRadiculopathy, lumbar regionacuteOctober 2023 10:10amCervicalgiaacuteOctober 2023 9:35amChronic painacuteOctober 2023 9:35amOther spondylosis with radiculopathy, lumbar regionacuteOctober 2023 9:35amRadiculopathy, lumbar regionacuteOctober 2023 9:35am CervicalgiaacuteOctober 2023 10:45amChronic pain syndromeMay 2013 acuteOctober 2023 10:45amRadiculopathy, lumbar regionacuteOctober 2023 10:45amThyroiditisacuteOctober 2023 10:45am [facility] Work Phone: 1([phone]) 811-982909-06-2024 Evaluation note* Diagnosis Onset Date Resolution Status Admit Date Other spondylosis with radiculopathy, ruthann mbar region acuteSeptember 2023 9:43amCervicalgiaacuteSeptember 2023 8:22am Chronic pain syndromeMay , 2014acuteSeptember 2023 8:22am Radiculopathy, lumbar regionacuteSeptember 2023 8:22amThyroiditisacute December 05, 2023 8:22amRadiculopathy, lumbar regionacuteOctober 2023 10:10amCervicalgiaacuteOctober 2023 9:35amChronic painacuteOctober 2023 9:35amOther spondylosis with radiculopathy, lumbar regionacuteOctober 2023 9:35amRadiculopathy, lumbar regionacuteOctober 2023 9:35am CervicalgiaacuteOctober 2023 10:45amChronic pain syndromeMay 2013 acuteOctober 2023 10:45amRadiculopathy, lumbar regionacuteOctober 2023 10:45amThyroiditisacuteOctober 2023 10:45amOther spondylosis with radiculopathy, lumbar regionacuteNovember 2023 8:42amCervicalgiaacute February 06, 2024 8:38amChronic painacuteNov2023 8:38amOther spondylosis with radiculopathy, lumbar regionacuteNovember 2023 8:38am Radiculopathy, lumbar regionacuteNovember 2023 8:38am [facility] Work Phone: 1(647) 199-119505-09-2024 Note [id number] [facility] Hospital Discharge instructions Patient Education 07/25/2023 10:14:16 Colonoscopy, Care After Surgery Salam(CUSTOM) Colonoscopy Care After Surgery Please read the instructions outlined below and refer to this sheet in the next few weeks. These discharge instructions provide you with general information on caring for yourself [facility] Your doctor may also give you specific instructions. While your treatment has been planned according to the most current medical practices available, unavoidable complications occasionally occur. If you have any problems or questions after discharge, please call your doctor. ACTIVITY You may resume your regular activity, but move at a slower pace for the next 24 hours. Take frequent rest periods for the next 24 hours. Walking will help get rid of the air and reduce the bloated feeling in your abdomen (belly). No driving for 24 hours (because of the anesthesia (medicine) used during the test). You may shower. Do not sign any important legal documents or operate any machinery for 24 hours (because of the anesthesia used during the test). NUTRITION Drink plenty of fluids. You may resume your normal diet as instructed by your doctor. Begin with a light meal and progress to your normal diet. Heavy or fried foods are harder to digestand may make you feel nauseated (sick to your stomach). Avoid alcoholic beverages for 24 hours or as instructed. MEDICATIONS You may resume your normal medications unless your doctor tells you otherwise. WHAT YOU CAN EXPECT TODAY Some feelings of bloating in the abdomen. Passage of more gas than usual. Spotting of blood in your stool or on the toilet paper. FOLLOW-UP Your doctor will discuss the results of your test with you. SEEK IMMEDIATE MEDICAL ATTENTION IF: There is more than a spotting of blood in your stool. There is abdominal distention (your abdomen is swollen). There is vomiting. You have a temperature over 101.5 F. There is abdominal pain or discomfort that is severe or gets worse throughout the day. 07/25/2023 10:14:06 Azul's Esophagus Azul's Esophagus Azul's esophagus occurs when the tissue that lines the esophagus changes or becomes damaged. Theesophagus is the tube that carries food from the throat to the stomach. With Azul's esophagus, the cells that line the esophagus are replaced by cells that are similar to the lining of the intestines (intestinal metaplasia). Azul's esophagus itself may not cause any symptoms. However, many people who have Azul's esophagus also have gastroesophageal reflux disease (GERD), which may cause symptoms such as heartburn. Over time, a few people with this condition may develop cancer of the esophagus. Treatment may include medicines, procedures to destroy the abnormal cells, or surgery. What are the causes? The exact cause of this condition is not known. In some cases, the condition develops from damage to the lining of the esophagus caused by gastroesophageal reflux disease (GERD). GERD occurs when stomach acids flow up from the stomach into the esophagus. Frequent symptoms of GERD may cause intestinal metaplasia or cause cell changes (dysplasia). What increases the risk? You are more likely to develop this condition if you: Have GERD. Are male. Are of descent. Are obese. Are older than 50. Have a hiatal hernia. This is a condition in which part of your stomach bulges into your chest. Smoke. What are the signs or symptoms? People with Azul's esophagus often have no symptoms. However, many people with this condition also have GERD. Symptoms of GERD may include: Heartburn. Difficulty swallowing. Dry cough. How is this diagnosed? This condition may be diagnosed based on: Results of an upper gastrointestinal endoscopy. For this exam, a thin, flexible tube with a light and a camera on the end (endoscope) is passed down your esophagus. Your health care provider can viewthe inside of your esophagus during this procedure. Results of a biopsy. For this procedure, several tissue samples are removed (biopsy) from your esophagus to look at under a microscope. They are then checked for intestinal metaplasia or dysplasia. How is this treated? Treatment for this condition may include: Medicines (proton pump inhibitors, or PPIs) to decrease or stop GERD. Periodic endoscopic exams to make sure that cancer is not developing. A procedure or surgery for dysplasia. This may include: ?Removal or destruction of abnormal cells. ?Removal of part of the esophagus. Follow these instructions at home: Eating and drinking Eat more fruits and vegetables. Avoid fatty foods. Eat small, frequent meals instead of large meals. Avoid foods that cause heartburn. These foods include: ?Coffee and alcoholic drinks. ?Tomatoes and foods made with tomatoes. ?[place] or spicy foods. ?Chocolate and peppermint. Do not drink alcohol. General instructions Take jzhu-osz-baazdbz and prescription medicines only as told by your health care provider. Do not use any products that contain nicotine or tobacco, such as cigarettes, e- cigarettes, and chewing tobacco. If you need help quitting, ask your health care provider. If you are being treated for GERD, make sure you take medicines and follow all instructions as toldby your health care provider. Keep all follow-up visits as told by your health care provider. This is important. Contact a health care provider if: You have heartburn or GERD symptoms. You have difficulty swallowing. Get help right away if: You have chest pain. You are unable to swallow. You vomit blood or material that looks like coffee grounds. Your stool (feces) is bright red or dark. These symptoms may represent a serious problem that is an emergency. Do not wait to see if the symptoms will go away. Get medical help right away. Call your local emergency services (911 in the [place] Do not drive yourself to the hospital. Summary Azul's esophagus occurs when the tissue that lines the esophagus changes or becomes damaged. Azul's esophagus may be diagnosed with an upper gastrointestinal endoscopy and a biopsy. Treatment may include medicines, procedures to remove abnormal cells, or surgery. Follow your health care provider's instructions about what to eat and drink, what medicines to take, and when to call for help. This information is not intended to replace advice given to you by your health care provider. Make sure you discuss any questions you have with your health care provider. Document Revised: 05/22/2020 Document Reviewed: 05/22/2020 [employer] Patient Education 2022 [employer]. 07/25/2023 10:13:07 Upper Endoscopy, Adult, Care After Upper Endoscopy, Adult, Care After After the procedure, it is common to have a sore throat. It is also common to have: Mild stomach pain or discomfort. Bloating. Nausea. Follow these instructions at home: The instructions below may help you care for yourself at home. Your health care provider may give you more instructions. If you have questions, ask your health care provider. If you were given a sedative during the procedure, it can affect you for several hours. Do not drive or operate machinery until your health care provider says that it is safe. If you will be going home right after the procedure, plan to have a responsible adult: ?Take you home from the hospital or clinic. You will not be allowed to drive. ?Care for you for the time you are told. Follow instructions from your health care provider about what you may eat and drink. Return to your normal activities as told by your health care provider. Ask your health care provider what activities are safe for you. Take eans-vqz-uzadvxk and prescription medicines only as told by your health care provider. Contact a health care provider if you: Have a sore throat that lasts longer than one day. Have trouble swallowing. Have a fever. Get help right away if you: Vomit blood or your vomit looks like coffee grounds. Have bloody, black, or tarry stools. Have a very bad sore throat or you cannot swallow. Have difficulty breathing or very bad pain in your chest or abdomen. These symptoms may be an emergency. Get help right away. Call 911. Do not wait to see if the symptoms will go away. Do not drive yourself to the hospital. Summary After the procedure, it is common to have a sore throat, mild stomach discomfort, bloating, and nausea. If you were given a sedative during the procedure, it can affect you for several hours. Do not drive until your health care provider says that it is safe. Follow instructions from your health care provider about what you may eat and drink. Return to your normal activities as told by your health care provider. This information is not intended to replace advice given to you by your health care provider. Make sure you discuss any questions you have with your health care provider. Document Revised: 06/14/2022 Document Reviewed: 06/14/2022 [employer] Patient Education 2022 [employer]. 07/25/2023 10:12:56 Gastritis, Adult Gastritis, Adult Gastritis is inflammation of the stomach. There are two kinds of gastritis: Acute gastritis. This kind develops suddenly. Chronic gastritis. This kind is much more common. It develops slowly and lasts for a long time. Gastritis happens when the lining of the stomach becomes weak or gets damaged. Without treatment, gastritis can lead to stomach bleeding and ulcers. What are the causes? This condition may be caused by: An infection. Drinking too much alcohol. Certain medicines. These include steroids, antibiotics, and some xgww-yas-kuvtoda medicines, such as aspirin or ibuprofen. Having too much acid in the stomach. Having a disease of the stomach. Other causes may include: An allergic reaction. Some cancer treatments (radiation). Smoking cigarettes or the use of products that contain nicotine or tobacco. In some cases, the cause of this condition is not known. What increases the risk? Having a disease of the intestines. Having a disease in which the body's immune system attacks the body (autoimmune disease), such as Crohn's disease. Using aspirin or ibuprofen and other NSAIDs to treat other conditions, such as heart disease or chronic pain. Stress. What are the signs or symptoms? Symptoms of this condition include: Pain or a burning sensation in the upper abdomen. Nausea. Vomiting. An uncomfortable feeling of fullness after eating. Weight loss. Bad breath. Blood in your vomit or stool (feces). In some cases, there are no symptoms. How is this diagnosed? This condition may be diagnosed based on your medical history, a physical exam, and tests. Tests may include: Your medical history and a description of your symptoms. A physical exam. Tests. These can include: ?Blood tests. ?Stool tests. ?A test in which a thin, flexible instrument with a light and a camera is passed down the esophagusand into the stomach (upper endoscopy). ?A test in which a tissue sample is removed to look at it under a microscope (biopsy). How is this treated? This condition may be treated with medicines. The medicines that are used vary depending on the cause of the gastritis. If the condition is caused by a bacterial infection, you may be given antibiotic medicines. If the condition is caused by too much acid in the stomach, you may be given medicines called H2 blockers, proton pump inhibitors, or antacids. Treatment may also involve stopping the use of certain medicines such as aspirin or ibuprofen and other NSAIDs. Follow these instructions at home: Medicines Take zgze-cem-fmnhjvd and prescription medicines only as told by your health care provider. If you were prescribed an antibiotic medicine, take it as told by your health care provider. Do notstop taking the antibiotic even if you start to feel better. Alcohol use Do not drink alcohol if: ?Your health care provider tells you not to drink. ?You are , may be , or are planning to become . If you drink alcohol: ?Limit your use to: ?0 1 drink a day for women. ?0 2 drinks a day for men. ?Know how much alcohol is in your drink. In the [place] one drink equals one 12 oz bottle of beer (355 mL), one 5 oz glass of wine (148 mL), or one 1 oz glass of hard liquor (44 mL). General instructions Eat small, frequent meals instead of large meals. Avoid foods and drinks that make your symptoms worse. Talk with your health care provider about ways to manage stress, such as getting regular exercise or practicing deep breathing, meditation, or yoga. Do not use any products that contain nicotine or tobacco. These products include cigarettes, chewing tobacco, and vaping devices, such as e-cigarettes. If you need help quitting, ask your health careprovider. Drink enough fluid to keep your urine pale yellow. Keep all follow-up visits. This is important. Contact a health care provider if: Your symptoms get worse. Your abdominal pain gets worse. Your symptoms return after treatment. You have a fever. Get help right away if: You vomit blood or a substance that looks like coffee grounds. You have black or dark red stools. You are unable to keep fluids down. These symptoms may represent a serious problem that is an emergency. Do not wait to see if the symptoms will go away. Get medical help right away. Call your local emergency services (911 in the [place] Do not drive yourself to the hospital. Summary Gastritis is inflammation of the lining of the stomach that can occur suddenly (acute) or develop slowly over time (chronic). This condition is diagnosed with a medical history, a physical exam, or tests. This condition may be treated with medicines to treat infection or medicines to reduce the amount of acid in your stomach. Follow your health care provider's instructions about taking medicines, making changes to your diet, and knowing when to call for help. This information is not intended to replace advice given to you by your health care provider. Make sure you discuss any questions you have with your health care provider. Document Revised: 07/09/2021 Document Reviewed: 07/09/2021 [employer] Patient Education 2022 [employer]EX. 07/25/2023 10:12:52 Esophagitis Esophagitis Esophagitis is inflammation of the esophagus. The esophagus is the tube that carries food from the mouth to the stomach. Esophagitis can cause soreness or pain in the esophagus. This condition can make it difficult and painful to swallow. What are the causes? Most causes of esophagitis are not serious. Common causes of this condition include: Gastroesophageal reflux disease (GERD). This is when stomach contents move back up into the esophagus (reflux). Repeated vomiting. An allergic reaction, especially caused by food allergies (eosinophilic esophagitis). Injury to the esophagus by swallowing large pills with or without water, or swallowing certain types of medicines. Swallowing harmful chemicals, such as household cleaning products. Drinking a lot of alcohol. An infection of the esophagus. This most often occurs in people who have a weakened immune system. Radiation or chemotherapy treatment for cancer. Certain diseases such as sarcoidosis, Crohn's disease, and scleroderma. What are the signs or symptoms? Symptoms of this condition include: Difficult or painful swallowing. Pain with swallowing acidic liquids, such as citrus juices. You may also have pain when you burp. Chest pain and difficulty breathing. Nausea and vomiting. Pain in the abdomen. Weight loss. Ulcers in the mouth and white patches in the mouth (candidiasis). Fever. Coughing up blood or vomiting blood. Stool that is black, tarry, or bright red. How is this diagnosed? This condition may be diagnosed based on your medical history and a physical exam. You may also have other tests, including: A test to examine your esophagus and stomach with a small flexible tube with a camera (endoscopy). A test that measures the acidity level in your esophagus. A test that measures how much pressure is on your esophagus. A barium swallow or modified barium swallow to show the shape, size, and functioning of your esophagus. Allergy tests. How is this treated? Treatment for this condition depends on the cause of your esophagitis. In some cases, steroids or other medicines may be given to help relieve your symptoms or to treat the underlying cause of your condition. You may have to make some lifestyle changes, such as: Avoiding alcohol. Quitting any products that contain nicotine or tobacco. These products include cigarettes, chewing tobacco, and vaping devices, such as e-cigarettes. If you need help quitting, ask your health care provider. Changing your diet. Exercising. Changing your sleep habits and your sleep environment. Follow these instructions at home: Medicines Take imal-jjt-ubbjxpi and prescription medicines only as told by your health care provider. Do not take aspirin, ibuprofen, or other NSAIDs unless your health care provider told you to do so. If you have trouble taking pills: ?Use a pill splitter to decrease the size of the pill. This will decrease the chance of the pill getting stuck or injuring your esophagus. ?Drink water after you take a pill. Eating and drinking Avoid foods and drinks that seem to make your symptoms worse. Follow a diet as recommended by your health care provider. This may involve avoiding foods and drinks such as: ?Coffee and tea, with or without caffeine. ?Drinks that contain alcohol. ?Energy drinks and sports drinks. ?Carbonated drinks or sodas. ?Chocolate and cocoa. ?Peppermint and mint flavorings. ?Garlic and onions. ?Horseradish. ?Spicy and acidic foods, including peppers, chili powder, louis powder, vinegar, hot sauces, and barbecue sauce. ?[place] fruit juices and citrus fruits, such as oranges, vic, and limes. ?Tomato-based foods, such as red sauce, chili, salsa, and pizza with red sauce. ?Fried and fatty foods, such as donuts, tamazight fries, potato chips, and high-fat dressings. ?High-fat meats, such as hot dogs and fatty cuts of red and white meats, such as rib eye steak, sausage, ham, and samuel. ?High-fat dairy items, such as whole milk, butter, and cream cheese. Lifestyle Eat small, frequent meals instead of large meals. Avoid drinking large amounts of liquid with your meals. Avoid eating meals during the 2 3 hours before bedtime. Avoid lying down right after you eat. Do not exercise right after you eat. Do not use any products that contain nicotine or tobacco. These products include cigarettes, chewing tobacco, and vaping devices, such as e-cigarettes. If you need help quitting, ask your health careprovider. General instructions Pay attention to any changes in your symptoms. Let your health care provider know about them. Wear loose-fitting clothing. Do not wear anything tight around your waist that causes pressure on your abdomen. Raise (elevate) the head of your bed about 6 inches (15 cm). You may need to use a wedge to do this. Try relaxation strategies such as yoga, deep breathing, or meditation to manage stress. If you needhelp reducing stress, ask your health care provider. If you are overweight, reduce your weight to an amount that is healthy for you. Ask your health care provider for guidance about a safe weight loss goal. Keep all follow-up visits. This is important. Contact a health care provider if: You have new symptoms. You have unexplained weight loss. You have difficulty swallowing, or it hurts to swallow. You have wheezing or a cough that does not go away. Your symptoms do not improve with treatment. You have frequent heartburn for more than two weeks. Get help right away if: You have sudden severe pain in your arms, neck, jaw, teeth, or back. You suddenly feel sweaty, dizzy, or light-headed. You have chest pain or shortness of breath. You vomit and the vomit is green, yellow, or black, or it looks like blood or coffee grounds. Your stool is red, bloody, or black. You have a fever. You cannot swallow, drink, or eat. These symptoms may represent a serious problem that is an emergency. Do not wait to see if the symptoms will go away. Get medical help right away. Call your local emergency services (911 in the [place] Do not drive yourself to the hospital. Summary Esophagitis is inflammation of the esophagus. Most causes of esophagitis are not serious. Follow your health care provider's instructions about eating and drinking. Contact a health care provider if you have new symptoms, have weight loss, or coughing that does not stop. Get help right away if you have severe pain in the arms, neck, jaw, teeth, or back, or if you have chest pain, shortness of breath, or fever. This information is not intended to replace advice given to you by your health care provider. Make sure you discuss any questions you have with your health care provider. Document Revised: 09/13/2020 Document Reviewed: 09/13/2020 [employer] Patient Education 2022 GMEX. Follow Up Care 07/16/2023 13:23:56 With:Lyndsey Martinez Address: [address] [place] [address], [facility] [address] [place] [address]- [phone] Business (1) When: Unknown Comments:office will call for follow up [facility]04-29-2024 Evaluation + Plan note Future Scheduled Tests Laboratory* 5 [facility] 24 Hour Urine 07/16/23 [facility]01-23-2024 Evaluation note* Encounter Date Diagnosis Assessment Notes Treatment Notes Treatment Clinical Notes Mar, Degenerative disc disease, cervi amaris (ICD-10 - M50.30) [facility] Other 12-26-2023 Evaluation note* Encounter Date Diagnosis Assessment Notes Treatment Notes Treatment Clinical Notes Feb, Degenerative disc disease, cervi amaris (ICD-10 - M50.30) [facility] Other 11-28-2023 Evaluation note* Encounter Date Diagnosis Assessment Notes Treatment Notes Treatment Clinical Notes Jan, Degenerative disc disease, cervi amaris (ICD-10 - M50.30) [facility] Other 10-26-2023 History of Present illness Narrative* Evan Dempsey MD - 01/11/2023 9:50 AM EDT Subjective Mary West is a 62 y.o. female Chief Complaint Follow-up; Cardiac Stress Test HPI Patient is seen in follow-up of recent hospitalization for chest pain. At that time we recommended stress testing with isotope imaging and it was completed. The results were discussed and reviewed with her. Stress test demonstrated no ischemia, no infarct, and a normal ejection fraction because of this as well as her history and lack of findings at that time we believe, as she does she, that the symptoms were noncardiac most likely related to stress. Review of Systems All other systems reviewed and are negative. Visit Vitals BP 104/64 (BP Location: Left arm, Patient Position: Sitting) Pulse 66 Ht 1.676 m (5' 6 ) Wt 64.9 kg (143 lb) BMI 23.08 kg/m Smoking Status Every Day BSA 1.74 m Objective Physical Exam Constitutional: Appearance: Normal appearance. She is normal weight. HENT: Nose: Nose normal. Neck: Vascular: No carotid bruit. Cardiovascular: Rate and Rhythm: Normal rate. Pulses: Normal pulses. Heart sounds: Normal heart sounds. Pulmonary: Effort: Pulmonary effort is normal. Abdominal: General: Bowel sounds are normal. Palpations: Abdomen is soft. Genitourinary: Rectum: Normal. Musculoskeletal: General: Normal range of motion. Cervical back: Normal range of motion. Right lower leg: No edema. Left lower leg: No edema. Skin: General: Skin is warm and dry. Neurological: General: No focal deficit present. Mental Status: She is alert. Psychiatric: Mood and Affect: Mood normal. Behavior: Behavior normal. Thought Content: Thought content normal. Judgment: Judgment normal. Current Medications Current Outpatient Medications: albuterol sulfate (Proair Digihaler) 90 mcg/actuation aero powdr breath act w/sensor inhaler, use as directd, Disp: , Rfl: aspirin 81 mg EC tablet, Take 2 tablets (162 mg) by mouth once daily., Disp: , Rfl: atorvastatin (Lipitor) 80 mg tablet, Take 1 tablet (80 mg) by mouth once daily., Disp: , Rfl: carvedilol (Coreg) 6.25 mg tablet, Take 1 tablet (6.25 mg) by mouth 2 times a day with meals., Disp: , Rfl: chlorthalidone (Hygroton) 25 mg tablet, Take 1 tablet (25 mg) by mouth once daily., Disp: , Rfl: furosemide (Lasix) 20 mg tablet, Take 1 tablet (20 mg) by mouth once daily as needed (for lower extremty edema)., Disp: , Rfl: nitroglycerin (Nitrostat) 0.4 mg SL tablet, Place 1 tablet (0.4 mg) under the tongue every 5 minutes if needed., Disp: , Rfl: oxyCODONE-acetaminophen (Percocet) 7.5-325 mg tablet, Take 1 tablet by mouth every 4 hours if needed (BREAKTHROUGH PAIN.)., Disp: , Rfl: pantoprazole (ProtoNix) 40 mg EC tablet, Take 1 tablet (40 mg) by mouth once daily in the morning. Take before meals. Do not crush, chew, or split., Disp: , Rfl: Assessment/Plan 1. Coronary artery disease involving [place] coronary artery of [place] heart without angina pectoris Coronary disease appears to be asymptomatic. Recent testing favorable demonstrating no progression of disease. 2. Essential hypertension, benign Well-controlled on current therapy no adjustments necessary 3. Mixed hyperlipidemia Well-controlled on current therapy no adjustments necessary 4. History of PTCA Patient's pre-PTCA symptomatology has not recurred. Risk factor management is good although she continues to smoke and she was counseled in this regard. documented in this [facility] Work Phone: [phone] 142-563110-26-2023 Instructions* Patient Instructions* Gissel Samuel LPN - 01/11/2023 9:50 AM EDT Please bring all medicines, vitamins, and herbal supplements with you when you come to the office. Prescriptions will not be filled unless you are compliant with your follow up appointments or have a follow up appointment scheduled as per instruction of your physician. Refills should be requested at the time of your visit. 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 Pt will call if she decides to pursue this at this time. 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 Discussed quitting smoking, CV exercise and stress reduction. Aug,egenerative disc disease, cervical (ICD-10 - M50.30)Reviewed OARRS report. Continue present med and dose. [facility] Other 06-27-2023 NoteAdmission and Discharge Information Admitting Physician - Mikael Cote DO Consulting Physician - Ke COCHRAN, Evan Rojo Admitting Diagnoses: Discharge Order Date Discharge Patient - Ordered -- 09/11/22 16:47:00 EDT, To home with follow up appts as written. Discharge Diagnoses 1. Chest pain, 09/10/2022 2. Elevated TSH, 09/11/2022 3. Diarrhea, 09/10/2022 4. Hyponatremia, 09/10/2022 5. Smoker, 09/10/2022 6. CAD in [place] artery, 09/10/2022 7. HTN (hypertension), 09/10/2022 8. HLD (hyperlipidemia), 09/10/2022 9. Chronic pain, 09/10/2022 10. On deep vein thrombosis (DVT) prophylaxis, 09/10/2022 Please refer to my progress note for in-depth information regarding each individual diagnosis Hospital Course 62-year-old female with PMH of CAD s/p cardiac stents (2011), chronic tobacco use, HTN, HLD. -Patient presented to the ED for complaints of midsternal chest pain and diarrhea. -Patient ruled out for ACS with negative twelve-lead ECG, negative troponins x4, she was seen in consultation by her primary cardiology team and underwent a stress test. Per cardio note chest pain has resolved, all troponins normal, EKG unimpressive, no signs of ACS, if this is angina which I doubtit is stable. Okay to discharge today after stress test is obtained. We will follow-up with her as outpatient. This was explained to the patient who is in agreement. Patient will be placed on PPI in the meantime. -Patient has had had no further diarrhea since time of admission. -Patient had elevated TSH levels, she reports prior level was 50, she was started on levothyroxine and had hypertensive urgency with medication, she then saw muck miner who tried several other medications that she reacted to as well, she is stopped all medications, patient does not want any type of thyroid meds or further work-up at this time as she is already tried all the medications available, we did discuss referral to [facility] thyroid clinic for further evaluation. Patient states she will consider this. -Patient states that all admitting symptoms have significantly improved and/or resolved. Patient iseating and drinking without complaints, denies being SOB, chest pain, pressure, palpitations or difficulty with voiding. Patient is eager to be discharged to home. --Other chronic medical conditions as outlined in note. Refer to d/c plan below: -Case reviewed and discussed with Dr. Cote who is in agreement with current d/c plan. Case will be reviewed and discussed with PCP or care professionals MD once the hospital doughnut machine operator helper is able to reach him/her.I spent a lengthy amount of time with the patient and/or family reviewing discharge instructions, medications, medication use. Patient to follow-up with PCP and specialty providers as scheduled on discharge. Patient being discharged in medically/hemodynamically stable cond. with instructions to return to the hospital if symptoms worsen or recur. This report was transcribed using voice recognition software. Every effort was made to ensure accuracy, however, inadvertently computerized building maintenance technician mistakes may be present. Significant Findings No qualifying data available. Services Consulted Consult to Cardiology - Ordered -- 09/10/22 15:30:00 EDT, CP, known CAD w/ prev. stents, Consult and Co-manage, [facility] Physical Exam Vitals & Measurements T: 36.8 ?C(Oral) TMIN: 36.4 ?C(Oral) TMAX: 36.8 ?C(Oral) HR: 63(Monitored) RR: 16 BP: 120/84 SpO2: 94% WT: 61.7 kg Laboratory Results Automated Diff (09/10/2022) Neutro Auto - 73.8 % Lymph Auto - 18.5 % [place] Auto - 6.7 % Eos Auto - 0.4 % Basophil Auto - 0.6 % Neutro Absolute - 5.8 E9/L Lymph Absolute - 1.4 E9/L [place] Absolute - 0.5 E9/L Eos Absolute - 0.0 E9/L Basophil Absolute - 0.0 E9/L BMP (09/11/2022) Glucose Lvl - 91 mg/dL BUN - 19 mg/dL Creatinine - 1.0 mg/dL BUN/Creat Ratio - 19 Sodium Lvl - 132 mmol/L Potassium Lvl - 3.5 mmol/L Chloride - 98 mmol/L CO2 - 25 mmol/L AGAP - 13 mEq/L Calcium Lvl - 8.8 mg/dL BNP (09/10/2022) BNP - 41 pg/mL CBC w/ Auto Diff (09/10/2022) WBC - 7.8 E9/L RBC - 4.6 E12/L Hgb - 14.0 gm/dL Hct - 42.0 % MCV - 90.3 fL MCH - 30.2 pg MCHC - 33.4 gm/dL RDW - 13.6 % Platelet - 287.0 E9/L MPV - 6.8 fL eGFR (09/11/2022) eGFR - 64 mL/min/1.73 m2 Free T4 (09/11/2022) T4 Free - 0.50 ng/dL Lipase Level (09/10/2022) Lipase Lvl - 30 unit/L Lipid Panel (09/11/2022) Chol - 139 mg/dL Trig - 134 mg/dL HDL - 56 mg/dL LDL Direct - 58 mg/dL VLDL - 27 mg/dL Magnesium Level (09/10/2022) Magnesium - 2.0 mg/dL PT & PTT (09/10/2022) PT - 10.9 second(s) INR - 1.0 PTT - 34.4 second(s) Troponin 0 Hr. (09/10/2022) Troponin - 7.70 pg/mL Troponin 3 Hr. (09/10/2022) Troponin - 9.70 pg/mL Troponin 6 Hr. (09/10/2022) Troponin - 11.10 pg/mL Troponin 9 Hr. (09/10/2022) Troponin - 14.10 pg/mL TSH With T4fr Reflex (09/11/2022) TSH - 20.02 mcIU/mL Tests Pe (more content not included)...[facility]:Result Comment: Electronically Signed By: Rain CHO\.br\Date and Time Signed: 09/11/22 16:55 EDT\.br\Electronically Co-Signed By: Mikael Cote DO\.br\Date and Time Co-Signed: 09/12/22 06:58 [id number] Hospital Discharge instructions Patient Education 09/11/2022 16:45:37 Nonspecific Chest Pain, Adult, Mwbg-gy-Xlii Nonspecific Chest Pain Chest pain can be caused by many different conditions. Some causes of chest pain can be life-threatening. These will require treatment right away. Serious causes of chest pain include: Heart attack. A tear in the body's main blood vessel. Redness and swelling (inflammation) around your heart. Blood clot in your lungs. Other causes of chest pain may not be so serious. These include: Heartburn. Anxiety or stress. Damage to bones or muscles in your chest. Lung infections. Chest pain can feel like: Pain or discomfort in your chest. Crushing, pressure, aching, or squeezing pain. Burning or tingling. Dull or sharp pain that is worse when you move, cough, or take a deep breath. Pain or discomfort that is also felt in your back, neck, jaw, shoulder, or arm, or pain that spreads to any of these areas. It is hard to know whether your pain is caused by something that is serious or something that is not so serious. So it is important to see your doctor right away if you have chest pain. Follow these instructions at home: Medicines Take ezou-ezr-xjbmoqt and prescription medicines only as told by your doctor. If you were prescribed an antibiotic medicine, take it as told by your doctor. Do not stop taking the antibiotic even if you start to feel better. Lifestyle Rest as told by your doctor. Do not use any products that contain nicotine or tobacco, such as cigarettes, e- cigarettes, and chewing tobacco. If you need help quitting, ask your doctor. Do not drink alcohol. Make lifestyle changes as told by your doctor. These may include: ?Getting regular exercise. Ask your doctor what activities are safe for you. ?Eating a heart-healthy diet. A diet and child nutrition manager (dietitian) can help you to learn healthy eating options. ?Staying at a healthy weight. ?Treating diabetes or high blood pressure, if needed. ?Lowering your stress. Activities such as yoga and relaxation techniques can help. General instructions Pay attention to any changes in your symptoms. Tell your doctor about them or any new symptoms. Avoid any activities that cause chest pain. Keep all follow-up visits as told by your doctor. This is important. You may need more testing if your chest pain does not go away. Contact a doctor if: Your chest pain does not go away. You feel depressed. You have a fever. Get help right away if: Your chest pain is worse. You have a cough that gets worse, or you cough up blood. You have very bad (severe) pain in your belly (abdomen). You pass out (faint). You have either of these for no clear reason: ?Sudden chest discomfort. ?Sudden discomfort in your arms, back, neck, or jaw. You have shortness of breath at any time. You suddenly start to sweat, or your skin gets clammy. You feel sick to your stomach (nauseous). You throw up (vomit). You suddenly feel lightheaded or dizzy. You feel very weak or tired. Your heart starts to beat fast, or it feels like it is skipping beats. These symptoms may be an emergency. Do not wait to see if the symptoms will go away. Get medical help right away. Call your local emergency services (911 in the [place] Do not drive yourself to the hospital. Summary Chest pain can be caused by many different conditions. The cause may be serious and need treatment right away. If you have chest pain, see your doctor right away. Follow your doctor's instructions for taking medicines and making lifestyle changes. Keep all follow-up visits as told by your doctor. This includes visits for any further testing if your chest pain does not go away. Be sure to know the signs that show that your condition has become worse. Get help right away if you have these symptoms. This information is not intended to replace advice given to you by your health care provider. Make sure you discuss any questions you have with your health care provider. Document Revised: 05/19/2021 Document Reviewed: 05/19/2021 [employer] Patient Education 2022 [employer]EX. Follow Up Care 09/10/2022 11:51:58 With:[facility] endocrinology clinic: [phone] Address:Unknown When: Unknown With:NIURKA VICENTE Address: [address] [place] [phone]- Business (1) When:2 to 4 days Comments:Call for followup appointment post hospital follow With:Evan Dempsey Address: [address] [place] [address] [place] [address]- [place] (1) When:5 to 7 days Comments:Call for followup appointment to review your stress test results and discuss further plan of care [facility]06-26-2023 NoteHOSPITAL REGULATIONS: All Positive and Important Negative Findings Shall Be Recorded Date of Consultation: 09/10/2022 Attending Physician: Mikael Cote D.O. Consulting Physician: Darline Dempsey M.D. CARDIOLOGY CONSULTATION Mary West is a 62-year-old female seen in consultation at the request of the primary service. She presented to the Emergency Room with the onset of epigastric pain at rest while in a lounge chair. It is unrelenting and has been going on all day. Despite that unrelenting pain, she has no EKG changes or troponin rise that would suggest myocardial ischemia or injury. She is an individual well known to me. She has a history of coronary disease with intervention in 2011. She has otherwise had reasonable risk factor modification with treatment of her hypertension. Ibelieve she is not on lipid- lowering therapy because she has a favorable lipid profile. She unfortunately continues to smoke. More importantly recently she has been very active. She has a very physically strenuous and demanding job at work and she also cleans the house and does yard work and with none of these activities does she experience any epigastric or anginal type chest discomfort. PAST MEDICAL HISTORY: The patient's other previous medical history includes hypertension as well ashyperlipidemia. ALLERGIES: Bactrim, Celebrex, Rocephin, Synthroid. PSYCHOSOCIAL HISTORY: She is a nondrinker. Still smokes one-quarter to one-half pack per day. REVIEW OF SYSTEMS: Otherwise negative, normal or noncontributory. PHYSICAL EXAMINATION: General: Alert female in overt distress. Vital signs: Blood pressure 143/83, pulse 70, respirations 16, temperature 36.5. Weight is 64 kg. Head: Normocephalic and nontraumatic. Eyes: Pupils equal and reactive to light and accommodation. Extraocular movements are intact. Sclerae nonicteric, noninjected. Conjunctivae and lids are unremarkable. Nose: Symmetric, no discharge. Ears: Symmetric, no discharge. Mouth: Age-related dental change noted. No adenopathy, exudate, injection. Tongue midline, unremarkable. Neck: No appreciable jugular venous distention, hepatojugular reflux or bruit. No thyromegaly, adenopathy, nodularity. Heart: Regular rhythm. No appreciable murmur, rub or gallop. PMI is nondisplaced. No palpable abnormalities. Lungs: Demonstrate some inspiratory and expiratory wheezes. No rhonchi or rales. Abdomen: No organomegaly, mass, aneurysm or tenderness. Bowel sounds are normoactive. Extremities: Radial, brachial, femoral, pedal pulses 2+. Lower extremities no edema, no cyanosis. Neurologic: No gross cranial nerve or sensory motor deficit. Mood and affect are appropriate. She is alert and oriented x3. Her EKG demonstrates normal sinus rhythm, normal EKG. Her chest x-ray is unremarkable. LABORATORY DATA: Troponins performed twice are below the lower limit of normal for a female. Her white count is 7800, hemoglobin 14.0, platelet 287,000. Pro time 10.9, INR 1.0, PTT 34.4. BUN 21, creatinine 1.0, sodium 133, potassium 3.7, chloride 96, bicarbonate 24. IMPRESSION: 1. Prolonged epigastric discomfort I believe to be gastrointestinal. Despite prolonged pain, she has no EKG or troponin rise. 2. History of coronary disease with remote intervention. Probably suboptimal risk factor management. 3. I presume her symptomatology to be gastritis and/or esophageal discomfort. I note that a Percocet and GI cocktail have been ordered and I believe this is an appropriate intervention. RECOMMENDATIONS: 1. Continue supportive care and serial enzymes. 2. Lexiscan Cardiolite stress test in the morning to exclude coronary disease progression. Will follow with you and advise further. Darline Dempsey M.D. Dictated: 09/10/2022 [id number] Transcribed: 09/11/2022 cc:Niurka Vicente M.D.[facility] HospitalComment on above:Result Comment: Electronically Signed By: Evan Dempsey MD\.br\Date and Time Signed: 09/11/22 13:43 [id number] Evaluation + Plan noteExtracted from:Title:SOAP Note: SimpleAuthor:Evan Dempsey MD PDate:09/11/22 Impression and Plan NO SIGN OF ACS IF THIS IS ANGINA, WHICH I DOUBT, IT IS STABLE OK TO DISCHARGE TODAY AFTER STRESS TEST AQUISITION WILL FOLLOW UP WITH HER OUTPATIENT Extracted from:Title:SOKRISTY Note: SimpleAuthor:Evan Dempsey MD PDate:09/10/22 Impression and Plan CONSULT DICTATED NON CARDIAC CHEST PAIN HISTORY OF PCI 2012 SUGGEST GI RX ORDERED LEXISCAN CARDIOLYTE IN AM Extracted from:Title:Admission H & PAuthor:EMERSON AGACNP-, ReneeDate:09/10/22 1. Chest pain (R07.9: Chest pain, unspecified) Pt. reports CAD w/ cardiac stents x 2 in 2012 - follows [facility] (Dr. Dempsey) -12 lead ECG reviewed: RSR -CXR: No acute process, -Consult cardiology - [facility] - pending -Asa taken prior to arrival - cont. 81mg daily -No indication for heparin gtt. at present -Awaiting med rec -GI cocktail x 1, pantoprazole -IV morphine, SL ngt prn CP -Trend troponin levels x 4 sets - pending -Lipid panel - pending -JIHAN score: 3 Ordered: Sbs[facility] Care/Day High [id number] Moderate 35 Minutes 13032 2. Diarrhea (R19.7: Diarrhea, unspecified) Pt. states developed early a.m., no one else in home with symptoms -Gentle IVF x 1 -Enteric panel, Cdiff - pending -Trend labs Ordered: Sbsq Hospital Care/Day High 50 Minutes 49028 [facility] Hospital Care/Day Moderate 35 Minutes 00367 3. Hyponatremia (E87.1: Hypo-osmolality and hyponatremia) Asymptomatic -Baseline Na level: unknown -IVF x 1L -Trend BMP 4. Smoker (F17.200: Nicotine dependence, unspecified, uncomplicated) Educated on need for smoking cessation -Nicotine patch 5. CAD in [place] artery (I25.10: Atherosclerotic heart disease of [place] coronary artery without angina pectoris) -See above 6. HTN (hypertension) (I10: Essential (primary) hypertension) -Awaiting med rec for all dx. 7. HLD (hyperlipidemia) (E78.5: Hyperlipidemia, unspecified) 8. Chronic pain (G89.29: Other chronic pain) Chronic percocet per home regimen 9. On deep vein thrombosis (DVT) prophylaxis (Z79.899: Other custodial (current) drug therapy) -Heparin sq with early ambulation Orders: acetaminophen, 650 mg = 2 tab(s), Tab, Oral, q6hr PRN Pain, Routine, Start date 09/10/22 15:30:00 EDT, 09/10/22 15:30:00 EDT Al hydroxide/Mg hydroxide/simethicone, 30 mL, Susp-Oral, Oral, Once, Stop date 09/10/22 16:00:00 EDT, Routine, Start date 09/10/22 16:00:00 EDT aspirin, 81 mg = 1 tab(s), Tab-EC, Oral, Daily, Routine, Start date 09/11/22 9:00:00 EDT, 09/10/22 15:30:00 EDT atropine/hyoscyamine/PB/scopolamine, 10 mL, Elixir, Oral, Once, Stop date 09/10/22 16:00:00 EDT, Routine, Start date 09/10/22 16:00:00 EDT heparin, 5,000 unit(s) = 1 mL, Injection, SubCutaneous, BID, Routine, Start date 09/10/22 21:00:00 EDT, 09/10/22 15:30:00 EDT lidocaine topical, 200 mg, 10 mL, Soln-Oral, Oral, Once, Stop date 09/10/22 16:00:00 EDT, Routine, Start date 09/10/22 16:00:00 EDT nicotine, 21 mg, 1 patch(es), Patch-ER, TransDermal, Daily, NOW, Start date 09/10/22 15:39:00 EDT nitroglycerin, 0.4 mg = 1 tab(s), Tab, SubLingual, q5min PRN Chest pain for 3 dose(s), Stop date Limited # of times, Routine, Start date 09/10/22 15:30:00 EDT, 09/10/22 15:30:00 EDT ondansetron, 4 mg = 2 mL, Injection, IV Push, q6hr PRN Nausea, Routine, Start date 09/10/22 15:30:00 EDT, 09/10/22 15:30:00 EDT pantoprazole, 40 mg = 1 tab(s), Tab-DR, Oral, Daily, NOW, Start date 09/10/22 15:36:00 EDT, 09/10/22 15:36:00 EDT Sodium Chloride 0.9% intravenous solution 1,000 mL, 1,000 mL, IV, 50 mL/hr, for 1 dose(s), Stop date 09/11/22 11:29:00 EDT, Routine, Start date 09/10/22 15:30:00 EDT, 20 hour(s), Total volume (mL): 1,000, 64.8 kg, 1.74, m2 Ambulate with Assistance Basic Metabolic Panel Below the Knee Intermittent Pneumatic Compression Device Cardiac Diet Cardiac Monitoring Chest Pain, AMI Quality Measures Communication Order Consult to Cardiology Elevate Head of Bed Enteric Panel by PCR Evaluate Need For Continued Telemetry Intake and Output Lipid Panel Notify Provider Vital Signs Notify Provider Vital Signs Oxygen Protocol Precautions Pulse Oximetry Resuscitation Status - Full Smoking Cessation Instruction JIHAN Risk Score TSH With T4fr Reflex Turn Patient Vital Signs Weight -Plan discussed w/ patient, nursing staff and CRM. -Disposition: Patient will likely be less than 2 midnight stays for treatment of above. This report was transcribed using voice recognition software. Every effort was made to ensure accuracy, however, inadvertently computerized building maintenance technician mistakes may be present. Extracted from:Title:ED NoteAuthor:Bassem Brown, Jesus HDate:09/10/22 1. Chest pain (R07.9: Chest pain, unspecified) 2. Diarrhea (R19.7: Diarrhea, unspecified) Orders: Automated Diff B-Type Natriuretic Peptide Basic Metabolic Panel CBC w/ Auto Diff Clostridium Difficile PCR Crutches ECG 12 Lead Adult ED Cardiac Monitoring ED Physician consult Hospitalist for continued care eGFR Lipase Level Magnesium Level Oxygen Saturation Oxygen Therapy PT & PTT Saline Lock Insert Troponin 0 Hr. Troponin 3 Hr. Troponin 6 Hr. Troponin 9 Hr. XR Chest Single View Diagnostic Tests Pending * Clostridium Difficile PCR 09/10/22 * Enteric Panel by PCR 09/10/22 [facility]06-25-2023 NoteChief Complaint patient c/o chest pain, lightheadedness, diaphoresis, nausea and diarrhea x3 days. hx 2 stent placed 2011 by [facility]. EMS gave 2 ASA and 1 nitro- took 2 ASA at home History of Present Illness 62-year-old female with PMH of CAD s/p cardiac stents (2011), chronic tobacco use, HTN, HLD. -Patient presented to the ED for complaints of midsternal chest pain and diarrhea. -Patient states that she has had ongoing nonradiating midsternal chest pain that has waxed and waned over the last several days, she does not notice any improvement with rest, she does elicit nausea with episodes but denies vomiting or SOB. She does note that her blood pressure has been elevated over the last several days in spite of her chronic medications - w/o recent med adjustments or dietaryindiscretions. She states that she has not felt well for the last couple of days, she has had little po intake but cannot further describe any specific illness symptoms the exception of developing nonbloody diarrhea in the early a.m. Patient denies fever, chills, cough, sputum production, known COVID exposure, palpitations, nominal pain or change in bowel or bladder habits. Patient was evaluated in the ED and referred to the hospitalist service for further evaluation and consultation to her primary cardiology team. Review of Systems Additional ROS info: Except as noted in the above Review of Systems and in the History of Present Illness all other systems have been reviewed and are negative or noncontributory Scoring [place] Fall Risk Score: 35 (09/10/22) Physical Exam Vitals & Measurements T: 36.9 ?C(Oral) HR: 75(Monitored) RR: 18 BP: 125/78 SpO2: 96% HT: 167.64 cm WT: 64.8 kg General: Calm, able to communicate needs, Head: Normocephalic/atraumatic Eyes: Pupils equal, round, Conjunctivae and sclerae normal, HEENT: Mucous membrane moist. Tongue normal Neck: Trachea midline, neck supple, Chest: No chest wall deformity, no chest wall tenderness Lungs: CTA nazario Cardio: Normal rate, currently in RSR, no edema. Pulses: Normal capillary refill Abdomen: Soft, non-distended, non-tender, normal BS Musculoskeletal: No deformity or scoliosis noted. Integumentary: Warm, dry, arteaga Extremity: No clubbing, Neurologic: Alert, oriented x 4, follows commands, Mental status: Pleasant & cooperative, approp. affect, Lab Results WBC: 7.8 E9/L (09/10/22 12:37:00) RBC: 4.6 E12/L (09/10/22 12:37:00) HGB: 14 gm/dL (09/10/22 12:37:00) Hct: 42 % (09/10/22 12:37:00) MCV: 90.3 fL (09/10/22 12:37:00) MCH: 30.2 pg (09/10/22 12:37:00) MCHC: 33.4 gm/dL (09/10/22 12:37:00) RDW: 13.6 % (09/10/22 12:37:00) Platelet: 287 E9/L (09/10/22 12:37:00) MPV: 6.8 fL (09/10/22 12:37:00) Neutro Auto: 73.8 % (09/10/22 12:37:00) Lymph Auto: 18.5 % (09/10/22 12:37:00) [place] Auto: 6.7 % (09/10/22 12:37:00) Eos Auto: 0.4 % (09/10/22:37:00) Basophil Auto: 0.6 % (09/10/22:37:00) Neutro Absolute: 5.8 E9/L (09/10/22 12:37:00) Lymph Absolute: 1.4 E9/L (09/10/22 12:37:00) [place] Absolute: 0.5 E9/L (09/10/22:37:00) Eos Absolute: 0 E9/L (09/10/22 12:37:00) Basophil Absolute: 0 E9/L (09/10/22:37:00) PT: 10.9 second(s) (09/10/22::00) INR: 1 (09/10/22::00) PTT: 34.4 second(s) (09/10/22:37:00) Glucose Lvl: 103 mg/dL (09/10/22:37:00) BUN: 21 mg/dL (09/10/22:37:00) Creatinine: 1 mg/dL (09/10/22:37:00) eGFR: 64 mL/min/1.73 m2 (09/10/22:37:00) BUN/Creat Ratio: 21 High (09/10/22 12:37:00) Sodium Lvl: 133 mmol/L Low (09/10/22 12:37:00) Potassium Lvl: 3.7 mmol/L (09/10/22 12:37:00) Chloride: 96 mmol/L Low (09/10/22:37:00) CO2: 24 mmol/L (09/10/22 12:37:00) AGAP: 17 mEq/L High (09/10/22:37:00) Calcium Lvl: 9.5 mg/dL (09/10/22 12:37:00) Lipase Lvl: 30 unit/L (09/10/22 12:37:00) Magnesium: 2 mg/dL (09/10/22 12:37:00) Troponin: 9.7 pg/mL Low (09/10/22 15:01:00) BNP: 41 pg/mL (09/10/22 12:37:00) Diagnostic Results XR Chest Single View 09/10/22 12:50:24 : No infiltrate, mass or other acute cardiopulmonary abnormality Read By: Jesus Luevano M.D. 09/10/22 14:57:56 IMPRESSION: NO ACUTE CARDIOPULMONARY DISEASE. CLINICAL HISTORY: Chest pain COMPARISON: NONE. FINDINGS: Remote internal fixation, lower cervical spine.. Cardiopericardial silhouette normal. Pulmonary vasculature normal. Lungs clear. Ordering Provider: Jesus Luevano Signed By: Lucien Burton MD 09/10/22 12:50:03 Radiation Dose: Ka,r in mGy = . DAP = . Signed By: Lucien Burton MD Assessment/Plan 1. Chest pain (R07.9: Chest pain, unspecified) Pt. reports CAD w/ cardiac stents x 2 in 2012 - follows [facility] (Dr. Dempsey) -12 lead ECG reviewed: RSR -CXR: No acute process, -Consult cardiology - [facility] - pending -Asa taken prior to arrival - cont. 81mg daily -No indication for heparin gtt. at present -Awaiting med rec -GI cocktail x 1, pantoprazole -IV morphine, SL ngt prn CP -Trend troponin levels x 4 sets - p (more content not included)...[facility] HospitalComment on above:Result Comment: Electronically Signed By: Rain CHO\.br\Date and Time Signed: 09/10/22 15:46 EDT\.br\Electronically Co-Signed By: Mikael Cote DO\.br\Date and Time Co-Signed: 09/10/22 17:09 [id number] Evaluation note* Encounter Date Diagnosis Assessment Notes Treatment Notes Treatment Clinical Notes July, Degenerative disc disease, cervi amaris (ICD-10 - M50.30) Reviewed OARRS. Updated med agreement. Pt agrees to go down in # of tabs Will followup in 3 months. Will call with any further issues. July,Essential (primary) hypertension (ICD-10 - I10)Updated med list. Pt states cardio recently ordered labs. Low sodium (2gm) diet was advised. Limit caffeine. Routine CV exercise also recommended [facility] Other 04-13-2023 Evaluation note* Encounter Date Diagnosis Assessment Notes Treatment Notes Treatment Clinical Notes Jun, Acute left lumbar radiculopathy (ICD-10 - M54.16) [facility] Other 01-10-2023 Evaluation note* Encounter Date Diagnosis Assessment Notes Treatment Notes Treatment Clinical Notes Mar, Bronchitis (ICD-10 - J40) Bronchitis: Care Instructions material was printed Pt is acutely sick with acute complicated bronchitis Recommend: Antibiotics: Azithromycin 50 mg po daily for 5 days Work note printed and faxed [facility] Other 08-01-2022 Evaluation note* Encounter Date Diagnosis Assessment Notes Treatment Notes Treatment Clinical Notes Oct, Muscle pain, cervical (ICD-10 - M54.2) Patient is voicing minimal complaints of pain at this time. She attributes this to Medrol dose pack. We will continue to monitor her symptoms in this region. We discussed if symptoms persist we can consider trigger point vs facet injections. Anatomy of spine discussed in detail with patient in regard to patients condition. Overall, patient believes their pain is reasonably well controlled, and she is in agreement with our treatment plan. We will follow up with her in three months, sooner if needed. Oct,2Cervical pain (neck) (ICD-10 - M54.2) Oct,2Chronic pain (ICD-10 - G89.29) Oct,2OtherAbove note written by Mario Soler LPN, Sharepoint Developer. Edited and approved by Dr. Loretta Way MD. [facility] Other 07-19-2022 Evaluation note* Encounter Date Diagnosis Assessment Notes Treatment Notes Treatment Clinical Notes Sep, Muscle pain, cervical (ICD-10 - M54.2) We discussed treatment options for the patient's persistent neck pain as well as muscle pain in theleft trapezius region, we discussed she may have a component of pain which is likely degenerative in nature. She has a history of an anterior fusion. She denies any radicular symptoms. The patient issomewhat nervous about the idea of injections. We will start treatment conservatively with Medrol dose pack, Cyclobenzaprine 10 mg up to twice daily as needed for muscle spasms. Risks and side effects of this medication was discussed in detail with the patient who voiced understanding. Additionally, we discuss over the counter Voltaren gel to be used twice daily. Patient was provided educational literature for exercises. We discussed if symptoms persist we can consider trigger point vs facet injections. Anatomy of spine discussed in detail with patient in regard to patients condition. Sep,ervical pain (neck) (ICD-10 - M54.2) Sep,hronic pain (ICD-10 - G89.29) Sep,2OtherAbove note written by Mario Soler LPN, Sharepoint Developer. Edited and approved by Dr. Loretta Way MD.Medical decision making shows a new problem to me with further workup planned or suggested with thepotential for extensive treatment options that were considered with the most applicable given this patient's situation as noted above. Treatment options considered include a combination of physical therapy approaches, pharmacologic management, and interventional procedures. Those most applicable tothe patient were discussed at this time. Risk of complications and/or morbidity and mortality is high given that acute and chronic pain poses a threat to life and bodily function if undertreated, poorly treated or with failure to maintain adequate treatment and timely followup. Given the serious and fluctuating nature of pain with extensive consideration for whenever pain changes, there always remains the possibility of prolonged functional impairment requiring constant patient reassessment and high-level medical decision making. The amount and complexity of data reviewed is high given that patient labs, radiology reports, and other test were obtained, reviewed and summarized as applicable from the physician portal and/or outside medical records. Pertinent positive and negative findings were considered in medical decision-making. [facility] Other 07-12-2022 Evaluation note* Encounter Date Diagnosis Assessment Notes Treatment Notes Treatment Clinical Notes Sep, Displacement of inte rvertebral disc at C5-C6 level (ICD-10 - M50.222) I have independently reviewed the plain x-ray of the cervical spine showing a C6-7 anterior cervical plate and fusion. The MRI at C5-6 which is independently reviewed showed left foraminal stenosis secondary to disc and osteophyte. Canal is adequate. This patient has minimal arm pain but lots of left neck pain. I would recommend she try pain management for relief. A referral will be sent. I will follow-up with her in 6 weeks. Sep,Neck pain (ICD-10 - M54.2) Sep,History of fusion of cervical spine (ICD-10 - Z98.1) [place] [facility] Other 05-30-2014 Evaluation note* Diagnosis Onset Date Resolution Status Cervicalgia acuteChronic obstructive pulmonary disease, unspecifiedacuteChronic pain syndromeMay 30th, 2014acuteIBS (irritable bowel syndrome)acuteCervicalgiaacute Chronic pain syndromeMay 30th, 2014acuteRadiculopathy, lumbar regionacute [facility] Work Phone: 1(469) 681-591405-30-2014 Evaluation note* Diagnosis Onset Date Resolution Status Cervicalgia acuteChronic pain syndromeMay 30th, 2014acuteRadiculopathy, lumbar regionacute CervicalgiaacuteChronic painacuteRadiculopathy, lumbar regionacuteCervicalgia acuteChronic painacuteOther spondylosis with radiculopathy, lumbar regionacute Radiculopathy, lumbar regionacute [facility] Work Phone: 1([phone]) [phone] Evaluation note* Diagnosis Onset Date Resolution Status Cervicalgia acuteChronic pain syndromeMay 30th, 2014acuteRadiculopathy, lumbar regionacute ThyroiditisacuteCervicalgiaacuteChronic painacuteOther spondylosis with radiculopathy, lumbar regionacuteRadiculopathy, lumbar regionacuteOther spondylosis with radiculopathy, lumbar regionacuteCervicalgiaacuteChronic pain syndromeMay 30th, 2014acuteRadiculopathy, lumbar regionacuteThyroiditisacute [facility] Work Phone: 1([phone]) 562-606705-30-2014 Evaluation note* Diagnosis Onset Date Resolution Status Cervicalgia acuteChronic pain syndromeMay 30th, 2014acuteRadiculopathy, lumbar regionacute ThyroiditisacuteCervicalgiaacuteChronic painacuteOther spondylosis with radiculopathy, lumbar regionacuteRadiculopathy, lumbar regionacuteOther spondylosis with radiculopathy, lumbar regionacuteCervicalgiaacuteChronic pain syndromeMay 30th, 2014acuteRadiculopathy, lumbar regionacuteThyroiditisacute Radiculopathy, lumbar regionacute [facility] Work Phone: 1([phone]) [phone] Evaluation note* Diagnosis Onset Date Resolution Status Other spondylosis with radiculopathy, ruthann mbar region acuteCervicalgiaacuteChronic pain syndromeMay , cuteRadiculopathy, lumbar regionacuteThyroiditisacuteRadiculopathy, lumbar regionacuteCervicalgia acuteChronic painacuteOther spondylosis with radiculopathy, lumbar regionacute Radiculopathy, lumbar regionacuteCervicalgiaacuteChronic pain syndromeMay 2014acuteRadiculopathy, lumbar regionacuteThyroiditisacute [facility] Work Phone: [phone] 216-132705-30-2014 Evaluation note* Diagnosis Onset Date Resolution Status Admit Date Chronic pain syndrome August 15, 2013 acuteApril 2024 8:37amRadiculopathy, lumbar regionacuteApril 2024 8:37amChronic pain syndromeMay , cuteJune 2024 9:45am Radiculopathy, lumbar regionacuteJune 2024 9:45am [facility] Work Phone: [phone]) 533-659905-30-2014 Evaluation note* Diagnosis Onset Date Resolution Status Admit Date Chronic pain syndrome August 15, 2013 acuteJune 2024 9:45amRadiculopathy, lumbar regionacuteJune 2024 9:45amRadiculopathy, lumbar regionacuteJuly 2024 8:50am [facility] Work Phone: Evaluation + Plan note Future Appointments Appointment Date:07/25/2023 09:00:00 AM Scheduled Provider: Location:[facility] Appointment Type:Surgery FT Future Scheduled Tests Laboratory* Pancreatic Elastase, Fecal 07/16/23 * Calprotectin, Fecal 07/16/23 * 5 HIAA 24 Hour Urine 07/16/23 * O & P Exam, Routine 07/16/23 * Celiac Disease Comprehensive 07/16/23 * Clostridium Difficile PCR 07/16/23 * Enteric Panel by PCR 07/16/23 * Thyroid Stimulating Hormone 07/16/23 * Free T4 07/16/23 [facility] Evaluation + Plan note Future Appointments Appointment Date:07/25/2023 09:00:00 AM Scheduled Provider: Location:[facility] Appointment Type:Surgery FT Diagnostic Tests Pending * Calprotectin, Fecal 07/19/23 * Celiac Disease Comprehensive 07/19/23 * O & P Exam, Routine 07/19/23 * Pancreatic Elastase, Fecal 07/19/23 Future Scheduled Tests Laboratory* 5 HIAA 24 Hour Urine [facility] Future Appointments Appointment Date:08/17/2023 07:00:00 AM Scheduled Provider: Location:.[facility] Appointment Type:CT Abdomen/Pelvis Combo (FT) Future Scheduled Tests Laboratory* 5 HIAA 24 Hour Urine 07/16/23 Radiology* CT Abdomen/Pelvis w/ Contrast 08/17/23 [facility] noteNo [employer] Other Evaluation note* Diagnosis Coronary artery disease involving [place] coronary artery of [place] heart without angina pectoris- Primary Essential hypertension, benign Mixed hyperlipidemia History of PTCA Postsurgical percutaneous transluminal coronary angioplasty status documented in this encounter [facility] Work Phone: Evaluation note* Diagnosis Onset Date Resolution Status IBS (irritable bowel syndrome) acute [facility] Work Phone: Evaluation note* Diagnosis Onset Date Resolution Status Cervicalgia acuteChronic painacuteRadiculopathy, lumbar regionacuteCervicalgiaacuteChronic painacuteOther spondylosis with radiculopathy, lumbar regionacuteRadiculopathy, lumbar regionacuteCervicalgiaacuteChronic pain syndromeMay cute Radiculopathy, lumbar regionacuteThyroiditisacuteCervicalgiaacuteChronic pain acuteOther spondylosis with radiculopathy, lumbar regionacuteRadiculopathy, lumbar regionacute [facility] Work Phone: Evaluation note* Diagnosis Onset Date Resolution Status Cervicalgia acuteChronic painacuteOther spondylosis with radiculopathy, lumbar regionacute Radiculopathy, lumbar regionacuteCervicalgiaacuteChronic pain syndromeMay cuteRadiculopathy, lumbar regionacuteThyroiditisacuteCervicalgiaacute Chronic painacuteOther spondylosis with radiculopathy, lumbar regionacute Radiculopathy, lumbar regionacute [facility] Work Phone: Evaluation note* Diagnosis Onset Date Resolution Status Cervicalgia acuteChronic painacuteOther spondylosis with radiculopathy, lumbar regionacute Radiculopathy, lumbar regionacuteOther spondylosis with radiculopathy, lumbar regionacuteCervicalgiaacuteChronic pain syndromeMay 30th, 2014acute Radiculopathy, lumbar regionacuteThyroiditisacuteRadiculopathy, lumbar region acuteCervicalgiaacuteChronic painacuteOther spondylosis with radiculopathy, lumbar regionacuteRadiculopathy, lumbar regionacute [facility] Work Phone: Evaluation note* Diagnosis Paresthesia- Primary Disturbance of skin sensation documented in this encounter [facility] HealthcareEvaluation note* Diagnosis Cervical radiculopathy- Primary Brachial neuritis or radiculitis nos Carpal tunnel syndrome on both sides Carpal tunnel syndrome documented in this encounter [facility] HealthcareEvaluation note* Diagnosis Essential hypertension, benign- Primary Coronary artery disease involving takotna coronary artery of tak[place] heart without angina pectoris Mixed hyperlipidemia Body mass index (BMI) 24.0-24.9, adult Current every day smoker BMI less than 19,adult Shortness of breath- Primary Coronary artery disease involving tak[place] coronary artery of [place] heart without angina pectoris Mixed hyperlipidemia History of PTCA Postsurgical percutaneous transluminal coronary angioplasty status History of myocardial infarction Essential hypertension, benign BMI less than 19,adult Current smoker Encounter for pre-operative cardiovascular clearance documented in this encounter [facility] Work Phone: Evaluation note* Diagnosis Essential hypertension, benign- Primary Coronary artery disease involving takot[place] coronary artery of [place] heart without angina pectoris Mixed hyperlipidemia Body mass index (BMI) 24.0-24.9, adult Current every day smoker BMI less than 19,adult Coronary artery disease involving takot[place] coronary artery of tak[place] heart without angina pectoris History of PTCA Postsurgical percutaneous transluminal coronary angioplasty status History of myocardial infarction Essential hypertension, benign Current smoker Encounter for pre-operative cardiovascular clearance documented in this encounter [facility] Work Phone: Evaluation note* Diagnosis Essential hypertension, benign- Primary Coronary artery disease involving takot[place] coronary artery of [place] heart without angina pectoris Mixed hyperlipidemia Body mass index (BMI) 24.0-24.9, adult Current every day smoker BMI less than 19,adult Coronary artery disease involving takot[place] coronary artery of takot[place] heart without angina pectoris History of PTCA Postsurgical percutaneous transluminal coronary angioplasty status History of myocardial infarction Essential hypertension, benign Current smoker Encounter for pre-operative cardiovascular clearance documented in this encounter [facility] Work Phone: History general Narrative - Reported* Type Description Date Medical History perforated appendix Medical Historygall bladder diseaseMedical Historyheart diseaseMedical History high cholesterolMedical Historychronic depressionMedical HistoryanxietyMedical Historythyroid diseaseSurgical Historycarpal tunnel releaseSurgical History laparotomySurgical HistoryhysterectomySurgical Historyacdf [id number] History Lumbar decompressionSurgical Historyheart stent [place] Other History general Narrative - Reported* Type Description Date Medical History perforated appendix Medical Historygall bladder diseaseMedical Historyheart diseaseMedical History high cholesterolMedical Historychronic depressionMedical HistoryanxietyMedical Historythyroid diseaseSurgical Historycarpal tunnel releaseSurgical History laparotomySurgical HistoryhysterectomySurgical Historyacdf [id number] History Lumbar decompressionSurgical Historyheart stentHospitalization Historysee surgical hx [facility] Other History of Present illness Narrative* The patient states she has been generally doing well since the last visit. Comorbid Illnesses: hypertension. * Symptoms: denies chest pain at rest, denies exertional chest pain, denies dyspnea, denies fatigue, stable exercise intolerance, denies palpitations, denies edema, denies orthopnea, denies dizziness and denies orthostatic dizziness. * Associated symptoms: no syncope and no PND. * Her symptoms do not limit her activities. * Disease Monitoring: * Medications: the patient is adherent with her medication regimen. She denies medication side effects. -[facility] [address] DO Work Phone: History of Present illness NarrativePatient is seen after long absence in follow-up of problems as noted. She has had none of the symptoms of coronary disease that preceded her original diagnosis and subsequent angioplasty. Lipids are treated but have not been checked for a while. Blood pressure control could be improved upon. We discussed diet exercise weight loss and most importantly smoking cessation is means and/or mechanisms to improve blood pressure control. We will, though, add a thiazide diuretic perform a lipid profile and basic metabolic profile in about a month and provide guidance in regards to the use of the new medicine as well as statin therapy. Otherwise we will follow-up in the distant future unless symptoms arise or more frequent visits are necessitated because of the lack of therapeutic effect.[facility] [address] DO Work Phone: Hospital course Narrative No data available for this section [facility] instructionsAmbulatory Orders* Referral to Gastroenterology Time Frame: 05/10/23, Location: [facility] Work Phone: Hospital Discharge instructionsAmbulatory Orders* Referral to Pain Management Time Frame: 07/06/23, Location: None [facility] Work Phone: Hospital Discharge instructions No data available for this section [facility] Discharge instructionsAmbulatory Orders* Referral to Neurosurgery Location: [facility] Work Phone: Progress note No data available for this section [facility] for referral (narrative)* Consultation (Routine) - AuthorizedSpecialtyDiagnoses / ProceduresReferred By Contact Referred To ContactCardiology Diagnoses Coronary artery disease involving takotna coronary artery of takotna heart without angina pectoris Procedures Follow Up In Cardiology Evan Dempsey MD [address] [address], [address] [address] Evan Dempsey MD [address] [place] [address] 2, [address] [address] Referral IDStatusReasonStart DateExpiration DateVisits RequestedVisits [id number]/26/202310/25/202411 [facility] Work Phone: Rejdci for referral (narrative)No reason for referral information availableMer[facility] Health St[facility] Work Phone: Reason for visit Narrative* Cardiac Stress Testing (Routine) - AuthorizedSpecialtyDiagnoses / ProceduresReferred By Contact Referred To ContactRadiology Diagnoses Coronary artery disease involving takotna coronary artery of takot[place] heart without angina pectoris History of PTCA History of myocardial infarction Essential hypertension, benign Current smoker Encounter for pre-operative cardiovascular clearance Procedures Nuclear Stress Test CHG MYOCARDIAL SPECT MULTIPLE STUDIES Nahum Baumann MD [address] [facility] 2, [address] [id number] Phone: tel: fax: Referral IDStatusReasonStart DateExpiration DateVisits RequestedVisits [id number]/19/20258/19/202655 [facility] Work Phone: reason for visit Narrative* Cardiac Stress Testing (Routine) - AuthorizedSpecialtyDiagnoses / ProceduresReferred By Contact Referred To ContactRadiology Diagnoses Coronary artery disease involving takotna coronary artery of takotna heart without angina pectoris History of PTCA History of myocardial infarction Essential hypertension, benign Current smoker Encounter for pre-operative cardiovascular clearance Procedures Nuclear Stress Test CHG MYOCARDIAL SPECT MULTIPLE STUDIES Nahum Baumann MD [address] [facility] 2, [address] [place] [id number] Phone: tel: fax: Referral IDStatusReasonStart DateExpiration DateVisits RequestedVisits [id number]/19/20258/19/202655 [facility] Work Phone: reason for visit Narrative* CV Imaging (Routine) - AuthorizedSpecialtyDiagnoses / ProceduresReferred By ContactReferred To ContactCardiology Diagnoses Coronary artery disease involving takotna coronary artery of takotna heart without angina pectoris History of PTCA History of myocardial infarction Essential hypertension, benign Current smoker Encounter for pre-operative cardiovascular clearance Procedures Transthoracic Echo Complete NM ECHO TTHRC R-T 2D W/WOM-MODE COMPL SPEC&COLR D Nahum Baumann MD [address] [facility] 2, [address] [place] [address] Phone: tel: fax: Referral IDStatusReasonStart DateExpiration DateVisits RequestedVisits [id number] Perform Procedure [facility] Work Phone: Chief Complaint * I am dong fine * MARY WEST is being seen for an annual follow-up of coronary artery disease, dyslipidemia and hypertension. She is ambulatory with steady gait, last evaluated in clinic by Dr. Cleary December 2019. * Patient reports 1 emergency department evaluation due to hypertensive urgency that occurred after starting Effexor. She otherwise denies any hospitalizations or significant changes to interval medical history. 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 She denies any recurrent symptoms of exertional heartburn, denies any change in exercise capacity or functional tolerance. There have been no utilization of nitroglycerin. * Secondary prevention * 1. Hypertension -optimal in office * 2. Hyperlipidemia -is due for lipid profile * 3. Diabetes -denies * 4. BMI -23 * 5. Tobacco use -continued everyday smoker * She does describe some occasional lower extremity edema, previously had as needed Lasix and is requesting a refill. She has been encouraged to take as needed, increase potassium rich foods. October 2020 creatinine 1.0. MARY WEST is being seen for an annual follow-up of.MARY WEST is being seen for an annual follow-up of. Family History Unknown Family Member Name Dates Details Family history of acute myoc ardial infarction: Father(V17.3, Z82.49) Status:ActiveFamily history of atrial fibrillation: Brother(V17.49, Z82.49) Status:ActiveFamily history of Alzheimer's disease: Father(V17.2, Z82.0) Status:ActiveFamily history of hyperlipidemia: Father(V18.19, Z83.438) Status:ActiveFamily history of cardiac pacemaker: Father(V17.49, Z82.49) Status:Active Unknown Family Member Name Dates Details Family history of acute myoc ardial infarction: Father(V17.3, Z82.49) Status:ActiveFamily history of atrial fibrillation: Brother(V17.49, Z82.49) Status:ActiveFamily history of Alzheimer's disease: Father(V17.2, Z82.0) Status:ActiveFamily history of hyperlipidemia: Father(V18.19, Z83.438) Status:ActiveFamily history of cardiac pacemaker: Father(V17.49, Z82.49) Status:Active Unknown Family Member Name Dates Details Family history of cardiac pa cemaker: Father(V17.49, Z82.49) Status:ActiveFamily history of hyperlipidemia: Father(V18.19, Z83.438) Status:ActiveFamily history of Alzheimer's disease: Father(V17.2, Z82.0) Status:ActiveFamily history of atrial fibrillation: Brother(V17.49, Z82.49) Status:ActiveFamily history of acute myocardial infarction: Father(V17.3, Z82.49) Status:Active Unknown Family Member Name Dates Details Family history of acute myoc ardial infarction: Father(V17.3, Z82.49) Status:ActiveFamily history of atrial fibrillation: Brother(V17.49, Z82.49) Status:ActiveFamily history of Alzheimer's disease: Father(V17.2, Z82.0) Status:ActiveFamily history of hyperlipidemia: Father(V18.19, Z83.438) Status:ActiveFamily history of cardiac pacemaker: Father(V17.49, Z82.49) Status:Active Unknown Family Member Name Dates Details Family history of acute myoc ardial infarction: Father(V17.3, Z82.49) Status:ActiveFamily history of atrial fibrillation: Brother(V17.49, Z82.49) Status:ActiveFamily history of Alzheimer's disease: Father(V17.2, Z82.0) Status:ActiveFamily history of hyperlipidemia: Father(V18.19, Z83.438) Status:ActiveFamily history of cardiac pacemaker: Father(V17.49, Z82.49) Status:ActiveHypertension, benign: Mother Status:Active Unknown Family Member Name Dates Details Family history of acute myoc ardial infarction: Father(V17.3, Z82.49) Status:ActiveFamily history of atrial fibrillation: Brother(V17.49, Z82.49) Status:ActiveFamily history of Alzheimer's disease: Father(V17.2, Z82.0) Status:ActiveFamily history of hyperlipidemia: Father(V18.19, Z83.438) Status:ActiveFamily history of cardiac pacemaker: Father(V17.49, Z82.49) Status:ActiveHypertension, benign: Mother Status:Active Relationship Condition Age at Onset Recorded Date/T godwin father Unknown Malignant neoplasmUnknownHeart diseaseUnknownHypertensionUnknownFamily history of mental disorderUnknownNot SpecifiedHypertensionUnknown Relationship Condition Age at Onset Recorded Date/T godwin father Unknown Malignant neoplasmUnknownHeart diseaseUnknownHypertensionUnknownFamily history of mental disorderUnknownmotherHypertensionUnknown Reason for Referral Reason *Waiting for appt Evaluate and Treat Neck Pain Diagnosis 1 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 [facility] [place],[address] Referred Provider Specialty Pain Medicin e Referral Priority Routine General Notes Fore, Erin M 022 10:13:34 AM >Received today and sent P2P Summary Purpose Advance Directives Advance Directive Response Recorded Date/ Time Advance Directives No January 18, 2018 11:11am Advance Directive Response Recorded Date/ Time Advance Directives No January 18, 2018 12:11pm Advance Directive Response Recorded Date/ Time Advance Directives No November 09, 2023 4:44pm Advance Directive Response Recorded Date/ Time Advance Directives No November 09, 2023 3:44pm Advance Directive Response Recorded Date/ Time Advance Directives No March 24, 2024 12:04pm Advance Directive Response Recorded Date/ Time Advance Directives No March 24, 2024 1:04pm Chief Complaint and Reason for Visit Chief Complaint 3 MONTH FOLLOW UP Reason for Visit IBS (irritable bowel syndrome) Chief Complaint 3 MONTH FOLLOW UP medication reviewReason for VisitCervicalgia Chronic obstructive pulmonary disease, unspecified Chronic pain syndrome IBS (irritable bowel syndrome) Cervicalgia Chronic pain syndrome Radiculopathy, lumbar region Chief Complaint medication review RECHECK LUMBAR/CERVICAL PAIN M54.16 - Radiculopathy, lumbar region cervical/lumbar pain 6 WEEKSReason for VisitCervicalgia Chronic pain syndrome Radiculopathy, lumbar region Cervicalgia Chronic pain Radiculopathy, lumbar region Cervicalgia Chronic pain Other spondylosis with radiculopathy, lumbar region Radiculopathy, lumbar region Chief Complaint medication review RECHECK LUMBAR/CERVICAL PAIN M54.16 - Radiculopathy, lumbar region cervical/lumbar pain 6 WEEKS M47.26Reason for VisitCervicalgia Chronic pain syndrome Radiculopathy, lumbar region Cervicalgia Chronic pain Radiculopathy, lumbar region Cervicalgia Chronic pain Other spondylosis with radiculopathy, lumbar region Radiculopathy, lumbar region Chief Complaint medication review RECHECK LUMBAR/CERVICAL PAIN M54.16 - Radiculopathy, lumbar region cervical/lumbar pain 6 WEEKS M47.26 3 month check upReason for VisitCervicalgia Chronic pain syndrome Radiculopathy, lumbar region Cervicalgia Chronic pain Radiculopathy, lumbar region Cervicalgia Chronic pain Other spondylosis with radiculopathy, lumbar region Radiculopathy, lumbar region Chief Complaint RECHECK LUMBAR/CERVI AMARIS PAIN M54.16 - Radiculopathy, lumbar region cervical/lumbar pain 6 WEEKS M47.26 3 month check up MRI RESULTSReason for VisitCervicalgia Chronic pain Radiculopathy, lumbar region Cervicalgia Chronic pain Other spondylosis with radiculopathy, lumbar region Radiculopathy, lumbar region Cervicalgia Chronic pain syndrome Radiculopathy, lumbar region Thyroiditis Cervicalgia Chronic pain Other spondylosis with radiculopathy, lumbar region Radiculopathy, lumbar region Chief Complaint cervical/lumbar pain 6 WEEKS M47.26 3 month check up MRI RESULTSReason for VisitCervicalgia Chronic pain Other spondylosis with radiculopathy, lumbar region Radiculopathy, lumbar region Cervicalgia Chronic pain syndrome Radiculopathy, lumbar region Thyroiditis Cervicalgia Chronic pain Other spondylosis with radiculopathy, lumbar region Radiculopathy, lumbar region Chief Complaint cervical/lumbar pain 6 WEEKS M47.26 3 month check up MRI RESULTS Other spondylosis with radiculopathyReason for VisitCervicalgia Chronic pain Other spondylosis with radiculopathy, lumbar region Radiculopathy, lumbar region Cervicalgia Chronic pain syndrome Radiculopathy, lumbar region Thyroiditis Cervicalgia Chronic pain Other spondylosis with radiculopathy, lumbar region Radiculopathy, lumbar region Chief Complaint M47.26 3 month check up MRI RESULTS Other spondylosis with radiculopathy 3 month f/uReason for VisitCervicalgia Chronic pain syndrome Radiculopathy, lumbar region Thyroiditis Cervicalgia Chronic pain Other spondylosis with radiculopathy, lumbar region Radiculopathy, lumbar region Other spondylosis with radiculopathy, lumbar region Cervicalgia Chronic pain syndrome Radiculopathy, lumbar region Thyroiditis Chief Complaint 3 month check up MRI RESULTS Other spondylosis with radiculopathy 3 month f/u emg resultsReason for VisitCervicalgia Chronic pain syndrome Radiculopathy, lumbar region Thyroiditis Cervicalgia Chronic pain Other spondylosis with radiculopathy, lumbar region Radiculopathy, lumbar region Other spondylosis with radiculopathy, lumbar region Cervicalgia Chronic pain syndrome Radiculopathy, lumbar region Thyroiditis Radiculopathy, lumbar region Chief Complaint MRI RESULTS Other spondylosis with radiculopathy 3 month f/u emg results F/U FROM NEUROReason for VisitCervicalgia Chronic pain Other spondylosis with radiculopathy, lumbar region Radiculopathy, lumbar region Other spondylosis with radiculopathy, lumbar region Cervicalgia Chronic pain syndrome Radiculopathy, lumbar region Thyroiditis Radiculopathy, lumbar region Cervicalgia Chronic pain Other spondylosis with radiculopathy, lumbar region Radiculopathy, lumbar region Chief Complaint MRI RESULTS Other spondylosis with radiculopathy 3 month f/u emg results F/U FROM NEURO 3 month f/uReason for VisitCervicalgia Chronic pain Other spondylosis with radiculopathy, lumbar region Radiculopathy, lumbar region Other spondylosis with radiculopathy, lumbar region Cervicalgia Chronic pain syndrome Radiculopathy, lumbar region Thyroiditis Radiculopathy, lumbar region Cervicalgia Chronic pain Other spondylosis with radiculopathy, lumbar region Radiculopathy, lumbar region Chief Complaint Other spondylosis wi th radiculopathy 3 month f/u emg results F/U FROM NEURO 3 month f/u Back Pain Back PainReason for VisitOther spondylosis with radiculopathy, lumbar region Cervicalgia Chronic pain syndrome Radiculopathy, lumbar region Thyroiditis Radiculopathy, lumbar region Cervicalgia Chronic pain Other spondylosis with radiculopathy, lumbar region Radiculopathy, lumbar region Cervicalgia Chronic pain syndrome Radiculopathy, lumbar region Thyroiditis Chief Complaint Admit Date Other spondylosis with radiculopathy Sep tember 2023 9:43am 3 month f/u December 05, 2023 8:22am emg results December 24, 2023 10 :10am F/U FROM NEURO January 02, 2024 9 :35am 3 month f/u January 03, 2024 1 0:45am Back Pain January 22, 2024 6 :57am Back Pain January 22, 2024 8 :11am bp meds February 01, 2024 9:59am Reason for Visit Admit Date Other spondylosis with radiculopathy, ruthann mbar region November 23, 2023 9:43am Cervicalgia December 05, 2023 8:22am Chronic pain syndrome December 04 8:22am Radiculopathy, lumbar region November 172023 8:22am Thyroiditis December 05, 2023 8:22am Radiculopathy, lumbar region December 10:10am Cervicalgia January 02, 2024 9 :35am Chronic pain January 02, 2024 9 :35am Other spondylosis with radiculopathy, ruthann mbar region January 02, 2024 9:35am Radiculopathy, lumbar region December 9:35am Cervicalgia January 03, 2024 1 0:45am Chronic pain syndrome January 03, 2024 10:45am Radiculopathy, lumbar region December 10:45am Thyroiditis January 03, 2024 1 0:45am Chief Complaint Admit Date Other spondylosis with radiculopathy Nov 9:43am 3 month f/u December 05, 2023 8:22am emg results December 24, 2023 10 :10am F/U FROM NEURO January 02, 2024 9 :35am 3 month f/u January 03, 2024 1 0:45am Back Pain January 22, 2024 6 :57am Back Pain January 22, 2024 8 :11am bp meds February 01, 2024 9:59am follow up after injections January 8:42am Chief Complaint Admit Date Other spondylosis with radiculopathy [facility]2023 9:43am 3 month f/u December 05, 2023 8:22am emg results December 24, 2023 10 :10am F/U FROM NEURO January 02, 2024 9 :35am 3 month f/u January 03, 2024 1 0:45am Back Pain January 22, 2024 6 :57am Back Pain January 22, 2024 8 :11am bp meds February 01, 2024 9:59am follow up after injections January 8:42am F/U LEFT TRANSFORAMINAL EPIDURAL Novembe 2023 8:38am Reason for Visit Admit Date Other spondylosis with radiculopathy, ruthann mbar region November 23, 2023 9:43am Cervicalgia December 05, 2023 8:22am Chronic pain syndrome December 04 8:22am Radiculopathy, lumbar region November 172023 8:22am Thyroiditis December 05, 2023 8:22am Radiculopathy, lumbar region December 10:10am Cervicalgia January 02, 2024 9 :35am Chronic pain January 02, 2024 9 :35am Other spondylosis with radiculopathy, ruthann mbar region January 02, 2024 9:35am Radiculopathy, lumbar region December 9:35am Cervicalgia January 03, 2024 1 0:45am Chronic pain syndrome January 03, 2024 10:45am Radiculopathy, lumbar region December 10:45am Thyroiditis January 03, 2024 1 0:45am Other spondylosis with radiculopathy, ruthann mbar region February 04, 2024 8:42am Cervicalgia February 06, 2024 8:38am Chronic pain February 06, 2024 8:38am Other spondylosis with radiculopathy, ruthann mbar region February 06, 2024 8:38am Radiculopathy, lumbar region February 052023 8:38am Chief Complaint Admit Date F/U FROM NEURO January 02, 2024 9 :35am 3 month f/u January 03, 2024 1 0:45am Back Pain January 22, 2024 6 :57am Back Pain January 22, 2024 8 :11am bp meds February 01, 2024 9:59am follow up after injections January 8:42am F/U LEFT TRANSFORAMINAL EPIDURAL Novembe r 2023 8:38am M47.26 March 01, 2024 7:44am VIRTUAL, fever, body aches, cough Decemb er 2023 2:48pm MRI results March 24, 2024 11 :07am Reason for Visit Admit Date Cervicalgia January 02, 2024 9 :35am Chronic pain January 02, 2024 9 :35am Other spondylosis with radiculopathy, ruthann mbar region January 02, 2024 9:35am Radiculopathy, lumbar region December 9:35am Cervicalgia January 03, 2024 1 0:45am Chronic pain syndrome January 03, 2024 10:45am Radiculopathy, lumbar region December 10:45am Thyroiditis January 03, 2024 1 0:45am Cervicalgia February 01, 2024 9:59am Chronic pain syndrome January 31 9:59am Radiculopathy, lumbar region January 312023 9:59am Thyroiditis February 01, 2024 9:59am Medication care plan discussed with sandra ent February 01, 2024 9:59am Other spondylosis with radiculopathy, ruthann mbar region February 04, 2024 8:42am Cervicalgia February 06, 2024 8:38am Chronic pain February 06, 2024 8:38am Other spondylosis with radiculopathy, ruthann mbar region February 06, 2024 8:38am Radiculopathy, lumbar region February 052023 8:38am Bronchitis March 17, 2024 2:48pm Other spondylosis with radiculopathy, ruthann mbar region March 24, 2024 11:07am Chief Complaint Admit Date bp meds February 01, 2024 9:59am follow up after injections January 8:42am F/U LEFT TRANSFORAMINAL EPIDURAL Novembe r 2023 8:38am M47.26 March 01, 2024 7:44am VIRTUAL, fever, body aches, cough Decemb er 2023 2:48pm MRI results March 24, 2024 11 :07am 3 month f/u April 30, 2024 9:14am Reason for Visit Admit Date Cervicalgia February 01, 2024 9:59am Chronic pain syndrome January 31 9:59am Radiculopathy, lumbar region January 312023 9:59am Thyroiditis February 01, 2024 9:59am Medication care plan discussed with sandra ent February 01, 2024 9:59am Other spondylosis with radiculopathy, ruthann mbar region February 04, 2024 8:42am Cervicalgia February 06, 2024 8:38am Chronic pain February 06, 2024 8:38am Other spondylosis with radiculopathy, ruthann mbar region February 06, 2024 8:38am Radiculopathy, lumbar region February 052023 8:38am Bronchitis March 17, 2024 2:48pm Other spondylosis with radiculopathy, ruthann mbar region March 24, 2024 11:07am Chief Complaint Admit Date 3 month f/u April 30, 2024 9:14am follow up back pain June 23, 2024 9:02 am Reason for Visit Admit Date Cervicalgia April 30, 2024 9:14am Chronic pain syndrome April 30 9:14am Radiculopathy, lumbar region April 302024 9:14am Chief Complaint Admit Date 3 month f/u April 30, 2024 9:14am follow up back pain June 23, 2024 9:02 am med adjustment June 27, 2024 8:3 7am Reason for Visit Admit Date Cervicalgia April 30, 2024 9:14am Chronic pain syndrome April 30 9:14am Radiculopathy, lumbar region April 302024 9:14am Radiculopathy, lumbar region June 23, 2024 9:02am Chief Complaint Admit Date follow up back pain June 23, 2024 9:02 am med adjustment June 27, 2024 8:3 7am talk about upcoming surgery August 26 9:45am Reason for Visit Admit Date Radiculopathy, lumbar region June 23, 2024 9:02am Chronic pain syndrome June 27, 2024 8 :37am Radiculopathy, lumbar region June 27, 2024 8:37am Chief Complaint Admit Date med adjustment June 27, 2024 8:3 7am talk about upcoming surgery August 26 9:45am follow up low back pain. September 22, 2024 8:50am Reason for Visit Admit Date Chronic pain syndrome June 27, 2024 8 :37am Radiculopathy, lumbar region June 27, 2024 8:37am Chronic pain syndrome August 26, 2024 9: 45am Radiculopathy, lumbar region August 26, 2024 9:45am Chief Complaint Admit Date talk about upcoming surgery August 26 9:45am follow up low back pain. September 22, 2024 8:50am M47.October 20, 2024 8:2 9am Reason for Visit Admit Date Chronic pain syndrome August 26, 2024 9: 45am Radiculopathy, lumbar region August 26, 2024 9:45am Radiculopathy, lumbar region September 22 8:50am Chief Complaint Admit Date talk about upcoming surgery August 26 9:45am follow up low back pain. September 22, 2024 8:50am M47.October 20, 2024 8:2 9am 3 month follow up November 20, 2024 10:34am Chief Complaint Admit Date M47.October 20, 2024 8:2 9am 3 month follow up November 20, 2024 10:34am follow up lumbar pain/ imaging results O ctober 2024 8:52am Reason for Visit Admit Date Abdominal pain November 20, 2024 10:34am Chronic pain syndrome November 20 10:34am IBS (irritable bowel syndrome) November 20, 2024 10:34am Radiculopathy, lumbar region November 202024 10:34am Screening mammogram for breast cancer Se pt2024 10:34am Radiculopathy, lumbar region December 8:52am Chief Complaint Admit Date M47.October 20, 2024 8:2 9am 3 month follow up November 20, 2024 10:34am follow up lumbar pain/ imaging results O ctober 2024 8:52am Discuss Meds January 07, 2025 8 :20am Additional Source Comments REASON FOR VISIT (unrecogniz ed section and content) ReasonCommentsFollow-upCardiac Stress [id number] ExamPrevious Dr. Dempsey patient here today for annual visit for coronary artery disease, denies cardiac c/o at this time.SpecialtyDiagnoses / ProceduresReferred By ContactReferred To ContactCardiology Diagnoses Coronary artery disease involving [place] coronary artery of [place] heart without angina pectoris Procedures Follow Up In Cardiology Emil Reyna, ELECTROTYPER-HAND ROUTER OPERATOR [address] [address], [address] [address] Phone: tel: fax: Nahum Baumann MD [address] [facility], [address] [address] Phone: tel: fax: Referral IDStatusReasonStart DateExpiration DateVisits RequestedVisits [id number] INFORMATION SOURCE (unrecogn ized section and content) DATE CREATED AUTHOR 06/07/2022 [employer] DATE CREATED AUTHOR AUTHOR'S ORGANIZ ATION 08/25/2022 [facility] DATE CREATED AUTHOR AUTHOR'S ORGANIZ ATION 09/12/2022 [facility] DATE CREATED AUTHOR AUTHOR'S ORGANIZ ATION 08/14/2023 [facility] DATE CREATED AUTHOR AUTHOR'S ORGANIZ ATION 10/19/2023 [facility] DATE CREATED AUTHOR AUTHOR'S ORGANIZ ATION 12/13/2023 [facility] DATE CREATED AUTHOR AUTHOR'S ORGANIZ ATION 07/22/2024 [facility] DATE CREATED AUTHOR AUTHOR'S ORGANIZ ATION 08/29/2024 [facility] DATE CREATED AUTHOR AUTHOR'S ORGANIZ ATION 10/22/2024 [facility] DATE CREATED AUTHOR AUTHOR'S ORGANIZ ATION 12/06/2024 [facility] DATE CREATED AUTHOR AUTHOR'S ORGANIZ ATION 12/06/2024 [facility] Patient Care team informatio n (unrecognized section and content) Team Status: Active Member Role Status Dates Niurka Vicente MD Primary Care Provider Active Team Status: Inactive Member Role Status Dates Niurka Vicente MD Primary Care Provider Active Start: August 28, 2023 End: August 27omas [address] ProviderActiveStart: August 28, 2023 End: August 28, 2023 Team Status: Inactive Member Role Status Dates Niurka Vicente MD Primary Care Provider Active Start: August 29, 2023 End: August 28[address] ProviderActiveStart: August 29, 2023 End: August 29, 2023 Team Status: Inactive Member Role Status Dates Niurka Vicente MD Primary Care Provider Active Start: September 22, 2023 End: September 21[address] ProviderActiveStart: September 22, 2023 End: September 22, 2023 Team Status: Inactive Member Role Status Dates Niurka Vicente MD Primary Care Provide r, Attending Provider Active Start: October 03, 2023 End: October 03, 2023 Team Status: Inactive Member Role Status Dates Niurka Vicente MD Primary Care Provider Active Start: October 10, 2023 End: October 10, 20[address] ProviderActiveStart: October 10, 2023 End: October 10, 2023 Team Status: Inactive Member Role Status Dates Niurka Vicente MD Primary Care Provider Active Start: November 23, 2023 End: November 23, 2023Eric Siri Hooper ProviderActiveStart: November 23, 2023 End: November 23, 2023 Team Status: Active Member Role Status Dates Niurka Vicente MD Primary Care Provide r, Attending Provider Active Start: August 14, 2023 Team MemberRelationshipSpecialtyStart DateEnd Date Niurka Vicente MD [address] [place] [id number] [facility]01/13/19 Team Status: Inactive Member Role Status Dates Niurka Vicente MD Primary Care Provide r, Attending Provider Active Start: May 10, 2023 End: May 10, 2023 Team Status: Inactive Member Role Status Dates Niurka Vicente MD Primary Care Provide r, Attending Provider Active Start: July 06, 2023 End: July 06, 2023 Team Status: Inactive Member Role Status Dates Niurka Vicente MD Primary Care Provider Active Start: July 18, 2023 End: July 18, 2023ThDilip East ProviderActiveStart: July 18, 2023 End: July 18, 2023 Team Status: Active Member Role Status Dates Niurka Vicente MD Primary Care Provider Active Start: August 28, 2023 Dilip Raymundo ProviderActiveStart: August 28, 2023 Team Status: Inactive Member Role Status Dates Niurka Vicente MD Primary Care Provide r, Attending Provider Active Start: December 05, 2023 End: December 05, 2023 Team Status: Inactive Member Role Status Dates Niurka Vicente MD Primary Care Provider Active Start: December 24, 2023 End: December 24, 2023Eric Siri Hooper ProviderActiveStart: December 24, 2023 End: December 24, 2023 Team Status: Inactive Member Role Status Dates Niurka Vicente MD Primary Care Provider Active Start: January 02, 2024 End: January 02, 2024ThDilip East ProviderActiveStart: January 02, 2024 End: January 02, 2024 Team Status: Inactive Member Role Status Dates Niurka Vicente MD Primary Care Provide r, Attending Provider Active Start: January 03, 2024 End: January 03, 2024 Team Status: Inactive Member Role Status Dates Niurka Vicente MD Primary Care Provider Active Start: January 22, 2024 End: January 22, 2024ThSteffanie Eastending ProviderActiveStart: January 22, 2024 End: January 22, 2024 Team Status: Active Member Role Status Dates Niurka Vicente MD Primary Care Provider Active Start: January 22, 2024 Dilip Raymundo Provider, Other ProviderActiveStart: January 22, 2024 Team Status: Inactive Member Role Status Dates Niurka Vicente MD Primary Care Provide r, Attending Provider Active Start: February 01, 2024 End: February 01, 2024 Team Status: Inactive Member Role Status Dates Niurka Vicente MD Primary Care Provider Active Start: February 04, 2024 End: February 04, 2024Eric Siri Hooper ProviderActiveStart: February 04, 2024 End: February 04, 2024 Team Status: Inactive Member Role Status Dates Niurka Vicente MD Primary Care Provider Active Start: February 06, 2024 End: February 05Steffanie Eastending ProviderActiveStart: February 06, 2024 End: February 06, 2024Team MemberRelationshipSpecialtyStart DateEnd Date Niurka Vicente MD [address] [place] [address] PCP - [facility]12/11/23Team MemberRelationshipSpecialtyStart DateEnd Date Niurka Vicente MD [address] [place] [address] PCP - [facility]12/11/23 Team Status: Inactive Member Role Status Dates Niurka Vicente MD Primary Care Provider Active Start: March 01, 2024 End: March 01, 2024Eric N Bialaski , DOAttending ProviderActiveStart: March 01, 2024 End: March 01, 2024 Team Status: Inactive Member Role Status Dates Niurka Vicente MD Primary Care Provide r, Attending Provider Active Start: March 17, 2024 End: March 17, 2024 Team Status: Inactive Member Role Status Dates Niurka Vicente MD Primary Care Provider Active Start: March 24, 2024 End: March 24, 2024Eric N Raya , DOAttending ProviderActiveStart: March 24, 2024 End: March 24, 2024 Team Status: Inactive Member Role Status Dates Niurka Vicente MD Primary Care Provide r, Attending Provider Active Start: April 30, 2024 End: April 30, 2024 Team Status: Inactive Member Role Status Dates Niurka Vicente MD Primary Care Provider Active Start: June 23, 2024 End: June 23, 2024Eric Shaniqua Dos Santos , DOAttending ProviderActiveStart: June 23, 2024 End: June 23, 2024 Team Status: Inactive Member Role Status Nicolle Vicente MD Primary Care Provide r, Attending Provider Active Start: June 27, 2024 End: June 27, 2024 Team Status: Inactive Member Role Status Dates Niurka Vicente MD Primary Care Provide r, Attending Provider Active Start: August 26, 2024 End: August 26, 2024 Team Status: Inactive Member Role Status Nicolle Vicente MD Primary Care Provider Active Start: June 27, 2024 End: June 27, 2024Dilip Yoo ProviderActiveStart: June 27, 2024 End: June 27, 2024 Team Status: Inactive Member Role Status Dates Niurka Vicente MD Primary Care Provider Active Start: August 26, 2024 End: August 26, 2024Dilip Yoo ProviderActiveStart: August 26, 2024 End: August 26, 2024 Team Status: Inactive Member Role Status Nicolle Vicente MD Primary Care Provider Active Start: September 22, 2024 End: September 22, 2024Eric Shaniqua Dos Santos DOAttending ProviderActiveStart: September 22, 2024 End: September 22, 2024 Team Status: Inactive Member Role Status Dates Niurka Vicente MD Primary Care Provider Active Start: October 20, 2024 End: October 20, 2024Eric N Bialaski , DOAttending ProviderActiveStart: October 20, 2024 End: October 20, 2024Team MemberRelationshipSpecialtyStart DateEnd Date Niurka Vicente MD [address] [facility] [place] [address] [place] [address] PCP - Jjttonp41/28/19 Team Status: Inactive Member Role Status Dates Niurka Vicente MD Primary Care Provider Active Start: November 20, 2024 End: November 20, 2024Niurka Vicente MDAttbrandon ProviderActiveStart: November 20, 2024 End: November 20, 2024Team MemberRelationshipSpecialtyStart DateEnd Date Niurka Vicente MD [address] [facility] [place] [address] [place] [address] PCP - Rsepgsz15/28/19Team MemberRelationshipSpecialtyStart DateEnd Date Niurka Vicente MD [address] [facility] [place] [address] [place] [address] PCP - Qsmhfpk90/28/19Team MemberRelationshipSpecialtyStart DateEnd Date Niurka Vicente MD [address] [facility] [place] [address] [place] [address] PCP - Etmixgc70/28/19Team MemberRelationshipSpecialtyStart DateEnd Date Niurka Vicente MD [address] [facility] [place] [address] [place] [address] PCP - Bgcgecq77/28/19 Team Status: Inactive Member Role Status Dates Niurka Vicente MD Primary Care Provider Active Start: December 22, 2024 End: December 22, 2024Eric N Raya , DOAttending ProviderActiveStart: December 22, 2024 End: December 22, 2024 Team Status: Active Member Role/Relationship Status Dates Niurka Vicente MD Primary Care Provider Active Team Status: Inactive Member Role/Relationship Status Dates Niurka Vicente MD Primary Care Provider Active Start: October 20, 2024 End: October 20, 2024Siri Nielsen ProviderActiveStart: October 20, 2024 End: October 20, 2024 Team Status: Inactive Member Role/Relationship Status Dates Niurka Vicente MD Primary Care Provider Active Start: November 20, 2024 End: November 20, 2024Dilip Yoo ProviderActiveStart: November 20, 2024 End: November 20, 2024 Team Status: Inactive Member Role/Relationship Status Dates Niurka Vicente MD Primary Care Provider Active Start: December 22, 2024 End: December 22, 2024Eric Siri Hooper ProviderActiveStart: December 22, 2024 End: December 22, 2024 Team Status: Inactive Member Role/Relationship Status Dates Niurka Vicente MD Primary Care Provider Active Start: January 07, 2025 End: January 07, 2025Dilip Yoo ProviderActiveStart: January 07, 2025 End: January 07, 2025 Goals (unrecognized section and content) Goals may be documented in a n alternate section FOR RECORDS PERTAINING TO PATIENTS WHO ARE OR HAVE BEEN ENROLLED IN A CHEMICAL DEPENDENCY/SUBSTANCEABUSE PROGRAM, SOME INFORMATION MAY BE OMITTED. This clinical summary was aggregated from multiple sources. Caution should be exercised in using it in the provision of clinical care. This summary normalizes information from multiple sources, and as a consequence, information in this document may materially change the coding, format and clinical context of patient data. In addition, data may be omitted in some cases. CLINICAL DECISIONS SHOULD BE BASED ON THE PRIMARY CLINICAL RECORDS. [email or web address] provides no warranty or guarantee of the accuracy or completeness of information in this document.
== END 2025-01-23 06:44 | disposition home or self-care (01) ==
LOC: MAMMO 06:43
PROVIDERS: PCP Family Medicine; Visit Provider Family Medicine
DX: Z12.31 Encounter for screening mammogram for malignant neoplasm of breast (principal); Z80.3 Family history of malignant neoplasm of breast; Z80.1 Family history of malignant neoplasm of trachea, bronchus and lung; Z80.8 Family history of malignant neoplasm of other organs or systems
CPT/HCPCS: 77063; 77067